=== PATIENT | female | born 1995 | race Caucasian/White ===

== ENCOUNTER 2017-12-13 02:31 | Emergency (ER) | payer SELFPAY ==
--- NOTE | 2017-12-13 03:39 | ER ---
Nurse's Notes [facility] Name: Vaishnavi Dey Age: 22 yrs Sex: Female : 1995 Arrival Date: 12/13/2017 Time: 02:35 Bed 5 Private MD: Diagnosis: Bronchitis, not specified as acute or chronic Presentation: 12/13 02:50 Presenting complaint: Patient states: she thinks she has the flu with congestion, body bb aches, fever, voice change. Transition of care: patient was not received from another setting of care. Onset of symptoms was December 12, 2017. Care prior to arrival: Medication(s) given: Motrin, at approx 2000 last night. 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 - Social history:: Smoking status: Patient uses tobacco products, smokes one-half pack cigarettes per day, Patient/guardian denies using alcohol, street drugs. - Family history:: not pertinent. Screenin:11 Abuse screen: Denies threats or abuse. Denies injuries from another. Nutritional lp1 screening: No deficits noted. Tuberculosis screening: No symptoms or risk factors identified. Fall Risk None identified. Assessment: 03:05 General: Appears ill, Behavior is calm, cooperative, appropriate for age. Pain: Denies lp1 pain. Neuro: Level of Consciousness is awake, alert, obeys commands. Cardiovascular: Patient's skin is warm and dry. Respiratory: Reports cough that is Airway is patent Respiratory effort is even, unlabored, Breath sounds are clear bilaterally. GI: No signs and/or symptoms were reported involving the gastrointestinal system. : No signs and/or symptoms were reported regarding the genitourinary system. EENT: Throat is reddened has enlarged tonsils Reports nasal congestion. 03:05 Derm: Skin is pink, warm \T\ dry. Musculoskeletal: Circulation, motion, and sensation lp1 intact. Vital Signs: 02:52 BP 127 / 91; Pulse 118; Resp 18 S; Temp 99.2(O); Pulse Ox 96% on R/A; Weight 79.38 kg bb (R); Height 5 ft. 2 in. (157.48 cm) (R); Pain 4/10; 03:45 BP 122 / 86; Pulse 108; Resp 18; Pulse Ox 97% on R/A; lp1 02:52 Body Mass Index 32.01 (79.38 kg, 157.48 cm) bb ED Course: 02:35 Patient arrived in ED. do 02:43 Myranda Moses MD is Attending Physician. ma2 02:52 Triage completed. bb 02:52 Arm band placed on Patient placed in an exam room, on pulse oximetry. Family bb accompanied patient. 03:04 Virginie Crowley, RN is Primary Nurse. lp1 03:04 Flu and/or RSV swab sent to lab. Strep swab sent to lab. lp1 03:11 Patient has correct armband on for positive identification. lp1 03:11 No provider procedures requiring assistance completed. lp1 03:39 Throat Culture Sent. bp 03:43 Patient did not have IV access during this emergency room visit. lp1 Administered Medications: 03:44 Drug: [place] (7.5 mg-325 mg) 1 tabs Route: PO; lp1 03:44 Follow up: Response: Medication administered at discharge. lp1 Outcome: 03:38 Discharge ordered by . ma2 03:44 Discharged to home ambulatory, with family. lp1 03:44 Condition: good 03:44 Discharge instructions given to patient, Instructed on discharge instructions, follow up and referral plans. medication usage, Demonstrated understanding of instructions, follow-up care, medications, Prescriptions given X 2. 03:45 Patient left the ED. lp1 Signatures: Noa Chawla RN RN bb Virginie Crowley, DANIELE RN lp1 Clarissa Moon Brian RN DANIELE bp Myranda Moses MD MD ma2
--- NOTE | 2017-12-13 03:39 | EDPHYS ---
Physician Documentation [facility] Name: Vaishnavi Dey Age: 22 yrs Sex: Female : 1995 Arrival Date: 12/13/2017 Time: 02:35 Bed 5 Private MD: ED Physician Myranda Moses HPI: 12/13 03:39 This 22 yrs old Female presents to ER via Ambulatory with complaints of Flu ma2 Symptoms. 02:59 The patient presents with sore throat. The patient describes throat pain as burning. ma2 Onset: The symptoms/episode began/occurred gradually, 2 day(s) ago. Associated signs and symptoms: Pertinent positives: cough. Associated signs and symptoms: Pertinent negatives diarrhea, dysphagia. The patient has experienced similar episodes in the past. 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 - Social history:: Smoking status: Patient uses tobacco products, smokes one-half pack cigarettes per day, Patient/guardian denies using alcohol, street drugs. - Family history:: not pertinent. ROS: 02:59 ENT: Positive for ear pain, hoarseness, sore throat. ma2 02:59 All other systems are negative. 03:39 Constitutional: Negative for fever, chills, and weight loss, Eyes: Negative for injury, ma2 pain, redness, and discharge. Exam: 02:59 Constitutional: This is a well developed, well nourished patient who is awake, alert, ma2 and in no acute distress. Head/Face: Normocephalic, atraumatic. Eyes: Pupils equal round and reactive to light, extra-ocular motions intact. Lids and lashes normal. Conjunctiva and sclera are non-icteric and not injected. Cornea within normal limits. Periorbital areas with no swelling, redness, or edema. Chest/axilla: Normal chest wall appearance and motion. Nontender with no deformity. No lesions are appreciated. Cardiovascular: Regular rate and rhythm with a normal S1 and S2. No gallops, murmurs, or rubs. Normal PMI, no JVD. No pulse deficits. Respiratory: Lungs have equal breath sounds bilaterally, clear to auscultation and percussion. No rales, rhonchi or wheezes noted. No increased work of breathing, no retractions or nasal flaring. 02:59 ENT: TM's: are normal, Nose: is normal, Posterior pharynx: erythema, exudate, is not appreciated. Vital Signs: 02:52 BP 127 / 91; Pulse 118; Resp 18 S; Temp 99.2(O); Pulse Ox 96% on R/A; Weight 79.38 kg bb (R); Height 5 ft. 2 in. (157.48 cm) (R); Pain 4/10; 03:45 BP 122 / 86; Pulse 108; Resp 18; Pulse Ox 97% on R/A; lp1 02:52 Body Mass Index 32.01 (79.38 kg, 157.48 cm) bb MDM: 02:43 Patient medically screened. [facility] 02:59 Differential diagnosis: gerson-barbosa virus, tonsillitis, upper respiratory infection, ma2 viral syndrome. 03:38 Data reviewed: vital signs, nurses notes. Counseling: I had a detailed discussion with pa2 the patient and/or guardian regarding: the historical points, exam findings, and any diagnostic results supporting the discharge/admit diagnosis, the presence of at least one elevated blood pressure reading (>120/80) during this emergency department visit, the need for outpatient follow up. Response to treatment: the patient's symptoms have markedly improved after treatment. 12/13 02:44 Order name: Flu; Complete Time: 03:33 [facility] 12/13 02:44 Order name: Strep; Complete Time: 03:33 [facility] 12/13 03:23 Order name: Throat Culture EDMS Administered Medications: 03:44 Drug: [place] (7.5 mg-325 mg) 1 tabs Route: PO; lp1 03:44 Follow up: Response: Medication administered at discharge. lp1 Disposition: 12/13/17 03:38 Discharged to Home. Impression: Bronchitis, not specified as acute or chronic. - Condition is Stable. - Discharge Instructions: Acute Bronchitis. - Prescriptions for Tylenol- Codeine #3 300-30 mg Oral Tablet - take 2 tablet by ORAL route every 6 hours As needed; 30 tablet. Zithromax Z- Tanner 250 mg Oral Tablet - take 1 tablet by ORAL route as directed for 5 days Day 1 - take two (2) tablets one time. Day 2, 3, 4 , 5 take one (1) tablet once daily.; 6 tablet. - Work release form, Medication Reconciliation Form, Thank You Letter, Antibiotic Education, Prescription Opioid Use form. - Follow up: Private Physician; When: Tomorrow; Reason: Continuance of care. - Problem is new. - Symptoms have improved. 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
[2017-12-13] MEDS ORDERED: HYDROCODONE/APAP 7.5/325 MG TAB ONE (03:40)
== END 2017-12-13 03:45 | disposition home or self-care (01) ==
LOC: ER 02:31
DX: J40 Bronchitis, not specified as acute or chronic (principal); F17.210 Nicotine dependence, cigarettes, uncomplicated; Z88.0 Allergy status to penicillin; Z88.1 Allergy status to other antibiotic agents
CPT/HCPCS: 87070; 87081; 87804; 99284

== ENCOUNTER 2018-06-20 16:56 | Emergency (ER) | payer SELFPAY ==
--- NOTE | 2018-06-20 17:21 | EDPHYS ---
Physician Documentation [facility] Name: Vaishnavi Dey Age: 23 yrs Sex: Female : 1995 Arrival Date: 06/20/2018 Time: 16:58 Bed 5 Private MD: ED Physician Ronnie Womack HPI: 06/20 17:18 This 23 yrs old Female presents to ER via Ambulatory with complaints of Ear jr8 Pain. 17:18 The patient presents with pain. The complaints affect the right ear. Onset: The jr8 symptoms/episode began/occurred gradually, 2 week(s) ago. Modifying factors: The symptoms are alleviated by nothing, the symptoms are aggravated by nothing. Associated signs and symptoms: Pertinent positives: fever, sore throat, cough, sinus trouble. Severity of symptoms: At their worst the symptoms were moderate in the emergency department the symptoms are unchanged. The patient has not experienced similar symptoms in the past. The patient has not recently seen a physician. 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 - Social history:: Smoking status: Patient uses tobacco products, smokes one-half pack cigarettes per day. - Ebola Screening: : Patient denies travel to an Ebola-affected area in the 21 days before illness onset. ROS: 17:18 Eyes: Negative for injury, pain, redness, and discharge, Neck: Negative for injury, jr8 pain, and swelling, Cardiovascular: Negative for chest pain, palpitations, and edema, Respiratory: Negative for shortness of breath, cough, wheezing, and pleuritic chest pain, Abdomen/GI: Negative for abdominal pain, nausea, vomiting, diarrhea, and constipation, Back: Negative for injury and pain, MS/Extremity: Negative for injury and deformity, Skin: Negative for injury, rash, and discoloration, Neuro: Negative for headache, weakness, numbness, tingling, and seizure. 17:18 ENT: Positive for ear pain, rhinorrhea, sinus congestion, sinus pain, sore throat. Exam: 17:18 Head/Face: Normocephalic, atraumatic. Eyes: Pupils equal round and reactive to light, jr8 extra-ocular motions intact. Lids and lashes normal. Conjunctiva and sclera are non-icteric and not injected. Cornea within normal limits. Periorbital areas with no swelling, redness, or edema. Cardiovascular: Regular rate and rhythm with a normal S1 and S2. No gallops, murmurs, or rubs. Normal PMI, no JVD. No pulse deficits. Respiratory: Lungs have equal breath sounds bilaterally, clear to auscultation and percussion. No rales, rhonchi or wheezes noted. No increased work of breathing, no retractions or nasal flaring. Abdomen/GI: Soft, non-tender, with normal bowel sounds. No distension or tympany. No guarding or rebound. No evidence of tenderness throughout. Back: No spinal tenderness. No costovertebral tenderness. Full range of motion. Skin: Warm, dry with normal turgor. Normal color with no rashes, no lesions, and no evidence of cellulitis. MS/ Extremity: Pulses equal, no cyanosis. Neurovascular intact. Full, normal range of motion. Neuro: Awake and alert, GCS 15, oriented to person, place, time, and situation. Cranial nerves II-XII grossly intact. Motor strength 5/5 in all extremities. Sensory grossly intact. Cerebellar exam normal. Normal gait. 17:18 ENT: External ear(s): are unremarkable, Ear canal(s): are normal, clear, TM's: fluid levels, on the right, Examination of the other ear shows no obvious abnormality, Nose: External nose: no obvious acute abnormality, Nasal septum: is midline, Nasal mucosa: moist, Turbinates: are normal, Mouth: Lips: moist, Oral mucosa: pink and intact, moist, Gums: pink, Tongue: is moist, Posterior pharynx: Airway: patent, Tonsils: are normal in appearance, Uvula: midline, swelling, is not appreciated, erythema, is not appreciated. 17:18 Neck: C-spine: appears grossly normal, Thyroid: appears normal, Trachea: is midline with no obvious abnormalities, ROM/movement: is normal, is supple, without pain, no range of motions limitations, no meningismus, no nuchal rigidity, negative Brudzinski's sign, negative Kernig's sign, Lymph nodes: lymphadenopathy is appreciated, anterior cervical nodes, submandibular nodes. Vital Signs: 17:01 BP 132 / 96; Pulse 89; Resp 18; Temp 97.0; Pulse Ox 99% on R/A; Weight 74.84 kg (R); aj1 Height 5 ft. 2 in. (157.48 cm) (R); Pain 6/10; 17:01 Body Mass Index 30.18 (74.84 kg, 157.48 cm) aj1 MDM: 17:04 Patient medically screened. jr8 17:18 Data reviewed: vital signs, nurses notes, and as a result, I will discharge patient. jr8 Data interpreted: Pulse oximetry: on room air is 99 %. Interpretation: normal. Counseling: I had a detailed discussion with the patient and/or guardian regarding: the historical points, exam findings, and any diagnostic results supporting the discharge/admit diagnosis, the need for outpatient follow up, a family practitioner, to return to the emergency department if symptoms worsen or persist or if there are any questions or concerns that arise at home. Administered Medications: 17:26 Drug: TORadol 60 mg Route: IM; Site: left gluteus; hb 17:45 Follow up: Response: Pain is decreased bp 17:45 Follow up: Response: No adverse reaction hb 17:26 Drug: [place] 5 mg-325 mg 1 tabs Route: PO; hb 17:45 Follow up: Response: Pain is decreased bp 17:46 Follow up: Response: No adverse reaction hb Disposition: 18:55 Co-signature as Attending Physician, Ronnie Womack MD I agree with the assessment and kdr plan of care. Disposition: 06/20/18 17:21 Discharged to Home. Impression: Acute serous otitis media, right ear, Acute lymphadenitis of face, head and neck, Acute upper respiratory infection, unspecified. - Condition is Stable. - Discharge Instructions: Otitis Media, Adult, Serous Otitis Media, Upper Respiratory Infection, Adult, Lymphadenopathy. - Prescriptions for Ibuprofen 800 mg Oral Tablet - take 1 tablet by ORAL route every 12 hours As needed take with food; 20 tablet. Prednisone 20 mg Oral Tablet - take 1 tablet by ORAL route once daily for 5 days; 5 tablet. Tessalon Perles 100 mg Oral Capsule - take 1 capsule by ORAL route every 8 hours As needed; 15 capsule. Zithromax Z- Tanner 250 mg Oral Tablet - take 1 tablet by ORAL route as directed for 5 days Day 1 - take two (2) tablets one time. Day 2, 3, 4 , 5 take one (1) tablet once daily.; 6 tablet. - Medication Reconciliation Form, Thank You Letter, Antibiotic Education, Prescription Opioid Use form. - Follow up: Private Physician; When: 1 week; Reason: Recheck today's complaints, Continuance of care, Re-evaluation by your physician. - Problem is new. - Symptoms have improved. Signatures: Citlali Leblanc RN RN aj1 Ronnie Womack MD MD [facility] Reinaldo Mccarty PA PA jr8 Benita Ramirez RN RN Emmett Leggett RN bp Corrections: (The following items were deleted from the chart) 17:46 17:21 06/20/2018 17:21 Discharged to Home. Impression: Acute serous otitis media, right hb ear; Acute lymphadenitis of face, head and neck; Acute upper respiratory infection, unspecified. Condition is Stable. Forms are Medication Reconciliation Form, Thank You Letter, Antibiotic Education, Prescription Opioid Use. Follow up: Private Physician; When: 1 week; Reason: Recheck today's complaints, Continuance of care, Re-evaluation by your physician. Problem is new. Symptoms have improved. jr8
--- NOTE | 2018-06-20 17:21 | ER ---
Nurse's Notes [facility] Name: Vaishnavi Dey Age: 23 yrs Sex: Female : 1995 Arrival Date: 06/20/2018 Time: 16:58 Bed 5 Private MD: Diagnosis: Acute serous otitis media, right ear;Acute lymphadenitis of face, head and neck;Acute upper respiratory infection, unspecified Presentation: 06/20 17:00 Presenting complaint: Patient states: Right ear pain, right jaw pain, sore throat, and aj1 fever for the past 2 weeks. TMax 101. Patient has not seen her PHCP regarding this complaint. Transition of care: patient was not received from another setting of care. Onset of symptoms was June 2018. Risk Assessment: Do you want to hurt yourself or someone else? Patient reports no desire to harm self or others. Initial Sepsis Screen: Does the patient meet any 2 criteria? No. Patient's initial sepsis screen is negative. Does the patient have a suspected source of infection? Yes: Other: sore throat, ear pain. Care prior to arrival: None. 17:00 Method Of Arrival: Ambulatory aj1 17:00 Acuity: VICKY 4 aj1 Triage Assessment: 17:01 General: Appears in no apparent distress. uncomfortable, Behavior is calm, cooperative, aj1 appropriate for age. Pain: Complains of pain in left aspect of posterior pharynx, right aspect of posterior pharynx, right jaw and right ear Pain currently is 6 out of 10 on a pain scale. EENT: Reports ear pain, jaw pain, sore throat. Neuro: Level of Consciousness is awake, alert, obeys commands. Cardiovascular: Patient's skin is warm and dry. Respiratory: Airway is patent Respiratory effort is even, unlabored, Respiratory pattern is regular, symmetrical. 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 - Social history:: Smoking status: Patient uses tobacco products, smokes one-half pack cigarettes per day. - Ebola Screening: : Patient denies travel to an Ebola-affected area in the 21 days before illness onset. Screenin:24 Abuse screen: Denies threats or abuse. Denies injuries from another. Nutritional bp screening: No deficits noted. Tuberculosis screening: No symptoms or risk factors identified. Fall Risk None identified. Assessment: 17:00 General: Appears in no apparent distress. comfortable, obese, Behavior is cooperative, bp appropriate for age, anxious. Pain: Complains of pain in right ear and mouth and face and right jaw. Neuro: Level of Consciousness is awake, alert, obeys commands, Oriented to person, place, time, situation, Appropriate for age. Cardiovascular: No deficits noted. Respiratory: Airway is patent Respiratory effort is even, unlabored, Respiratory pattern is regular, symmetrical. GI: No signs and/or symptoms were reported involving the gastrointestinal system. : No signs and/or symptoms were reported regarding the genitourinary system. EENT: Reports pain in right ear. Derm: No deficits noted. Musculoskeletal: Circulation, motion, and sensation intact. Range of motion: intact in all extremities. Vital Signs: 17:01 BP 132 / 96; Pulse 89; Resp 18; Temp 97.0; Pulse Ox 99% on R/A; Weight 74.84 kg (R); aj1 Height 5 ft. 2 in. (157.48 cm) (R); Pain 6/10; 17:01 Body Mass Index 30.18 (74.84 kg, 157.48 cm) aj1 ED Course: 16:58 Patient arrived in ED. tw3 17:01 Triage completed. aj1 17:01 Arm band placed on Patient placed in an exam room. aj1 17:04 Emmett Leggett, RN is Primary Nurse. bp 17:04 Reinaldo Mccarty PA is PHCP. jr8 17:04 Ronnie Womack MD is Attending Physician. jr8 17:24 Patient has correct armband on for positive identification. Placed in gown. Bed in low bp position. Call light in reach. Side rails up X2. Adult w/ patient. 17:24 No provider procedures requiring assistance completed. Patient did not have IV access bp during this emergency room visit. Administered Medications: 17:26 Drug: TORadol 60 mg Route: IM; Site: left gluteus; hb 17:45 Follow up: Response: Pain is decreased bp 17:45 Follow up: Response: No adverse reaction hb 17:26 Drug: [place] 5 mg-325 mg 1 tabs Route: PO; hb 17:45 Follow up: Response: Pain is decreased bp 17:46 Follow up: Response: No adverse reaction hb Outcome: 17:21 Discharge ordered by MD. vega 17:46 Discharged to home ambulatory. hb 17:46 Condition: stable 17:46 Discharge instructions given to patient, Instructed on discharge instructions, follow up and referral plans. medication usage, Demonstrated understanding of instructions, follow-up care, medications, Prescriptions given X 4. 17:46 Patient left the ED. hb Signatures: Citlali Leblanc RN RN aj1 Reinaldo Mccarty PA PA jr8 Benita Ramirez, RN RN Stacy Sharma tw3 Emmett Leggett RN RN bp
[2018-06-20] MEDS ORDERED: KETOROLAC 30 MG/ML INJ ONE (17:31)
[2018-06-20] MEDS ORDERED: HYDROCODONE/APAP 5/325 MG TAB ONE (17:31)
== END 2018-06-20 17:46 | disposition home or self-care (01) ==
LOC: ER 16:56
DX: H65.01 Acute serous otitis media, right ear (principal); J06.9 Acute upper respiratory infection, unspecified; L04.0 Acute lymphadenitis of face, head and neck; F17.210 Nicotine dependence, cigarettes, uncomplicated; Z88.0 Allergy status to penicillin; Z88.1 Allergy status to other antibiotic agents
CPT/HCPCS: 96372; 99283

== ENCOUNTER 2018-08-29 14:46 | Emergency (ER) | payer SELFPAY ==
[2018-08-29 16:36] LABS: Absolute Lymphocytes (CBC) 2.9 K/uL (0.7-4.9); Absolute Monocytes 0.6 K/uL (0.1-1.3); Absolute Neutrophil 4.7 K/uL (1.8-8.0); Basophils % 0.3 % (0-1.3); Eosinophils % 1.4 % (0-4.4); Hematocrit 40.5 % (36.0-45.0); Lymphocytes % 34.4 % (15.3-44.8); MPV 9.2 fL (7.6-11.3); Monocytes % 6.9 % (3.3-12.3); RBC Red Blood Cell Count 4.55 M/uL (3.86-4.86)
[2018-08-29] MEDS ORDERED: ONDANSETRON 4 MG/2 ML VIAL ONE (16:40)
[2018-08-29] MEDS ORDERED: NA CHLORIDE 0.9% 1,000 ML ONE (16:40)
[2018-08-29 16:49] LABS: ALT/SGPT 21 U/L (12-78); AST/SGOT 13 U/L (15-37); Albumin 4.2 g/dL (3.4-5.0); Alkaline Phosphatase 74 U/L (45-117); BUN Blood Urea Nitrogen 9 mg/dL (7-18); Bicarbonate 26 mmol/L (21-32); Bilirubin Direct < 0.1 mg/dL (0-0.2); Bilirubin Total 0.2 mg/dL (0.2-1.0); Glucose Level 80 mg/dL (74-106); Lipase 99 U/L (73-393); Protein, Total 8.1 g/dL (6.4-8.2); Sodium Level 140 mmol/L (136-145)
[2018-08-29 16:59] LABS: Urine Blood TRACE (NEG); Urine Glucose NEGATIVE (NEG); Urine Protein TRACE (NEG)
--- NOTE | 2018-08-29 17:04 | EDPHYS ---
Physician Documentation [facility] Name: Vaishnavi Dey Age: 23 yrs Sex: Female : 1995 Arrival Date: 08/29/2018 Time: 14:47 Bed 3 Private MD: ED Physician Myranda Moses HPI: 08/29 16:48 This 23 yrs old Female presents to ER via Ambulatory with complaints of kb Nausea/Vomiting/Diarrhea. 16:48 The patient presents to the emergency department with nausea, vomiting, diarrhea. The kb patient has not experienced similar symptoms in the past. The patient has not recently seen a physician. 16:48 Onset: The symptoms/episode began/occurred 3 day(s) ago. Possible causes: unknown. The kb symptoms are aggravated by nothing. The symptoms are alleviated by nothing. Associated signs and symptoms: Pertinent positives: diarrhea, nausea, vomiting. Severity of symptoms: At their worst the symptoms were moderate in the emergency department the symptoms are unchanged. 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 - Social history:: Smoking status: Patient uses tobacco products, smokes one-half pack cigarettes per day. - Ebola Screening: : No symptoms or risks identified at this time. ROS: 16:47 Constitutional: Negative for fever, chills, and weight loss, ENT: Negative for injury, kb pain, and discharge, Neck: Negative for injury, pain, and swelling, Cardiovascular: Negative for chest pain, palpitations, and edema, Respiratory: Negative for shortness of breath, cough, wheezing, and pleuritic chest pain, Back: Negative for injury and pain, : Negative for injury, bleeding, discharge, and swelling, MS/Extremity: Negative for injury and deformity, Skin: Negative for injury, rash, and discoloration, Neuro: Negative for headache, weakness, numbness, tingling, and seizure. 16:47 Abdomen/GI: Positive for nausea, vomiting, and diarrhea, Negative for abdominal pain, constipation, abdominal cramps, abdominal distension, anorexia. Exam: 16:47 Constitutional: This is a well developed, well nourished patient who is awake, alert, kb and in no acute distress. Head/Face: Normocephalic, atraumatic. Chest/axilla: Normal chest wall appearance and motion. Nontender with no deformity. No lesions are appreciated. Cardiovascular: Regular rate and rhythm with a normal S1 and S2. No gallops, murmurs, or rubs. Normal PMI, no JVD. No pulse deficits. Respiratory: Lungs have equal breath sounds bilaterally, clear to auscultation and percussion. No rales, rhonchi or wheezes noted. No increased work of breathing, no retractions or nasal flaring. Abdomen/GI: Soft, non-tender, with normal bowel sounds. No distension or tympany. No guarding or rebound. No evidence of tenderness throughout. Skin: Warm, dry with normal turgor. Normal color with no rashes, no lesions, and no evidence of cellulitis. MS/ Extremity: Pulses equal, no cyanosis. Neurovascular intact. Full, normal range of motion. Neuro: Awake and alert, GCS 15, oriented to person, place, time, and situation. Cranial nerves II-XII grossly intact. Motor strength 5/5 in all extremities. Sensory grossly intact. Cerebellar exam normal. Normal gait. Vital Signs: 14:52 BP 119 / 77; Resp 20; Temp 98.3; Pulse Ox 99% ; Weight 77.11 kg; Height 5 ft. 2 in. sv (157.48 cm); Pain 6/10; 16:34 BP 122 / 92 Supine; Pulse 87; tw2 16:34 BP 114 / 83 Sitting; Pulse 79; tw2 16:34 BP 117 / 85 Standing; Pulse 84; tw2 17:29 BP 111 / 78; Pulse 81; Resp 17; Pulse Ox 96% on R/A; tw2 14:52 Body Mass Index 31.09 (77.11 kg, 157.48 cm) sv 16:34 pt reports dizziness that remained the same throughout vitals, provider notified. tw2 MDM: 15:48 Patient medically screened. kb 16:47 Data reviewed: vital signs, nurses notes. Data interpreted: Pulse oximetry: on room air kb is 99 %. Interpretation: normal. 16:51 Counseling: I had a detailed discussion with the patient and/or guardian regarding: the kb historical points, exam findings, and any diagnostic results supporting the discharge/admit diagnosis, lab results, the need for outpatient follow up, a family practitioner, to return to the emergency department if symptoms worsen or persist or if there are any questions or concerns that arise at home. 08/29 15:48 Order name: Basic Metabolic Panel; Complete Time: 16:50 kb 08/29 15:48 Order name: CBC with Diff; Complete Time: 16:37 kb 08/29 15:48 Order name: Hepatic Function; Complete Time: 16:50 kb 08/29 15:48 Order name: Lipase; Complete Time: 16:50 kb 08/29 16:51 Order name: Urine Dipstick--Ancillary (enter results); Complete Time: 17:00 eb 08/29 16:51 Order name: Urine --Ancillary (enter results); Complete Time: 17:00 eb 08/29 15:48 Order name: IV Saline Lock; Complete Time: 16:17 kb 08/29 15:48 Order name: Labs collected and sent; Complete Time: 16:17 kb 08/29 15:48 Order name: Orthostatics; Complete Time: 16:36 kb 08/29 15:48 Order name: Urine Dipstick-Ancillary (obtain specimen); Complete Time: 16:21 kb 08/29 15:48 Order name: Urine Test (obtain specimen); Complete Time: 16:21 kb 08/29 16:52 Order name: PO challenge; Complete Time: 17:28 kb Administered Medications: 16:36 Drug: NS 0.9% 1000 ml Route: IV; Rate: 1000 ml; Site: right antecubital; sg 17:28 Follow up: Response: No adverse reaction; IV Status: Completed infusion; IV Intake: tw2 1000ml 16:36 Drug: Zofran 4 mg Route: IVP; Site: right antecubital; sg 17:28 Follow up: Response: No adverse reaction; Nausea is decreased tw2 Disposition: 17:23 Co-signature as Attending Physician, Myranda Moses MD. ma2 Disposition: 08/29/18 17:03 Discharged to Home. Impression: Nausea and vomiting, Diarrhea, unspecified. - Condition is Stable. - Discharge Instructions: Viral Gastroenteritis, Adult, [id number], Diarrhea, Adult. - Prescriptions for Zofran 4 mg Oral Tablet - take 1 tablet by ORAL route every 6 hours As needed; 20 tablet. - Medication Reconciliation Form, Thank You Letter, Antibiotic Education, Prescription Opioid Use, School release form, Work release form, Family Work Release form. - Follow up: Emergency Department; When: As needed; Reason: Worsening of condition. Follow up: Private Physician; When: 2 - 3 days; Reason: Recheck today's complaints, Continuance of care, Re-evaluation by your physician. Signatures: Dispatcher [employer] EDGabriela Schwarz, TRINA-Eda MENA-Collette Ellis, RN RN sv Montana Cruz RN RN sg Hui Duke RN RN tw2 KallieMyranda merchant MD MD ma2 Corrections: (The following items were deleted from the chart) 17:30 17:03 08/29/2018 17:03 Discharged to Home. Impression: Nausea and vomiting; Diarrhea, tw2 unspecified. Condition is Stable. Forms are Medication Reconciliation Form, Thank You Letter, Antibiotic Education, Prescription Opioid Use. Follow up: Emergency Department; When: As needed; Reason: Worsening of condition. Follow up: Private Physician; When: 2 - 3 days; Reason: Recheck today's complaints, Continuance of care, Re-evaluation by your physician. kb
--- NOTE | 2018-08-29 17:04 | ER ---
Nurse's Notes [facility] Name: Vaishnavi Dey Age: 23 yrs Sex: Female : 1995 Arrival Date: 08/29/2018 Time: 14:47 Bed 3 Private MD: Diagnosis: Nausea and vomiting;Diarrhea, unspecified Presentation: 08/29 14:51 Presenting complaint: Patient states: n/v/d/subjective fever x 3 days. Reports she had sv a syncopal episode earlier after vomiting. Transition of care: patient was not received from another setting of care. Onset of symptoms was August 26, 2018. Care prior to arrival: None. 14:51 Method Of Arrival: Ambulatory sv 14:51 Acuity: VICKY 3 sv 16:55 Risk Assessment: Do you want to hurt yourself or someone else? Patient reports no sg desire to harm self or others. Initial Sepsis Screen: Does the patient meet any 2 criteria? No. Patient's initial sepsis screen is negative. Does the patient have a suspected source of infection? No. Patient's initial sepsis screen is negative. Triage Assessment: 14:53 General: Appears in no apparent distress. uncomfortable, Behavior is calm, cooperative, sv appropriate for age. Pain: Complains of pain in scalp and abdomen Pain currently is 6 out of 10 on a pain scale. Neuro: Level of Consciousness is awake, alert, obeys commands, Oriented to person, place, time, situation, Moves all extremities. Full function Gait is steady, Speech is normal, Reports a syncopal episode. Respiratory: Respiratory effort is even, unlabored, Respiratory pattern is regular, symmetrical. GI: Reports diarrhea, intolerance of fluids, intolerance of food, nausea, vomiting. 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 - Social history:: Smoking status: Patient uses tobacco products, smokes one-half pack cigarettes per day. - Ebola Screening: : No symptoms or risks identified at this time. Screenin:37 Abuse screen: Denies threats or abuse. Denies injuries from another. Nutritional sg screening: No deficits noted. Tuberculosis screening: No symptoms or risk factors identified. Never had TB. Fall Risk None identified. Assessment: 16:37 General: Appears in no apparent distress. comfortable, well groomed, well developed, sg well nourished, Behavior is calm, cooperative, appropriate for age. Pain: Denies pain. 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 Full function Gait is steady, Speech is normal, Facial symmetry appears normal, Pupils are PERRLA. Cardiovascular: Capillary refill is brisk in bilateral fingers Patient's skin is warm and dry. Chest pain is denied. Respiratory: Airway is patent Respiratory effort is even, unlabored, Respiratory pattern is regular, symmetrical, Breath sounds are clear. GI: Abdomen is round non-distended, Bowel sounds present X 4 quads. Reports diarrhea, nausea, vomiting. : No signs and/or symptoms were reported regarding the genitourinary system. EENT: No signs and/or symptoms were reported regarding the EENT system. Derm: Skin is pink, warm \T\ dry. Musculoskeletal: No signs and/or symptoms reported regarding the musculoskeletal system. Vital Signs: 14:52 BP 119 / 77; Resp 20; Temp 98.3; Pulse Ox 99% ; Weight 77.11 kg; Height 5 ft. 2 in. sv (157.48 cm); Pain 6/10; 16:34 BP 122 / 92 Supine; Pulse 87; tw2 16:34 BP 114 / 83 Sitting; Pulse 79; tw2 16:34 BP 117 / 85 Standing; Pulse 84; tw2 17:29 BP 111 / 78; Pulse 81; Resp 17; Pulse Ox 96% on R/A; tw2 14:52 Body Mass Index 31.09 (77.11 kg, 157.48 cm) sv 16:34 pt reports dizziness that remained the same throughout vitals, provider notified. tw2 ED Course: 14:47 Patient arrived in ED. sb2 14:52 Triage completed. sv 14:52 Arm band placed on Patient placed in waiting room, Patient notified of wait time. sv 15:46 [facility] Cowan [facility]C [facility] kb 15:46 Myranda Moses MD is Attending Physician. kb 15:46 Placed in gown. Bed in low position. Adult w/ patient. Pulse ox on. NIBP on. Warm tw2 blanket given. 16:17 Basic Metabolic Panel Sent. ag 16:17 CBC with Diff Sent. ag 16:17 Hepatic Function Sent. ag 16:17 Lipase Sent. ag 16:20 Inserted saline lock: 20 gauge in right antecubital area, using aseptic technique. ag Blood collected. 16:36 Montana Cruz, RN is Primary Nurse. sg 16:53 Urine --Ancillary (enter results) Sent. ag 16:53 Urine Dipstick--Ancillary (enter results) Sent. ag 17:25 No provider procedures requiring assistance completed. sg 17:25 IV discontinued, intact, bleeding controlled, No redness/swelling at site. Pressure sg dressing applied. Administered Medications: 16:36 Drug: NS 0.9% 1000 ml Route: IV; Rate: 1000 ml; Site: right antecubital; sg 17:28 Follow up: Response: No adverse reaction; IV Status: Completed infusion; IV Intake: tw2 1000ml 16:36 Drug: Zofran 4 mg Route: IVP; Site: right antecubital; sg 17:28 Follow up: Response: No adverse reaction; Nausea is decreased tw2 Intake: 17:28 IV: 1000ml; Total: 1000ml. tw2 Outcome: 17:03 Discharge ordered by . kb 17:30 Discharged to home ambulatory, with family. tw2 17:30 Condition: stable 17:30 Discharge instructions given to patient, family, Instructed on discharge instructions, follow up and referral plans. medication usage, Demonstrated understanding of instructions, follow-up care, medications, Prescriptions given X 1. 17:30 Patient left the ED. tw2 Signatures: Gabriela Cowan, WOMEN'S MINISTRY DIRECTOR-C TRINA-Collette Ellis, RN RN Montana Cruz, RN RN Adriana Portillo Tara, RN DANIELE tw2 Tarah Goddard2
== END 2018-08-29 17:30 | disposition home or self-care (01) ==
LOC: ER 14:46
DX: R11.2 Nausea with vomiting, unspecified (principal); R19.7 Diarrhea, unspecified
CPT/HCPCS: 36415; 80048; 80076; 81003; 81025; 83690; 85025; 96361; 96374; 99284; J2405; J7030

== ENCOUNTER 2018-12-07 14:56 | Emergency (ER) | payer SELFPAY ==
[2018-12-07 15:37] LABS: Urine Blood TRACE (NEG); Urine Glucose NEGATIVE (NEG); Urine Protein NEGATIVE (NEG)
[2018-12-07] MEDS ORDERED: FAMOTIDINE 20 MG/2 ML VIAL IV ONE (15:39)
[2018-12-07] MEDS ORDERED: ONDANSETRON 4 MG/2 ML VIAL ONE (15:39)
[2018-12-07] MEDS ORDERED: NA CHLORIDE 0.9% 1,000 ML ONE (15:39)
[2018-12-07 15:46] LABS: Absolute Lymphocytes (CBC) 3.8 K/uL (0.7-4.9); Absolute Monocytes 0.5 K/uL (0.1-1.3); Absolute Neutrophil 6.2 K/uL (1.8-8.0); Basophils % 0.7 % (0-1.3); Eosinophils % 0.9 % (0-4.4); Hematocrit 42.3 % (36.0-45.0); Lymphocytes % 35.4 % (15.3-44.8); MPV 9.4 fL (7.6-11.3); Monocytes % 4.7 % (3.3-12.3); RBC Red Blood Cell Count 4.72 M/uL (3.86-4.86)
[2018-12-07 16:15] LABS: ALT/SGPT 27 U/L (12-78); AST/SGOT 12 U/L (15-37); Albumin 3.9 g/dL (3.4-5.0); Alkaline Phosphatase 80 U/L (45-117); BUN Blood Urea Nitrogen 7 mg/dL (7-18); Bicarbonate 26 mmol/L (21-32); Bilirubin Direct < 0.1 mg/dL (0-0.2); Bilirubin Total 0.2 mg/dL (0.2-1.0); Glucose Level 83 mg/dL (74-106); Lipase 90 U/L (73-393); Potassium 4.4 mmol/L (3.5-5.1); Protein, Total 7.6 g/dL (6.4-8.2); Sodium Level 140 mmol/L (136-145)
--- NOTE | 2018-12-07 16:43 | RAD REPORT ---
EXAM DESCRIPTION: CTAbdomen Pelvis W Contrast - 12/07/2018 4:35 pm CLINICAL HISTORY: Abdominal pain. iv contrast only;Abd pain COMPARISON: Abdomen Pelvis W Contrast dated 02/21/2016; CT ABD PELVIS W CONTRAST dated 09/10/2015 TECHNIQUE: Biphasic CT imaging of the abdomen and pelvis was performed with 100 ml non-ionic IV cont rast. All CT scans are performed using dose optimization technique as appropriate and may include automated exposure control or mA/KV adjustment according to patient size. FINDINGS: Mild linear subsegmental atelectasis is present both lung bases. The liver, spleen, pancreas, adrenal glands and kidneys are within normal limits. No bowel obstruction, free air, free fluid or abscess. The appendix is normal. No evidence of signi ficant lymphadenopathy. No suspicious bony findings. IMPRESSION: No acute intra-abdominal or pelvic finding.
--- NOTE | 2018-12-07 16:46 | ER ---
Nurse's Notes [facility] Name: Vaishnavi Dey Age: 23 yrs Sex: Female : 1995 Arrival Date: 12/07/2018 Time: 14:59 Bed 25 Private MD: None, None Diagnosis: Generalized abdominal pain;Nausea and vomiting Presentation: 12/07 15:05 Presenting complaint: Patient states: headache, N/V, shakiness and abd burning that ss began yesterday. Transition of care: patient was not received from another setting of care. Onset of symptoms was December 06, 2018. Risk Assessment: Do you want to hurt yourself or someone else? Patient reports no desire to harm self or others. Initial Sepsis Screen: Does the patient meet any 2 criteria? No. Patient's initial sepsis screen is negative. Does the patient have a suspected source of infection? No. Patient's initial sepsis screen is negative. Care prior to arrival: None. 15:05 Method Of Arrival: Ambulatory ss 15:05 Acuity: VICKY 3 ss Historical: - Allergies: 15:06 Keflex; ss 15:06 PENICILLINS (Hives); ss - Home Meds: 15:06 None [Active]; ss - PMHx: 15:06 Ovarian cyst; ss - PSHx: 15:06 None; ss - Immunization history:: Adult Immunizations up to date. - Social history:: Smoking status: Patient uses tobacco products, smokes one-half pack cigarettes per day. - Ebola Screening: : Patient denies exposure to infectious person Patient denies travel to an Ebola-affected area in the 21 days before illness onset. Screenin:52 Abuse screen: Denies threats or abuse. Denies injuries from another. Nutritional aj1 screening: No deficits noted. Tuberculosis screening: No symptoms or risk factors identified. 17:03 Fall Risk None identified. rv Assessment: 15:52 General: Appears in no apparent distress. uncomfortable, Behavior is calm, cooperative, aj1 appropriate for age. Pain: Complains of pain in umbilical area. Neuro: Level of Consciousness is awake, alert, obeys commands, Oriented to person, place, time, situation. Neuro: Reports headache. Cardiovascular: Patient's skin is warm and dry. Respiratory: Airway is patent Respiratory effort is even, unlabored, Respiratory pattern is regular, symmetrical. GI: Abdomen is non-distended, Abd is soft and non tender X 4 quads. Reports lower abdominal pain, nausea, vomiting. : No signs and/or symptoms were reported regarding the genitourinary system. EENT: No signs and/or symptoms were reported regarding the EENT system. Derm: No signs and/or symptoms reported regarding the dermatologic system. Skin is pink, warm \T\ dry. normal. Musculoskeletal: No signs and/or symptoms reported regarding the musculoskeletal system. Circulation, motion, and sensation intact. Vital Signs: 15:06 BP 137 / 90; Pulse 106; Resp 16; Temp 98.4(TE); Pulse Ox 98% on R/A; Weight 74.84 kg; ss Height 5 ft. 2 in. (157.48 cm); Pain 7/10; 15:06 Body Mass Index 30.18 (74.84 kg, 157.48 cm) ED Course: 14:59 Patient arrived in ED. mr 14:59 None, None is Private Physician. mr 15:06 Triage completed. ss 15:06 Gabriela Cowan FNP-C is PHCP. kb 15:06 Tejas Sims MD is Attending Physician. kb 15:06 Arm band placed on right wrist. ss 15:11 Citlali Leblanc, RN is Primary Nurse. aj1 15:52 Patient has correct armband on for positive identification. Bed in low position. Call aj1 light in reach. Side rails up X 1. 15:52 No provider procedures requiring assistance completed. aj1 16:35 CT Abd/Pelvis - W/Contrast In Process Unspecified. EDMS 17:03 IV discontinued, intact, bleeding controlled, No redness/swelling at site. Pressure rv dressing applied. Administered Medications: 15:32 Drug: Pepcid 20 mg Route: IVP; Site: left antecubital; aj1 17:03 Follow up: Response: Pain is decreased rv 15:33 Drug: NS 0.9% 1000 ml Route: IV; Rate: 1000 ml; Site: left antecubital; aj1 17:02 Follow up: IV Status: Completed infusion rv 15:33 Drug: Zofran 4 mg Route: IVP; Site: left antecubital; aj1 17:02 Follow up: Response: No adverse reaction; Nausea is decreased rv Outcome: 16:46 Discharge ordered by . kb 17:03 Discharged to home ambulatory. rv 17:03 Condition: good 17:03 Discharge instructions given to patient, Instructed on discharge instructions, follow up and referral plans. medication usage, Demonstrated understanding of instructions, follow-up care, medications, Prescriptions given X 2. 17:04 Patient left the ED. rv Signatures: Dispatcher [employer] EDMS Gabriela Cowan, STORY ANALYST-C TRINA-Citlali Castillo RN RN aj1 Jade Gaffney mr Kay Ramirez RN RN ss Brandon Shah RN RN rv
--- NOTE | 2018-12-07 16:46 | EDPHYS ---
Physician Documentation [facility] Name: Vaishnavi Dey Age: 23 yrs Sex: Female : 1995 Arrival Date: 12/07/2018 Time: 14:59 Bed 25 Private MD: None, None ED Physician Tejas Sims HPI: 12/07 15:25 This 23 yrs old Female presents to ER via Ambulatory with complaints of kb Vomiting, Abdominal Pain, Headache. 15:25 The patient presents with abdominal pain in the periumbilical area. Onset: The kb symptoms/episode began/occurred 2 day(s) ago, and became worse last night. The symptoms do not radiate. Associated signs and symptoms: Pertinent positives: nausea and vomiting, chills. The symptoms are described as burning. Modifying factors: The symptoms are alleviated by nothing, the symptoms are aggravated by nothing. Severity of pain: At its worst the pain was moderate in the emergency department the pain is unchanged. The patient has not experienced similar symptoms in the past. The patient has not recently seen a physician. Historical: - Allergies: 15:06 Keflex; ss 15:06 PENICILLINS (Hives); ss - Home Meds: 15:06 None [Active]; ss - PMHx: 15:06 Ovarian cyst; ss - PSHx: 15:06 None; ss - Immunization history:: Adult Immunizations up to date. - Social history:: Smoking status: Patient uses tobacco products, smokes one-half pack cigarettes per day. - Ebola Screening: : Patient denies exposure to infectious person Patient denies travel to an Ebola-affected area in the 21 days before illness onset. ROS: 15:20 ENT: Negative for injury, pain, and discharge, Neck: Negative for injury, pain, and kb swelling, Cardiovascular: Negative for chest pain, palpitations, and edema, Respiratory: Negative for shortness of breath, cough, wheezing, and pleuritic chest pain, Back: Negative for injury and pain, : Negative for injury, bleeding, discharge, and swelling, MS/Extremity: Negative for injury and deformity, Skin: Negative for injury, rash, and discoloration. 15:20 Constitutional: Positive for chills. 15:20 Abdomen/GI: Positive for abdominal pain, nausea and vomiting, Negative for diarrhea, constipation, abdominal cramps, abdominal distension, anorexia. 15:23 Neuro: Positive for headache. kb Exam: 15:23 Constitutional: This is a well developed, well nourished patient who is awake, alert, kb and in no acute distress. Head/Face: Normocephalic, atraumatic. ENT: Nares patent. No nasal discharge, no septal abnormalities noted. Tympanic membranes are normal and external auditory canals are clear. Oropharynx with no redness, swelling, or masses, exudates, or evidence of obstruction, uvula midline. Mucous membranes moist. Neck: Trachea midline, no thyromegaly or masses palpated, and no cervical lymphadenopathy. Supple, full range of motion without nuchal rigidity, or vertebral point tenderness. No Meningismus. Chest/axilla: Normal chest wall appearance and motion. Nontender with no deformity. No lesions are appreciated. Cardiovascular: Regular rate and rhythm with a normal S1 and S2. No gallops, murmurs, or rubs. Normal PMI, no JVD. No pulse deficits. Respiratory: Lungs have equal breath sounds bilaterally, clear to auscultation and percussion. No rales, rhonchi or wheezes noted. No increased work of breathing, no retractions or nasal flaring. Skin: Warm, dry with normal turgor. Normal color with no rashes, no lesions, and no evidence of cellulitis. MS/ Extremity: Pulses equal, no cyanosis. Neurovascular intact. Full, normal range of motion. Neuro: Awake and alert, GCS 15, oriented to person, place, time, and situation. Cranial nerves II-XII grossly intact. Motor strength 5/5 in all extremities. Sensory grossly intact. Cerebellar exam normal. Normal gait. 15:23 Abdomen/GI: Inspection: abdomen appears normal, Bowel sounds: normal, in all quadrants, Palpation: soft, in all quadrants, nontender, in the right upper quadrant, left upper quadrant and right lower quadrant, moderate abdominal tenderness, in the left lower quadrant. Vital Signs: 15:06 BP 137 / 90; Pulse 106; Resp 16; Temp 98.4(TE); Pulse Ox 98% on R/A; Weight 74.84 kg; ss Height 5 ft. 2 in. (157.48 cm); Pain 7/10; 15:06 Body Mass Index 30.18 (74.84 kg, 157.48 cm) ss MDM: 15:12 Patient medically screened. kb 15:23 Data reviewed: vital signs, nurses notes. Data interpreted: Pulse oximetry: on room air kb is 98 %. Interpretation: normal. 16:45 Counseling: I had a detailed discussion with the patient and/or guardian regarding: the kb historical points, exam findings, and any diagnostic results supporting the discharge/admit diagnosis, lab results, radiology results, the need for outpatient follow up, a family practitioner, to return to the emergency department if symptoms worsen or persist or if there are any questions or concerns that arise at home. 12/07 15:17 Order name: Basic Metabolic Panel; Complete Time: 16:15 kb 12/07 15:17 Order name: CBC with Diff; Complete Time: 15:53 kb 12/07 15:17 Order name: Hepatic Function; Complete Time: 16:15 kb 12/07 15:17 Order name: Lipase; Complete Time: 16:15 kb 12/07 15:17 Order name: Flu; Complete Time: 16:06 kb 12/07 15:28 Order name: Urine Dipstick--Ancillary (enter results); Complete Time: 15:38 bd 12/07 15:17 Order name: IV Saline Lock; Complete Time: 15:33 kb 12/07 15:17 Order name: Labs collected and sent; Complete Time: 15:33 kb 12/07 15:17 Order name: Urine Dipstick-Ancillary (obtain specimen); Complete Time: 15:25 kb 12/07 15:28 Order name: Urine --Ancillary (enter results); Complete Time: 15:38 bd 12/07 16:16 Order name: CT Abd/Pelvis - W/Contrast; Complete Time: 16:45 kb Administered Medications: 15:32 Drug: Pepcid 20 mg Route: IVP; Site: left antecubital; aj1 17:03 Follow up: Response: Pain is decreased rv 15:33 Drug: NS 0.9% 1000 ml Route: IV; Rate: 1000 ml; Site: left antecubital; aj1 17:02 Follow up: IV Status: Completed infusion rv 15:33 Drug: Zofran 4 mg Route: IVP; Site: left antecubital; aj1 17:02 Follow up: Response: No adverse reaction; Nausea is decreased rv Disposition: 12/08 07:08 Co-signature as Attending Physician, Tejas Sims MD. rn Disposition: 12/07/18 16:46 Discharged to Home. Impression: Generalized abdominal pain, Nausea and vomiting. - Condition is Stable. - Discharge Instructions: Nausea and Vomiting, Adult, Juwi-mk-Kwlh, Abdominal Pain, Adult, Yisc-co-Jtnh. - Prescriptions for Bentyl 20 mg Oral Tablet - take 1 tablet by ORAL route every 6 hours As needed; 20 tablet. Zofran 4 mg Oral Tablet - take 1 tablet by ORAL route every 6 hours As needed; 20 tablet. - Medication Reconciliation Form, Thank You Letter, Antibiotic Education, Prescription Opioid Use, Work release form form. - Follow up: Emergency Department; When: As needed; Reason: Worsening of condition. Follow up: Private Physician; When: 2 - 3 days; Reason: Recheck today's complaints, Continuance of care, Re-evaluation by your physician. Signatures: Dispatcher [employer] EDMS Gabriela Cowan, MATCHER LEATHER [employer]S-C M[employer]-Ckb Citlali Leblanc RN RN aj1 Tejas Sims MD MD rn Smirch, Shelby, RN RN ss Vicente, Ronaldo, RN RN rv Corrections: (The following items were deleted from the chart) 12/07 17:04 16:46 12/07/2018 16:46 Discharged to Home. Impression: Generalized abdominal pain; rv Nausea and vomiting. Condition is Stable. Forms are Medication Reconciliation Form, Thank You Letter, Antibiotic Education, Prescription Opioid Use. Follow up: Emergency Department; When: As needed; Reason: Worsening of condition. Follow up: Private Physician; When: 2 - 3 days; Reason: Recheck today's complaints, Continuance of care, Re-evaluation by your physician. kb
== END 2018-12-07 17:04 | disposition home or self-care (01) ==
LOC: ER 14:56
DX: R10.84 Generalized abdominal pain (principal); F17.210 Nicotine dependence, cigarettes, uncomplicated; Z88.0 Allergy status to penicillin; Z88.1 Allergy status to other antibiotic agents
CPT/HCPCS: 36415; 74177; 80048; 80076; 81003; 81025; 83690; 85025; 87804; 96361; 96374; 96375; 99283; J2405; J7030; Q9967

== ENCOUNTER 2019-07-14 16:41 | Emergency (ER) | payer SELFPAY ==
--- NOTE | 2019-07-14 17:48 | ER ---
Nurse's Notes [facility] Name: Vaishnavi Dey Age: 24 yrs Sex: Female : 1995 Arrival Date: 07/14/2019 Time: 16:42 Bed 10 Private MD: Diagnosis: Acute upper respiratory infection, unspecified;Acute sinusitis Presentation: 07/14 16:58 Presenting complaint: Sore throat, sinus congestion, nonproductive cough, fever, body hb aches, and headache x 3 days. TMAX 102. Transition of care: patient was not received from another setting of care. Onset of symptoms was July 12, 2019. Risk Assessment: Do you want to hurt yourself or someone else? Patient reports no desire to harm self or others. Care prior to arrival: None. 16:58 Method Of Arrival: Ambulatory hb 16:58 Acuity: VICKY 3 hb 18:03 Initial Sepsis Screen: Does the patient meet any 2 criteria? No. Patient's initial iw sepsis screen is negative. Does the patient have a suspected source of infection? No. Patient's initial sepsis screen is negative. Triage Assessment: 17:00 General: Appears in no apparent distress. Behavior is calm, cooperative. Pain: Pain hb currently is 5 out of 10 on a pain scale. EENT: Reports sore throat, sinus congestion. Neuro: Level of Consciousness is awake, alert, obeys commands, Oriented to person, place, time, situation. Cardiovascular: Capillary refill < 3 seconds Patient's skin is warm and dry. Respiratory: Reports cough that is Airway is patent Respiratory effort is even, unlabored, Respiratory pattern is regular, symmetrical, Breath sounds are clear bilaterally. 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 - Social history:: Smoking status: Patient/guardian denies using tobacco. - Ebola Screening: : No symptoms or risks identified at this time. Screenin:02 Abuse screen: Denies threats or abuse. Denies injuries from another. Nutritional hb screening: No deficits noted. Tuberculosis screening: No symptoms or risk factors identified. Fall Risk None identified. Assessment: 17:02 General: see triage assessment . hb 18:03 EENT: Throat. iw Vital Signs: 17:00 BP 151 / 92; Pulse 132; Resp 16; Temp 98.2(TE); Pulse Ox 97% on R/A; Weight 77.11 kg; hb Height 5 ft. 2 in. (157.48 cm); Pain 5/10; 17:54 BP 125 / 80; Pulse 115; Resp 18 S; Temp 98.3(O); Pulse Ox 100% ; iw 17:00 Body Mass Index 31.09 (77.11 kg, 157.48 cm) hb ED Course: 16:42 Patient arrived in ED. rg4 16:50 Gabriela Cowan FNP-C is [facility]. kb 16:50 Tejas Sims MD is Attending Physician. kb 16:59 Triage completed. hb 17:00 Arm band placed on. hb 17:02 Patient has correct armband on for positive identification. hb 17:13 Flu Sent. hb 17:13 Strep Sent. hb 17:53 Leatha Giles, RN is Primary Nurse. iw 18:03 No provider procedures requiring assistance completed. IV discontinued, intact, iw bleeding controlled, No redness/swelling at site. Pressure dressing applied. Administered Medications: No medications were administered Outcome: 17:48 Discharge ordered by MD. kb 18:03 Discharged to home ambulatory, with family. iw 18:03 Condition: good 18:03 Discharge instructions given to patient, family, Instructed on discharge instructions, follow up and referral plans. medication usage, Demonstrated understanding of instructions, follow-up care, medications, Prescriptions given X 2. 18:03 Patient left the ED. iw Signatures: Gabriela Cowan FNP-C FNP-Ckb Williams, Irene, RN RN Benita Ramirez RN RN Michelle Dick rg4 Corrections: (The following items were deleted from the chart) 17:00 16:58 Acuity: VICKY 4 hb hb 17:01 17:00 BP 151 / 92; Pulse 122bpm; Resp 16bpm; Pulse Ox 97% RA; Temp 98.2F Temporal; hb 77.11 kg; Height 5 ft. 2 in.; BMI: 31.0; Pain 5/10; hb
--- NOTE | 2019-07-14 17:49 | EDPHYS ---
Physician Documentation [facility] Name: Vaishnavi Dey Age: 24 yrs Sex: Female : 1995 Arrival Date: 07/14/2019 Time: 16:42 Bed 10 Private MD: ED Physician Tejas Sims HPI: 07/14 17:21 This 24 yrs old Female presents to ER via Ambulatory with complaints of Sore kb Throat, Body Aches. 17:21 The patient has not experienced similar symptoms in the past. The patient has not kb recently seen a physician. 17:21 The patient or guardian reports cough, that is intermittent, described as moderate, kb with no sputum, flu symptoms, arthralgias, low-grade fever. Onset: The symptoms/episode began/occurred 3 day(s) ago. Severity of symptoms: At their worst the symptoms were moderate, in the emergency department the symptoms are unchanged. Modifying factors: The symptoms are alleviated by nothing, the symptoms are aggravated by nothing. Associated signs and symptoms: Pertinent positives: fever, rhinorrhea, sore throat, Pertinent negatives: chest pain, diarrhea, ear ache, nausea, vomiting. 17:22 Pt reports sore throat that started 3 days ago. Yesterday started with fever, cough, kb body aches and malaise. . 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 - Social history:: Smoking status: Patient/guardian denies using tobacco. - Ebola Screening: : No symptoms or risks identified at this time. ROS: 17:20 Neck: Negative for injury, pain, and swelling, Cardiovascular: Negative for chest pain, kb palpitations, and edema, Abdomen/GI: Negative for abdominal pain, nausea, vomiting, diarrhea, and constipation, Back: Negative for injury and pain, : Negative for injury, bleeding, discharge, and swelling, MS/Extremity: Negative for injury and deformity, Skin: Negative for injury, rash, and discoloration, Neuro: Negative for headache, weakness, numbness, tingling, and seizure. 17:20 Constitutional: Positive for body aches, chills, fatigue, fever, malaise, Negative for poor PO intake, weight loss. 17:20 ENT: Positive for rhinorrhea, sinus congestion, sore throat. 17:20 Respiratory: Positive for cough, Negative for dyspnea on exertion, hemoptysis, orthopnea, pleurisy, shortness of breath, sputum production, wheezing. Exam: 17:20 Head/Face: Normocephalic, atraumatic. ENT: Nares patent. No nasal discharge, no kb septal abnormalities noted. Tympanic membranes are normal and external auditory canals are clear. Oropharynx with no redness, swelling, or masses, exudates, or evidence of obstruction, uvula midline. Mucous membranes moist. Neck: Trachea midline, no thyromegaly or masses palpated, and no cervical lymphadenopathy. Supple, full range of motion without nuchal rigidity, or vertebral point tenderness. No Meningismus. Chest/axilla: Normal chest wall appearance and motion. Nontender with no deformity. No lesions are appreciated. Cardiovascular: Regular rate and rhythm with a normal S1 and S2. No gallops, murmurs, or rubs. Normal PMI, no JVD. No pulse deficits. Respiratory: Lungs have equal breath sounds bilaterally, clear to auscultation and percussion. No rales, rhonchi or wheezes noted. No increased work of breathing, no retractions or nasal flaring. Abdomen/GI: Soft, non-tender, with normal bowel sounds. No distension or tympany. No guarding or rebound. No evidence of tenderness throughout. Skin: Warm, dry with normal turgor. Normal color with no rashes, no lesions, and no evidence of cellulitis. MS/ Extremity: Pulses equal, no cyanosis. Neurovascular intact. Full, normal range of motion. Neuro: Awake and alert, GCS 15, oriented to person, place, time, and situation. Cranial nerves II-XII grossly intact. Motor strength 5/5 in all extremities. Sensory grossly intact. Cerebellar exam normal. Normal gait. 17:20 Constitutional: The patient appears alert, awake, uncomfortable. Vital Signs: 17:00 BP 151 / 92; Pulse 132; Resp 16; Temp 98.2(TE); Pulse Ox 97% on R/A; Weight 77.11 kg; hb Height 5 ft. 2 in. (157.48 cm); Pain 5/10; 17:54 BP 125 / 80; Pulse 115; Resp 18 S; Temp 98.3(O); Pulse Ox 100% ; iw 17:00 Body Mass Index 31.09 (77.11 kg, 157.48 cm) hb MDM: 17:03 Patient medically screened. kb 17:21 Data reviewed: vital signs, nurses notes. Data interpreted: Pulse oximetry: on room air kb is 97 %. Interpretation: normal. Counseling: I had a detailed discussion with the patient and/or guardian regarding: the historical points, exam findings, and any diagnostic results supporting the discharge/admit diagnosis, lab results, the need for outpatient follow up, a family practitioner, to return to the emergency department if symptoms worsen or persist or if there are any questions or concerns that arise at home. 17:49 ED course: Pt smokes cigarettes daily, antibiotic prescribed for that reason. 07/14 16:50 Order name: Flu; Complete Time: 17:41 kb 07/14 16:50 Order name: Strep; Complete Time: 17:32 kb 07/14 17:40 Order name: Throat Culture EDMS Administered Medications: No medications were administered Disposition: 07/14/19 17:48 Discharged to Home. Impression: Acute upper respiratory infection, unspecified, Acute sinusitis. - Condition is Stable. - Discharge Instructions: Sinusitis, Adult, Slnz-rw-Wodu, Upper Respiratory Infection, Adult, Fuff-rr-Gdmm, Viral Respiratory Infection, Dzey-Ad-Toyu. - Prescriptions for Prednisone 20 mg Oral Tablet - take 1 tablet by ORAL route once daily for 5 days; 5 tablet. Zithromax Z- Tanner 250 mg Oral Tablet - take 1 tablet by ORAL route as directed for 5 days Day 1 - take two (2) tablets one time. Day 2, 3, 4 , 5 take one (1) tablet once daily.; 6 tablet. - Work release form, Medication Reconciliation Form, Thank You Letter, Antibiotic Education, Prescription Opioid Use form. - Follow up: Emergency Department; When: As needed; Reason: Worsening of condition. Follow up: Private Physician; When: 2 - 3 days; Reason: Recheck today's complaints, Continuance of care, Re-evaluation by your physician. Addendum: 07/17/2019 19:36 Co-signature as Attending Physician, Tejas Sims MD. r n Signatures: Dispatcher [employer] EDVT Gabriela Cowan, GARAGE HELPER-C GARAGE HELPER-Ckb Leatha Giles, RN Tejas Garcia MD MD rn Baxter, Heather, RN RN hb Corrections: (The following items were deleted from the chart) 07/14 17:49 17:48 07/14/2019 17:48 Discharged to Home. Impression: Acute upper respiratory kb infection, unspecified. Condition is Stable. Discharge Instructions: Upper Respiratory Infection, Adult, Hzjp-qb-Bzim, Viral Respiratory Infection, Ukbt-Op-Cjbl. Forms are Medication Reconciliation Form, Thank You Letter, Antibiotic Education, Prescription Opioid Use. Follow up: Emergency Department; When: As needed; Reason: Worsening of condition. Follow up: Private Physician; When: 2 - 3 days; Reason: Recheck today's complaints, Continuance of care, Re-evaluation by your physician. 18:03 17:49 07/14/2019 17:48 Discharged to Home. Impression: Acute upper respiratory iw infection, unspecified; Acute sinusitis. Condition is Stable. Discharge Instructions: Upper Respiratory Infection, Adult, Yjes-vo-Qeoc, Viral Respiratory Infection, Qrwk-Ss-Tdfb, Sinusitis, Adult, Yryr-kv-Fjfq. Prescriptions for Prednisone 20 mg Oral Tablet - take 1 tablet by ORAL route once daily for 5 days; 5 tablet, Zithromax Z-Tanner 250 mg Oral Tablet - take 1 tablet by ORAL route as directed for 5 days Day 1 - take two (2) tablets one time. Day 2, 3, 4 , 5 take one (1) tablet once daily.; 6 tablet. and Forms are Medication Reconciliation Form, Thank You Letter, Antibiotic Education, Prescription Opioid Use, Work release form. Follow up: Emergency Department; When: As needed; Reason: Worsening of condition. Follow up: Private Physician; When: 2 - 3 days; Reason: Recheck today's complaints, Continuance of care, Re-evaluation by your physician. kb
[2019-07-14 18:33] VITALS: BP 125/80; TEMP 98.3; O2SAT 100
== END 2019-07-14 18:03 | disposition home or self-care (01) ==
LOC: ER 16:41
DX: J06.9 Acute upper respiratory infection, unspecified (principal); J01.90 Acute sinusitis, unspecified; Z88.0 Allergy status to penicillin; Z88.1 Allergy status to other antibiotic agents
CPT/HCPCS: 87070; 87081; 87804; 99283

== ENCOUNTER 2019-09-07 13:09 | Emergency (ER) | payer SELFPAY ==
[2019-09-07] MEDS ORDERED: ALBUTEROL 2.5 MG/3 ML NEB SOL ONE (14:05)
[2019-09-07] MEDS ORDERED: IPRATROPIUM BROM 0.5MG/2.5ML ONE (14:05)
--- NOTE | 2019-09-07 14:41 | ER ---
Nurse's Notes [facility] Name: Vaishnavi Dey Age: 24 yrs Sex: Female : 1995 Arrival Date: 09/07/2019 Time: 13:11 Bed 7 Private MD: Diagnosis: Influenza due to identified novel influenza A virus Presentation: 09/07 13:27 Presenting complaint: Patient states: "I started with fever on Friday and it keeps aa5 getting worse". Pt c/o pain to head, eyes, nose. Reports nausea, SOB, chest congestion. 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 Transition of care: patient was not received from another setting of care. Onset of symptoms was September 2019. Risk Assessment: Do you want to hurt yourself or someone else? Patient reports no desire to harm self or others. Initial Sepsis Screen: Does the patient meet any 2 criteria? No. Patient's initial sepsis screen is negative. Does the patient have a suspected source of infection? No. Patient's initial sepsis screen is negative. Care prior to arrival: None. 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 - Social history:: Smoking status: Patient uses tobacco products, smokes one-half pack cigarettes per day. - Ebola Screening: : No symptoms or risks identified at this time. Screenin:35 Abuse screen: Denies threats or abuse. Denies injuries from another. Nutritional mg2 screening: No deficits noted. Tuberculosis screening: No symptoms or risk factors identified. Fall Risk None identified. Assessment: 13:36 General: Appears in no apparent distress. comfortable, Behavior is calm, cooperative. mg2 Pain: Complains of pain in chest. Neuro: Level of Consciousness is awake, alert, obeys commands, Oriented to person, place, time, situation. Cardiovascular: Capillary refill < 3 seconds Patient's skin is warm and dry. Respiratory: Airway is patent Respiratory effort is even, unlabored, Respiratory pattern is regular, symmetrical, Breath sounds are clear. Respiratory: Reports shortness of breath cough that is. GI: No signs and/or symptoms were reported involving the gastrointestinal system. : No signs and/or symptoms were reported regarding the genitourinary system. EENT: No signs and/or symptoms were reported regarding the EENT system. Derm: Skin is intact, is healthy with good turgor, Skin is pink, warm \\T\\ dry. normal. Musculoskeletal: Circulation, motion, and sensation intact. Capillary refill < 3 seconds. 14:50 Reassessment: Patient appears in no apparent distress at this time. Patient states mg2 feeling better. Vital Signs: 13:28 BP 117 / 81; Pulse 114; Resp 20 S; Temp 99.3(O); Pulse Ox 98% on R/A; Weight 83.91 kg aa5 (R); Height 5 ft. 2 in. (157.48 cm) (R); Pain 2/10; 14:41 BP 123 / 78; Pulse 98; Resp 18; Temp 99; Pulse Ox 96% on R/A; mg2 13:28 Body Mass Index 33.84 (83.91 kg, 157.48 cm) aa5 ED Course: 13:11 Patient arrived in ED. rg4 13:28 Triage completed. aa5 13:28 Arm band placed on. aa5 13:30 Patrick Anderson MD is Attending Physician. tw4 13:36 Carlos Tapia, RN is Primary Nurse. mg2 13:36 No provider procedures requiring assistance completed. Patient did not have IV access mg2 during this emergency room visit. 13:37 Patient has correct armband on for positive identification. mg2 13:47 Flu and/or RSV swab sent to lab. mg2 14:38 CXR XRAY In Process Unspecified. EDMS Administered Medications: 14:07 Drug: DuoNeb (3:1) (2.5 mg - 0.5 mg) 3 ml Route: Nebulizer; mg2 14:41 Follow up: Response: No adverse reaction mg2 Outcome: 14:40 Discharge ordered by . tw4 15:02 Discharged to home ambulatory. mg2 15:02 Condition: stable 15:02 Discharge instructions given to patient, family, Instructed on discharge instructions, follow up and referral plans. medication usage, Demonstrated understanding of instructions, follow-up care, medications, Prescriptions given X 2. 15:03 Patient left the ED. mg2 Signatures: Dispatcher [employer] EDMS Awilda Lind RN RN aa5 Michelle Dick rg4 Patrick Anderson MD MD tw4 Carlos Tapia RN RN mg2 Corrections: (The following items were deleted from the chart) 13:29 13:27 Presenting complaint: Patient states: "I started with fever on Friday and it aa5 keeps getting worse". Pt c/o pain to head, eyes, nose. Reports nausea, SOB, chest congestion. aa5 15:03 14:41 Pulse 98bpm; Resp 18bpm; Pulse Ox 96% RA; mg2 mg2
--- NOTE | 2019-09-07 14:42 | EDPHYS ---
Physician Documentation [facility] Name: Vaishnavi Dey Age: 24 yrs Sex: Female : 1995 Arrival Date: 09/07/2019 Time: 13:11 Bed 7 Private MD: ED Physician Patrick Anderson HPI: 09/07 21:47 This 24 yrs old Female presents to ER via Ambulatory with complaints of tw4 Congestion, Fever, Breathing Difficulty. 21:47 The patient reports fever, not measured (subjective). Onset: The symptoms/episode tw4 began/occurred today. Modifying factors: there are no obvious modifying factors. Associated signs and symptoms: Pertinent positives: arthralgias. Severity of symptoms: At their worst the symptoms were moderate in the emergency department the symptoms are unchanged. The patient has not experienced similar symptoms in the past. 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 - Social history:: Smoking status: Patient uses tobacco products, smokes one-half pack cigarettes per day. - Ebola Screening: : No symptoms or risks identified at this time. ROS: 21:47 Cardiovascular: Negative for chest pain, palpitations, and edema, Abdomen/GI: Negative tw4 for abdominal pain, nausea, vomiting, diarrhea, and constipation, Back: Negative for injury and pain, MS/Extremity: Negative for injury and deformity, Skin: Negative for injury, rash, and discoloration, Neuro: Negative for headache, weakness, numbness, tingling, and seizure. 21:47 Constitutional: Positive for body aches, fatigue, fever, Negative for chills. 21:47 Respiratory: Positive for cough, Negative for dyspnea on exertion, hemoptysis, orthopnea, shortness of breath. Exam: 21:47 Constitutional: This is a well developed, well nourished patient who is awake, alert, tw4 and in no acute distress. Head/Face: Normocephalic, atraumatic. Eyes: Pupils equal round and reactive to light, extra-ocular motions intact. Lids and lashes normal. Conjunctiva and sclera are non-icteric and not injected. Cornea within normal limits. Periorbital areas with no swelling, redness, or edema. Chest/axilla: Normal chest wall appearance and motion. Nontender with no deformity. No lesions are appreciated. Cardiovascular: Regular rate and rhythm with a normal S1 and S2. No gallops, murmurs, or rubs. Normal PMI, no JVD. No pulse deficits. Respiratory: Lungs have equal breath sounds bilaterally, clear to auscultation and percussion. No rales, rhonchi or wheezes noted. No increased work of breathing, no retractions or nasal flaring. Abdomen/GI: Soft, non-tender, with normal bowel sounds. No distension or tympany. No guarding or rebound. No evidence of tenderness throughout. Back: No spinal tenderness. No costovertebral tenderness. Full range of motion. MS/ Extremity: Pulses equal, no cyanosis. Neurovascular intact. Full, normal range of motion. Neuro: Awake and alert, GCS 15, oriented to person, place, time, and situation. Cranial nerves II-XII grossly intact. Motor strength 5/5 in all extremities. Sensory grossly intact. Cerebellar exam normal. Normal gait. Vital Signs: 13:28 BP 117 / 81; Pulse 114; Resp 20 S; Temp 99.3(O); Pulse Ox 98% on R/A; Weight 83.91 kg aa5 (R); Height 5 ft. 2 in. (157.48 cm) (R); Pain 2/10; 14:41 BP 123 / 78; Pulse 98; Resp 18; Temp 99; Pulse Ox 96% on R/A; mg2 13:28 Body Mass Index 33.84 (83.91 kg, 157.48 cm) aa5 MDM: 13:30 Patient medically screened. tw4 21:47 Differential diagnosis: viral Infection, bacterial infection, URI, bronchitis. Data tw4 reviewed: vital signs, nurses notes. Data reviewed: lab test result(s), Flu: positive. Counseling: I had a detailed discussion with the patient and/or guardian regarding: the historical points, exam findings, and any diagnostic results supporting the discharge/admit diagnosis, lab results. Special discussion: I discussed with the patient/guardian in detail that at this point there is no indication for admission to the hospital. It is understood, however, that if the symptoms persist or worsen the patient needs to return immediately for re-evaluation. 09/07 13:31 Order name: Flu; Complete Time: 14:39 tw4 09/07 13:47 Order name: Urine Dipstick--Ancillary (enter results) bd 09/07 13:31 Order name: CXR XRAY tw4 09/07 13:47 Order name: Urine --Ancillary (enter results) bd Administered Medications: 14:07 Drug: DuoNeb (3:1) (2.5 mg - 0.5 mg) 3 ml Route: Nebulizer; mg2 14:41 Follow up: Response: No adverse reaction mg2 Disposition: 09/07/19 14:40 Discharged to Home. Impression: Influenza due to identified novel influenza A virus. - Condition is Stable. - Discharge Instructions: Influenza, Adult. - Prescriptions for ProAir HFA 90 mcg/actuation Inhalation HFA aerosol inhaler - inhale 2 puff by INHALATION route every 4 hours; 1 Cartridge. Tamiflu 75 mg Oral Capsule - take 1 tablet by ORAL route every 12 hours for 5 days; 10 tablet. - Medication Reconciliation Form, Thank You Letter, Antibiotic Education, Prescription Opioid Use, Work release form form. - Follow up: Private Physician; When: Upon discharge from the Emergency Department; Reason: Recheck today's complaints, Continuance of care. - Problem is new. - Symptoms have improved. Signatures: Dispatcher [employer] EDMS Awilda Lind RN RN aa5 Patrick Anderson MD MD tw4 Carlos Tapia RN RN mg2 Corrections: (The following items were deleted from the chart) 15:03 14:40 09/07/2019 14:40 Discharged to Home. Impression: Influenza due to identified mg2 novel influenza A virus. Condition is Stable. Forms are Medication Reconciliation Form, Thank You Letter, Antibiotic Education, Prescription Opioid Use. Follow up: Private Physician; When: Upon discharge from the Emergency Department; Reason: Recheck today's complaints, Continuance of care. Problem is new. Symptoms have improved. tw4
[2019-09-07 15:14] VITALS: BP 123/78; TEMP 99; O2SAT 96
--- NOTE | 2019-09-07 15:30 | RAD REPORT ---
EXAM DESCRIPTION: RAD - Chest Single View - 09/07/2019 2:34 pm CLINICAL HISTORY: CONGESTION Chest pain. COMPARISON: CHEST PA AND LAT 2 VIEW dated 05/14/2011; CHEST PA AND LAT 2 VIEW dated 05/09/2010; CHEST P A AND LAT 2 VIEW dated 05/22/2009; CHEST PA AND LAT 2 VIEW dated 04/24/2004 FINDINGS: Portable technique limits examination quality. The lungs are grossly clear. The heart is normal in size. No displaced fractures. IMPRESSION: No acute intrathoracic process suspected.
[2019-09-07 18:02] LABS: Urine Blood NEGATIVE (NEG); Urine Glucose NEGATIVE (NEG); Urine Protein TRACE (NEG); Urine Specific Gravity 1.025 (1.005-1.030)
== END 2019-09-07 15:03 | disposition home or self-care (01) ==
LOC: ER 13:09
DX: J09.X2 Influenza due to identified novel influenza A virus with other respiratory manifestations (principal); Z88.0 Allergy status to penicillin; Z88.1 Allergy status to other antibiotic agents; F17.210 Nicotine dependence, cigarettes, uncomplicated
CPT/HCPCS: 71045; 81003; 81025; 87804; 94640; 99284

== ENCOUNTER 2020-04-19 20:07 | Emergency (ER) | payer SELFPAY ==
--- NOTE | 2020-04-19 21:46 | ER ---
Nurse's Notes [facility] Name: Vaishnavi Dey Age: 25 yrs Sex: Female : 1995 Arrival Date: 04/19/2020 Time: 20:11 Bed 5 Private MD: Diagnosis: Acute upper respiratory infection, unspecified Presentation: 04/19 20:25 Chief complaint: Patient states: Right sided ear pain, throat pain, facial pain for 1 ll1 week. Now has bilateral ear pain, bilateral throat pain for 2 days. No known fever. + nausea. Coronavirus screen: Client denies travel out of the [place] in the last 14 days. At this time, the client does not indicate any symptoms associated with coronavirus-19. Ebola Screen: Patient denies travel to an Ebola-affected area in the 21 days before illness onset. Initial Sepsis Screen: Does the patient meet any 2 criteria? HR > 90 bpm. No. Patient's initial sepsis screen is negative. Risk Assessment: Do you want to hurt yourself or someone else? Patient reports no desire to harm self or others. Onset of symptoms was April 12, 2020. 20:25 Method Of Arrival: Ambulatory ll1 20:25 Acuity: VICKY 4 ll1 21:00 Initial Sepsis Screen: Does the patient have a suspected source of infection? No. rr5 Patient's initial sepsis screen is negative. Historical: - Allergies: 20:25 Keflex; ll1 20:25 PENICILLINS (Hives); ll1 - PMHx: 20:25 Ovarian cyst; ll1 - PSHx: 20:25 None; ll1 - Immunization history:: Flu vaccine is not up to date. - Social history:: Smoking status: Patient reports the use of cigarette tobacco products, smokes one-half pack cigarettes per day, Patient/guardian denies using alcohol, street drugs. Screenin:00 Abuse screen: Denies threats or abuse. Denies injuries from another. Nutritional rr5 screening: No deficits noted. Tuberculosis screening: No symptoms or risk factors identified. Fall Risk None identified. Total Hood Fall Scale indicates No Risk (0-24 pts). Assessment: 20:50 General: Appears in no apparent distress. uncomfortable, Behavior is calm, cooperative, jb4 appropriate for age. Pain: Complains of pain in right ear, left ear and neck Pain does not radiate. Pain currently is 8 out of 10 on a pain scale. Quality of pain is described as throbbing. Neuro: Level of Consciousness is awake, alert, obeys commands, Oriented to person, place, time, situation. Cardiovascular: Patient's skin is warm and dry. Respiratory: Airway is patent Respiratory effort is even, unlabored, Respiratory pattern is regular, symmetrical. GI: No signs and/or symptoms were reported involving the gastrointestinal system. : No signs and/or symptoms were reported regarding the genitourinary system. EENT: Throat is clear is reddened has enlarged tonsils bilaterally with gag reflex present. Derm: Skin is intact, Skin is pink, warm \T\ dry. Musculoskeletal: Circulation, motion, and sensation intact. Range of motion: intact in all extremities. 21:54 Reassessment: Patient appears in no apparent distress at this time. Patient is alert, rr5 oriented x 3, equal unlabored respirations, skin warm/dry/pink. discharge instruction given and explained without complaints made. Vital Signs: 20:25 BP 152 / 105; Pulse 98; Resp 18; Temp 98.7; Pulse Ox 95% ; Weight 77.11 kg; Height 5 ll1 ft. (152.40 cm); Pain 8/10; 21:54 BP 121 / 89; Pulse 90; Resp 17; Temp 98.9; Pulse Ox 99% ; rr5 20:25 Body Mass Index 33.20 (77.11 kg, 152.40 cm) ll1 ED Course: 20:11 Patient arrived in ED. bp1 20:27 Triage completed. ll1 20:27 Arm band placed on Patient notified of wait time. ll1 20:48 Juliano Sal, RN is Primary Nurse. jb4 21:00 Patient has correct armband on for positive identification. Bed in low position. Call rr5 light in reach. 21:29 Reinaldo Mccarty PA is PHCP. jr8 21:29 Adarsh Irvin MD is Attending Physician. jr8 21:54 No provider procedures requiring assistance completed. Patient did not have IV access rr5 during this emergency room visit. Administered Medications: No medications were administered Outcome: 21:46 Discharge ordered by . jr8 21:54 Discharged to home ambulatory. rr5 21:54 Condition: stable 21:54 Discharge instructions given to patient, Instructed on discharge instructions, follow up and referral plans. medication usage, Demonstrated understanding of instructions, follow-up care, medications, Prescriptions given X 2. 21:55 Patient left the ED. rr5 Signatures: Reinaldo Mccarty PA PA jr8 Juliano Sal, RN RN jb4 Dajuan Parker RN RN rr5 Tammy Maya RN RN ll1 Laura Santso
--- NOTE | 2020-04-19 21:46 | EDPHYS ---
Physician Documentation [facility] Name: Vaishnavi Dey Age: 25 yrs Sex: Female : 1995 Arrival Date: 04/19/2020 Time: 20:11 Bed 5 Private MD: ED Physician Adarsh Irvin HPI: 04/19 21:42 This 25 yrs old Female presents to ER via Ambulatory with complaints of jr8 FACIAL PAIN, Ear Pain, Throat pain. 21:42 Onset: The symptoms/episode began/occurred gradually, 1 week(s) ago. Modifying factors: jr8 The symptoms are alleviated by nothing, the symptoms are aggravated by nothing. Associated signs and symptoms: Pertinent positives: rhinorrhea, sinus trouble. Severity of symptoms: At their worst the symptoms were mild in the emergency department the symptoms are unchanged. The patient has not experienced similar symptoms in the past. The patient has not recently seen a physician. Historical: - Allergies: 20:25 Keflex; ll1 20:25 PENICILLINS (Hives); ll1 - PMHx: 20:25 Ovarian cyst; ll1 - PSHx: 20:25 None; ll1 - Immunization history:: Flu vaccine is not up to date. - Social history:: Smoking status: Patient reports the use of cigarette tobacco products, smokes one-half pack cigarettes per day, Patient/guardian denies using alcohol, street drugs. ROS: 21:42 Eyes: Negative for injury, pain, redness, and discharge, Cardiovascular: Negative for jr8 chest pain, palpitations, and edema, Respiratory: Negative for shortness of breath, cough, wheezing, and pleuritic chest pain, Abdomen/GI: Negative for abdominal pain, nausea, vomiting, diarrhea, and constipation, Back: Negative for injury and pain, MS/Extremity: Negative for injury and deformity, Skin: Negative for injury, rash, and discoloration, Neuro: Negative for headache, weakness, numbness, tingling, and seizure. 21:42 ENT: Positive for ear pain, sinus congestion. 21:42 Neck: Positive for tenderness, of the submandibular regions bilaterally . Exam: 21:42 Head/Face: Normocephalic, atraumatic. Eyes: Pupils equal round and reactive to light, jr8 extra-ocular motions intact. Lids and lashes normal. Conjunctiva and sclera are non-icteric and not injected. Cornea within normal limits. Periorbital areas with no swelling, redness, or edema. Neck: Trachea midline, no thyromegaly or masses palpated, and no cervical lymphadenopathy. Supple, full range of motion without nuchal rigidity, or vertebral point tenderness. No Meningismus. Cardiovascular: Regular rate and rhythm with a normal S1 and S2. No gallops, murmurs, or rubs. Normal PMI, no JVD. No pulse deficits. Respiratory: Lungs have equal breath sounds bilaterally, clear to auscultation and percussion. No rales, rhonchi or wheezes noted. No increased work of breathing, no retractions or nasal flaring. Abdomen/GI: Soft, non-tender, with normal bowel sounds. No distension or tympany. No guarding or rebound. No evidence of tenderness throughout. Back: No spinal tenderness. No costovertebral tenderness. Full range of motion. Skin: Warm, dry with normal turgor. Normal color with no rashes, no lesions, and no evidence of cellulitis. MS/ Extremity: Pulses equal, no cyanosis. Neurovascular intact. Full, normal range of motion. Neuro: Awake and alert, GCS 15, oriented to person, place, time, and situation. Cranial nerves II-XII grossly intact. Motor strength 5/5 in all extremities. Sensory grossly intact. Cerebellar exam normal. Normal gait. 21:42 ENT: External ear(s): are unremarkable, Ear canal(s): are normal, clear, TM's: are normal, no evidence of bulging, no dullness, no erythema, no fluid levels, no hemotympanum, no rupture, normal bony landmarks, normal mobility, Nose: External nose: no obvious acute abnormality, Nasal septum: is midline, Nasal mucosa: moist, Turbinates: are normal, Mouth: Lips: moist, Oral mucosa: pink and intact, moist, Gums: pink, Tongue: is moist, Posterior pharynx: Airway: patent, Tonsils: are normal in appearance, Uvula: midline, erythema, that is mild, Dental exam: dental caries, that is moderate, specifically in the lower left third molar (#17), lower left second molar (#18), lower right second molar (#31) and lower right third molar (#32), pain, that is mild, specifically in the lower left third molar (#17), lower left second molar (#18), lower right second molar (#31) and lower right third molar (#32). Vital Signs: 20:25 BP 152 / 105; Pulse 98; Resp 18; Temp 98.7; Pulse Ox 95% ; Weight 77.11 kg; Height 5 ll1 ft. (152.40 cm); Pain 8/10; 21:54 BP 121 / 89; Pulse 90; Resp 17; Temp 98.9; Pulse Ox 99% ; rr5 20:25 Body Mass Index 33.20 (77.11 kg, 152.40 cm) ll1 MDM: 21:29 Patient medically screened. jr8 21:42 Data reviewed: vital signs, nurses notes, and as a result, I will discharge patient. jr8 Data interpreted: Pulse oximetry: on room air is 95 %. Interpretation: normal. Counseling: I had a detailed discussion with the patient and/or guardian regarding: the historical points, exam findings, and any diagnostic results supporting the discharge/admit diagnosis, the need for outpatient follow up, a family practitioner, to return to the emergency department if symptoms worsen or persist or if there are any questions or concerns that arise at home. Administered Medications: No medications were administered Disposition: 04/20 06:12 Co-signature as Attending Physician, Adarsh Irvin MD. mh7 Disposition: 04/19/20 21:46 Discharged to Home. Impression: Acute upper respiratory infection, unspecified. - Condition is Stable. - Discharge Instructions: Upper Respiratory Infection, Adult. - Prescriptions for Prednisone 20 mg Oral Tablet - take 1 tablet by ORAL route once daily for 5 days; 5 tablet. Zithromax Z- Tanner 250 mg Oral Tablet - take 1 tablet by ORAL route as directed for 5 days Day 1 - take two (2) tablets one time. Day 2, 3, 4 , 5 take one (1) tablet once daily.; 6 tablet. - Medication Reconciliation Form, Thank You Letter, Antibiotic Education, Prescription Opioid Use form. - Follow up: Private Physician; When: 1 week; Reason: Recheck today's complaints, Continuance of care, Re-evaluation by your physician. - Problem is new. - Symptoms have improved. Signatures: Reinaldo Mccarty PA PA jr8 Dajuan Parker RN RN rr5 Tammy Maya RN RN ll1 Adarsh Irvin MD MD mh7 Corrections: (The following items were deleted from the chart) 04/19 21:55 21:46 04/19/2020 21:46 Discharged to Home. Impression: Acute upper respiratory rr5 infection, unspecified. Condition is Stable. Forms are Medication Reconciliation Form, Thank You Letter, Antibiotic Education, Prescription Opioid Use. Follow up: Private Physician; When: 1 week; Reason: Recheck today's complaints, Continuance of care, Re-evaluation by your physician. Problem is new. Symptoms have improved. jr8
[2020-04-19 22:54] VITALS: BP 121/89; TEMP 98.9; O2SAT 99
== END 2020-04-19 21:55 | disposition home or self-care (01) ==
LOC: ER 20:07
DX: J06.9 Acute upper respiratory infection, unspecified (principal); F17.210 Nicotine dependence, cigarettes, uncomplicated; Z88.0 Allergy status to penicillin; Z88.1 Allergy status to other antibiotic agents
CPT/HCPCS: 99282

== ENCOUNTER 2020-12-10 22:09 | Emergency (ER) | payer SELFPAY ==
[2020-12-11] MEDS ORDERED: METHYLPREDNISOLONE 125 MG INJ ONE (01:01)
[2020-12-11] MEDS ORDERED: FAMOTIDINE 20 MG TAB ONE (01:01)
[2020-12-11] MEDS ORDERED: DIPHENHYDRAMINE 50 MG/ML VIAL ONE (01:01)
--- NOTE | 2020-12-11 01:49 | ER ---
Nurse's Notes [facility] Name: Vaishnavi Dey Age: 25 yrs Sex: Female : 1995 Arrival Date: 12/10/2020 Time: 22:13 Bed 26 Private MD: Diagnosis: Allergic dermatitis of eyelid-and SKIN Presentation: 12/10 22:56 Chief complaint: Patient states: she is having an allergic reaction today [place] now she has rash on her arms, face, lips and it is very itchy took Benadryl tonight at about 2030 but it is not helping. Coronavirus screen: At this time, the client does not indicate any symptoms associated with coronavirus-19. Ebola Screen: No symptoms or risks identified at this time. Onset: The symptoms/episode began/occurred acutely. Anaphylaxis evaluation, no signs or symptoms of anaphylaxis were noted. Initial Sepsis Screen: Does the patient meet any 2 criteria? No. Patient's initial sepsis screen is negative. Does the patient have a suspected source of infection? No. Patient's initial sepsis screen is negative. Risk Assessment: Do you want to hurt yourself or someone else? Patient reports no desire to harm self or others. Onset of symptoms was December 10, 2020. 22:56 Method Of Arrival: Ambulatory bb 22:56 Acuity: VICKY 3 bb Triage Assessment: 22:59 General: Appears in no apparent distress. uncomfortable, Behavior is calm, cooperative. bb Pain: Denies pain. Cardiovascular: Rhythm is sinus tachycardia. Respiratory: Respiratory effort is even, unlabored. Derm: Rash noted that is itchy. Musculoskeletal: Circulation, motion, and sensation intact. 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 - Social history:: Smoking status: Patient reports the use of cigarette tobacco products, smokes one-half pack cigarettes per day, Patient/guardian denies using alcohol, street drugs, The patient lives with family. - Family history:: not pertinent. Screenin/12 00:14 Abuse screen: Denies threats or abuse. Nutritional screening: No deficits noted. bb Tuberculosis screening: No symptoms or risk factors identified. Fall Risk None identified. Assessment: 00:14 Reassessment: No changes from previously documented assessment. see triage assessment. bb 00:55 Reassessment: Patient is alert, oriented x 3, equal unlabored respirations, skin bb warm/dry/pink. 01:57 Reassessment: Patient is alert, oriented x 3, equal unlabored respirations, skin bb warm/dry/pink. pt states she is less itchy now and her lips feel normal. Pt verbalized understanding of and agrees to plan of care discharge instructions given pt ambulated with steady gait to exit accompanied by family Patient states feeling better. Patient states symptoms have improved. Vital Signs: 12/10 22:56 BP 145 / 114; Pulse 123; Resp 18 S; Temp 98.8(O); Pulse Ox 98% on R/A; Weight 81.65 kg bb (R); Height 5 ft. 2 in. (157.48 cm) (R); Pain 0/10; 12/11 00:55 BP 128 / 92; Pulse 103; Resp 18 S; Pulse Ox 95% on R/A; bb 01:58 BP 119 / 94; Pulse 97; Resp 16 S; Temp 97.5(O); Pulse Ox 100% on R/A; bb 12/10 22:56 Body Mass Index 32.92 (81.65 kg, 157.48 cm) bb ED Course: 12/10 22:13 Patient arrived in ED. bp1 22:59 Triage completed. bb 22:59 Arm band placed on Patient placed in an exam room, on a stretcher, on pulse oximetry. bb Family accompanied patient. 23:31 Myranda Moses MD is Attending Physician. ma2 12/11 00:14 Patient has correct armband on for positive identification. Bed in low position. Call bb light in reach. 00:14 No provider procedures requiring assistance completed. Patient did not have IV access bb during this emergency room visit. 00:54 Noa Chawla, RN is Primary Nurse. bb Administered Medications: 00:54 Drug: Benadryl (diphenhydrAMINE) 50 mg Route: IM; Site: right gluteus; bb 01:50 Follow up: Response: Marked relief of symptoms bb 00:54 Drug: MethylPREDNISolone Sodium Succinate 125 mg Route: IM; Site: right gluteus; bb 01:50 Follow up: Response: Marked relief of symptoms bb 00:54 Drug: Pepcid (famotidine) 20 mg Route: PO; bb 01:50 Follow up: Response: Marked relief of symptoms bb Outcome: 01:47 Discharge ordered by . dieudonne 01:59 Discharged to home ambulatory, with family. bb 01:59 Condition: stable 01:59 Discharge instructions given to patient, Instructed on discharge instructions, follow up and referral plans. medication usage, Demonstrated understanding of instructions, follow-up care, medications, Prescriptions given X 3. 02:00 Patient left the ED. bb Signatures: Noa Chawla RN RN Myranda Olvera MD MD ma2 [place], [place] [facility]
--- NOTE | 2020-12-11 01:49 | EDPHYS ---
Physician Documentation [facility] Name: Vaishnavi Dey Age: 25 yrs Sex: Female : 1995 Arrival Date: 12/10/2020 Time: 22:13 Bed 26 Private MD: ED Physician Myranda Moses HPI: 12/11 00:37 This 25 yrs old Female presents to ER via Ambulatory with complaints of ma2 Allergic Reaction. 00:37 The patient presents with rash. Onset: The symptoms/episode began/occurred gradually, 1 ma2 day(s) ago. Associated signs and symptoms: Pertinent negatives: Altered mental status fever, hives, nausea. Severity of symptoms: At their worst the symptoms were very mild in the emergency department the symptoms have improved. The patient has experienced similar episodes in the past. 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 - Social history:: Smoking status: Patient reports the use of cigarette tobacco products, smokes one-half pack cigarettes per day, Patient/guardian denies using alcohol, street drugs, The patient lives with family. - Family history:: not pertinent. ROS: 12/11 00:37 Constitutional: Negative for fever, chills, and weight loss. ma2 All other systems are negative. Exam: 00:37 Constitutional: This is a well developed, well nourished patient who is awake, alert, ma2 and in no acute distress. Head/Face: Normocephalic, atraumatic. Eyes: Pupils equal round and reactive to light, extra-ocular motions intact. Lids and lashes normal. Conjunctiva and sclera are non-icteric and not injected. Cornea within normal limits. Periorbital areas with no swelling, redness, or edema. ENT: Nares patent. No nasal discharge, no septal abnormalities noted. Tympanic membranes are normal and external auditory canals are clear. Oropharynx with no redness, swelling, or masses, exudates, or evidence of obstruction, uvula midline. Mucous membranes moist. Neck: Trachea midline, no thyromegaly or masses palpated, and no cervical lymphadenopathy. Supple, full range of motion without nuchal rigidity, or vertebral point tenderness. No Meningismus. Chest/axilla: Normal chest wall appearance and motion. Nontender with no deformity. No lesions are appreciated. Cardiovascular: Regular rate and rhythm with a normal S1 and S2. No gallops, murmurs, or rubs. Normal PMI, no JVD. No pulse deficits. Respiratory: Lungs have equal breath sounds bilaterally, clear to auscultation and percussion. No rales, rhonchi or wheezes noted. No increased work of breathing, no retractions or nasal flaring. Abdomen/GI: Soft, non-tender, with normal bowel sounds. No distension or tympany. No guarding or rebound. No evidence of tenderness throughout. Back: No spinal tenderness. No costovertebral tenderness. Full range of motion. Skin: hives, otherwise Warm, dry with normal turgor. Normal color with no rashes, no lesions, and no evidence of cellulitis. MS/ Extremity: Pulses equal, no cyanosis. Neurovascular intact. Full, normal range of motion. Neuro: Awake and alert, GCS 15, oriented to person, place, time, and situation. Cranial nerves II-XII grossly intact. Motor strength 5/5 in all extremities. Sensory grossly intact. Cerebellar exam normal. Normal gait. Vital Signs: 12/10 22:56 BP 145 / 114; Pulse 123; Resp 18 S; Temp 98.8(O); Pulse Ox 98% on R/A; Weight 81.65 kg bb (R); Height 5 ft. 2 in. (157.48 cm) (R); Pain 0/10; 12/11 00:55 BP 128 / 92; Pulse 103; Resp 18 S; Pulse Ox 95% on R/A; bb 01:58 BP 119 / 94; Pulse 97; Resp 16 S; Temp 97.5(O); Pulse Ox 100% on R/A; bb 12/10 22:56 Body Mass Index 32.92 (81.65 kg, 157.48 cm) bb MDM: 12/10 23:31 Patient medically screened. ma2 12/11 00:37 Differential diagnosis: Mastocystosis non IgE mediated drug reaction urticaria, ma2 Vasovagal Reactions. 01:46 Data reviewed: vital signs, nurses notes. Counseling: I had a detailed discussion with dieudonne the patient and/or guardian regarding: the historical points, exam findings, and any diagnostic results supporting the discharge/admit diagnosis, the presence of at least one elevated blood pressure reading (>120/80) during this emergency department visit, the need for outpatient follow up. Response to treatment: the patient's symptoms have markedly improved after treatment. Administered Medications: 00:54 Drug: Benadryl (diphenhydrAMINE) 50 mg Route: IM; Site: right gluteus; bb 01:50 Follow up: Response: Marked relief of symptoms bb 00:54 Drug: MethylPREDNISolone Sodium Succinate 125 mg Route: IM; Site: right gluteus; bb 01:50 Follow up: Response: Marked relief of symptoms bb 00:54 Drug: Pepcid (famotidine) 20 mg Route: PO; bb 01:50 Follow up: Response: Marked relief of symptoms bb Disposition: 12/11/20 01:47 Discharged to Home. Impression: Allergic dermatitis of eyelid - and SKIN. - Condition is Stable. - Discharge Instructions: Allergies, [id number]. - Prescriptions for Benadryl 25 mg Oral Capsule - take 1 capsule by ORAL route every 6 hours As needed; 30 tablet. Pepcid 20 mg Oral Tablet - take 1 tablet by ORAL route every 12 hours for 10 days; 20 tablet. Medrol (Tanner) 4 mg Oral Tablets, Dose Pack - take 1 tablet by ORAL route as directed - follow package instructions; 1 packet. - Medication Reconciliation Form, Thank You Letter, Antibiotic Education, Prescription Opioid Use form. - Follow up: Private Physician; When: Tomorrow; Reason: Wound Recheck, If symptoms return. Signatures: Noa Chawla RN RN Myranda Olvera MD MD ma2 Corrections: (The following items were deleted from the chart) 02:00 01:47 12/11/2020 01:47 Discharged to Home. Impression: Allergic dermatitis of eyelid - bb and SKIN. Condition is Stable. Prescriptions for Benadryl 25 mg Oral Capsule - take 1 capsule by ORAL route every 6 hours As needed; 30 tablet, Pepcid 20 mg Oral Tablet - take 1 tablet by ORAL route every 12 hours for 10 days; 20 tablet, Medrol (Tanner) 4 mg Oral Tablets, Dose Pack - take 1 tablet by ORAL route as directed - follow package instructions; 1 packet. and Forms are Medication Reconciliation Form, Thank You Letter, Antibiotic Education, Prescription Opioid Use. Follow up: Private Physician; When: Tomorrow; Reason: Wound Recheck, If symptoms return. ma2
[2020-12-11 02:57] VITALS: BP 119/94; TEMP 97.5; O2SAT 100
== END 2020-12-11 02:00 | disposition home or self-care (01) ==
LOC: ER 22:09
DX: L23.9 Allergic contact dermatitis, unspecified cause (principal); F17.210 Nicotine dependence, cigarettes, uncomplicated; Z88.0 Allergy status to penicillin; Z88.1 Allergy status to other antibiotic agents
CPT/HCPCS: 96372; 99284; J1200; J2930

== ENCOUNTER 2021-03-30 20:11 | Emergency (ER) | payer SELFPAY ==
[2021-03-30 23:07] LABS: Urine Blood Negative (Negative); Urine Glucose Negative (Negative); Urine Protein Negative (Negative); Urine Specific Gravity 1.015 (1.005-1.030); Urine pH 7.5 (5.0-7.0)
[2021-03-30] MEDS ORDERED: NA CHLORIDE 0.9% 1,000 ML ONE (23:10)
[2021-03-30] MEDS ORDERED: ONDANSETRON 4 MG/2 ML VIAL ONE (23:23)
[2021-03-30 23:27] LABS: Basophils % 0.5 % (0-1.3); Hematocrit 38.2 % (36.0-45.0); Lymphocytes % 29.6 % (15.3-44.8); MPV 8.8 fL (7.6-11.3); RBC Red Blood Cell Count 4.29 M/uL (3.86-4.86)
[2021-03-30 23:32] LABS: Urine Specific Gravity/Preg 1.015 (1.005-1.030)
[2021-03-30 23:35] LABS: BUN Blood Urea Nitrogen 8 mg/dL (7-18); Bicarbonate 25 mmol/L (21-32); Glucose Level 85 mg/dL (74-106); Potassium 3.8 mmol/L (3.5-5.1); Sodium Level 140 mmol/L (136-145)
--- NOTE | 2021-03-31 00:52 | ER ---
Nurse's Notes [facility] Name: Vaishnavi Dey Age: 26 yrs Sex: Female : 1995 Arrival Date: 03/30/2021 Time: 20:14 Bed 3 Private MD: Diagnosis: Acute tonsillitis, unspecified Presentation: 03/30 21:20 Chief complaint: Patient states: "My allergies were acting up last night so I took a vg1 Benadryl. This morning I woke up and under my chin was swollen. My joints and back hurt also." States both ears hurt as well. Pt denies difficulty swallowing and denies difficulty breathing. States "feels a little anxious". Coronavirus screen: Client denies travel out of the [place] in the last 14 days. Ebola Screen: Patient negative for fever greater than or equal to 101.5 degrees Fahrenheit, and additional compatible Ebola Virus Disease symptoms. Initial Sepsis Screen: Does the patient meet any 2 criteria? No. Patient's initial sepsis screen is negative. Does the patient have a suspected source of infection? No. Patient's initial sepsis screen is negative. Risk Assessment: Do you want to hurt yourself or someone else? Patient reports no desire to harm self or others. Onset of symptoms was March 29, 2021. 21:20 Method Of Arrival: Ambulatory vg1 21:20 Acuity: VICKY 3 vg1 Triage Assessment: 21:22 General: Appears in no apparent distress. comfortable, Behavior is calm, cooperative. vg1 Pain: Complains of pain in Joints and lower back Pain currently is 4 out of 10 on a pain scale. EENT: Throat is pink. Respiratory: Airway is patent Respiratory effort is even, unlabored. 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 - Social history:: Smoking status: Patient reports the use of cigarette tobacco products, smokes one-half pack cigarettes per day. Screenin:42 Abuse screen: Denies threats or abuse. Nutritional screening: No deficits noted. ea Tuberculosis screening: No symptoms or risk factors identified. Fall Risk None identified. Vital Signs: 21:20 BP 149 / 96; Pulse 103; Resp 16; Temp 98.5; Pulse Ox 99% ; Weight 83.01 kg; Height 5 vg1 ft. 0 in. (152.40 cm); Pain 4/10; 03/31 01:12 BP 122 / 71; Pulse 81; Resp 18; Pulse Ox 100% on R/A; ak2 03/30 21:20 Body Mass Index 35.74 (83.01 kg, 152.40 cm) vg1 ED Course: 03/30 20:14 Patient arrived in ED. bp1 21:22 Triage completed. vg1 21:24 Arm band placed on Patient placed in waiting room, Patient notified of wait time. vg1 21:29 Strep swab sent to lab. vg1 22:34 Marcio Peña PA is PHCP. cp 22:34 Omar Patel MD is Attending Physician. cp 22:42 Patient has correct armband on for positive identification. Bed in low position. Call ea light in reach. Side rails up X2. 03/31 00:14 CT Soft Tissue Neck W/contr In Process Unspecified. EDMS 00:48 Erin Tavares, DANIELE is Primary Nurse. brayan 00:51 Collette Ku MD is Referral Physician. cp 01:12 No provider procedures requiring assistance completed. IV discontinued. ak2 Administered Medications: 03/30 22:54 Drug: NS 0.9% 1000 ml Route: IV; Rate: 1 bolus; Site: right antecubital; ak2 03/31 00:56 Drug: Clindamycin 900 mg Route: IVPB; Infused Over: 30 mins; Site: right antecubital; ak2 00:57 Drug: Decadron - Dexamethasone 10 mg Route: IVP; Site: right antecubital; ak2 Outcome: 00:51 Discharge ordered by . cp 01:12 Discharged to home ambulatory. ak2 01:12 Condition: good 01:12 Discharge instructions given to patient, Prescriptions given X 01:13 Patient left the ED. ak2 Signatures: Dispatcher [employer] EDMS Marcio Peña PA PA cp Antunez, Elena, Genevieve Dickerson RN, ea, RN RN vg1 Paniauga, LauraAnish Montero2 Corrections: (The following items were deleted from the chart) 03/30 21:25 21:20 Chief complaint: Patient states: "My allergies were acting up last night so I vg1 took a Benadryl. This morning I woke up and under my chin was swollen. My joints and back hurt also." Pt denies difficulty swallowing and denies difficulty breathing. States "feels a little anxious". vg1
--- NOTE | 2021-03-31 00:52 | EDPHYS ---
Physician Documentation [facility] Name: Vaishnavi Dey Age: 26 yrs Sex: Female : 1995 Arrival Date: 03/30/2021 Time: 20:14 Bed 3 Private MD: ED Physician Omar Patel HPI: 03/30 23:00 This 26 yrs old Female presents to ER via Ambulatory with complaints of cp Facial Swelling, Doesn't Feel Right. 23:00 The patient or guardian complains of pain, that is acute, swelling, tenderness. The cp symptoms are located under chin. 23:00 Onset: The symptoms/episode began/occurred this morning. Associated signs and symptoms: cp Pertinent positives: sore throat, Pertinent negatives: fever, headache, vomiting. 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 - Social history:: Smoking status: Patient reports the use of cigarette tobacco products, smokes one-half pack cigarettes per day. ROS: 23:00 Constitutional: Negative for body aches, chills, fever, poor PO intake. cp 23:00 Eyes: Negative for injury, pain, redness, and discharge. cp 23:00 ENT: Positive for ear pain, sore throat, Negative for drainage from ear(s), difficulty swallowing, difficulty handling secretions. 23:00 Neck: Positive for pain with movement, pain at rest, tenderness, pain and swelling under chin. 23:00 Cardiovascular: Negative for chest pain, palpitations. 23:00 Respiratory: Negative for cough, shortness of breath, wheezing. 23:00 Abdomen/GI: Negative for abdominal pain, nausea, vomiting, and diarrhea. 23:00 Back: Positive for pain at rest. 23:00 Skin: Negative for rash. 23:00 Neuro: Negative for altered mental status, headache, syncope, weakness. 23:00 All other systems are negative. Exam: 23:10 Constitutional: The patient appears in no acute distress, alert, awake, non-toxic, well cp developed, well nourished. 23:10 Head/face: Noted is swelling, that is mild, of the submental, tenderness, that is cp mild, of the submental. 23:10 Eyes: Periorbital structures: appear normal, Pupils: equal, round, and reactive to light and accomodation, Extraocular movements: intact throughout, Conjunctiva: normal, no exudate, no injection, Sclera: no appreciated abnormality, Lids and lashes: appear normal, bilaterally. 23:10 ENT: External ear(s): are unremarkable, Ear canal(s): are normal, clear, TM's: bulging, is not appreciated, bilaterally, dullness, bilaterally, erythema, is not appreciated, bilaterally, Nose: is normal, Mouth: Lips: moist, Oral mucosa: moist, Tongue: is normal, Posterior pharynx: Airway: no evidence of obstruction, patent, Tonsils: bilaterally enlarged, no exudate, Uvula: midline, swelling, is not appreciated, erythema, that is mild, exudate, is not appreciated. 23:10 Neck: ROM/movement: is normal, is supple, no meningismus, no nuchal rigidity, Lymph nodes: lymphadenopathy is appreciated, anterior cervical nodes. 23:10 Chest/axilla: Inspection: normal, Palpation: is normal, no crepitus, no tenderness. 23:10 Cardiovascular: Rate: tachycardic, Rhythm: regular, Edema: is not appreciated, JVD: is not appreciated. 23:10 Respiratory: the patient does not display signs of respiratory distress, Respirations: normal, no use of accessory muscles, no retractions, labored breathing, is not present, Breath sounds: are clear throughout, no decreased breath sounds, no stridor, no wheezing. 23:10 Abdomen/GI: Inspection: abdomen appears normal, Palpation: abdomen is soft and non-tender, in all quadrants. 23:10 Back: pain, that is mild, ROM is normal. 23:10 Skin: no rash present. Vital Signs: 21:20 BP 149 / 96; Pulse 103; Resp 16; Temp 98.5; Pulse Ox 99% ; Weight 83.01 kg; Height 5 vg1 ft. 0 in. (152.40 cm); Pain 10; 03/31 01:12 BP 122 / 71; Pulse 81; Resp 18; Pulse Ox 100% on R/A; ak2 03/30 21:20 Body Mass Index 35.74 (83.01 kg, 152.40 cm) vg1 MDM: 03/30 22:39 Patient medically screened. 23:00 Differential diagnosis: strep throat, tonsillitis, Zeyad angina, dental abscess. 03/31 00:50 Data reviewed: vital signs, nurses notes, lab test result(s), radiologic studies, CT cp scan. 00:50 Counseling: I had a detailed discussion with the patient and/or guardian regarding: the cp historical points, exam findings, and any diagnostic results supporting the discharge/admit diagnosis, lab results, radiology results, to return to the emergency department if symptoms worsen or persist or if there are any questions or concerns that arise at home. Response to treatment: the patient's symptoms have mildly improved after treatment, VSS. Patient tolerating po fluids. No signs of respiratory compromise and/or distress. Patient appears non-toxic. Will discharge to home for continued monitoring. 03/30 21:25 Order name: Strep; Complete Time: 23:51 [facility] 03/30 22:32 Order name: Throat Culture [facility] 03/30 22:43 Order name: Island Screen Profile; Complete Time: 00:46 03/30 22:43 Order name: CBC with Diff; Complete Time: 23:51 03/30 23:51 Interpretation: Normal except: WBC 13.50. 03/30 22:43 Order name: BMP; Complete Time: 23:51 03/30 23:52 Interpretation: Normal except: CL 109; CA 8.4. 03/30 23:07 Order name: Urine Dipstick-Ancillary; Complete Time: 23:52 [facility] 03/30 23:52 Interpretation: Normal except: UPH 7.5. 03/30 22:43 Order name: Urine Dipstick-Ancillary (obtain specimen); Complete Time: 23:17 03/30 22:43 Order name: Urine Test (obtain specimen); Complete Time: 23:17 03/30 22:43 Order name: CT Soft Tissue Neck W/contr 03/30 23:20 Order name: Urine --Ancillary (enter results); Complete Time: 23:51 mw2 Administered Medications: 03/30 22:54 Drug: NS 0.9% 1000 ml Route: IV; Rate: 1 bolus; Site: right antecubital; ak2 03/31 00:56 Drug: Clindamycin 900 mg Route: IVPB; Infused Over: 30 mins; Site: right antecubital; ak2 00:57 Drug: Decadron - Dexamethasone 10 mg Route: IVP; Site: right antecubital; ak2 Disposition: 01:00 Chart complete. cp Disposition Summary: 03/31/21 00:51 Discharge Ordered Location: Home cp Problem: new cp Symptoms: have improved cp Condition: Stable cp Diagnosis - Acute tonsillitis, unspecified cp Followup: cp - With: Collette Ku MD - When: 2 - 3 days - Reason: Worsening of condition Discharge Instructions: - Discharge Summary Sheet cp - Tonsillitis cp Forms: - Medication Reconciliation Form cp - Thank You Letter cp - Antibiotic Education cp - Prescription Opioid Use cp Prescriptions: - Clindamycin HCl 300 mg Oral Capsule - take 1 capsule by ORAL route every 6 hours for 10 days; 40 capsule; Refills: 0, cp Product Selection Permitted - Ibuprofen 800 mg Oral Tablet - take 1 tablet by ORAL route every 8 hours As needed take with food; 30 tablet; cp Refills: 0, Product Selection Permitted Addendum: 04/01/2021 19:00 Co-signature as Attending Physician, Omar Patel MD. p kl Signatures: Dispatcher [employer] Omar Redd MD MD pkl Page, Corey, PA PA cp Garcia, Victoria, RN RN vg1 Anish Toure [facility]
[2021-03-31] MEDS ORDERED: dexAMETHasone 10 MG/ML VIAL ONE (01:16)
[2021-03-31] MEDS ORDERED: CLINDAMYCIN 900MG/D5W 900 MG/50 ML IVPB IV ONE (01:16)
[2021-03-31 01:50] VITALS: BP 122/71; O2SAT 100
[2021-03-31 01:57] VITALS: TEMP 98.7
--- NOTE | 2021-03-31 22:37 | RAD REPORT ---
EXAM DESCRIPTION: CT - Soft Tissue Neck W/Contr - 03/31/2021 6:28 am CLINICAL HISTORY: Submandibular pain and swelling. COMPARISON: None. TECHNIQUE: CT of the neck was performed following intravenous administration of iodinated contrast. Axial, coronal, and sagittal reconstructions were created and sent to PACS. This exam was performed according to our departmental dose-optimization program, which includes autom ated exposure control, adjustment of the mA and/or kV according to patient size and/or use of iterati ve reconstruction technique. FINDINGS: Soft tissues: Mildly prominent left neck lymph nodes, including in the submandibular, subm ental, and level two regions. Unremarkable appearance of the submandibular glands. No evidence of sunshine loadenitis. No fluid collection is identified. Mildly prominent bilateral lingual tonsils, adenoids, and palatine tonsils. Thin epiglottis. The visualized vasculature is patent. The lung apices are lali r. Bones: No acute or concerning osseous abnormality. Mucosal retention cyst in the inferior left maxill layla sinus. Opacification of the anterior right ethmoid air cells. IMPRESSION: 1. Mildly prominent tonsillar tissue. No fluid collection is identified. 2. Mildly prominent left neck lymph nodes, including in the submandibular region, likely reactive. 3. Unremarkable appearance of the submandibular glands. Electronically signed by: Tavia Saha MD 03/31/2021 12:26 AM CDT Due to temporary technical issues with the PACS/Fluency reporting system, reports are being signed by the in house radiologists without review as a courtesy to insure prompt reporting. The interpreting radiologist is fully responsible for the content of the report.
== END 2021-03-31 01:13 | disposition home or self-care (01) ==
LOC: ER 20:11
DX: J03.90 Acute tonsillitis, unspecified (principal); F17.210 Nicotine dependence, cigarettes, uncomplicated; Z88.0 Allergy status to penicillin; Z88.1 Allergy status to other antibiotic agents
CPT/HCPCS: 36415; 70491; 80048; 81003; 81025; 85025; 86308; 87070; 87081; 96374; 96375; 99284; J1100; J2405; J7030; Q9967

== ENCOUNTER 2021-04-03 21:16 | Emergency (ER) | payer SELFPAY ==
[2021-04-03 23:39] LABS: Urine Blood Trace-lysed (Negative); Urine Glucose Negative (Negative); Urine Protein Negative (Negative); Urine Specific Gravity 1.015 (1.005-1.030); Urine pH 7.5 (5.0-7.0)
[2021-04-03] MEDS ORDERED: MORPHINE 4 MG/ML SYR ONE (23:59)
[2021-04-03] MEDS ORDERED: ONDANSETRON 4 MG/2 ML VIAL ONE (23:59)
[2021-04-04] MEDS ORDERED: NA CHLORIDE 0.9% 1,000 ML ONE
[2021-04-04 00:02] LABS: Absolute Lymphocytes (CBC) 5.1 K/uL (0.7-4.9); Basophils % 0.8 % (0-1.3); Lymphocytes % 31.4 % (15.3-44.8); RBC Red Blood Cell Count 4.29 M/uL (3.86-4.86)
[2021-04-04 00:12] LABS: ALT/SGPT 23 U/L (12-78); AST/SGOT 10 U/L (15-37); Albumin 3.8 g/dL (3.4-5.0); Alkaline Phosphatase 82 U/L (45-117); BUN Blood Urea Nitrogen 12 mg/dL (7-18); Bicarbonate 27 mmol/L (21-32); Bilirubin Direct < 0.1 mg/dL (0-0.2); Bilirubin Total 0.1 mg/dL (0.2-1.0); Glucose Level 82 mg/dL (74-106); Lipase 70 U/L (73-393); Protein, Total 7.6 g/dL (6.4-8.2); Sodium Level 140 mmol/L (136-145)
[2021-04-04 01:35] LABS: Urine Specific Gravity/Preg 1.015 (1.005-1.030)
--- NOTE | 2021-04-04 01:39 | ER ---
Nurse's Notes [facility] Name: Vaishnavi Dey Age: 26 yrs Sex: Female : 1995 Arrival Date: 04/03/2021 Time: 21:20 Bed 16 Private MD: Diagnosis: Abdominal pain, unspecified Presentation: 04/03 21:44 Chief complaint: Patient states: was Here 03/31/2021 for LLQ pain and swelling of neck. ca1 Was diagnosed with tonsillitis. My neck is not swollen anymore but I still have LLQ pain that now goes to the back, I feel nauseous, dizzy and my heart racing. Coronavirus screen: Client denies travel out of the [place] in the last 14 days. nausea, Client presents with at least one sign or symptom that may indicate coronavirus-19. Standard/surgical mask placed on the client. Provider contacted for isolation considerations. The client reports previous COVID testing was negative. Date of collection: March 30, 2021. Ebola Screen: Patient negative for fever greater than or equal to 101.5 degrees Fahrenheit, and additional compatible Ebola Virus Disease symptoms Patient denies exposure to infectious person. Patient denies travel to an Ebola-affected area in the 21 days before illness onset. No symptoms or risks identified at this time. Initial Sepsis Screen: Does the patient meet any 2 criteria? No. Patient's initial sepsis screen is negative. Does the patient have a suspected source of infection? No. Patient's initial sepsis screen is negative. Risk Assessment: Do you want to hurt yourself or someone else? Patient reports no desire to harm self or others. Onset of symptoms was March 30, 2021. 21:44 Method Of Arrival: Ambulatory ca1 21:44 Acuity: VICKY 3 ca1 Triage Assessment: 04/04 00:18 General: Appears in no apparent distress. Behavior is calm, cooperative. Pain: ak2 Complains of pain in abdomen. GI: Reports nausea. 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 - Social history:: Smoking status: Patient reports the use of cigarette tobacco products, smokes one-half pack cigarettes per day. Screenin/04 00:18 Abuse screen: Denies threats or abuse. Denies injuries from another. Nutritional ak2 screening: No deficits noted. Tuberculosis screening: No symptoms or risk factors identified. Fall Risk None identified. Assessment: 00:18 General: Appears in no apparent distress. Neuro: No deficits noted. Cardiovascular: No ak2 deficits noted. Respiratory: No deficits noted. Vital Signs: 04/03 21:44 BP 141 / 101; Pulse 114; Resp 18 S; Temp 98.1(O); Pulse Ox 100% on R/A; Weight 83.01 kg ca1 (R); Height 5 ft. 1 in. (154.94 cm) (R); Pain 6/10; 04/04 00:19 BP 132 / 81; Pulse 78; Resp 18; Pulse Ox 98% on R/A; ak2 02:02 BP 123 / 73; Pulse 74; Resp 18; Pulse Ox 98% on R/A; ak2 04/03 21:44 Body Mass Index 34.58 (83.01 kg, 154.94 cm) ca1 ED Course: 04/03 21:20 Patient arrived in ED. bp1 21:47 Triage completed. ca1 21:47 Arm band placed on right wrist. ca1 23:14 Maikel Marcos NP is PHCP. pm1 23:14 Adarsh Irvin MD is Attending Physician. pm1 04/04 00:18 Patient has correct armband on for positive identification. ak2 00:18 No provider procedures requiring assistance completed. Inserted saline lock: 20 gauge ak2 in right antecubital area, using aseptic technique. 00:51 CT Abd/Pelvis - IV Contrast Only In Process Unspecified. EDMS 02:02 IV discontinued. ak2 Administered Medications: 04/03 23:42 Drug: morphine 4 mg Route: IVP; Site: left antecubital; ak2 23:42 Drug: Zofran (Ondansetron) 4 mg Route: IVP; Site: left antecubital; ak2 23:42 Drug: NS 0.9% 1000 ml Route: IV; Rate: 1000 ml; Site: left antecubital; ak2 04/04 01:59 Drug: Bentyl (dicyclomine) 20 mg Route: PO; em Outcome: 01:39 Discharge ordered by MD. pm1 02:02 Discharged to home ambulatory, with family. em 02:02 Condition: good 02:02 Discharge instructions given to patient, Instructed on discharge instructions, follow up and referral plans. medication usage, Demonstrated understanding of instructions, follow-up care, medications, Prescriptions given X 2. 02:03 Patient left the ED. ak2 Signatures: Dispatcher [employer] EDAntolin Montoya RN RN em Maikel Marcos, STENOCAPTIONER STENOCAPTIONER pm1 Helen uGillen RN RN [facility] Laura Santos Anthony ak2
--- NOTE | 2021-04-04 01:39 | EDPHYS ---
Physician Documentation [facility] Name: Vaishnavi Dey Age: 26 yrs Sex: Female : 1995 Arrival Date: 04/03/2021 Time: 21:20 Bed 16 Private MD: ED Physician Adarsh Irvin HPI: 04/03 23:25 This 26 yrs old Female presents to ER via Ambulatory with complaints of pm1 Abdominal Pain, Pain All Over, Back Pain. 23:25 The patient presents with abdominal pain in the left lower quadrant. Onset: The pm1 symptoms/episode began/occurred 4 day(s) ago. The symptoms do not radiate. Associated signs and symptoms: Pertinent negatives: nausea, vomiting, and diarrhea, chest pain, dysuria, fever, shortness of breath. The symptoms are described as achy. Modifying factors: The symptoms are alleviated by nothing, the symptoms are aggravated by nothing. Severity of pain: in the emergency department the pain is unchanged. The patient has been recently seen by a physician: The patient has been recently seen at the [facility] Emergency Department, last week, for similar complaints labs were performed, CT scan was performed, was given a prescription for antibiotics. Patient presented to ER with complaints of abdominal pain and was seen here on the for similar complaints along with sore throat. Patient was diagnosed with tonsillitis and discharged home with antibiotics. Patient returns ER because she reports that her abdominal pain was not addressed would like evaluation. 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 - Social history:: Smoking status: Patient reports the use of cigarette tobacco products, smokes one-half pack cigarettes per day. ROS: 23:25 Constitutional: Negative for fever, chills, and weight loss. pm1 23:25 Cardiovascular: Negative for chest pain, palpitations, and edema, Respiratory: Negative for shortness of breath, cough, wheezing, and pleuritic chest pain. 23:25 Back: Negative for injury and pain, MS/Extremity: Negative for injury and deformity, Skin: Negative for injury, rash, and discoloration. 23:25 Neuro: Negative for headache, weakness, numbness, tingling, and seizure. 23:25 ENT: Positive for sore throat. 23:25 Abdomen/GI: Positive for abdominal pain, Negative for nausea, vomiting, and diarrhea. 23:25 All other systems are negative. Exam: 23:25 Constitutional: This is a well developed, well nourished patient who is awake, alert, pm1 and in no acute distress. 23:25 Head/Face: Normocephalic, atraumatic. Chest/axilla: Normal chest wall appearance and motion. Nontender with no deformity. No lesions are appreciated. Cardiovascular: Regular rate and rhythm with a normal S1 and S2. No gallops, murmurs, or rubs. Normal PMI, no JVD. No pulse deficits. Respiratory: Lungs have equal breath sounds bilaterally, clear to auscultation and percussion. No rales, rhonchi or wheezes noted. No increased work of breathing, no retractions or nasal flaring. 23:25 Back: No spinal tenderness. No costovertebral tenderness. Full range of motion. Skin: Warm, dry with normal turgor. Normal color with no rashes, no lesions, and no evidence of cellulitis. MS/ Extremity: Pulses equal, no cyanosis. Neurovascular intact. Full, normal range of motion. 23:25 Abdomen/GI: Inspection: abdomen appears normal, Palpation: soft, in all quadrants, mild abdominal tenderness, in the left lower quadrant. 23:25 Neuro: Exam negative for acute changes, Orientation: is normal, Mentation: is normal, Motor: is normal, moves all fours. Vital Signs: 21:44 BP 141 / 101; Pulse 114; Resp 18 S; Temp 98.1(O); Pulse Ox 100% on R/A; Weight 83.01 kg ca1 (R); Height 5 ft. 1 in. (154.94 cm) (R); Pain 6/10; 04/04 00:19 BP 132 / 81; Pulse 78; Resp 18; Pulse Ox 98% on R/A; ak2 02:02 BP 123 / 73; Pulse 74; Resp 18; Pulse Ox 98% on R/A; ak2 04/03 21:44 Body Mass Index 34.58 (83.01 kg, 154.94 cm) ca1 MDM: 04/03 23:14 Patient medically screened. pm1 04/04 01:38 Data reviewed: vital signs. Data interpreted: Pulse oximetry: on room air is 98 %. pm1 Interpretation: normal. Counseling: I had a detailed discussion with the patient and/or guardian regarding: the historical points, exam findings, and any diagnostic results supporting the discharge/admit diagnosis, lab results, radiology results, the need for outpatient follow up, to return to the emergency department if symptoms worsen or persist or if there are any questions or concerns that arise at home. 04/03 23:15 Order name: Basic Metabolic Panel pm1 04/03 23:15 Order name: CBC with Diff; Complete Time: 00:14 pm1 04/03 23:15 Order name: Hepatic Function; Complete Time: 00:14 pm1 04/03 23:15 Order name: Lipase; Complete Time: 00:14 pm1 04/03 23:15 Order name: Urine Microscopic Only pm1 04/03 23:15 Order name: Basic Metabolic Panel; Complete Time: 00:14 EDMS 04/03 23:15 Order name: IV Saline Lock pm1 04/03 23:15 Order name: CT Abd/Pelvis - IV Contrast Only pm1 04/03 23:39 Order name: Urine Dipstick-Ancillary; Complete Time: 00:10 EDMS 04/03 23:41 Order name: Urine --Ancillary (enter results); Complete Time: 01:37 oe 04/03 23:15 Order name: Labs collected and sent pm1 04/03 23:15 Order name: Urine Dipstick-Ancillary (obtain specimen) pm1 04/03 23:15 Order name: Urine Test (obtain specimen) pm1 Administered Medications: 04/03 23:42 Drug: morphine 4 mg Route: IVP; Site: left antecubital; ak2 23:42 Drug: Zofran (Ondansetron) 4 mg Route: IVP; Site: left antecubital; ak2 23:42 Drug: NS 0.9% 1000 ml Route: IV; Rate: 1000 ml; Site: left antecubital; ak2 04/04 01:59 Drug: Bentyl (dicyclomine) 20 mg Route: PO; em Disposition: 04:23 Co-signature as Attending Physician, Adarsh Irvin MD. [email or web address] Disposition Summary: 04/04/21 01:39 Discharge Ordered Location: Home pm1 Problem: new pm1 Symptoms: have improved pm1 Condition: Stable pm1 Diagnosis - Abdominal pain, unspecified pm1 Followup: pm1 - With: Emergency Department - When: As needed - Reason: Worsening of condition Followup: pm1 - With: Private Physician - When: 2 - 3 days - Reason: Recheck today's complaints, Continuance of care, Re-evaluation by your physician Discharge Instructions: - Discharge Summary Sheet pm1 - Abdominal Pain, Adult pm1 Forms: - Work release form em - Medication Reconciliation Form pm1 - Thank You Letter pm1 - Antibiotic Education pm1 - Prescription Opioid Use pm1 Prescriptions: - ondansetron 4 mg Oral tablet,disintegrating - take 1 tablet by ORAL route every 8 hours As needed; 15 tablet; Refills: 0, pm1 Product Selection Permitted - dicyclomine 20 mg Oral Tablet - take 1 tablet by ORAL route every 6 hours As needed; 20 tablet; Refills: 0, pm1 Product Selection Permitted Signatures: Dispatcher [employer] Antolin Mcnair, RN RN em Maikel Marcos NP AUTOMOTIVE SALES SPECIALIST pm1 Helen Guillen RN RN ca1 Adarsh Irvin MD MD mh7 Anish Toure mt2
[2021-04-04 02:09] VITALS: TEMP 98.1
[2021-04-04 02:10] VITALS: O2SAT 98
[2021-04-04 02:12] VITALS: BP 123/73
[2021-04-04] MEDS ORDERED: DICYCLOMINE HCL 10 MG CAP ONE (02:18)
[2021-04-04 03:02] LABS: Urine Amorphous Sediment 2+ /HPF (NONE SEEN); Urine Bacteria <20 /HPF (<20); Urine RBC <5 /HPF (NONE SEEN)
--- NOTE | 2021-04-04 11:41 | RAD REPORT ---
EXAM DESCRIPTION: CT Abdomen and Pelvis COMPARISON: None. CLINICAL HISTORY: ABD PAIN TECHNIQUE: CT of the abdomen and pelvis was acquired with IV contrast material. Coronal and sagitt al reconstructions were obtained. Automated exposure control was utilized on this examination as a dose lowering technique. FINDINGS: Lung bases: Clear. Liver: Normal. Gallbladder and biliary: Normal gallbladder. Unremarkable biliary tree. Pancreas: Normal. Spleen: Normal. Adrenal glands: Normal adrenal glands. Kidneys: 2 mm nonobstructing left renal calculus. Normal right kidney. Stomach and Small Bowel: The stomach and small bowel are normal. Urinary bladder: Normal. Uterus and Adnexa: Normal. Colon and Appendix: The colon is unremarkable. No evidence of appendicitis. Retroperitoneum and lymph nodes: Normal. Vascular: Normal. Peritoneal cavity: No ascites or free air. Musculoskeletal and soft tissues: Soft tissues are unremarkable. No aggressive bone lesions. No com pression fracture. IMPRESSION: 1. No acute intra-abdominal abnormality. 2. Small nonobstructing left renal calculus. Electronically signed by: Reece Corea MD 04/04/2021 1:08 AM CDT Due to temporary technical issues with the PACS/Fluency reporting system, reports are being signed by the in house radiologists without review as a courtesy to insure prompt reporting. The interpreting radiologist is fully responsible for the content of the report.
== END 2021-04-04 02:03 | disposition home or self-care (01) ==
LOC: ER 21:16
DX: R10.32 Left lower quadrant pain (principal); F17.210 Nicotine dependence, cigarettes, uncomplicated; Z88.0 Allergy status to penicillin; Z88.1 Allergy status to other antibiotic agents
CPT/HCPCS: 36415; 74177; 80048; 80076; 81003; 81015; 81025; 83690; 85025; 96374; 96375; 99284; J2405; Q9967

== ENCOUNTER 2021-07-18 21:11 | Emergency (ER) | payer SELFPAY ==
[2021-07-18 22:19] LABS: Urine Blood 1+ (Negative); Urine Glucose Negative (Negative); Urine Protein Negative (Negative); Urine Specific Gravity 1.025 (1.005-1.030)
[2021-07-18] MEDS ORDERED: NA CHLORIDE 0.9% 1,000 ML ONE (22:54)
[2021-07-18 23:22] LABS: Urine Specific Gravity/Preg 1.025 (1.005-1.030)
[2021-07-18 23:24] LABS: Basophils % 0.9 % (0-1.3); Hematocrit 40.3 % (36.0-45.0); Lymphocytes % 21.7 % (15.3-44.8); MPV 8.9 fL (7.6-11.3); RBC Red Blood Cell Count 4.56 M/uL (3.86-4.86)
[2021-07-18 23:26] LABS: Protime INR 0.92
[2021-07-18 23:35] LABS: Barbiturates NEGATIVE (NEGATIVE); Benzodiazepines NEGATIVE (NEGATIVE); Cocaine NEGATIVE (NEGATIVE); METHAMPHETAM NEGATIVE (NEGATIVE); Methadone NEGATIVE (NEGATIVE); Opiates NEGATIVE (NEGATIVE); Phencyclidine NEGATIVE (NEGATIVE); THC Cannibis NEGATIVE (NEGATIVE)
[2021-07-18] MEDS ORDERED: ACETAMINOPHEN 325 MG TABLET ONE (23:35)
[2021-07-19 00:02] LABS: Blood Morphology Comment NOT SEEN (NOT SEEN); Platelet Estimate ADEQ
[2021-07-19] MEDS ORDERED: levoFLOXacin 500 MG TAB ONE (00:15)
[2021-07-19] MEDS ORDERED: levoFLOXacin 250 MG TAB ONE (00:15)
[2021-07-19 01:02] LABS: ALT/SGPT 42 U/L (12-78); AST/SGOT 16 U/L (15-37); Albumin 3.6 g/dL (3.4-5.0); Alkaline Phosphatase 81 U/L (45-117); BUN Blood Urea Nitrogen 13 mg/dL (7-18); Bicarbonate 25 mmol/L (21-32); Bilirubin Direct < 0.1 mg/dL (0-0.2); Bilirubin Total 0.1 mg/dL (0.2-1.0); Glucose Level 105 mg/dL (74-106); Potassium 3.8 mmol/L (3.5-5.1); Protein, Total 7.1 g/dL (6.4-8.2); Sodium Level 142 mmol/L (136-145)
--- NOTE | 2021-07-19 01:11 | EDPHYS ---
Physician Documentation [facility] Name: Vaishnavi Dey Age: 26 yrs Sex: Female : 1995 Arrival Date: 07/18/2021 Time: 21:15 Bed 2 Private MD: ED Physician Marcio Bowles HPI: 07/18 22:50 This 26 yrs old Female presents to ER via Ambulatory with complaints of zunilda SHAKEY, FAST HEART BEAT, Dizziness, FACE HURTS, CONFUSED. 22:50 The patient presents with dizziness, generalized weakness, lightheadedness. Onset: The zunilda symptoms/episode began/occurred 2 day(s) ago. Context: occurred at an unknown location. Modifying factors: The symptoms are alleviated by nothing, the symptoms are aggravated by nothing. Associated signs and symptoms: The patient has no apparent associated signs or symptoms. Patient's baseline: Neuro: alert and fully oriented. The patient has not experienced similar symptoms in the past. 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 - Social history:: Smoking status: Patient reports the use of cigarette tobacco products, smokes one-half pack cigarettes per day, Patient/guardian denies using alcohol, street drugs. - Family history:: not pertinent. ROS: 22:50 Constitutional: Negative for fever, chills, and weight loss, Eyes: Negative for injury, zunilda pain, redness, and discharge, ENT: Negative for injury, pain, and discharge, Neck: Negative for injury, pain, and swelling, Respiratory: Negative for shortness of breath, cough, wheezing, and pleuritic chest pain, Abdomen/GI: Negative for abdominal pain, nausea, vomiting, diarrhea, and constipation, Back: Negative for injury and pain, : Negative for injury, bleeding, discharge, and swelling, MS/Extremity: Negative for injury and deformity, Skin: Negative for injury, rash, and discoloration, Neuro: Negative for headache, weakness, numbness, tingling, and seizure, Psych: Negative for depression, anxiety, suicide ideation, homicidal ideation, and hallucinations, Allergy/Immunology: Negative for hives, rash, and allergies, Endocrine: Negative for neck swelling, polydipsia, polyuria, polyphagia, and marked weight changes, Hematologic/Lymphatic: Negative for swollen nodes, abnormal bleeding, and unusual bruising. 22:50 Cardiovascular: Positive for chest pain, with cough. Exam: 22:50 Constitutional: This is a well developed, well nourished patient who is awake, alert, zunilda and in no acute distress. Head/Face: Normocephalic, atraumatic. Eyes: Pupils equal round and reactive to light, extra-ocular motions intact. Lids and lashes normal. Conjunctiva and sclera are non-icteric and not injected. Cornea within normal limits. Periorbital areas with no swelling, redness, or edema. ENT: Nares patent. No nasal discharge, no septal abnormalities noted. Tympanic membranes are normal and external auditory canals are clear. Oropharynx with no redness, swelling, or masses, exudates, or evidence of obstruction, uvula midline. Mucous membranes moist. Neck: Trachea midline, no thyromegaly or masses palpated, and no cervical lymphadenopathy. Supple, full range of motion without nuchal rigidity, or vertebral point tenderness. No Meningismus. Chest/axilla: Normal chest wall appearance and motion. Nontender with no deformity. No lesions are appreciated. Cardiovascular: Regular rate and rhythm with a normal S1 and S2. No gallops, murmurs, or rubs. Normal PMI, no JVD. No pulse deficits. Respiratory: Lungs have equal breath sounds bilaterally, clear to auscultation and percussion. No rales, rhonchi or wheezes noted. No increased work of breathing, no retractions or nasal flaring. Abdomen/GI: Soft, non-tender, with normal bowel sounds. No distension or tympany. No guarding or rebound. No evidence of tenderness throughout. Back: No spinal tenderness. No costovertebral tenderness. Full range of motion. Skin: Warm, dry with normal turgor. Normal color with no rashes, no lesions, and no evidence of cellulitis. MS/ Extremity: Pulses equal, no cyanosis. Neurovascular intact. Full, normal range of motion. Neuro: Awake and alert, GCS 15, oriented to person, place, time, and situation. Cranial nerves II-XII grossly intact. Motor strength 5/5 in all extremities. Sensory grossly intact. Cerebellar exam normal. Normal gait. Psych: Awake, alert, with orientation to person, place and time. Behavior, mood, and affect are within normal limits. 23:11 ECG was reviewed by the Attending Physician. zunilda 23:41 Neck: ROM/movement: is normal, is supple, without pain, no range of motions zunilda limitations, no meningismus, no nuchal rigidity, negative Brudzinski's sign, negative Kernig's sign, no acute changes, limited range of motion, is not appreciated, Meningeal signs: are not present, Kernig's sign is negative, Brudzinski's sign is negative, nuchal rigidity, is not appreciated. 23:48 Neck: ROM/movement: zunilda Vital Signs: 21:43 BP 176 / 122; Pulse 110; Resp 20; Temp 98.4; Pulse Ox 99% on R/A; Weight 83.46 kg; dh4 Height 5 ft. 1 in. (154.94 cm); 22:07 BP 144 / 107; Pulse 112; Resp 18 S; Pulse Ox 97% on R/A; bb 23:36 BP 131 / 93; Pulse 96; Resp 20; Temp 98.0; Pulse Ox 100% on R/A; Pain 3/10; kc4 23:43 BP 148 / 98; Pulse 97; Resp 18; Pulse Ox 99% on R/A; df1 21:43 Body Mass Index 34.77 (83.46 kg, 154.94 cm) dh4 23:36 pt complains of headache kc4 MDM: 22:38 Patient medically screened. zunilda 22:54 Differential diagnosis: cardiac arrhythmia, generalized weakness, hypovolemia, zunilda idiopathic dizziness, near-syncope, , sepsis, vertigo. Data reviewed: vital signs, nurses notes, lab test result(s), EKG, radiologic studies, plain films. Data interpreted: surveillance monitor: rate is 112 beats/min, rhythm is regular, Pulse oximetry: on room air is 97 %. Interpretation: normal. Test interpretation: by ED physician or midlevel provider: ECG, plain radiologic studies. Counseling: I had a detailed discussion with the patient and/or guardian regarding: the historical points, exam findings, and any diagnostic results supporting the discharge/admit diagnosis, lab results, radiology results, the need for outpatient follow up, for definitive care, a family practitioner. 07/18 22:19 Order name: Urine Dipstick-Ancillary; Complete Time: 22:46 [facility] 07/18 22:23 Order name: Urine --Ancillary (enter results) cs9 07/18 22:24 Order name: Urine --Ancillary; Complete Time: 23:40 [facility] 07/18 22:50 Order name: Acetaminophen; Complete Time: 01:10 [facility] 07/18 22:50 Order name: Basic Metabolic Panel; Complete Time: 01:10 [facility] 07/18 22:50 Order name: CBC with Diff; Complete Time: 00:31 [facility] 07/18 22:50 Order name: ETOH Level; Complete Time: 01:10 [facility] 07/18 22:50 Order name: Hepatic Function; Complete Time: 01:10 [facility] 07/18 22:50 Order name: PT-INR; Complete Time: 23:40 [facility] 07/18 22:50 Order name: Ptt, Activated; Complete Time: 23:40 [facility] 07/18 22:50 Order name: Salicylate; Complete Time: 00:31 [facility] 07/18 22:50 Order name: Urine Drug Screen; Complete Time: 23:40 [facility] 07/18 22:57 Order name: SARS-COV-2 RT PCR (Document "Date of Onset" if Symptomatic); Complete Time: [facility] 00:07/18 23:26 Order name: Manual Differential; Complete Time: 00:31 [facility] 07/18 22:50 Order name: EKG; Complete Time: 22:51 [facility] 07/18 22:50 Order name: EKG - Nurse/Tech; Complete Time: 23:07 [facility] 07/18 22:50 Order name: IV Saline Lock; Complete Time: 23:07 [facility] 07/18 22:50 Order name: Labs collected and sent; Complete Time: 23:07 [facility] 07/18 22:50 Order name: Urine Dipstick-Ancillary (obtain specimen); Complete Time: 23:42 [facility] 07/18 23:40 Order name: CT Head Brain wo Cont [facility] 07/18 23:41 Order name: Chest Single View XRAY [facility] 07/18 23:44 Order name: Lactate; Complete Time: 01:10 [facility] 07/18 23:44 Order name: Procalcitonin [facility] 07/18 23:44 Order name: Blood Culture Adult (2) [facility] 07/19 00:00 Order name: Urine Culture zunilda EC:11 Rate is 85 beats/min. Rhythm is regular. QRS Wheeler is Normal. CO interval is normal. QRS zunilda interval is normal. QT interval is normal. No Q waves. T waves are Normal. No ST changes noted. Clinical impression: Normal ECG, NSR w/ Non-specific ST/T Changes, and No evidence of ischemia. Interpreted by me. Reviewed by me. Administered Medications: 23:11 Drug: NS 0.9% 1000 ml Route: IV; Rate: 1 bolus; Site: right antecubital; kc4 23:43 Drug: Tylenol 650 mg Route: PO; df1 07/19 00:38 Drug: LevOfloxacin 750 mg Route: PO; df1 Disposition Summary: 07/19/21 01:11 Discharge Ordered Location: Home zunilda Problem: new zunilda Symptoms: have improved zunilda Condition: Stable zunilda Diagnosis - Palpitations zunilda - Dizziness and giddiness zunilda - Elevated white blood cell count zunilda - Bandemia zunilda Followup: zunilda - With: Private Physician - When: 2 - 3 days - Reason: Recheck today's complaints, Continuance of care, Re-evaluation by your physician Discharge Instructions: - Discharge Summary Sheet zunilda - Dizziness zunilda - Palpitations zunilda - Palpitations, [id number] zunilda - Dizziness, [id number] zunilda - Leukocytosis zunilda Forms: - Medication Reconciliation Form zunilda - Thank You Letter zunilda - Antibiotic Education zunilda - Prescription Opioid Use [facility] Prescriptions: - Meclizine 25 mg Oral Tablet - take 1 tablet by ORAL route every 8 hours As needed; 30 tablet; Refills: 0, zunilda Product Selection Permitted - levofloxacin 500 mg Oral Tablet - take 1 tablet by ORAL route once daily for 7 days; 7 tablet; Refills: 0, zunilda Product Selection Permitted Signatures: Dispatcher [employer] Marcio Cabrera MD MD cha Ballard, Brenda, RN RN Josee Stewart kc4 Cyndi Chavez df1
--- NOTE | 2021-07-19 01:11 | ER ---
Nurse's Notes [facility] Name: Vaishnavi Dey Age: 26 yrs Sex: Female : 1995 Arrival Date: 07/18/2021 Time: 21:15 Bed 2 Private MD: Diagnosis: Palpitations;Dizziness and giddiness;Elevated white blood cell count;Bandemia Presentation: 07/18 22:03 Chief complaint: Patient states: she can feel her heart racing, she feels shaky and bb left side of her face is painful x 10 days she saw her PCP and was told it was Covid but she had 3 negative tests then she was told it was a UTI was supposed to have some other tests but they weren't done. Coronavirus screen: At this time, the client does not indicate any symptoms associated with coronavirus-19. Ebola Screen: No symptoms or risks identified at this time. Initial Sepsis Screen: Does the patient meet any 2 criteria? No. Patient's initial sepsis screen is negative. Does the patient have a suspected source of infection? No. Patient's initial sepsis screen is negative. Risk Assessment: Do you want to hurt yourself or someone else? Patient reports no desire to harm self or others. Onset of symptoms was July 08, 2021. 22:03 Method Of Arrival: Ambulatory bb 22:03 Acuity: VICKY 3 bb Triage Assessment: 07/19 01:21 General: Appears in no apparent distress. Behavior is calm, cooperative. Pain: Denies df1 pain. 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 - Social history:: Smoking status: Patient reports the use of cigarette tobacco products, smokes one-half pack cigarettes per day, Patient/guardian denies using alcohol, street drugs. - Family history:: not pertinent. Screenin:43 Abuse screen: Denies threats or abuse. Nutritional screening: No deficits noted. df1 Tuberculosis screening: No symptoms or risk factors identified. Fall Risk None identified. Vital Signs: 21:43 BP 176 / 122; Pulse 110; Resp 20; Temp 98.4; Pulse Ox 99% on R/A; Weight 83.46 kg; dh4 Height 5 ft. 1 in. (154.94 cm); 22:07 BP 144 / 107; Pulse 112; Resp 18 S; Pulse Ox 97% on R/A; bb 23:36 BP 131 / 93; Pulse 96; Resp 20; Temp 98.0; Pulse Ox 100% on R/A; Pain 3/10; kc4 23:43 BP 148 / 98; Pulse 97; Resp 18; Pulse Ox 99% on R/A; df1 21:43 Body Mass Index 34.77 (83.46 kg, 154.94 cm) dh4 23:36 pt complains of headache kc4 ED Course: 21:15 Patient arrived in ED. ja2 22:06 Triage completed. bb 22:07 Arm band placed on Patient placed in an exam room, on a stretcher, on pulse oximetry. bb Family accompanied patient. 22:38 Marcio Bowles MD is Attending Physician. [facility] 23:07 No provider procedures requiring assistance completed. Inserted saline lock: 20 gauge kc4 in right antecubital area, using aseptic technique. Blood collected. 23:10 Josee Alcala is Primary Nurse. kc4 23:11 Acetaminophen Sent. kc4 23:11 Basic Metabolic Panel Sent. kc4 23:11 CBC with Diff Sent. kc4 23:11 ETOH Level Sent. kc4 23:11 Hepatic Function Sent. kc4 23:11 PT-INR Sent. kc4 23:11 Ptt, Activated Sent. kc4 23:11 Salicylate Sent. kc4 23:11 Urine Drug Screen Sent. kc4 23:11 Urine --Ancillary Sent. kc4 23:11 Urine --Ancillary (enter results) Sent. kc4 23:11 SARS-COV-2 RT PCR (Document "Date of Onset" if Symptomatic) Sent. kc4 23:33 SARS-COV-2 RT PCR (Document "Date of Onset" if Symptomatic) Sent. kc4 23:43 Patient has correct armband on for positive identification. Placed in gown. Bed in low df1 position. Call light in reach. Side rails up X 1. Adult w/ patient. classroom monitor on. Pulse ox on. NIBP on. 23:51 Chest Single View XRAY In Process Unspecified. EDMS 23:57 CT Head Brain wo Cont In Process Unspecified. EDMS 07/19 00:05 Urine Culture Sent. df1 00:05 Procalcitonin Sent. df1 00:05 Blood Culture Adult (2) Sent. df1 00:05 Lactate Sent. df1 00:14 Urine Culture Sent. df1 01:21 IV discontinued, intact, bleeding controlled, No redness/swelling at site. Pressure df1 dressing applied. Administered Medications: 07/18 23:11 Drug: NS 0.9% 1000 ml Route: IV; Rate: 1 bolus; Site: right antecubital; kc4 23:43 Drug: Tylenol 650 mg Route: PO; df1 07/19 00:38 Drug: LevOfloxacin 750 mg Route: PO; df1 Outcome: 01:11 Discharge ordered by . zunilda 01:21 Discharged to home ambulatory. df1 01:21 Condition: good 01:21 Discharge instructions given to patient, family, Instructed on discharge instructions, follow up and referral plans. medication usage, Demonstrated understanding of instructions, follow-up care, medications, Prescriptions given X 2. 01:21 Patient left the ED. df1 Signatures: Dispatcher [employer] EDMT Marcio Bowles MD MD cha Ballard, Brenda, RN RN Harmeet Celis 4 Josee Alcala 4 Cristy Soliz Dawn df1 Corrections: (The following items were deleted from the chart) 07/18 21:46 21:35 BP 145 / 84; Pulse 80bpm; Resp 16bpm; Pulse Ox 95%; Temp 99.0F; 97.98 kg; Height dh4 5 ft. 7 in. Reported; BMI: 33.8; dh4
[2021-07-19 02:05] VITALS: TEMP 98
[2021-07-19 02:07] VITALS: BP 148/98; O2SAT 99
--- NOTE | 2021-07-19 08:35 | RAD REPORT ---
EXAM DESCRIPTION: RAD - Chest Single View - 07/18/2021 11:51 pm CLINICAL HISTORY: COUGH Chest pain. COMPARISON: Chest Single View dated 09/07/2019; CHEST PA AND LAT 2 VIEW dated 05/14/2011; CHEST PA AND LAT 2 VIEW dated 05/09/2010; CHEST PA AND LAT 2 VIEW dated 05/22/2009 FINDINGS: Portable technique limits examination quality. Interstitial lung markings are mildly prominent which may represent a viral infection or bronchitis. The heart is normal in size. No displaced fractures.
--- NOTE | 2021-07-19 11:52 | RAD REPORT ---
EXAM DESCRIPTION: Head Brain Wo Cont CLINICAL HISTORY: 26 years Female HEADACHE COMPARISON: None TECHNIQUE: Images were obtained in axial, sagittal, and coronal planes. This exam was performed according to our departmental dose-optimization program which includes use of Automated Exposure Control, adjustment of the mA and/or kV according to patient size and/or use of iterative reconstruction technique. FINDINGS: Ventricular system appears normal. No abnormal areas of increased attenuation seen. No extra-axial fluid collections noted. No evidence for skull fracture. Symmetric aeration mastoid air cells bilaterally. Unremarkable parana aliyah sinuses. IMPRESSION: No acute intracranial abnormality. No evidence for hemorrhage, mass lesion, or large acu te infarction. Electronically signed by: Delores Parmar MD 07/19/2021 12:08 AM MANUFACTURING ASSISTANT Due to temporary technical issues with the PACS/Fluency reporting system, reports are being signed by the in house radiologists without review as a courtesy to insure prompt reporting. The interpreting radiologist is fully responsible for the content of the report.
== END 2021-07-19 01:21 | disposition home or self-care (01) ==
LOC: ER 21:11
DX: R00.2 Palpitations (principal); D72.825 Bandemia; F17.210 Nicotine dependence, cigarettes, uncomplicated; Z88.0 Allergy status to penicillin; Z88.1 Allergy status to other antibiotic agents
CPT/HCPCS: 36415; 70450; 71045; 80048; 80076; 80307; 80320; 80329; 81003; 81025; 83605; 84145; 85025; 85610; 85730; 87040; 87086; 87088; 87205; 93005; 99284; J7030; U0003

== ENCOUNTER 2022-02-16 23:00 | Emergency (ER) | payer SELFPAY ==
[2022-02-16 23:56] LABS: Urine Blood Trace-intact (Negative); Urine Glucose Negative (Negative); Urine Protein Negative (Negative); Urine pH 6.5 (5.0-7.0)
[2022-02-17 00:04] LABS: Absolute Lymphocytes (CBC) 4.6 K/uL (0.7-4.9); Hematocrit 40.1 % (36.0-45.0); Lymphocytes % 37.3 % (15.3-44.8); MPV 8.7 fL (7.6-11.3); RBC Red Blood Cell Count 4.54 M/uL (3.86-4.86)
[2022-02-17] MEDS ORDERED: METOCLOPRAMIDE 10 MG/2mL INJ ONE (00:06)
[2022-02-17] MEDS ORDERED: DIAZEPAM 10 MG/2 ML INJ SYRINGE ONE (00:06)
[2022-02-17] MEDS ORDERED: NA CHLORIDE 0.9% 250 ML ONE (00:07)
[2022-02-17] MEDS ORDERED: KETOROLAC 30 MG/ML INJ ONE (00:07)
[2022-02-17] MEDS ORDERED: dexAMETHasone 10 MG/ML VIAL ONE (00:07)
[2022-02-17 00:30] LABS: Potassium 3.8 mmol/L (3.5-5.1); Troponin High Sensitivity 3.7 pg/mL (<58.9)
--- NOTE | 2022-02-17 02:50 | ER ---
Nurse's Notes [facility] Name: Vaishnavi Dey Age: 26 yrs Sex: Female : 1995 Arrival Date: 02/16/2022 Time: 23:02 Bed 10 Private MD: Diagnosis: Headache;Low back pain Presentation: 02/16 23:27 Chief complaint: Patient states: Low back pain x 3 days, now radiating to upper back, lp1 headache, nausea; Reports sitting for long periods of time causes legs to go numb and arm to become numb. Coronavirus screen: At this time, the client does not indicate any symptoms associated with coronavirus-19. Ebola Screen: No symptoms or risks identified at this time. Risk Assessment: Do you want to hurt yourself or someone else? Patient reports no desire to harm self or others. Onset of symptoms was February 16, 2022. 23:27 Method Of Arrival: Ambulatory lp1 23:27 Acuity: VICKY 3 lp1 23:39 Initial Sepsis Screen: Does the patient meet any 2 criteria? No. Patient's initial lp1 sepsis screen is negative. Does the patient have a suspected source of infection? No. Patient's initial sepsis screen is negative. 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 - Social history:: Smoking status: Patient reports the use of cigarette tobacco products, smokes one-half pack cigarettes per day. Screenin:28 Abuse screen: Denies threats or abuse. Denies injuries from another. Nutritional lp1 screening: No deficits noted. Tuberculosis screening: No symptoms or risk factors identified. Fall Risk None identified. Assessment: 23:40 General: Appears uncomfortable, Behavior is appropriate for age. Pain: Complains of lp1 pain in back, head. Neuro: Level of Consciousness is awake, alert, obeys commands, Oriented to person, place, time, situation, Moves all extremities. Full function Gait is steady, Intact. Cardiovascular: Patient's skin is warm and dry. Respiratory: Respiratory effort is even, unlabored. GI: No signs and/or symptoms were reported involving the gastrointestinal system. : No signs and/or symptoms were reported regarding the genitourinary system. EENT: No signs and/or symptoms were reported regarding the EENT system. Derm: Skin is pink, warm \T\ dry. Musculoskeletal: Circulation, motion, and sensation intact. Reports pain in back. 02/17 01:02 Reassessment: Patient appears in no apparent distress at this time. Patient and/or jb4 family updated on plan of care and expected duration. Pain level reassessed. Patient is alert, oriented x 3, equal unlabored respirations, skin warm/dry/pink. Patient states feeling better. 02:15 Reassessment: Patient appears in no apparent distress at this time. Patient and/or jb4 family updated on plan of care and expected duration. Pain level reassessed. Patient is alert, oriented x 3, equal unlabored respirations, skin warm/dry/pink. 02:57 Reassessment: Patient appears in no apparent distress at this time. Patient and/or jb4 family updated on plan of care and expected duration. Pain level reassessed. Patient is alert, oriented x 3, equal unlabored respirations, skin warm/dry/pink. Vital Signs: 02/16 23:39 BP 138 / 91; Pulse 86; Resp 18; Temp 98.9(O); Pulse Ox 99% on R/A; Weight 88.45 kg (R); lp1 Height 5 ft. 1 in. (154.94 cm); Pain 10/10; 02/17 01:02 BP 130 / 82; Pulse 80; Resp 16; Pulse Ox 97% ; Pain 2/10; jb4 02:15 BP 125 / 75; Pulse 78; Resp 16; Pulse Ox 98% on R/A; jb4 02/16 23:39 Body Mass Index 36.84 (88.45 kg, 154.94 cm) lp1 ED Course: 02/16 23:02 Patient arrived in ED. ja2 23:08 He Milner PA is PHCP. jmm 23:08 Tejas Sims MD is Attending Physician. [facility] 23:27 Triage completed. lp1 23:27 Arm band placed on left wrist. lp1 23:36 Juliano Sal, RN is Primary Nurse. jb4 23:39 Patient has correct armband on for positive identification. lp1 23:56 Urine --Ancillary (enter results) Sent. mh5 23:57 Warm blanket given. Pulse ox on. NIBP on. mh5 23:57 Initial lab(s) drawn, by ED staff, sent to lab. Urine collected: clean catch specimen, 5 EKG done, by ED staff, reviewed by He GUIDO. 23:58 Basic Metabolic Panel Sent. mh5 23:58 CBC with Diff Sent. mh5 23:58 Troponin HS Sent. 5 02/17 01:28 CT Head Brain wo Cont In Process Unspecified. EDMS 01:[address] In Process Unspecified. EDMS 01:[address] In Process Unspecified. EDMS 02:57 No provider procedures requiring assistance completed. IV discontinued, intact, jb4 bleeding controlled, No redness/swelling at site. Pressure dressing applied. Administered Medications: 02/16 23:37 CANCELLED (Duplicate Order): Reglan (metoCLOPramide) 10 mg IVP once; over 1 to 2 minutesj 06/ 00:10 Drug: Ketorolac 30 mg Route: IVP; Site: right antecubital; jb4 02:59 Follow up: Response: No adverse reaction; Marked relief of symptoms jb4 00:10 Drug: Valium (diazepam) 2 mg Route: IVP; Site: right antecubital; jb4 01:00 Follow up: Response: No adverse reaction; Marked relief of symptoms jb4 00:10 Drug: NS 0.9% 250 ml Route: IV; Rate: bolus; Site: right antecubital; jb4 01:00 Follow up: Response: No adverse reaction; Marked relief of symptoms; IV Status: jb4 Completed infusion 00:10 Drug: Reglan (metoCLOPramide) 10 mg {Note: in bolus.} Route: IVP; Site: right jb4 antecubital; 01:00 Follow up: Response: No adverse reaction; Marked relief of symptoms jb4 00:10 Drug: Decadron - Dexamethasone 10 mg Route: IVP; Site: right antecubital; jb4 01:00 Follow up: Response: No adverse reaction; Marked relief of symptoms jb4 Medication: 02/16 23:28 VIS not applicable for this client. lp1 Outcome: 02/17 02:49 Discharge ordered by . rn 02:57 Discharged to home ambulatory, with family. jb4 02:57 Condition: stable 02:57 Discharge instructions given to patient, Instructed on discharge instructions, follow up and referral plans. Demonstrated understanding of instructions, follow-up care. 03:00 Patient left the ED. jb4 Signatures: Dispatcher [employer] EDMS He Milner PA PA jmm Nieto, Roman, MD MD rn Pena, Laura, RN RN lp1 Juliano Sal RN RN jb4 Jesica Lopez Cristy Gerardo Corrections: (The following items were deleted from the chart) 02/16 23:29 23:27 Chief complaint: Patient states: Low back pain x 3 days, now radiating to upper lp1 back, headache, nausea lp1
--- NOTE | 2022-02-17 02:50 | EDPHYS ---
Physician Documentation [facility] Name: Vaishnavi Dey Age: 26 yrs Sex: Female : 1995 Arrival Date: 02/16/2022 Time: 23:02 Bed 10 Private MD: ED Physician Tejas Sims HPI: 02/16 23:33 This 26 yrs old Female presents to ER via Ambulatory with complaints of Back Pain, jmm Nausea, Headache. 23:33 This is a 26-year-old female with a history of kidney stones and ovarian cyst the jmm presents emerged department with complaints of lower back pain which began around Friday. Patient states the pain is ascended up her back and is now having headache around the posterior scalp with a squeezing sensation. Patient also states she has had nausea. Denies fever or chills. Also complains of paresthesias mainly to the left leg.. 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 - Social history:: Smoking status: Patient reports the use of cigarette tobacco products, smokes one-half pack cigarettes per day. ROS: 23:33 Constitutional: Negative for fever, chills, and weight loss, Cardiovascular: Negative jmm for chest pain, palpitations, and edema, Respiratory: Negative for shortness of breath, cough, wheezing, and pleuritic chest pain. 23:33 Neck: Positive for pain with movement. 23:33 Neuro: Positive for headache. 23:33 All other systems are negative. Exam: 23:33 Constitutional: This is a well developed, well nourished patient who is awake, alert, jmm and in no acute distress. Head/Face: atraumatic. Eyes: EOMI, no conjunctival erythema appreciated ENT: Moist Mucus Membranes Neck: Trachea midline, Supple Chest/axilla: Normal chest wall appearance and motion. Cardiovascular: Regular rate and rhythm. No edema appreciated Respiratory: Normal respirations, no respiratory distress appreciated Abdomen/GI: Non distended, soft Back: Normal ROM Skin: General appearance color normal 23:33 MS/ Extremity: Moves all extremities, no obvious deformities appreciated, no edema noted to the lower extremities Neuro: Awake and alert Psych: Behavior is normal, Mood is normal, Patient is cooperative and pleasant 23:33 Back: Pain is elicited on palpation of the paraspinal region of the lumbar, thoracic, and cervical spine bilaterally.. Vital Signs: 23:39 BP 138 / 91; Pulse 86; Resp 18; Temp 98.9(O); Pulse Ox 99% on R/A; Weight 88.45 kg (R); lp1 Height 5 ft. 1 in. (154.94 cm); Pain 10/10; 02/17 01:02 BP 130 / 82; Pulse 80; Resp 16; Pulse Ox 97% ; Pain 2/10; jb4 02:15 BP 125 / 75; Pulse 78; Resp 16; Pulse Ox 98% on R/A; jb4 02/16 23:39 Body Mass Index 36.84 (88.45 kg, 154.94 cm) lp1 MDM: 02/16 23:33 Patient medically screened. [facility] 02/17 02:47 Differential diagnosis: back pain, headache, migraine, neuropathy. Data reviewed: vital rn signs, nurses notes, lab test result(s), radiologic studies, CT scan, and as a result, I will discharge patient. Counseling: I had a detailed discussion with the patient and/or guardian regarding: the historical points, exam findings, and any diagnostic results supporting the discharge/admit diagnosis, lab results, radiology results, the need for outpatient follow up, to return to the emergency department if symptoms worsen or persist or if there are any questions or concerns that arise at home. Response to treatment: the patient's symptoms have markedly improved after treatment, and as a result, I will discharge patient. Special discussion: I discussed with the patient/guardian in detail that at this point there is no indication for admission to the hospital. It is understood, however, that if the symptoms persist or worsen the patient needs to return immediately for re-evaluation. 02:47 ED course: No acute findings on CT/CTA head/neck, will dc home with pcp f/u and return rn precautions. . 02/16 23:33 Order name: Basic Metabolic Panel; Complete Time: 00:31 [facility] 02/16 23:33 Order name: CBC with Diff [facility] 02/16 23:33 Order name: Troponin HS; Complete Time: 00:31 [facility] 02/16 23:35 Order name: CT Head Brain wo Cont [facility] 02/16 23:55 Order name: Urine --Ancillary (enter results); Complete Time: 00:09 lp1 02/16 23:56 Order name: Urine Dipstick-Ancillary; Complete Time: 23:59 EDIA 02/16 23:35 Order name: Head Angio CT [facility] 02/16 23:36 Order name: Neck Angio CT [facility] 02/16 23:33 Order name: EKG; Complete Time: 23:34 [facility] 02/16 23:33 Order name: Cardiac monitoring; Complete Time: 23:56 [facility] 02/16 23:33 Order name: EKG - Nurse/Tech; Complete Time: 23:56 [facility] 02/16 23:33 Order name: IV Saline Lock; Complete Time: 23:56 [facility] 02/16 23:36 Order name: Urine Test (obtain specimen); Complete Time: 23:55 [facility] Administered Medications: 02/16 23:37 CANCELLED (Duplicate Order): Reglan (metoCLOPramide) 10 mg [facility]P [facility]; [facility]10 Drug: Ketorolac 30 mg Route: IVP; Site: right antecubital; jb4 02:59 Follow up: Response: No adverse reaction; Marked relief of symptoms jb4 00:10 Drug: Valium (diazepam) 2 mg Route: IVP; Site: right antecubital; jb4 01:00 Follow up: Response: No adverse reaction; Marked relief of symptoms jb4 00:10 Drug: NS 0.9% 250 ml Route: IV; Rate: bolus; Site: right antecubital; jb4 01:00 Follow up: Response: No adverse reaction; Marked relief of symptoms; IV Status: jb4 Completed infusion 00:10 Drug: Reglan (metoCLOPramide) 10 mg {Note: in bolus.} Route: IVP; Site: right jb4 antecubital; 01:00 Follow up: Response: No adverse reaction; Marked relief of symptoms jb4 00:10 Drug: Decadron - Dexamethasone 10 mg Route: IVP; Site: right antecubital; jb4 01:00 Follow up: Response: No adverse reaction; Marked relief of symptoms jb4 Disposition: 06:06 Co-signature as Attending Physician, Tejas Sims MD. rn Disposition Summary: 02/17/22 02:49 Discharge Ordered Location: Home rn Problem: new rn Symptoms: have improved rn Condition: Stable rn Diagnosis - Headache rn - Low back pain rn Followup: rn - With: Private Physician - When: As needed - Reason: Recheck today's complaints, Re-evaluation by your physician Discharge Instructions: - Discharge Summary Sheet rn - Acute Back Pain, Adult rn - General Headache Without Cause rn Forms: - Medication Reconciliation Form rn - Thank You Letter rn - Antibiotic basket turner - Prescription Opioid Use rn Signatures: Dispatcher [employer] EDMS He Milner PA PA jmm Nieto, Roman, MD MD rn Pena, Laura, RN RN lp1 Juliano Sal RN RN jb4 Corrections: (The following items were deleted from the chart) 02/16 23:37 23:36 Reglan (metoCLOPramide) 10 mg IVP once; over 1 to 2 minutes ordered. rahat giang
[2022-02-17 03:35] VITALS: TEMP 98.9
[2022-02-17 03:43] VITALS: BP 125/75; O2SAT 98
--- NOTE | 2022-02-18 11:52 | EKG ---
Test Date: 2022-02-16 Test Time: 23:48:04 Head Of Advertising: CHIKI MEASUREMENT RESULTS: Intervals: Rate: 80 MO: 138 QRSD: 78 QT: 372 QTc: 429 Ramona: P: 44 MO: 138 QRS: 71 T: 61 INTERPRETIVE STATEMENTS: Normal sinus rhythm with sinus arrhythmia Normal ECG Compared to ECG 07/18/2021 23:04:16 No significant changes Electronically Signed On 02-18-22 11:50:15 CDT by Basilio Smart
--- NOTE | 2022-02-18 12:21 | RAD REPORT ---
EXAM DESCRIPTION: CT - Head Brain Wo Cont - 02/17/2022 6:54 am CLINICAL HISTORY: New onset headache COMPARISON: CT Head/Brain Without Contrast 07/18/2021 TECHNIQUE: Head/brain axial images acquired without contrast. Coronal and sagittal reformats created . Exam performed according to departmental dose-optimization program which includes automated exposur e control, adjustment of mA and/or kV according to patient size, and/or use of iterative reconstructi on technique. FINDINGS: No midline shift, mass effect, intracranial hemorrhage, or hydrocephalus. Brain parenchyma unremarkable. Left maxillary sinus partially-imaged and shows moderate mucous retention cyst or polyp. Mastoid air cells clear. No skull fracture or significant skull lesion. IMPRESSION: Unremarkable CT head/brain without contrast. Electronically signed by: Roberto Kelly MD 02/17/2022 2:19 AM CDT Due to temporary technical issues with the PACS/Fluency reporting system, reports are being signed by the in house radiologist without review as a courtesy to ensure prompt reporting. The interpreting r adiologist is fully responsible for the content of the report.
--- NOTE | 2022-02-18 12:29 | RAD REPORT ---
EXAM DESCRIPTION: CT - Head angio - 02/17/2022 6:54 am CLINICAL HISTORY: New onset headache COMPARISON: None. TECHNIQUE: Head CTA axial images acquired after IV contrast. Coronal and sagittal CTA MIPs and MPRs created. 3D volume rendered images created. Exam performed according to departmental dose-optimizatio n program which includes automated exposure control, adjustment of mA and/or kV according to patient size, and/or use of iterative reconstruction technique. FINDINGS: Both intracranial vertebral, basilar, and both posterior cerebral arteries unremarkable. Both intracranial internal carotid, both middle cerebral, anterior communicating, and both anterior c erebral arteries unremarkable. No evidence of large intracranial arterial occlusion, aneurysm, or AVM. IMPRESSION: Unremarkable CTA head/brain with contrast. Electronically signed by: Roberto Kelly MD 02/17/2022 2:32 AM CDT Due to temporary technical issues with the PACS/Fluency reporting system, reports are being signed by the in house radiologist without review as a courtesy to ensure prompt reporting. The interpreting r adiologist is fully responsible for the content of the report.
--- NOTE | 2022-02-18 12:31 | RAD REPORT ---
EXAM DESCRIPTION: CT - Neck Angio - 02/17/2022 6:53 am CLINICAL HISTORY: New onset headache COMPARISON: None. TECHNIQUE: Neck CTA axial images acquired after IV contrast. Coronal and sagittal CTA MIPs and MPRs created. 3D volume rendered images created. Exam performed according to departmental dose-optimizatio n program which includes automated exposure control, adjustment of mA and/or kV according to patient size, and/or use of iterative reconstruction technique. FINDINGS: Aortic arch not imaged. Both vertebral arteries unremarkable. Both carotid arteries unremarkable. No significant carotid artery stenosis (by NASCET criteria). IMPRESSION: Unremarkable CTA Neck. Electronically signed by: Roberto Kelly MD 02/17/2022 2:40 AM CDT Due to temporary technical issues with the PACS/Fluency reporting system, reports are being signed by the in house radiologist without review as a courtesy to ensure prompt reporting. The interpreting r adiologist is fully responsible for the content of the report.
== END 2022-02-17 03:00 | disposition home or self-care (01) ==
LOC: ER 23:00
DX: M54.50 Low back pain, unspecified (principal); R51.9 Headache, unspecified; F17.210 Nicotine dependence, cigarettes, uncomplicated; Z87.442 Personal history of urinary calculi; Z88.0 Allergy status to penicillin; Z88.1 Allergy status to other antibiotic agents
CPT/HCPCS: 36415; 70450; 70496; 70498; 80048; 81003; 81025; 84484; 85025; 93005; 96361; 96374; 96375; 99284; J1100; J2765; J3360; J7050; Q9967

== ENCOUNTER 2022-04-03 20:09 | Emergency (ER) | payer SELFPAY ==
[2022-04-03 21:16] LABS: Absolute Lymphocytes (CBC) 3.5 K/uL (0.7-4.9); Hematocrit 37.8 % (36.0-45.0); Lymphocytes % 28.6 % (15.3-44.8); MPV 8.8 fL (7.6-11.3); RBC Red Blood Cell Count 4.29 M/uL (3.86-4.86)
[2022-04-03 21:30] LABS: Urine Bacteria <20 /HPF (<20); Urine Mucus 2+ /HPF (None Seen); Urine RBC >50 /HPF (None Seen)
[2022-04-03 21:51] LABS: Albumin 3.8 g/dL (3.4-5.0); Bilirubin Total 0.2 mg/dL (0.2-1.0); Protein, Total 7.5 g/dL (6.4-8.2)
[2022-04-03] MEDS ORDERED: KETOROLAC 30 MG/ML INJ ONE (21:52)
[2022-04-03] MEDS ORDERED: NA CHLORIDE 0.9% 1,000 ML ONE (21:52)
[2022-04-03] MEDS ORDERED: ONDANSETRON 4 MG/2 ML VIAL ONE (21:52)
[2022-04-03 21:53] LABS: Potassium 4.2 mmol/L (3.5-5.1)
[2022-04-03 21:59] LABS: Urine Blood 3+ (Negative); Urine Glucose Negative (Negative); Urine Protein 2+ (Negative); Urine Specific Gravity >=1.030 (1.005-1.030); Urine pH 5.5 (5.0-7.0)
--- NOTE | 2022-04-03 22:15 | RAD REPORT ---
EXAM DESCRIPTION: CT - Stone Protocol - 04/03/2022 9:58 pm CLINICAL HISTORY: flank pain COMPARISON: Abdomen Pelvis W Contrast dated 04/04/2021 TECHNIQUE: Axial 3 mm thick images were obtained without oral or IV contrast. The [id number] span s the entirety of the system including uppermost abdomen and lung bases. All CT scans are performed using dose optimization technique as appropriate and may include automated exposure control or mA/KV adjustment according to patient size. FINDINGS: Mild hydronephrosis of the left-side pelvis and calices present secondary to a [address] one. No other ureteral calculi seen. No left-sided nonobstructing calculi. There is a 3 mm calcificat ion upper pole calyx on the right. No right-sided hydronephrosis. No suspicious renal masses. Isodens e masses and pyelonephritis are not excluded on a stone protocol CT scan. No significant adrenal find ing. Partially filled urinary bladder shows no suspicious finding. Uterus and ovaries are unchanged f rom the April 2021 study. Prominent size to the right ovary has not changed. Imaged portions of the liver, spleen and pancreas show no suspicious findings on non-contrast imaging . Gallbladder is contracted. No biliary tree dilatation. No suspicious bowel findings. Appendix is normal. No hernia, mass or bulky lymphadenopathy noted. No free air, free fluid or inflammatory stranding. No significant bony abnormality. IMPRESSION: Mild hydronephrosis of the left-side pelvis and calices secondary to a 5 mm UPJ stone Isodense masses and pyelonephritis are not excluded on stone protocol technique. Nonacute findings detailed in the body of the report.
[2022-04-03] MEDS ORDERED: TAMSULOSIN 0.4 MG SR CAP ONE (22:37)
[2022-04-03] MEDS ORDERED: MAGNESIUM SULFATE 1 gm IVPB 1 GM/100 ML BAG IV ONE (22:37)
[2022-04-03] MEDS ORDERED: MORPHINE 4 MG/ML SYR ONE (23:47)
--- NOTE | 2022-04-04 00:34 | ER ---
Nurse's Notes [facility] Name: Vaishnavi Dey Age: 27 yrs Sex: Female : 1995 Arrival Date: 04/03/2022 Time: 20:12 Bed 2 Private MD: Diagnosis: Calculus of kidney with calculus of ureter Presentation: 04/03 20:25 Chief complaint: Patient states: "I have a really bad pain in my left lower abdomen and tw5 it is in my back. I started peeing blood. It feels like someone is stabbing me. I was thinking it was kidney stones, I have had them before but they didn't hurt this bad.". Coronavirus screen: Vaccine status: Patient reports being unvaccinated. Ebola Screen: Patient negative for fever greater than or equal to 101.5 degrees Fahrenheit, and additional compatible Ebola Virus Disease symptoms Patient denies exposure to infectious person. Patient denies travel to an Ebola-affected area in the 21 days before illness onset. Initial Sepsis Screen: Does the patient meet any 2 criteria? HR > 90 bpm. Does the patient have a suspected source of infection? Yes: Acute abdominal pain. Risk Assessment: Do you want to hurt yourself or someone else? Patient reports no desire to harm self or others. Onset of symptoms was April 03, 2022 at 09:00. 20:25 Method Of Arrival: Ambulatory tw5 20:25 Acuity: VICKY 3 tw5 Triage Assessment: 20:27 General: Appears uncomfortable, Behavior is cooperative, appropriate for age. Pain: tw5 Complains of pain in left low back and left lower quadrant Pain currently is 9 out of 10 on a pain scale. EENT:. GI: Reports upper abdominal pain, nausea. 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 - Social history:: Smoking status: Patient reports the use of cigarette tobacco products, smokes one pack cigarettes per day. Screenin:57 Abuse screen: Denies threats or abuse. Denies injuries from another. Nutritional aa9 screening: No deficits noted. Tuberculosis screening: No symptoms or risk factors identified. Fall Risk None identified. Assessment: 21:52 General: Appears distressed, uncomfortable, Behavior is cooperative, restless. Pain: aa9 Complains of pain in left low back Pain currently is 7 out of 10 on a pain scale. Quality of pain is described as throbbing, Pain began 6Am today. GI: Bowel sounds present X 4 quads. Abd is soft X 4 quads Abdomen is tender to palpation in posterior aspect of left lateral abdomen, left upper quadrant and left lower quadrant. GI: Reports Last BM was today, reports loose stool and brown in color. : Reports blood in urine. 22:45 Reassessment: behavior is cooperative and clam. aa9 Vital Signs: 20:25 BP 139 / 98; Pulse 97; Resp 18; Temp 97.6; Pulse Ox 96% on R/A; Weight 85.73 kg; Height tw5 5 ft. 1 in. (154.94 cm); Pain 8/10; 21:52 BP 141 / 91; Pulse 100; Resp 16 S; Pulse Ox 99% on R/A; Pain 9/10; aa9 20:25 Body Mass Index 35.71 (85.73 kg, 154.94 cm) tw5 ED Course: 20:12 Patient arrived in ED. rg4 20:13 Gabri[facility] Cowan [facility]C is [facility] kb 20:13 Tejas Sims MD is Attending Physician. kb 20:27 Triage completed. tw5 20:27 Arm band placed on right wrist. tw5 20:54 Initial lab(s) drawn, by sc, sent to lab. Urine collected: clean catch specimen, clear. tw5 Inserted saline lock: 20 gauge in left antecubital area, using aseptic technique. Blood collected. 21:01 CBC with Diff Sent. tw5 21:01 CMP Sent. tw5 21:01 Lipase Sent. tw5 21:01 Urine Microscopic Only Sent. tw5 21:57 Patient has correct armband on for positive identification. Bed in low position. Call aa9 light in reach. Adult w/ patient. 22:00 CT Stone Protocol In Process Unspecified. EDMS 04/04 00:34 Jesse Rodgers MD is Referral Physician. kb 01:00 No provider procedures requiring assistance completed. IV discontinued, intact, kl bleeding controlled, No redness/swelling at site. Pressure dressing applied. Administered Medications: 04/03 21:51 Drug: Zofran (Ondansetron) 4 mg Route: IVP; Site: left forearm; aa9 22:34 Follow up: Response: No adverse reaction aa9 21:51 Drug: Ketorolac 15 mg Route: IVP; Site: left forearm; aa9 22:34 Follow up: Response: No adverse reaction aa9 21:52 Drug: NS 0.9% 1000 ml Route: IV; Rate: 1 bolus; Site: left forearm; aa9 22:34 Drug: Magnesium Sulfate 1 grams Route: IVPB; Infused Over: 1 hrs; Site: left forearm; aa9 22:34 Drug: Flomax (tamsulosin) 0.4 mg Route: PO; aa9 22:35 Follow up: Response: No adverse reaction aa9 23:45 Drug: morphine 4 mg Route: IVP; Infused Over: 4 mins; Site: left forearm; Medication: 04/04 01:00 VIS not applicable for this client. Outcome: 00:34 Discharge ordered by . ken 01:00 Discharged to home ambulatory, with family. 01:00 Condition: improved 01:00 Discharge instructions given to patient, Instructed on discharge instructions, follow up and referral plans. medication usage, Demonstrated understanding of instructions, follow-up care, medications, Prescriptions given X x5 01:00 Patient left the ED. Addendum: 04/07/2022 12:02 Addendum: Culture Results: Bacteria is resistant to, has intermediate sensitivity, or i w is not tested against prescribed antibiotics. 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 Phone call Attempt #1 called in prescription for MAcrobid 100 mg BID X 7 days, #14, no refills, called in to [facility]. Signatures: Dispatcher [employer] Gabriela Gagnon, VIKTOR MENA-Tarsha Forrester RN Leatha Mittal RN RN iw Garcia, Rubi rg4 Velma Thakur tw5 Madison Sinha RN RN aa9
--- NOTE | 2022-04-04 00:34 | EDPHYS ---
Physician Documentation [facility] Name: Vaishnavi Dey Age: 27 yrs Sex: Female : 1995 Arrival Date: 04/03/2022 Time: 20:12 Bed 2 Private MD: ED Physician Tejas Sims HPI: 04/03 21:43 This 27 yrs old Female presents to ER via Ambulatory with complaints of Low Back Pain, kb Abdominal Pain, Nausea, HEMATURIA. 21:43 The patient complains of pain in the left flank. The pain radiates to the left lower kb quadrant. Onset: The symptoms/episode began/occurred yesterday. Modifying factors: The symptoms are alleviated by nothing. the symptoms are aggravated by nothing. Associated signs and symptoms: Pertinent positives: hematuria, nausea, Pertinent negatives: fever, vomiting. Severity of pain: At its worst the pain was moderate in the emergency department the pain is unchanged. The patient has not experienced similar symptoms in the past. The patient has not recently seen a physician. Patient reports left flank pain that started yesterday. Pain radiates to left lower abdomen. Reports hematuria and nausea as well. States it feels like a kidney stone that she had before.. 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 - Social history:: Smoking status: Patient reports the use of cigarette tobacco products, smokes one pack cigarettes per day. ROS: 21:43 Constitutional: Negative for fever, chills, and weight loss. kb 21:43 Abdomen/GI: Positive for abdominal pain, nausea. 21:43 : Positive for flank pain, hematuria. 21:43 All other systems are negative. Exam: 21:43 Constitutional: This is a well developed, well nourished patient who is awake, alert, kb and in no acute distress. Head/Face: Normocephalic, atraumatic. ENT: Moist Mucous membranes Cardiovascular: Regular rate and rhythm with a normal S1 and S2. No gallops, murmurs, or rubs. No pulse deficits. Respiratory: Respirations even and unlabored. No increased work of breathing. Talking in full sentences Abdomen/GI: Soft, non-tender. No distention Skin: Warm, dry with normal turgor. Normal color. MS/ Extremity: Pulses equal, no cyanosis. Neurovascular intact. Full, normal range of motion. Neuro: Awake and alert, GCS 15, oriented to person, place, time, and situation. Moves all extremities. Normal gait. Psych: Awake, alert, with orientation to person, place and time. Behavior, mood, and affect are within normal limits. 21:43 Back: pain, that is moderate, CVA tenderness, that is moderate, is noted on the left. Vital Signs: 20:25 BP 139 / 98; Pulse 97; Resp 18; Temp 97.6; Pulse Ox 96% on R/A; Weight 85.73 kg; Height tw5 5 ft. 1 in. (154.94 cm); Pain 8/10; 21:52 BP 141 / 91; Pulse 100; Resp 16 S; Pulse Ox 99% on R/A; Pain 9/10; aa9 20:25 Body Mass Index 35.71 (85.73 kg, 154.94 cm) tw5 MDM: 20:31 Patient medically screened. kb 21:42 Data reviewed: vital signs, nurses notes. Data interpreted: Pulse oximetry: on room air kb is 96 %. Interpretation: normal. 04/04 00:32 Counseling: I had a detailed discussion with the patient and/or guardian regarding: the kb historical points, exam findings, and any diagnostic results supporting the discharge/admit diagnosis, lab results, radiology results, the need for outpatient follow up, a urologist, to return to the emergency department if symptoms worsen or persist or if there are any questions or concerns that arise at home. ED course: Pain is controlled. Patient states she wants to go home and follow-up with urology outpatient. Patient will return for worsening symptoms or any other concerns.. 04/03 20:31 Order name: CBC with Diff; Complete Time: 21:22 kb 04/03 20:31 Order name: CMP; Complete Time: 21:54 kb 04/03 20:31 Order name: Lipase; Complete Time: 21:54 kb 04/03 20:31 Order name: Urine Microscopic Only; Complete Time: 21:41 kb 04/03 21:33 Order name: Urine Culture EDMS 04/03 20:31 Order name: CT Stone Protocol; Complete Time: 22:16 kb 04/03 22:00 Order name: Urine Dipstick-Ancillary; Complete Time: 22:12 [facility] 04/03 20:31 Order name: IV Saline Lock; Complete Time: 21:01 kb 04/03 20:31 Order name: Labs collected and sent; Complete Time: 21:01 kb 04/03 20:31 Order name: Urine Dipstick-Ancillary (obtain specimen); Complete Time: 20:49 kb 04/03 20:31 Order name: Urine Test (obtain specimen); Complete Time: 20:49 kb Administered Medications: 04/03 21:51 Drug: Zofran (Ondansetron) 4 mg Route: IVP; Site: left forearm; aa9 22:34 Follow up: Response: No adverse reaction aa9 21:51 Drug: Ketorolac 15 mg Route: IVP; Site: left forearm; aa9 22:34 Follow up: Response: No adverse reaction aa9 21:52 Drug: NS 0.9% 1000 ml Route: IV; Rate: 1 bolus; Site: left forearm; aa9 22:34 Drug: Magnesium Sulfate 1 grams Route: IVPB; Infused Over: 1 hrs; Site: left forearm; aa9 22:34 Drug: Flomax (tamsulosin) 0.4 mg Route: PO; aa9 22:35 Follow up: Response: No adverse reaction aa9 23:45 Drug: morphine 4 mg Route: IVP; Infused Over: 4 mins; Site: left forearm; Disposition: 04/04 01:05 Co-signature as Attending Physician, Tejas Sims MD. rn Disposition Summary: 04/04/22 00:34 Discharge Ordered Location: Home kb Condition: Stable kb Diagnosis - Calculus of kidney with calculus of ureter kb Followup: kb - With: Emergency Department - When: As needed - Reason: Worsening of condition Followup: kb - With: Private Physician - When: 2 - 3 days - Reason: Recheck today's complaints, Continuance of care, Re-evaluation by your physician Followup: kb - With: Jesse Rodgers MD - When: 1 - 2 days - Reason: Recheck today's complaints Discharge Instructions: - Discharge Summary Sheet kb - Kidney Stones, [id number] kb Forms: - Medication Reconciliation Form kb - Thank You Letter kb - Antibiotic Education kb - Prescription Opioid Use kb Prescriptions: - Flomax 0.4 mg Oral capsule - take 1 capsule by ORAL route once daily As needed 1/2 hour following the same kb meal each day; 10 capsule; Refills: 0, Product Selection Permitted - Zofran 4 mg Oral Tablet - take 1 tablet by ORAL route every 6 hours As needed; 20 tablet; Refills: 0, kb Product Selection Permitted - Cipro 500 mg Oral Tablet - take 1 tablet by ORAL route every 12 hours for 7 days; 14 tablet; Refills: 0, kb Product Selection Permitted - Diclofenac Sodium 75 mg Oral tablet,delayed release (DR/EC) - take 1 tablet by ORAL route 2 times per day As needed; 30 tablet; Refills: 0, kb Product Selection Permitted - Tramadol 50 mg Oral Tablet - take 1 tablet by ORAL route every 8 hours as needed; 12 tablet; Refills: 0, kb Product Selection Permitted Signatures: Dispatcher [employer] Gabriela Gagnon, JOURNAL CLERK-C JOURNAL CLERK-Javyb Tarsha Maya, RN Tejas Mix MD MD rn Wood, Tiffany tw5 Madison Sinha, DANIELE RN aa9
[2022-04-04 03:06] VITALS: TEMP 97.6
[2022-04-04 03:15] VITALS: BP 141/91; O2SAT 99
== END 2022-04-04 01:00 | disposition home or self-care (01) ==
LOC: ER 20:09
DX: N20.2 Calculus of kidney with calculus of ureter (principal); Z87.442 Personal history of urinary calculi; F17.210 Nicotine dependence, cigarettes, uncomplicated; Z88.0 Allergy status to penicillin; Z88.1 Allergy status to other antibiotic agents
CPT/HCPCS: 36415; 74176; 76377; 80053; 81003; 81015; 83690; 85025; 87077; 87086; 87088; 87186; 96374; 96375; 99284; J2405; J3475; J7030

== ENCOUNTER 2022-04-26 21:44 | Emergency (ER) | payer SELFPAY ==
--- OUTSIDE RECORDS SUMMARY | 2022-04-26 21:48 | XMS REPORT | Continuity of Care Document ---
:1995 Author Organization [facility] t Address [address] [place] [address] Care Team Providers Name Role Phone Unavailable Unavailable Unavailable Problems This patient has no known problems. Allergies, Adverse Reactions, Alerts This patient has no known allergies or adverse reactions. Medications This patient has no known medications. Procedures This patient has no known procedures. Results Test Description Test Time Test Comments Results Result Comments Source VITAMIN D, 25 OH 2022-04-12 06:15:23 Test Item Value Reference Range Interpretation Comme nts VITAMIN D, 25 OH (test code 22 NG/ML SEE BELOW L NOTE: 25-HYDROXYVITAMIN D ASSAY = 4958) INCLUDES 25-HYD ROXYVITAMIN D2 AND D3. METHODOLOGY IS CHEMILUMINESCENT IMMUNOASSAY. INTERPRETIVE RANGES PED IATRIC (<17 YEARS) . . . . . . . . . . . NG/ML 20-100ADULT: INSUFFICIENT . . . . . . . . . . . . . . NG/ML <20 S UBOPTIMAL . . . . . . . . . . . . . . . NG/ML 20-29 OPTIMAL . . . . . . . . . . . . . . . . . NG/ML 30-100 COMPREHENSIVE METABOLIC [id number] 05:11:12 Test Item Value Reference Range Interpretation Comments GLUCOSE (test code = 81 MG/DL 70-99 2216) BUN (test code = 8 MG/DL 02-18) CREATININE (test 0.65 MG/DL 0.60-1.30 code = 2214) eGFR (2020 CKD-EPI) 123 >60 (test code = 76174) ML/MIN/1.73 CALC BUN/CREAT (test 12 RATIO - code = 2235) SODIUM (test code = 139 MEQ/L 487-010 0360) POTASSIUM (test code 4.7 MEQ/L 3.5-5.4 = 2227) CHLORIDE (test code 102 MEQ/L 95-107 = 2215) CARBON DIOXIDE (test 26 MEQ/L 19-31 code = 220) CALCIUM (test code = 9.9 MG/DL 8.5-10.5 2208) PROTEIN, TOTAL (test 7.3 G/DL 6.1-8.3 code = 222) ALBUMIN (test code = 5.0 G/DL 3.5-5.2 2200) CALC GLOBULIN (test 2.3 G/DL 1.9-3.7 code = 2240) CALC A/G RATIO (test 2.2 RATIO 1.0-2.6 code = 2234) BILIRUBIN, TOTAL <0.2 MG/DL See_Comment [Automated message] (test code = 2206) The syste m which generated this result transmit loree reference range : <=1.2. The refe rence range was not u sed to interpret th is result as normal/abnormal . ALKALINE PHOSPHATASE 87 U/L 40-112 (test code = 2203) AST (test code = 22 U/L 9-40 2217) ALT (test code = 27 U/L 5-40 2218) LIPID [id number] 05:11:12 Test Item Value Reference Range Interpretation Comments CHOLESTEROL (test 240 MG/DL <200 H code = 2210) TRIGLYCERIDES (test 159 MG/DL <150 H code = 2232) HDL CHOLESTEROL (test 43 MG/DL >39 code = 2220) CALC LDL CHOL (test 166 MG/DL <100 H NOTE: C ALCULATED LDL code = 2237) IS BASED ON KENY-TOSCANO METHOD WHICHINCLUDES ADJUSTABLE TRIGLYCERIDE:VL DL CHOLESTEROL RAT IO.THIS FACTOR VARIES B Y MEASURED TRIGLY CERIDE AND NON-HDLCHOL ESTEROL CONCENTRATIONS WITH INCREASED CALCU LATED LDL SEENIN HIGH ER TRIGLYCERIDE OR LOWER NON-HDL SPECIME NS. FOR MOREINFORMATION , SEE CLIENT ANNOUNCE MENT AT [email or web address] RISK RATIO LDL/HDL 3.86 RATIO <3.22 H (test code = 2238) HEMOGLOBIN [id number] 05:06:15 Test Item Value Reference Range Interpretation Comments HEMOGLOBIN A1c (test code = 09882) 6.1 % 4.2-5.6 H TSH, THIRD [id number] 04:43:16 Test Item Value Reference Range Interpretation Comments TSH, THIRD GENERATION (test code 1.660 UIU/ML 0.400-4.100 = 2821) VITAMIN [id number] 04:43:16 Test Item Value Reference Range Interpretation Comments VITAMIN B-12 (test code = 2840) 431 PG/ML 200-950 [id number] 04:43:16 Test Item Value Reference Range Interpretation Comments FERRITIN (test code 132 NG/ML 13-200 UNLESS OTHERWISE = 2075) INDICATED, ALL TESTING PERFORMED [facility] [address] [facility] [place], [place] [address] LABORATORY DIRE CTOR: JANET NOVA M.D. CLIA NUMBER [id number] [place] [id number] CBC W/AUTO DIFF WITH [id number] 02:51:12 Test Item Value Reference Range Interpretation Comments WBC (test code = 10.1 K/UL 3.5-11.0 1001) RBC (test code = 4.39 M/UL 3.80-5.40 1002) HEMOGLOBIN (test code 12.9 G/DL 11.5-15.5 = 1003) HEMATOCRIT (test code 37.6 % 34.0-45.0 = 1004) MCV (test code = 85.6 fL 80.0-99.0 1005) MCH (test code = 29.4 PG 25.0-33.0 1006) MCHC (test code = 34.3 G/DL 31.0-36.0 1007) RDW (test code = 13.2 % 11.5-15.0 1038) NEUTROPHILS (test 65.7 % code = 1008) LYMPHOCYTES (test 27.3 % code = 1010) MONOCYTES (test code 5.3 % = 1011) EOSINOPHILS (test 0.9 % code = 1012) BASOPHILS (test code 0.6 % = 1013) IMMATURE GRANULOCYTES 0.2 % (test code = 1036) NUCLEATED RBCS (test 0.0 /100 WBC'S See_Comment [Aut omated code = 1065) message] The sy stem which generated this result transmitted reference range : 0.0. The refere nce range was not u sed to interpret th is result as normal/abnormal . PLATELET COUNT (test 332 K/UL 130-400 code = 1015) ABSOLUTE NEUTROPHILS 6.65 K/UL 1.50-7.50 (test code = 1066) ABSOLUTE LYMPHOCYTES 2.77 K/UL 1.00-4.00 (test code = 1067) ABSOLUTE MONOCYTES 0.54 K/UL 0.20-1.00 (test code = 1068) ABSOLUTE EOSINOPHILS 0.09 K/UL 0.00-0.50 (test code = 1040) ABSOLUTE BASOPHILS 0.06 K/UL 0.00-0.20 (test code = 1069) ABS IMMATURE 0.02 K/UL 0.00-0.10 GRANULOCYTES (test code = 1020) ABS NUCLEATED RBCS 0.00 K/UL 0.00-0.11 (test code = 20749)
[2022-04-26 22:54] LABS: Urine Blood 3+ (Negative); Urine Glucose Negative (Negative); Urine Protein Negative (Negative); Urine Specific Gravity 1.015 (1.005-1.030)
[2022-04-26 22:56] LABS: Hematocrit 37.3 % (36.0-45.0); Lymphocytes % 34.2 % (15.3-44.8); MCV 86.6 fL (80-100); MPV 8.9 fL (7.6-11.3)
[2022-04-26 23:12] LABS: Potassium 3.9 mmol/L (3.5-5.1)
[2022-04-27] MEDS ORDERED: MORPHINE 4 MG/ML SYR ONE (01:21)
--- NOTE | 2022-04-27 02:24 | EDPHYS ---
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 - Social history:: Smoking status: Patient reports the use of cigarette tobacco products, smokes one-half pack cigarettes per day, Patient/guardian denies using alcohol. Vital Signs: 21:47 BP 142 / 102; Pulse 101; Resp 20; Temp 98.9(TE); Pulse Ox 98% on R/A; Weight 81.65 kg; eh3 Height 5 ft. 2 in. (157.48 cm); Pain 8/10; 22:54 BP 127 / 88; Pulse 101; Resp 18; Temp 98.9(O); Pulse Ox 99% on R/A; 5 23:00 BP 124 / 81; Pulse 108; Resp 18; Pulse Ox 96% on R/A; 3 04/27 01:40 BP 148 / 104; Pulse 111; Resp 18; Pulse Ox 97% on R/A; 3 04/26 21:47 Body Mass Index 32.92 (81.65 kg, 157.48 cm) eh3 MDM: 04/26 22:57 Patient medically screened. ms3 04/26 22:55 Order name: Urine Dipstick-Ancillary; Complete Time: 22:59 EDMS 04/26 22:55 Order name: Basic Metabolic Panel; Complete Time: 00:14 EDMS 04/26 22:55 Order name: CBC with Automated Diff; Complete Time: 22:59 EDMS 04/26 22:08 Order name: Urine Dipstick-Ancillary (obtain specimen); Complete Time: 22:44 ms3 04/26 22:59 Order name: Urine Test (obtain specimen); Complete Time: 22:59 ms3 04/26 23:28 Order name: Abdomen EDMS Administered Medications: 04/27 01:34 Drug: morphine 4 mg Route: IVP; Infused Over: 4 mins; Site: right hand; ll3 02:35 Follow up: Response: No adverse reaction; Pain is decreased ll3 Disposition Summary: 04/27/22 02:24 Discharge Ordered Location: Home ms3 Condition: Stable ms3 Diagnosis - Kidney stone ms3 - Unspecified hydronephrosis ms3 - Elevated blood-pressure reading, without diagnosis of hypertension ms3 Followup: ms3 - With: Jesse Rodgers MD - When: 2 - 3 days - Reason: Recheck today's complaints Discharge Instructions: - Discharge Summary Sheet ms3 - Kidney Stones ms3 Forms: - Medication Reconciliation Form ms3 - Thank You Letter ms3 - Antibiotic Education ms3 - Prescription Opioid Use ms3 Prescriptions: - Flomax 0.4 mg Oral capsule - take 1 capsule by ORAL route once daily 1/2 hour following the same meal each ms3 day; 20 capsule; Refills: 0, Product Selection Permitted Signatures: Dispatcher [employer] EDMS Haroldo Bernstein DO DO ms3 Danica Louis, RN RN ll3 Anabel Romero PA PA sb3 Francine Allan, RN RN eh3 Corrections: (The following items were deleted from the chart) 00:05 04/26 23:48 CBC+H.LAB.BRZ ordered. EDMS EDMS 04/27 00:05 04/26 23:48 BASIC METABOLIC PANEL+C.LAB.BRZ ordered. EDMS EDMS 04/27 00:15 04/26 23:50 Abdomen Pelvis Wo Con+CT.RAD.BRZ ordered. EDMS EDMS
--- NOTE | 2022-04-27 02:24 | ER ---
Nurse's Notes [facility] Name: Vaishnavi Dey Age: 27 yrs Sex: Female : 1995 Arrival Date: 04/26/2022 Time: 21:46 Bed 9 Private MD: Diagnosis: Kidney stone;Unspecified hydronephrosis;Elevated blood-pressure reading, without diagnosis of hypertension Presentation: 04/26 21:47 Chief complaint: Patient states: left side abdominal and low back pain. Was here for [facility] kidney stone April 02 and pain is not getting any better. Blood with urination, and as of today, urgency with inability to urinate. Coronavirus screen: Vaccine status: Patient reports being unvaccinated. Ebola Screen: No symptoms or risks identified at this time. Initial Sepsis Screen: Does the patient meet any 2 criteria? No. Patient's initial sepsis screen is negative. Does the patient have a suspected source of infection? No. Patient's initial sepsis screen is negative. Risk Assessment: Do you want to hurt yourself or someone else? Patient reports no desire to harm self or others. Onset of symptoms was April 03, 2022. 21:47 Method Of Arrival: Ambulatory [facility] 21:47 Acuity: VICKY 3 [facility] Triage Assessment: 21:51 General: Appears distressed, uncomfortable, Behavior is cooperative, appropriate for [facility] age, anxious. Pain: Complains of pain in left lower quadrant Pain radiates to left low back Pain currently is 8 out of 10 on a pain scale. at worst was 10 out of 10 on a pain scale. Quality of pain is described as stabbing, squeezing, Pain began 3 weeks ago Is continuous, Alleviated by repositioning, Noted to be grimacing, guarding, Also complains of. Neuro: Level of Consciousness is awake, alert, obeys commands, Oriented to person, place, time, situation. Cardiovascular: Capillary refill < 3 seconds Patient's skin is warm and dry. Respiratory: Airway is patent Respiratory effort is even, unlabored. GI: Reports lower abdominal pain, gaseousness, nausea. : Reports inability to void, pain urgency. Musculoskeletal: Range of motion: intact in all extremities. 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 - Social history:: Smoking status: Patient reports the use of cigarette tobacco products, smokes one-half pack cigarettes per day, Patient/guardian denies using alcohol. Screenin/27 01:40 Abuse screen: Denies threats or abuse. Nutritional screening: No deficits noted. 3 Tuberculosis screening: No symptoms or risk factors identified. Fall Risk None identified. Assessment: 04/26 22:00 General: Appears in no apparent distress. uncomfortable, Behavior is calm, cooperative. ll3 Pain: Complains of pain in left low back and left lower quadrant Pain currently is 8 out of 10 on a pain scale. Neuro: Level of Consciousness is awake, alert, obeys commands, Oriented to person, place, time, situation. : Reports incontinence, pain. Derm: Skin is pink, warm \T\ dry. 23:00 Reassessment: No changes from previously documented assessment. Patient and/or family ll3 updated on plan of care and expected duration. Pain level reassessed. Patient is alert, oriented x 3, equal unlabored respirations, skin warm/dry/pink. Vital Signs: 21:47 BP 142 / 102; Pulse 101; Resp 20; Temp 98.9(TE); Pulse Ox 98% on R/A; Weight 81.65 kg; 3 Height 5 ft. 2 in. (157.48 cm); Pain 8/10; 22:54 BP 127 / 88; Pulse 101; Resp 18; Temp 98.9(O); Pulse Ox 99% on R/A; 5 23:00 BP 124 / 81; Pulse 108; Resp 18; Pulse Ox 96% on R/A; 3 04/27 01:40 BP 148 / 104; Pulse 111; Resp 18; Pulse Ox 97% on R/A; 3 04/26 21:47 Body Mass Index 32.92 (81.65 kg, 157.48 cm) [facility] ED Course: 04/26 21:46 Patient arrived in ED. jj6 21:51 Triage completed. 3 21:51 Arm band placed on right wrist. eh3 22:08 Haroldo Bernstein DO is Attending Physician. ms3 22:35 Patient has correct armband on for positive identification. Bed in low position. Call mh5 light in reach. Side rails up X 1. Adult w/ patient. Warm blanket given. Pulse ox on. NIBP on. 22:44 Initial lab(s) drawn, by me, sent to lab. Urine collected: clean catch specimen, cloudy.5 22:53 Inserted saline lock: 22 gauge in left antecubital area, using aseptic technique. Blood 5 collected. 22:59 Basic Metabolic Panel Sent. 5 23:52 Abdomen In Process Unspecified. EDAK 04/27 01:34 Inserted saline lock: 22 gauge in right hand, using aseptic technique. ll3 01:40 No provider procedures requiring assistance completed. ll3 02:23 Jesse Rodgers MD is Referral Physician. ms3 02:34 IV discontinued, intact, bleeding controlled, No redness/swelling at site. Pressure ll3 dressing applied. Administered Medications: 01:34 Drug: morphine 4 mg Route: IVP; Infused Over: 4 mins; Site: right hand; ll3 02:35 Follow up: Response: No adverse reaction; Pain is decreased ll3 Medication: 02:34 VIS not applicable for this client. ll3 Outcome: 02:24 Discharge ordered by . ms3 02:34 Discharged to home ambulatory, with family. ll3 02:34 Condition: stable 02:34 Discharge instructions given to patient, family, Instructed on discharge instructions, follow up and referral plans. medication usage, Demonstrated understanding of instructions, follow-up care, medications, Prescriptions given X 2. 02:35 Patient left the ED. ll3 Signatures: Dispatcher [employer] EDMS Jesica Lopez 5 Haroldo Bernstein DO DO ms3 Germaine Wilson 6 Danica Louis, RN RN 3 Francine Allan, DANIELE RN 3
[2022-04-27 05:37] VITALS: TEMP 98.9
[2022-04-27 05:48] VITALS: BP 148/104; O2SAT 97
--- NOTE | 2022-04-27 15:53 | RAD REPORT ---
EXAM DESCRIPTION: CT - Abdomen Pelvis Wo Contrast - 04/27/2022 6:17 am CLINICAL HISTORY: The patient is 27 years old and is Female; abdominal pain TECHNIQUE: Axial computed tomography images of the abdomen and pelvis without intravenous contrast. Sagittal and coronal reformatted images were created and reviewed. This CT exam was performed usi ng one or more of the following dose reduction techniques: automated exposure control, adjustment o f the mA and/or kV according to patient size, and/or use of iterative reconstruction technique. COMPARISON: CT of the abdomen and pelvis April 03, 2022 FINDINGS: LUNG BASES: Unremarkable. No mass. No consolidation. ABDOMEN: LIVER: The liver is mildly enlarged and fatty. GALLBLADDER AND BILE DUCTS: The gallbladder is contracted. PANCREAS: Unremarkable. No ductal dilation. SPLEEN: Unremarkable. ADRENALS: Unremarkable. No mass. KIDNEYS AND URETERS: Mild left hydroureteronephrosis is present secondary to distal left ureteral calculi measuring 0.7 cm. Mild edema of the left kidney with minimal perinephric stranding is note d. The right kidney is normal. STOMACH AND BOWEL: The stomach is distended with food contents. The small bowel is relatively nor mal in caliber. Stool is present throughout colon. There is no mucosal thickening or evidence of bia l obstruction. PELVIS: APPENDIX: The appendix is normal in caliber without surrounding inflammation. BLADDER: The bladder is well distended. No stones. REPRODUCTIVE: A small right ovarian cyst measuring approximately 1.4 cm is present. No follow-up imaging is recommended. The uterus and left ovary are unremarkable. ABDOMEN and PELVIS: INTRAPERITONEAL SPACE: Unremarkable. No free air. No significant fluid collection. BONES/JOINTS: No acute fracture. SOFT TISSUES: The soft tissues are normal. VASCULATURE: Unremarkable. No abdominal aortic aneurysm. LYMPH NODES: Unremarkable. No enlarged lymph nodes. IMPRESSION: Mild left hydroureteronephrosis is present secondary to distal left ureteral calculi lucho suring 0.7 cm. Electronically signed by: Jonelle Metzger MD 04/27/2022 12:19 AM CDT Due to temporary technical issues with the PACS/Fluency reporting system, reports are being signed by the in house radiologists without review as a courtesy to insure prompt reporting. The interpreting radiologist is fully responsible for the content of the report.
== END 2022-04-27 02:35 | disposition home or self-care (01) ==
LOC: ER 21:44
DX: N20.0 Calculus of kidney (principal); R03.0 Elevated blood-pressure reading, without diagnosis of hypertension; F17.210 Nicotine dependence, cigarettes, uncomplicated; Z87.442 Personal history of urinary calculi; Z88.0 Allergy status to penicillin; Z88.1 Allergy status to other antibiotic agents
CPT/HCPCS: 36415; 74176; 80048; 81003; 85025; 96374; 99284

== ENCOUNTER 2022-05-02 00:05 | Emergency (ER) | payer SELFPAY ==
--- OUTSIDE RECORDS SUMMARY | 2022-05-02 00:08 | XMS REPORT | Continuity of Care Document ---
:1995 Author Organization [facility] t Address [address] [place] [address] Care Team Providers Name Role Phone Pcp, Patient Does Not Have A Primary Care Physician [id number] KUSH SALGADO Attending Clinician Unavailable Kush Noel Attending Clinician Problems This patient has no known problems. Allergies, Adverse Reactions, Alerts Allergy Allergy Status Severity Reaction(s) Onset Inactive Treating Comm ents Source Name Type Date Date Clinician Keflet Propensi Active Itching 2021-0 [facility] ty to 8 ity of adverse 00:00: [place] reaction 00 [facility] s Branch Penicill Propensi Active Hives 0 Univer s in ty to 8 ity of adverse 00:00: [place] reaction 00 Medical s Branch AMOXICIL DRUG Active ITCHING 2021-0 Univers SASKIA-POT 8 ity of CLAVULAN 00:00: [place] ATE 00 Medical Branch KEFLET DRUG Active ITCHING 2021-0 Univers 8-27 ity of 00:00: [place] 00 Medical Branch PENICILL DRUG Active Hives 2021-0 Univers IN INGREDI 8- ity of 00:00: [place] 00 Medical Branch Amoxicil Propensi Active Itching 2021-0 Unive rs saskia-Pot ty to 04-27 ity of Clavulan adverse 00:00: [place] ate reaction 00 Medical s Branch Social History Social Habit Start Date Stop Date Quantity Comments Source Exposure to 2022-04-17 2022-04-27 Not sure [facility] SARS-CoV-2 (event) 00:00:00 16:27:00 Medica l Branch Sex Assigned At [birth year] [facility] y of [place] 00:00:00 00:00:00 Medical Branch Smoking Status Start Date Stop Date Source Tobacco smoking consumption [facility] unknown Branch Medications Ordered Filled Start Stop Current Ordering Indication Dosage Frequency Signature Comments Components Source Medication Medication Date Date Medication? Clinician (SIG) Name Name ketorolac 2021- No 15mg 15 mg, Unive rs tromethamin 04-27 Slow IV ity of e (TORADOL) 22:15: 22:15 [place] :00 ONCE, 1 Medical 15 mg dose, On Branch 04/27/22 at 1715, LATISHA ketorolac Yes [id number] 10mg Take 1 Un sumaya 10 mg 8-27 tablet by ity of tablet 00:00: mouth [place] 00 every 6 Medical (six) Branch hours as needed for Pain (scale 4-6). ondansetron Yes [id number] 4mg Take 1 Univers 4 mg 8-27 tablet by ity of disintegrat 00:00: mouth [place] ing tablet 00 every 8 Medica l (eight) Branch hours as needed for Nausea and Vomiting (N/V). acetaminoph 2021- Yes [id number] 1{tbl} Take 1 U nivers en-codeine 04-27 09-04 tablet by ity of (TYLENOL-CO 00:00: 04:59 [place] DEINE #3) 00 :00 every 4 Medical 300-30 mg (four) Branch tablet hours as needed for Pain (scale 7-10) for up to 7 days. Indication s: acute pain Vital Signs Vital Name Observation Time Observation Value Comments Source Systolic blood 2022-04-28 00:21:48 120 mm[Hg] Univer sity of [facility] Diastolic blood 2022-04-28 00:21:48 87 [facility]Hg[facility] 2022-04-28 00:21:48 92 /min [facility] Respiratory rate 2022-04-28 00:21:48 18 /min [facility] acute hospital Oxygen saturation in 2022-04-28 00:21:48 98 /min [facility] Arterial blood by [facility] Pulse oximetry Branch Body temperature 2022-04-27 21:31:00 36.44 [facility] Body weight 2022-04-27 21:31:00 68.04 kg [facility] Procedures Procedure Date / Time Performed Performing Clinician Deirdre elise CT ABDOMEN PELVIS WO 2022-04-27 22:52:16 Kush Salgado [facility] CONTRAST [facility] COMP. METABOLIC PANEL 2022-04-27 22:05:00 Kush Salgado [facility] ([id number]) [facility] CBC WITH DIFF 2022-04-27 22:05:00 Kush Salgado [facility] URINALYSIS 2022-04-27 22:05:00 Kush Salgado [facility] EXTRA TUBE URINE 2022-04-27 22:05:00 Kush Salgado [facility] CULTURE [facility] POCT TEST 2022-04-27 22:03:00 Kush Salgado [facility] CONSENT/REFUSAL FOR 2022-04-27 21:28:22 Doctor Unassigned, No Un [facility] DIAGNOSIS AND Name [facility] TREATMENT Encounters Start End Encounter Admission Attending Care Care Encounter Source Date/Time Date/Time Type Type Clinicians Facility Department ID 2022-04-27 2022-04-27 Emergency X UKSH SALGADO RUST ERT [id number] [facility] 16:32:00 20:36:00 [facility] 2022-04-27 2022-04-27 Emergency Kush Salgado TRAUMA [id number] Univers 16:32:00 20:36:00 T CENTER [id number] [place] [id number] [id number] [facility] 014 Branch Results Test Description Test Time Test Comments Results Result Comments Source POCT TEST 2022-04-27 22:06:00 Test Item Value Reference Range Interpretation Comme nts POCT PREG (test code = 1605) Negative On board controls acceptable with C Line (test code = 3574) Yes POCT PREG LOT # (test code = 3575) POCT PREG TEST DATE (test code = 3576) 07 01 23 Lab Interpretation (test code = 42025-7) [facility] [id number] 06:15:23 Test Item Value Reference Range Interpretation Comments VITAMIN D, 25 OH 22 NG/ML SEE BELOW L NOTE: 25-H YDROXYVITAMIN D (test code = 4958) ASSAY INC LUDES 25-HYDROXYVITAM IN D2 AND D3. METHODOLOGY IS CHEMILUMINESCEN T IMMUNOASSAY. INTERPRETIVE RA NGES PEDIATRIC (<17 YEARS) . . . . . . . . . . . NG/ML 20-100ADULT: IN SUFFICIENT . . . . . . . . . . . . . . NG/ML <20 SUBOP TIMAL . . . . . . . . . . . . . . . NG/ML 20-29 OPT IMAL . . . . . . . . . . . . . . . . . NG/ML 30-100 COMPREHENSIVE METABOLIC [id number] 05:11:12 Test Item Value Reference Range Interpretation Comments GLUCOSE (test code = 81 MG/DL 70-99 2216) BUN (test code = 8 MG/DL 6-20 2207) CREATININE (test 0.65 MG/DL 0.60-1.30 code = 2214) eGFR (2020 CKD-EPI) 123 >60 (test code = 96489) ML/MIN/1.73 CALC BUN/CREAT (test 12 RATIO 6-28 code = 2235) SODIUM (test code = 139 MEQ/L 412-858 5039) POTASSIUM (test code 4.7 MEQ/L 3.5-5.4 = 2227) CHLORIDE (test code 102 MEQ/L 95-107 = 2215) CARBON DIOXIDE (test 26 MEQ/L 19-31 code = 2206) CALCIUM (test code = 9.9 MG/DL 8.5-10.5 2208) PROTEIN, TOTAL (test 7.3 G/DL 6.1-8.3 code = 222) ALBUMIN (test code = 5.0 G/DL 3.5-5.2 2200) CALC GLOBULIN (test 2.3 G/DL 1.9-3.7 code = 2240) CALC A/G RATIO (test 2.2 RATIO 1.0-2.6 code = 2234) BILIRUBIN, TOTAL <0.2 MG/DL See_Comment [Automated message] (test code = 2207) The syste m which generated this result transmit loree reference range : <=1.2. The refe rence range was not u sed to interpret th is result as normal/abnormal . ALKALINE PHOSPHATASE 87 U/L 40-112 (test code = 2203) AST (test code = 22 U/L 9-40 2217) ALT (test code = 27 U/L 5-40 2218) LIPID [id number] 05:11:12 Test Item Value Reference Range Interpretation [...] MOREINFORMATION , SEE CLIENT ANNOUNCE MENT AT [email or web address] RISK RATIO LDL/HDL 3.86 RATIO <3.22 H (test code = 2238) HEMOGLOBIN [id number] 05:06:15 Test Item Value Reference Range Interpretation Comments HEMOGLOBIN A1c (test code = 99457) 6.1 % 4.2-5.6 H TSH, THIRD [id number] 04:43:16 Test Item Value Reference Range Interpretation Comments TSH, THIRD GENERATION (test code 1.660 UIU/ML 0.400-4.100 = 2821) VITAMIN [id number] 04:43:16 Test Item Value Reference Range Interpretation Comments VITAMIN B-12 (test code = 2840) 431 PG/ML 200-950 [id number] 04:43:16 Test Item Value Reference Range Interpretation Comments FERRITIN (test code 132 NG/ML 13-200 UNLESS OTHERWISE = 2075) INDICATED, ALL TESTING PERFORMED [facility] NICAL PATHOLOGY LABOR [facility] [employer] [address] [address] 4 LABORATORY DIRE CTOR: JANET NOVA M.D. CLIA NUMBER [id number] [place] [id number] CBC W/AUTO DIFF WITH [id number] 02:51:12 Test Item Value Reference Range Interpretation [...] RBCS 0.00 K/UL 0.00-0.11 (test code = 43133)
[2022-05-02] MEDS ORDERED: TAMSULOSIN 0.4 MG SR CAP ONE (00:30)
[2022-05-02] MEDS ORDERED: MORPHINE 4 MG/ML SYR ONE (00:30)
[2022-05-02] MEDS ORDERED: MAGNESIUM SULFATE 1 gm IVPB 1 GM/100 ML BAG IV ONE (00:31)
[2022-05-02] MEDS ORDERED: ONDANSETRON 4 MG/2 ML VIAL ONE (00:31)
[2022-05-02] MEDS ORDERED: KETOROLAC 30 MG/ML INJ ONE (00:31)
[2022-05-02 00:42] LABS: Absolute Lymphocytes (CBC) 3.8 K/uL (0.7-4.9); Hematocrit 38.5 % (36.0-45.0); Lymphocytes % 25.4 % (15.3-44.8); MCV 88.1 fL (80-100); MPV 9.3 fL (7.6-11.3); RBC Red Blood Cell Count 4.37 M/uL (3.86-4.86)
[2022-05-02 00:46] LABS: Urine Blood 2+ (Negative); Urine Glucose Negative (Negative); Urine Protein 1+ (Negative); Urine Specific Gravity >=1.030 (1.005-1.030); Urine pH 5.5 (5.0-7.0)
[2022-05-02 00:49] LABS: Potassium 3.6 mmol/L (3.5-5.1)
[2022-05-02 01:01] LABS: Calcium Oxalate Crystals- Ur Few /HPF (None Seen); Urine Crystals Unidentified Many /HPF (None Seen); Urine Mucus Slight /HPF (None Seen)
--- NOTE | 2022-05-02 02:17 | ER ---
Nurse's Notes [facility] Name: Vaishnavi Dey Age: 27 yrs Sex: Female : 1995 Arrival Date: 05/02/2022 Time: 00:07 Bed 5 Private MD: Diagnosis: Hydronephrosis with renal and ureteral calculous obstruction;Calculus of ureter Presentation: 05/02 00:18 Chief complaint: Patient states: "I've been struggling with this same kidney stone for as6 a month. I can't handle the pain anymore". Coronavirus screen: At this time, the client does not indicate any symptoms associated with coronavirus-19. Ebola Screen: No symptoms or risks identified at this time. Initial Sepsis Screen: Does the patient meet any 2 criteria? HR > 90 bpm. Does the patient have a suspected source of infection? No. Patient's initial sepsis screen is negative. Risk Assessment: Do you want to hurt yourself or someone else? Patient reports no desire to harm self or others. Onset of symptoms was April 01, 2022. 00:18 Method Of Arrival: Ambulatory as6 00:18 Acuity: VICKY 3 as6 Triage Assessment: 00:21 General: Appears uncomfortable, Behavior is cooperative, restless. Pain: Complains of as6 pain in abdomen and left mid back. GI: Reports nausea, vomiting. : Reports inability to void. 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 - Social history:: Smoking status: Patient reports the use of cigarette tobacco products, smokes one pack cigarettes per day. - Family history:: not pertinent. - Hospitalizations: : No recent hospitalization is reported. Screenin:33 Abuse screen: Denies threats or abuse. Denies injuries from another. Nutritional aa9 screening: No deficits noted. Tuberculosis screening: No symptoms or risk factors identified. Fall Risk None identified. Assessment: 00:50 General: Appears in no apparent distress. uncomfortable, Behavior is calm, cooperative. lg3 Pain: Complains of pain in abdomen and left mid back Pain currently is 10 out of 10 on a pain scale. Quality of pain is described as crampy, heavy, sharp, shooting, Noted to be grimacing, guarding, resistant to movement. Neuro: No deficits noted. Level of Consciousness is awake, alert, obeys commands, Oriented to person, place, time, situation. Cardiovascular: No deficits noted. Denies chest pain, shortness of breath, Capillary refill < 3 seconds Clubbing of nail beds is absent JVD is absent Patient's skin is warm and dry. Respiratory: No deficits noted. Airway is patent Trachea midline Respiratory effort is even, unlabored, Respiratory pattern is regular, symmetrical, Breath sounds are clear bilaterally. GI: Abdomen is round non-distended, Bowel sounds present X 4 quads. Abd is soft X 4 quads Reports nausea, vomiting. : Urine is clear, Reports inability to void. EENT: No deficits noted. No signs and/or symptoms were reported regarding the EENT system. Derm: No deficits noted. No signs and/or symptoms reported regarding the dermatologic system. Skin is intact, is healthy with good turgor, Skin is dry, Skin temperature is warm. Musculoskeletal: No deficits noted. No signs and/or symptoms reported regarding the musculoskeletal system. Circulation, motion, and sensation intact. Range of motion: intact in all extremities. 01:56 Reassessment: Patient appears in no apparent distress at this time. No changes from lg3 previously documented assessment. Patient and/or family updated on plan of care and expected duration. Pain level reassessed. Patient is alert, oriented x 3, equal unlabored respirations, skin warm/dry/pink. Pain: Complains of pain in abdomen and left mid back Pain currently is 8 out of 10 on a pain scale. Noted to be grimacing, guarding, resistant to movement. 02:38 Reassessment: [facility] called with to Dr. quezada. vc1 03:06 Reassessment: Report called to Daniele Kay in [facility]. Pt aware of case status. aa9 04:00 General: [facility] at bedside for transfer. lg3 Vital Signs: 00:18 BP 158 / 99; Pulse 136; Resp 18 S; Temp 98.3(O); Pulse Ox 97% on R/A; Weight 81.65 kg as6 (R); Height 0 ft. 0 in. (1 cm) (R); Pain 9/10; 01:57 BP 116 / 85; Pulse 105; Resp 17 S; Pulse Ox 99% on R/A; Pain 8/10; lg3 02:53 BP 112 / 88; Pulse 100; Resp 16 S; Pulse Ox 96% on R/A; aa9 03:59 BP 119 / 89; Pulse 91; Resp 16 S; Pulse Ox 98% on R/A; lg3 00:18 Body Mass Index 514755.27 (81.65 kg, 1 cm) as6 ED Course: 00:07 Patient arrived in ED. ja2 00:08 Tejas Sims MD is Attending Physician. rn 00:20 Triage completed. as6 00:21 Arm band placed on. as6 00:22 Inserted saline lock: 20 gauge in left antecubital area, using aseptic technique. Blood aa9 collected. 00:32 Basic Metabolic Panel Sent. aa9 00:32 CBC with Diff Sent. aa9 00:34 Summer Dubon, DANIELE is Primary Nurse. lg3 00:47 Urine Microscopic Only Sent. lg3 00:48 Basic Metabolic Panel Sent. lg3 00:48 CBC with Diff Sent. lg3 00:50 Patient has correct armband on for positive identification. Bed in low position. Call lg3 light in reach. Side rails up X 1. Client placed on continuous cardiac and pulse oximetry monitoring. NIBP monitoring applied. Door closed. Noise minimized. Warm blanket given. Family accompanied patient. 01:05 CT Stone Protocol In Process Unspecified. EDMS 02:21 initiated a transfer with Tenisha from [facility] Transfer Center. mw2 02:[address] Sims with Dr. Oglesby from [facility]. mw2 02:42 administrative approval given by Tenisha Caraballo/ patient has been accepted to [address] to [address] bed 1144/ Dr. Oglesby accepted the patient in transfer/report to be called to [phone]. 02:58 SARS RAPID Sent. aa9 03:06 No provider procedures requiring assistance completed. aa9 03:07 Pillow given. aa9 03:58 Patient transferred, IV remains in place. intact, No redness/swelling at site. lg3 Administered Medications: 00:38 Drug: Magnesium Sulfate 1 grams Route: IVPB; Infused Over: 1 hrs; Site: left lg3 antecubital; 02:17 Follow up: Response: No adverse reaction; IV Status: Completed infusion; IV Intake: lg3 100ml 00:38 Drug: Flomax (tamsulosin) 0.4 mg Route: PO; lg3 00:47 Follow up: Response: No adverse reaction lg3 00:39 Drug: morphine 4 mg Route: IVP; Infused Over: 4 mins; Site: left antecubital; lg3 00:48 Follow up: Response: No adverse reaction; No change in condition lg3 00:39 Drug: Zofran (Ondansetron) 4 mg Route: IVP; Site: left antecubital; lg3 00:47 Follow up: Response: No adverse reaction lg3 00:39 Drug: Ketorolac 15 mg Route: IVP; Site: left antecubital; lg3 00:47 Follow up: Response: No adverse reaction; No change in condition lg3 02:17 Drug: Dilaudid (HYDROmorphone) 1 mg Route: IVP; Site: left antecubital; lg3 03:56 Follow up: Response: No adverse reaction; Pain is decreased lg3 Medication: 03:59 VIS not applicable for this client. lg3 Intake: 02:17 IV: 100ml; Total: 100ml. lg3 Outcome: 02:16 ER care complete, transfer ordered by . rn 03:58 Transferred by ground EMS to [facility], Transfer form lg3 completed. 03:58 Condition: stable 03:58 Instructed on the need for transfer, Demonstrated understanding of instructions. 04:00 Patient left the ED. lg3 Signatures: Dispatcher [employer] EDMS Tejas Sims MD MD rn [place], MyKena mw2 Summer Dubon RN RN lg3 Cristy Soliz Ashby, RN RN as6 Rona Meek RN RN vc1 Madison Sinha RN RN aa9
--- NOTE | 2022-05-02 02:17 | EDPHYS ---
Physician Documentation [facility] Name: Vaishnavi Dey Age: 27 yrs Sex: Female : 1995 Arrival Date: 05/02/2022 Time: 00:07 Bed 5 Private MD: ED Physician Tejas Sims HPI: 05/02 00:19 This 27 yrs old Female presents to ER via Unassigned with complaints of Possible Kidney rn Stone. 00:19 The patient complains of pain in the left mid back. The pain radiates to the abdomen. rn Onset: The symptoms/episode began/occurred 1 week(s) ago. Modifying factors: The symptoms are alleviated by nothing. the symptoms are aggravated by nothing. Associated signs and symptoms: Pertinent positives: nausea, Pertinent negatives: fever. Severity of pain: At its worst the pain was moderate in the emergency department the pain is unchanged. The patient has experienced similar episodes in the past. The patient has been recently seen by a physician:. Pt reports pain and passing kidney stone for 1 week. Has been to 3 ERs for this, feels like is same stone just hasn't passed it. . 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 - Social history:: Smoking status: Patient reports the use of cigarette tobacco products, smokes one pack cigarettes per day. - Family history:: not pertinent. - Hospitalizations: : No recent hospitalization is reported. ROS: 00:19 Constitutional: Negative for fever, chills, and weight loss, Eyes: Negative for injury, rn pain, redness, and discharge, Neck: Negative for injury, pain, and swelling, Cardiovascular: Negative for chest pain, palpitations, and edema, Respiratory: Negative for shortness of breath, cough, wheezing, and pleuritic chest pain, Abdomen/GI: Negative for diarrhea, and constipation, Back: Negative for injury : Negative for injury, bleeding, discharge, and swelling, MS/Extremity: Negative for injury and deformity, Skin: Negative for injury, rash, and discoloration, Neuro: Negative for headache, weakness, numbness, tingling, and seizure. 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 Head/Face: Normocephalic, atraumatic. Chest/axilla: Normal chest wall appearance and motion. Nontender with no deformity. No lesions are appreciated. Cardiovascular: Tachycardic, regular. No pulse deficits. Respiratory: No increased work of breathing, no retractions or nasal flaring. Abdomen/GI: soft, mild LLQ tenderness Back: No spinal tenderness. No costovertebral tenderness. Full range of motion. Skin: Warm, dry MS/ Extremity: Pulses equal, no cyanosis Neuro: Awake and alert, GCS 15 Vital Signs: 00:18 BP 158 / 99; Pulse 136; Resp 18 S; Temp 98.3(O); Pulse Ox 97% on R/A; Weight 81.65 kg as6 (R); Height 0 ft. 0 in. (1 cm) (R); Pain 9/10; 01:57 BP 116 / 85; Pulse 105; Resp 17 S; Pulse Ox 99% on R/A; Pain 8/10; lg3 02:53 BP 112 / 88; Pulse 100; Resp 16 S; Pulse Ox 96% on R/A; aa9 03:59 BP 119 / 89; Pulse 91; Resp 16 S; Pulse Ox 98% on R/A; lg3 00:18 Body Mass Index 987278.27 (81.65 kg, 1 cm) as6 MDM: 00:08 Patient medically screened. rn 02:15 Differential diagnosis: nephrolithiasis, UTI. Data reviewed: vital signs, nurses notes, rn old medical records, lab test result(s), radiologic studies, CT scan, and as a result, I will admit patient. Counseling: I had a detailed discussion with the patient and/or guardian regarding: the historical points, exam findings, and any diagnostic results supporting the discharge/admit diagnosis, lab results, radiology results, the need for further work-up and treatment in the hospital, the need to transfer to another facility, [facility] does not immediately have the required specialist. Response to treatment: There is no appreciated change of the patient's symptoms at this time, and as a result, I will admit patient. Admission orders: after a detailed discussion of the patient's condition and case, the admit orders are written by me. ED course: Pt still has not passed kidney stone, no migration, + hydroureter, no Urology here, will transfer back to [facility] just there 3 days ago. . 05/02 00:09 Order name: CBC with Diff; Complete Time: 01:03 rn 05/02 00:09 Order name: Basic Metabolic Panel; Complete Time: 01:03 rn 05/02 00:09 Order name: Urine Microscopic Only; Complete Time: 01:03 rn 05/02 00:47 Order name: Urine Dipstick-Ancillary; Complete Time: 01:03 EDMS 05/02 02:26 Order name: SARS RAPID mw2 05/02 00:09 Order name: IV Start; Complete Time: 00:32 rn 05/02 00:09 Order name: CT Stone Protocol rn 05/02 00:09 Order name: Urine Dipstick-Ancillary (obtain specimen); Complete Time: 00:46 rn 05/02 00:09 Order name: Urine Test (obtain specimen); Complete Time: 00:46 rn Administered Medications: 00:38 Drug: Magnesium Sulfate 1 grams Route: IVPB; Infused Over: 1 hrs; Site: left lg3 antecubital; 02:17 Follow up: Response: No adverse reaction; IV Status: Completed infusion; IV Intake: lg3 100ml 00:38 Drug: Flomax (tamsulosin) 0.4 mg Route: PO; lg3 00:47 Follow up: Response: No adverse reaction lg3 00:39 Drug: morphine 4 mg Route: IVP; Infused Over: 4 mins; Site: left antecubital; lg3 00:48 Follow up: Response: No adverse reaction; No change in condition lg3 00:39 Drug: Zofran (Ondansetron) 4 mg Route: IVP; Site: left antecubital; lg3 00:47 Follow up: Response: No adverse reaction lg3 00:39 Drug: Ketorolac 15 mg Route: IVP; Site: left antecubital; lg3 00:47 Follow up: Response: No adverse reaction; No change in condition lg3 02:17 Drug: Dilaudid (HYDROmorphone) 1 mg Route: IVP; Site: left antecubital; lg3 03:56 Follow up: Response: No adverse reaction; Pain is decreased lg3 Disposition Summary: 05/02/22 02:16 Transfer Ordered Transfer Location: [facility] rn Reason: Higher level of care rn Condition: Stable rn Problem: new rn Symptoms: are unchanged rn Accepting Physician: (05/02/22 04:00) lg3 Diagnosis - Hydronephrosis with renal and ureteral calculous obstruction rn - Calculus of ureter rn Forms: - Medication Reconciliation Form rn - SBAR form rn Signatures: 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
[2022-05-02] MEDS ORDERED: HYDROMORPHONE HCL 1 MG/ML INJ ONE (02:19)
[2022-05-02 03:00] LABS: SARS-CoV-2 Antigen Rapid Res Negative (Negative)
[2022-05-02 06:04] VITALS: TEMP 98.3
[2022-05-02 06:27] VITALS: BP 119/89; O2SAT 98
--- NOTE | 2022-05-02 13:29 | RAD REPORT ---
EXAM DESCRIPTION: CT - Stone Protocol - 05/02/2022 5:37 am CLINICAL HISTORY: 27 years Female eval for kidney stone TECHNIQUE: Axial CT imaging of the abdomen and pelvis was performed without oral or intravenous cont rast. Sagittal and coronal reconstructed images were then performed. The CT study is performed acco rding to ALARA (as low as reasonably achievable) or ALARA/IMAGE GENTLY, with automatic adjustment of mA and/or kV according to patient size. Performed on: 09/22/2003 a.m. COMPARISON: 04/26/2022. FINDINGS: Lung bases: Lung bases are clear. Liver: The liver measures approximately 20 cm in craniocaudal dimension. No focal hepatic abnormaliti es are appreciated on this unenhanced scan. Liver attenuation is within normal limits. Spleen: The spleen is top normal in size and is normal in configuration and attenuation. No focal spl enic abnormalities are appreciated on this unenhanced scan. Gallbladder and bile duct: The gallbladder is well distended and unremarkable. There is no biliary ductal dilatation. Pancreas: The pancreas is grossly normal in size and configuration. Adrenal Glands: The adrenal glands are normal in size and configuration. Kidneys: The kidneys are normal in size and configuration. There is mild to moderate left-sided hydro nephrosis and hydroureter secondary to a 4 x 3 x 6 mm calcification in the left ureterovesical juncti on, similar when compared to the previous study. There is a punctate nonobstructing calcification in the upper pole of the right kidney. No focal renal abnormalities are identified. Stomach: The stomach is grossly normal. There is no definite hiatal hernia. Bowel: The bowel gas pattern is non specific and non obstructive. Appendix: The appendix is normal. Free air: There is no evidence of free air. Free fluid: There is no evidence of free fluid. Vasculature: The aorta is normal in caliber and contour. The inferior vena cava is grossly unremarkab le. Lymphadenopathy: No pathologic lymphadenopathy is identified. Bladder: The bladder is well distended and smooth in contour. Reproductive: The uterus is grossly within normal limits. There is a small 2.2 cm right ovarian cyst. No follow-up imaging is recommended. Bones: No acute osseous abnormalities are identified. Soft tissues: No acute soft tissue abnormalities are identified. IMPRESSION: 1. Mild to moderate left-sided hydronephrosis and hydroureter secondary to a 4 x 3 x 6 mm calcification in the left ureterovesical junction, similar when compared to the previous study. 2. Punctate nonobstructing calcification in the upper pole of the right kidney. 3. Hepatomegaly. Electronically signed by: Madison Staton DO 05/02/2022 1:34 AM CDT Due to temporary technical issues with the PACS/Fluency reporting system, reports are being signed by the in house radiologists without review as a courtesy to insure prompt reporting. The interpreting radiologist is fully responsible for the content of the report.
== END 2022-05-02 04:00 | disposition short-term general hospital (02) ==
LOC: ER 00:05
DX: N13.2 Hydronephrosis with renal and ureteral calculous obstruction (principal); Z87.442 Personal history of urinary calculi; F17.210 Nicotine dependence, cigarettes, uncomplicated; Z20.822 Contact with and (suspected) exposure to COVID-19; Z88.0 Allergy status to penicillin; Z88.1 Allergy status to other antibiotic agents
CPT/HCPCS: 36415; 74176; 76377; 80048; 81003; 81015; 85025; 87811; 96365; 96366; 96375; 99285; J1170; J2405; J3475

== ENCOUNTER 2023-04-24 12:52 | Emergency (ER) | payer SELFPAY ==
--- OUTSIDE RECORDS SUMMARY | 2023-04-24 12:55 | XMS REPORT | Continuity of Care Document ---
:1995 Author Organization [facility] t Address [address] [place] [address] Care Team Providers Name Role Phone Dante Grider [facility], [facility] Primary Care P hysician Doctor Unassigned, [place] Attending Clinician Unavailable Karthik Quinn MD Attending Clinician Aron Oglesby MD Attending Clinician RONNIE SALGADO Attending Clinician Unavailable Ronnie Noel Attending Clinician Aron Oglesby MD Admitting Clinician RONNIE SALGADO Admitting Clinician Unavailable Problems Condition Condition Condition Status Onset Resolution Last Treating Co mments Source Name Details Category Date Date Treatment Clinician Date Left Left Disease Active Univers ureteral ureteral 05-02 ity of [place] 00:00: Medical Branch Obesity Obesity Disease Active Univers (BMI (BMI 9 ity of 30-39.9) 30-39.9) 00:00: Medical Branch Allergies, Adverse Reactions, Alerts Allergy Allergy Status Severity Reaction(s) Onset Inactive Treating Comm ents Source Name Type Date Date Clinician Mahamed Barnard Active Itching Univers ty to 8-27 ity of adverse 00:00: [place] reaction 00 Medical s Branch Penicill Propensi Active Hives Univer s in ty to 04-27 ity of adverse 00:00: [place] reaction 00 Medical s Branch AMOXICIL DRUG Active ITCHING Univers SASKIA-POT 04-27 ity of CLAVULAN 00:00: [place] ATE 00 Medical Branch KEFLET DRUG Active ITCHING Univers 04-27 ity of 00:00: [place] 00 Medical Branch PENICILL DRUG Active Hives Univers IN INGREDI 04-27 ity of 00:00: [place] 00 Medical Branch Amoxicil Propensi Active Itching Unive rs saskia-Pot ty to 04-27 ity of Clavulan adverse 00:00: [place] ate reaction 00 Medical s Branch Social History Social Habit Start Date Stop Date Quantity Comments Source History of Passive smoker University of tobacco use [place] [facility] Exposure to 2022-04-22 2022-05-02 Not sure University of SARS-CoV-2 00:00:00 21:59:00 [place] [facility] (event) Branch Tobacco use and 2022-05-02 2022-05-02 Smokeless tobacco Un iversity of exposure 00:00:00 00:00:00 non-user [place] [facility] History SDOH 2022-05-02 2022-05-02 2 University o f Financial 00:00:00 00:00:00 [place] [facility] History SDOH Food 2022-05-02 2022-05-02 2 Univers ity of Worry 00:00:00 00:00:00 [place] [facility] History SDOH Food 2022-05-02 2022-05-02 2 Univers ity of Scarcity 00:00:00 00:00:00 [place] [facility] History SDOH 2022-05-02 2022-05-02 1 University o f Transport Med 00:00:00 00:00:00 [place] [facility] History SDOH 2022-05-02 2022-05-02 1 University o f Transport Non-Med 00:00:00 00:00:00 [facility] [place] [facility] edical Branch Sex Assigned At [birth year] Universit y of 00:00:00 00:00:00 [place] [facility] [place] Smoking Status Start Date Stop Date Source Tobacco smoking consumption Univ [facility]ity [facility] unknown Branch Smokes tobacco daily 2022-05-02 00:00:00 Univers ity of [place] [facility] Medications Ordered Filled Start Stop Current Ordering Indication Dosage Frequency Signature Comments Components Source Medication Medication Date Date Medication? Clinician (SIG) Name Name tamsulosin 2021- No [id number] .4mg Take 1 Univers 0.4 mg 24 05-04 capsule by ity of hr capsule 00:00: 04:59 [place]00 the [facility] for 30 days. tamsulosin 2021- No [id number] .4mg Take 1 Univers 0.4 mg 24 05-04 capsule by ity of hr capsule 00:00: 04:59 [place] :00 [facility] for 30 days. tamsulosin 2021- No [id number] .4mg Take 1 Univers 0.4 mg 24 05-04 capsule by ity of hr capsule 00:00: 04:59 [place] :00 [facility] for 30 days. sennosides 2021- No [id number] 8.6mg Take 1 Univers 8.6 mg 05-04 tablet by ity of tablet 00:00: 04:59 mouth in [place] 00 :00 [facility] for 10 days. sennosides 2021- No [id number] 8.6mg Take 1 Univers 8.6 mg 05-04 tablet by ity of tablet 00:00: 04:59 mouth in [place] 00 :00 [facility] for 10 days. HYDROcodone 2021- No 1{tbl} 1 tablet, Univers -acetaminop 05-03 Oral, ity of hen (NORCO 18:30: 19:18 ONCE, 1 [place] 5) 5-325 mg 00 :00 dose, On Medi carolyn tablet 1 Fri05/03/22 Branc h tablet at 1330, Routine, PACU HYDROcodone 2021- No 1{tbl} 1 tablet, Univers -acetaminop 05-03 Oral, ity of hen (NORCO 18:30: 19:18 ONCE, 1 [place] 5) 5-325 mg 00 :00 dose, On Medi carolyn tablet 1 Fri05/03/22 Branc h tablet at 1330, Routine, PACU morpHINE (2 2021- No 2mg 2 mg, Slow Univers mg/mL) 05-03 IV Push, ity of injection 2 07:00: 06:23 ONCE, 1 [place] mg 00 :00 dose, On Medical Fri05/03/22 Branch at 0200, Routine morpHINE (2 2021- No 2mg 2 mg, Slow Univers mg/mL) 05-03 IV Push, ity of injection 2 07:00: 06:23 ONCE, 1 [place] mg 00 :00 dose, On Medical Fri05/03/22 Branch at 0200, Routine acetaminoph 2022- No [id number] 650mg Take 2 Univers en 325 mg 05-03 tablets by ity of tablet 00:00: 04:59 mouth [place] 00 :00 every 6 Medical (six) Branch hours. acetaminoph 2022- No [id number] 650mg Take 2 Univers en 325 mg 05-03 tablets by ity of tablet 00:00: 04:59 mouth [place] 00 :00 every 6 Medical (six) Branch hours. acetaminoph 2022- No [id number] 650mg Take 2 Univers en 325 mg 05-03 tablets by ity of tablet 00:00: 04:59 mouth [place] 00 :00 every 6 Medical (six) Branch hours. acetaminoph 2022- No [id number] 650mg Take 2 Univers en 325 mg 05-03 tablets by ity of tablet 00:00: 04:59 mouth [place] 00 :00 every 6 Medical (six) Branch hours. gabapentin 2021-2021- No [id number] 300mg Take 1 Univers 300 mg 05-03 capsule by ity of capsule 00:00: 04:59 mouth in [place] 00 :00 the Medical morning Branch and 1 capsule at noon and 1 capsule in the evening. Do all this for 21 days. gabapentin 2021-2021- No [id number] 300mg Take 1 Univers 300 mg 05-03 capsule by ity of capsule 00:00: 04:59 mouth in [place] 00 :00 the Medical morning Branch and 1 capsule at noon and 1 capsule in the evening. Do all this for 21 days. ibuprofen 2021-2021- No [id number] 800mg Take 1 Univers 800 mg 05-03 tablet by ity of tablet 00:00: 04:59 mouth in [place] 00 :00 the [facility] morning Branch and 1 tablet at noon and 1 tablet in the evening. Take with meals. Do all this for 10 days. ibuprofen 2021- No [id number] 800mg Take 1 Univers 800 mg 05-03 tablet by ity of tablet 00:00: 04:59 mouth in [place] 00 :00 the [facility] morning Branch and 1 tablet at noon and 1 tablet in the evening. Take with meals. Do all this for 10 days. enoxaparin 0 Yes 40mg 40 mg, Unive rs (LOVENOX) 05-02 Subcutaneo ity of injection 22:00: [place], [place]ILY, [place] 40 mg 00 First dose Medical on [facility] 05/02/22 at 1700, Until Discontinu ed, Routine enoxaparin 2021- No 40mg 40 mg, Univ ers (LOVENOX) 05-02 Subcutaneo ity of injection 22:00: 23:42 [place], DAILY, [place] 40 mg 00 :12 First dose Medical on [facility] 05/02/22 at 1700, Until Discontinu ed, Routine acetaminoph 0 Yes 650mg 650 mg, Un sumaya en 05-02 Oral, Q6H, ity of (TYLENOL) 17:00: First dose [place] tablet 650 00 on [facility] mg 05/02/22 at Branch 1200, Until Discontinu ed, Routine acetaminoph 0 2021- No 650mg 650 mg, U nivers en 05-02 Oral, Q6H, ity of (TYLENOL) 17:00: 23:42 First dose [place] tablet 650 00 :12 on [facility] mg 05/02/22 at Branch 1200, Until Discontinu ed, Routine tamsulosin 2021-0 Yes .4mg 0.4 mg, Univ ers (FLOMAX) 05-02 Oral, ity of capsule 0.4 14:00: DAILY, [place] mg 00 First dose Medical on [facility] 05/02/22 at 0900, Until Discontinu ed, Routine sennosides 2021-0 Yes 8.6mg 8.6 mg, Uni vers (SENOKOT) 05-02 Oral, ity of tablet 8.6 14:00: DAILY, [place] mg 00 First dose Medical on [facility] Branch 05/02/22 at 0900, Until Discontinu ed, Routine tamsulosin 2021- No .4mg 0.4 mg, Uni vers (FLOMAX) 05-02 Oral, ity of capsule 0.4 14:00: 23:42 DAILY, [place] mg 00 :12 First dose Medical on [facility] Branch 05/02/22 at 0900, Until Discontinu ed, Routine sennosides 2021- No 8.6mg 8.6 mg, Un sumaya (SENOKOT) 05-02 Oral, ity of tablet 8.6 14:00: 23:42 DAILY, [place] mg 00 :12 First dose Medical on [facility] 05/02/22 at 0900, Until Discontinu ed, Routine D5W 0.45% Yes IV Univers NaCl 05-02 Infusion, ity of (1/2NS) 1 L 13:00: at 125 [place] + KCL 20 00 mL/hr, Medical mEq CONTINUOUS Branch , Starting on [facility] 05/02/22 at 0800, Until Discontinu ed, Routine gabapentin Yes 300mg 300 mg, Uni vers (NEURONTIN) 05-02 Oral, TID, it y of capsule 300 13:00: First dose [place] mg 00 on [facility] 05/02/22 at Branch 0800, Until Discontinu ed, Routine D5W 0.45% 2021- No IV Univers NaCl 05-02 Infusion, ity of (1/2NS) 1 L 13:00: 23:42 at 125 [place] + KCL 20 00 :12 mL/hr, Medical mEq CONTINUOUS Branch , Starting on [facility] 05/02/22 at 0800, Until Fri05/03/22 at 1842, Routine gabapentin 2021- No 300mg 300 mg, Un sumaya (NEURONTIN) 05-02 Oral, TID, i ty of capsule 300 13:00: 23:42 First dose [place] mg 00 :12 on [facility] 05/02/22 at Branch 0800, Until Discontinu ed, Routine ketorolac 2021- No 15mg 15 mg, Unive rs (TORADOL) 05-02 Slow IV ity of injection 12:54: 12:53 Push, [place] 15 mg 59 :59 Q6HPRN, Medical Starting Branch on [facility] 05/02/22 at 0754, Until 05/04/22 at 0753, Routine, Pain (scale 7-10) ketorolac 0 2021- No 15mg 15 mg, Unive rs (TORADOL) 05-02 Slow IV ity of injection 12:54: 23:42 Push, [place] 15 mg 59 :12 Q6HPRN, Medical Starting Branch on [facility] 05/02/22 at 0754, Until 05/03/22 at 1842, Routine, Pain (scale 7-10) ondansetron Yes 4mg 4 mg, Slow Univers (ZOFRAN 05-02 IV Push, ity of (PF)) 12:53: Q4HPRN, [place] injection 4 06 Starting Medi carolyn mg on [place] Branch 05/02/22 at 0753, Until Discontinu ed, Routine, Nausea and Vomiting (N/V) ondansetron 2021- No 4mg 4 mg, Slow Univers (ZOFRAN 05-02 IV Push, ity of (PF)) 12:53: 23:42 Q4HPRN, [place] injection 4 06 :12 Starting Medi carolyn mg on [place] Branch 05/02/22 at 0753, Until 05/03/22 at 1842, Routine, Nausea and Vomiting (N/V) ketorolac 0 2021- No 15mg 15 mg, Unive rs tromethamin 8-27 08-27 Slow IV ity of e (TORADOL) 22:15: 22:15 Push, [place] injection 00 :00 ONCE, 1 Medical 15 mg dose, On Branch 04/27/22 at 1715, LATISHA ondansetron Yes [id number] 4mg Take 1 Univers 4 mg 8-27 tablet by ity of disintegrat 00:00: mouth [place] ing tablet 00 every 8 Medica l (eight) Branch hours as needed for Nausea and Vomiting (N/V). ondansetron 2022-0 Yes [id number] 4mg Take 1 Univers 4 mg 8-27 tablet by ity of disintegrat 00:00: mouth [place] ing tablet 00 every 8 Medica l (eight) Branch hours as needed for Nausea and Vomiting (N/V). ketorolac 2021-0 Yes [id number] 10mg Take 1 Un sumaya 10 mg 8-27 tablet by ity of tablet 00:00: mouth [place] 00 every 6 Medical (six) Branch hours as needed for Pain (scale 4-6). ondansetron 2021-0 Yes [id number] 4mg Take 1 Univers 4 mg 8-27 tablet by ity of disintegrat 00:00: mouth [place] ing tablet 00 every 8 Medica l (eight) Branch hours as needed for Nausea and Vomiting (N/V). ondansetron 2021-0 Yes [id number] 4mg Take 1 Univers 4 mg 8-27 tablet by ity of disintegrat 00:00: mouth [place] ing tablet 00 every 8 Medica l (eight) Branch hours as needed for Nausea and Vomiting (N/V). ondansetron 2021-0 Yes [id number] 4mg Take 1 Univers 4 mg 8-27 tablet by ity of disintegrat 00:00: mouth [place] ing tablet 00 every 8 Medica l (eight) Branch hours as needed for Nausea and Vomiting (N/V). acetaminoph 2021- No [id number] 1{tbl} Take 1 U nivers en-codeine -28 05- tablet by ity of (TYLENOL-CO 00:00: 04:59 [place] DEINE #3) 00 :00 every 4 Medical 300-30 mg (four) Branch tablet hours as needed for Pain (scale 7-10) for up to 7 days. Indication s: acute pain ketorolac 2-0 2- No [id number] 10mg Take 1 U nivers 10 mg 8-27 - tablet by ity of tablet 00:00: 00:00 mouth [place] 00 :00 every 6 Medical (six) Branch hours as needed for Pain (scale 4-6). acetaminoph 2021- No [id number] 1{tbl} Take 1 U nivers en-codeine 8-28 05- tablet by ity of (TYLENOL-CO 00:00: 00:00 [place] DEINE #3) 00 :00 every 4 Medical 300-30 mg (four) Branch tablet hours as needed for Pain (scale 7-10) for up to 7 days. Indication s: acute pain ketorolac 2021- No [id number] 10mg Take 1 U nivers 10 mg 04-27 tablet by ity of tablet 00:00: 00:00 mouth [place] 00 :00 every 6 Medical (six) Branch hours as needed for Pain (scale 4-6). acetaminoph 2021- No [id number] 1{tbl} Take 1 U nivers en-codeine 04-27 tablet by ity of (TYLENOL-CO 00:00: 00:00 [place] DEINE #3) 00 :00 every 4 Medical 300-30 mg (four) Branch tablet hours as needed for Pain (scale 7-10) for up to 7 days. Indication s: acute pain Vital Signs Vital Name Observation Time Observation Value Comments Source Systolic blood 2022-05-03 20:28:00 109 mm[Hg] Univer [facility]ity [facility] Diastolic blood 2022-05-03 20:28:00 68 [facility]Hg[facility] 2022-05-03 20:28:00 66 /min [facility] Body temperature 2022-05-03 20:28:00 36.39 Kamille [facility] Respiratory rate 2022-05-03 20:28:00 18 /min [facility] Oxygen saturation in 2022-05-03 20:28:00 96 /min [facility] Arterial blood by [facility] Pulse oximetry [place] Body height 2022-05-02 10:34:00 157.5 cm [facility] Body weight 2022-05-02 10:34:00 84.823 kg [facility] BMI 2022-05-02 10:34:00 34.20 kg/m2 [facility] Systolic blood 2022-05-03 12:47:00 95 mm[Hg] [facility]iver [facility] Diastolic blood 2022-05-03 12:47:00 62 mm[Hg] [facility] Heart rate 2022-05-03 12:47:00 73 /min Universi ty of [place] [facility] Body temperature 2022-05-03 12:47:00 36.22 Kamille [facility] [place] [facility] of [facility] Branch Respiratory rate 2022-05-03 12:47:00 18 /min [facility] [place] [facility] of [facility] Branch Oxygen saturation in 2022-05-03 12:47:00 96 /min University of Arterial blood by [facility] Pulse oximetry Branch Body height 2022-05-02 10:34:00 157.5 cm [facility] ty [facility] Body weight 2022-05-02 10:34:00 84.823 kg [facility] BMI 2022-05-02 10:34:00 34.20 kg/m2 [facility] Systolic blood 2022-04-28 00:21:48 120 mm[Hg] Univer sity of [facility] Diastolic blood 2022-04-28 00:21:48 87 mm[Hg] [facility] Heart rate 2022-04-28 00:21:48 92 /min [facility] ty [facility] Respiratory rate 2022-04-28 00:21:48 18 /min [facility] [place] [facility] [place] [facility] Oxygen saturation in 2022-04-28 00:21:48 98 /min University of Arterial blood by [facility] Pulse oximetry [place] Body temperature 2022-04-27 21:31:00 36.44 Kamille [facility] [place] [facility] weight 2022-04-27 21:31:00 68.04 kg [facility] Procedures Procedure Date / Time Performing Clinician Source Performed EXTERNAL PROVIDER RECORDS 2022-05-27 05:01:00 Doctor Unassigned, [facility] [place] Medical Branch FL TIME OR 2022-05-03 19:05:44 Brooks Rasheed [facility] (NON-REPORTABLE) Medical Branch [place] TIME OR 2022-05-03 19:05:44 Brooks Rasheed [facility] (NON-REPORTABLE) [facility] URETEROSCOPIC STONE 2022-05-03 17:12:00 Aron Oglesby [facility] MANIPULATION [facility] STENT PLACEMENT 2022-05-03 17:12:00 Aron Oglesby [facility] POCT TEST 2022-05-03 16:53:[address] [facility] POCT TEST 2022-05-03 16:53:[address] [facility] COVID-19 (ID NOW RAPID 2022-05-03 14:04:00 Karthik Quinn [facility] TESTING) Medical Branch LAB ONLY COVID 2022-05-03 14:04:[address] [facility] COVID-19 (ID NOW RAPID 2022-05-03 14:04:00 Karthik Quinn [facility] TESTING) Medical Branch LAB ONLY COVID 2022-05-03 14:04:[facility] POCT GLUCOSE (AUTOMATED) 2022-05-02 13:48:[address] [facility] POCT GLUCOSE (AUTOMATED) 2022-05-02 13:48:[address] [facility] CT ABDOMEN PELVIS WO 2022-04-27 22:52:16 Ronnie Salgado [facility] COMP. METABOLIC PANEL 2022-04-27 22:05:00 Ronnie Salgado [facility] ([id number]) [facility] CBC WITH DIFF 2022-04-27 22:05:00 Ronnie Salgado [facility] URINALYSIS 2022-04-27 22:05:00 Ronnie Salgado [facility] EXTRA TUBE URINE CULTURE 2022-04-27 22:05:00 Ronnie Salgado [facility] POCT TEST 2022-04-27 22:03:00 Ronnie Salgado [facility] CONSENT/REFUSAL FOR 2022-04-27 21:28:22 Doctor Unassbernardo, [facility] DIAGNOSIS AND TREATMENT [place] [facility] Encounters Start End Encounter Admission Attending Care Care Encounter Source Date/Time Date/Time Type Type Clinicians Facility Department ID 2022-05-27 2022-05-27 Orders Doctor BECERRA [id number] [facility] 00:00:00 00:00:00 Only Unassigned, RODOLFO 350.1.13.10 ity of [place] [facility] 4.2.7.2.686 [place] as [id number] [facility] 009 Branch 2022-05-20 2022-05-20 Telephone HERNAN Quinn [id number] Univers 00:00:00 00:00:00 Karthik REYNOLDS 350.1.13.10 it y of HOSPITAL 4.2.7.2.686 [place] [id number] [facility] 007 Branch 2022-05-02 2022-05-03 [id number] Univers 05:12:00 16:34:00 Encounter Aron REYNOLDS 350.1.13.10 ity of [facility] 4.2.7.2.686 [place] [id number] [facility] 099 Branch 2022-05-03 2022-05-03 [facility] RONN [id number] Univers 11:20:00 13:20:00 Aron REYNOLDS 350.1.13.10 it y of HOSPITAL 4.2.7.2.686 [place] [id number] [facility] 103 Branch 2022-04-27 2022-04-27 Emergency X RONNIE SALGADO [facility] ERT [id number] Univers 16:32:00 20:36:00 ity of [facility] 2022-04-27 2022-04-27 Emergency Ronnie Salgado TRAUMA [id number] Univers 16:32:00 20:36:00 T CENTER 350.1.13.10 it y of 4[place]2.7.2.[place] [id number] [facility] 014 Branch Results Test Description Test Time Test Comments Results Result Comments Source POCT TEST 2022-05-03 16:58:00 Test Item Value Reference Range Interpretation Comme nts POCT PREG (test code = 1605) Negative On board controls acceptable with C Line (test code = 3574) Yes POCT PREG LOT # (test code = 3575) [id number] POCT PREG TEST DATE (test code = 3576) 07/01/2023 Lab Interpretation (test code = 65878-2) [facility] [id number] 16:58:00 Test Item Value Reference Range Interpretation Comments POCT PREG (test code = 1605) Negative On board controls acceptable with Yes C Line (test code = 3574) POCT PREG LOT # (test code = 3575) [id number] POCT PREG TEST DATE (test 07/01/2023 code = 3576) Lab Interpretation (test code = Normal 75811-9) [facility] GLU[facility]SE (AUTOMATED)2022-05-02 13:49:12 Test Item Value Reference Range Interpretation Comments POCT GLU (test code = 0455714111) 105 mg/dL 70-110 Lab Interpretation (test code = Normal 46084-8) [facility] GLUCOSE (AUTOMATED)2022-05-02 13:49:12 Test Item Value Reference Range Interpretation Comments POCT GLU (test code = 4867585337) 105 mg/dL 70-110 Lab Interpretation (test code = Normal 23678-1) [facility] [id number] 22:06:00 Test Item Value Reference Range Interpretation Comments POCT PREG (test code = 1605) Negative On board controls acceptable with C Yes Line (test code = 3574) POCT PREG LOT # (test code = 3575) POCT PREG TEST DATE ( code = 3576) Lab Interpretation (test code = Normal 80177-1) [facility] [id number] 06:15:23 Test Item Value Reference Range Interpretation [...] . . . NG/ML 30-100 COMPREHENSIVE METABOLIC [id number] 05:11:12 Test Item Value Reference Range Interpretation Comments GLUCOSE (test code = 81 MG/DL 70-99 2216) BUN (test code = 8 MG/DL 6-20 2207) CREATININE (test 0.65 MG/DL 0.60-1.30 code = 2214) eGFR (2020 CKD-EPI) 123 >60 (test code = 26801) ML/MIN/1.73 CALC BUN/CREAT (test 12 RATIO 6-28 code = 2235) SODIUM (test code = 139 MEQ/L 434-965 9519) POTASSIUM (test code 4.7 MEQ/L 3.5-5.4 = 2227) CHLORIDE (test code 102 MEQ/L 95-107 = 2214) CARBON DIOXIDE (test 26 MEQ/L 19-31 code [...] PHOSPHATASE 87 U/L 40-112 (test code = 2204) AST (test code = 22 U/L 9-40 2217) ALT (test code = 27 U/L 5-40 2218) LIPID [id number] 05:11:12 Test Item Value Reference Range Interpretation [...] MOREINFORMATION , SEE CLIENT ANNOUNCE MENT AT [email or web address] [email or web address] RATIO LDL/HDL 3.86 RATIO <3.22 H (test code = 2238) HEMOGLOBIN [id number] 05:06:15 Test Item Value Reference Range Interpretation Comments HEMOGLOBIN A1c (test code = 98640) 6.1 % 4.2-5.6 H TSH, THIRD [id number] 04:43:16 Test Item Value Reference Range Interpretation Comments TSH, THIRD GENERATION (test code 1.660 UIU/ML 0.400-4.100 = 2821) VITAMIN [id number] 04:43:16 Test Item Value Reference Range Interpretation Comments VITAMIN B-12 (test code = 2840) 431 PG/ML 200-950 [id number] 04:43:16 Test Item Value Reference Range Interpretation Comments FERRITIN (test code 132 NG/ML 13-200 UNLESS OTHERWISE = 2075) INDICATED, ALL TESTING PERFORMED [facility] PATHOLOG[facility] [address] [place] [address] 4 LABORATORY DIRE CTOR: JANET NOVA M.D. CLIA NUMBER [id number] [place] [id number] CBC W/AUTO DIFF WITH [id number] 02:51:12 Test Item Value Reference Range Interpretation [...] RBCS 0.00 K/UL 0.00-0.11 (test code = 76473)
[2023-04-24 13:30] LABS: Specific Gravity 1.023 (1.005-1.030); Specific Gravity 1.024 (1.005-1.030); Urine Bilirubin NEGATIVE (Negative); Urine Blood Negative (Negative); Urine Clarity Clear (Clear); Urine Color Light-Yellow (Yellow); Urine Glucose NEGATIVE (Negative); Urine Protein NEGATIVE (Negative); Urine Urobilinogen Normal (Normal); Urine pH 6.5 (5.0-7.0)
--- NOTE | 2023-04-24 13:53 | RAD REPORT ---
EXAM DESCRIPTION: CT - Abdomen Pelvis Wo Contrast - 04/24/2023 1:40 pm CLINICAL HISTORY: Abdominal pain /left flank pain COMPARISON: November 2022 TECHNIQUE: Computed axial tomography of the abdomen and pelvis was obtained. IV and oral contrast we re not requested. All CT scans are performed using dose optimization technique as appropriate and may include automated exposure control or mA/KV adjustment according to patient size. FINDINGS: The evaluation of solid organs, vessels and bowel is limited secondary to the lack of con trast administration. The liver, spleen, pancreas, and adrenals appear grossly normal. Tiny right renal calculi. No hydronephrosis. A left renal calculus is not seen. No hydronephrosis. A ureteral calculus is not visualized. A bladder calculus No adnexal mass The appendix is normal. There is no evidence of diverticulitis. IMPRESSION: No acute abnormality is displayed.
--- NOTE | 2023-04-24 14:01 | EDPHYS ---
Physician Documentation [facility] Name: Vaishnavi Dey Age: 28 yrs Sex: Female : 1995 Arrival Date: 04/24/2023 Time: 12:52 Bed 8 Private MD: ED Physician Marcio Bowles HPI: 04/24 13:10 This 28 yrs old Female presents to ER via Ambulatory with complaints of Back Pain, sb4 Flank Burn, Headache. 13:15 The patient presents with pain that is acute, with no known mechanism of injury. The sb4 symptoms are located in the left low back. Onset: The symptoms/episode began/occurred gradually, and became worse yesterday. The pain radiates to the right leg and left leg. Associated signs and symptoms: Pertinent negatives: incontinence, numbness, urinary retention, weakness. The problem was sustained without known cause. Modifying factors: The patient symptoms are alleviated by remaining still, the patient symptoms are aggravated by flexion, sitting too long. The patient has experienced similar episodes in the past, a few times. The patient has not recently seen a physician. 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 - Social history:: Smoking status: . ROS: 13:15 Constitutional: Negative for fever, chills, and weight loss. sb4 13:15 Back: Positive for pain with movement, flank pain, on the left, radiated pain. 13:15 All other systems are negative. 13:15 Neuro: Positive for headache. sb4 Exam: 13:15 Constitutional: This is a well developed, well nourished patient who is awake, alert, sb4 and in no acute distress. Head/Face: Normocephalic, atraumatic. Eyes: Extra-ocular motions intact. Periorbital areas with no swelling, redness, or edema. ENT: Mucous membranes moist. Cardiovascular: Regular rate and rhythm with a normal S1 and S2. Respiratory: Lungs have equal breath sounds bilaterally, clear to auscultation and percussion. No rales, rhonchi or wheezes noted. No increased work of breathing, no retractions or nasal flaring. Abdomen/GI: Soft, non-tender, no distension. Back: No spinal tenderness. No costovertebral tenderness. Full range of motion. Skin: Warm, dry with normal turgor. Normal color with no rashes, no lesions, and no evidence of cellulitis. MS/ Extremity: Pulses equal, no cyanosis. Neurovascular intact. Full, normal range of motion. Neuro: Awake and alert, GCS 15, oriented to person, place, time, and situation. Cranial nerves II-XII grossly intact. Motor strength 5/5 in all extremities. Sensory grossly intact. Cerebellar exam normal. Normal gait. Vital Signs: 13:04 BP 160 / 106; Pulse 104; Resp 16; Temp 98.5; Pulse Ox 100% on R/A; Weight 81.65 kg; hb Height 5 ft. 1 in. ; Pain 9/10; 14:15 BP 148 / 89; Pulse 97; Resp 16; Pulse Ox 98% on R/A; iw 13:04 Body Mass Index 34.01 (81.65 kg, 154.94 cm) hb 13:04 Pain Scale: Adult hb MDM: 12:57 Patient medically screened. sb4 13:15 Differential diagnosis: chronic back pain, Fracture Joint Injury Ligament Injury sb4 Pyelonephritis ruptured disc, spinal injury, sprain, Ureterolithiasis vertebral fracture. 13:58 Data reviewed: vital signs, nurses notes, lab test result(s), radiologic studies, and sb4 as a result, I will discharge patient. Independent interpretation of the following test(s) in the Emergency Department CT Scan: My interpretation is my interpretation of the CT images are no nephrolithiasis or lumbar fracture. Counseling: I had a detailed discussion with the patient and/or guardian regarding the historical points, exam findings, and any diagnostic results supporting the discharge/admit diagnosis, lab results, radiology results, to return to the emergency department if symptoms worsen or persist or if there are any questions or concerns that arise at home. 04/24 13:07 Order name: Urinalysis w/ reflexes; Complete Time: :31 sb4 04/24 13:07 Order name: Test, Urine; Complete Time: : sb4 04/24 13:07 Order name: CT Abd/Pelvis - Without Contrast; Complete Time: 13:54 sb4 Administered Medications: 14:15 Drug: Ketorolac IM 30 mg Route: IM; Site: right ventrogluteal; iw 14:30 Follow up: Response: No adverse reaction iw 14:15 Drug: Dexamethasone IM 10 mg Route: IM; Site: right ventrogluteal; iw 14:30 Follow up: Response: No adverse reaction iw Disposition Summary: 04/24/23 14:00 Discharge Ordered Location: Home sb4 Condition: Stable sb4 Problem: new sb4 Symptoms: have improved sb4 Diagnosis - Lumbago with sciatica sb4 Followup: sb4 - With: Private Physician - When: As needed - Reason: Recheck today's complaints, Continuance of care, Re-evaluation by your physician Discharge Instructions: - Discharge Summary Sheet sb4 - Low Back Sprain or Strain Rehab sb4 Forms: - Work release form iw - Medication Reconciliation Form sb4 - Thank You Letter sb4 - Antibiotic Education sb4 - Prescription Opioid Use sb4 - Patient Portal Instructions sb4 - Leadership Thank You Letter sb4 Prescriptions: - Cyclobenzaprine 10 mg Oral Tablet - take 1 tablet by ORAL route every 8 hours As needed; 30 tablet; Refills: 0, sb4 Product Selection Permitted - Diclofenac Sodium 75 mg Oral Tablet Sustained Release - take 1 tablet by ORAL route 2 times per day; 30 tablet; Refills: 0, Product sb4 Selection Permitted - Medrol (Tanner) 4 mg Oral Tablets, Dose Pack - take 1 tablet by ORAL route as directed - follow package instructions; 1 sb4 packet; Refills: 0, Product Selection Permitted Signatures: Dispatcher [employer] Leatha Tamayo, Benita Kim RN, RN RN Anabel Waggoner PANicole TAI sb4
--- NOTE | 2023-04-24 14:01 | ER ---
Nurse's Notes [facility] Name: Vaishnavi Dey Age: 28 yrs Sex: Female : 1995 Arrival Date: 04/24/2023 Time: 12:52 Bed 8 Private MD: Diagnosis: Lumbago with sciatica Presentation: 04/24 13:04 Chief complaint: Low back pain that radiates to both legs, worse on left, x 3 days, hb left flank pain x 2 days. Denies urinary s/s. Coronavirus screen: At this time, the client does not indicate any symptoms associated with coronavirus-19. Ebola Screen: No symptoms or risks identified at this time. Initial Sepsis Screen: Does the patient meet any 2 criteria? No. Patient's initial sepsis screen is negative. Does the patient have a suspected source of infection? No. Patient's initial sepsis screen is negative. Risk Assessment: Do you want to hurt yourself or someone else? Patient reports no desire to harm self or others. Onset of symptoms was April 21, 2023. 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 - Social history:: Smoking status: . Screenin:22 [facility] ED Fall Risk Assessment (Adult) Score/Fall Risk Level 0 - 2 = Low Risk. Abuse iw screen: Denies threats or abuse. Denies injuries from another. Nutritional screening: No deficits noted. Tuberculosis screening: No symptoms or risk factors identified. Assessment: 13:21 General: Appears in no apparent distress. Behavior is calm, cooperative. Pain: iw Complains of pain in left leg and right leg and left low back. Neuro: Level of Consciousness is awake, alert, obeys commands, Oriented to person, place, time, situation, Moves all extremities. Full function. Cardiovascular: Patient's skin is warm and dry. Respiratory: Respiratory effort is even, unlabored, Respiratory pattern is regular, symmetrical. Derm: Skin is intact, is healthy with good turgor. Vital Signs: 13:04 BP 160 / 106; Pulse 104; Resp 16; Temp 98.5; Pulse Ox 100% on R/A; Weight 81.65 kg; hb Height 5 ft. 1 in. ; Pain 9/10; 14:15 BP 148 / 89; Pulse 97; Resp 16; Pulse Ox 98% on R/A; iw 13:04 Body Mass Index 34.01 (81.65 kg, 154.94 cm) hb 13:04 Pain Scale: Adult hb ED Course: 12:55 Patient arrived in ED. im 12:57 Anabel Romero PA-C is PHCP. sb4 13:01 Leatha Giles, RN is Primary Nurse. iw 13:05 Triage completed. hb 13:07 Arm band placed on. hb 13:17 Urinalysis w/ reflexes Sent. iw 13:17 Test, Urine Sent. iw 13:21 Patient has correct armband on for positive identification. Provided Education on: pain iw medication. 13:40 CT Abd/Pelvis - Without Contrast In Process Unspecified. EDMS 14:01 Marcio Bowles MD is Attending Physician. sb4 14:20 No provider procedures requiring assistance completed. Patient did not have IV access iw during this emergency room visit. Administered Medications: 14:15 Drug: Ketorolac IM 30 mg Route: IM; Site: right ventrogluteal; iw 14:30 Follow up: Response: No adverse reaction iw 14:15 Drug: Dexamethasone IM 10 mg Route: IM; Site: right ventrogluteal; iw 14:30 Follow up: Response: No adverse reaction iw Medication: 13:22 VIS not applicable for this client. iw Outcome: 14:00 Discharge ordered by . sb4 14:29 Discharged to home ambulatory, with family. iw 14:29 Condition: good 14:29 Discharge instructions given to patient, family, Instructed on discharge instructions, follow up and referral plans. Demonstrated understanding of instructions, follow-up care, medications, Prescriptions given X 1. 14:30 Patient left the ED. iw Signatures: Dispatcher [employer] EDPA Leatha Giles RN RN iw Benita Ramirez RN RN Anabel Romero PA-C PA-C sb4 Teodora Patel im Corrections: (The following items were deleted from the chart) 13:07 13:04 BP 160 / 106; Pulse 104bpm; Resp 16bpm; Pulse Ox 100% RA; Temp 98.5F; Pain 910, hb Adult; hb
[2023-04-24] MEDS ORDERED: dexAMETHasone 10 MG/ML VIAL ONE (14:17)
[2023-04-24] MEDS ORDERED: KETOROLAC 30 MG/ML INJ ONE (14:17)
[2023-04-24 15:12] VITALS: TEMP 98.5
[2023-04-24 15:13] VITALS: BP 148/89; O2SAT 98
== END 2023-04-24 14:30 | disposition home or self-care (01) ==
LOC: ER 12:52
DX: M54.42 Lumbago with sciatica, left side (principal)
CPT/HCPCS: 74176; 81003; 81025; 96372; 99284; J1100

== ENCOUNTER 2023-07-08 13:51 | Emergency (ER) | payer SELFPAY ==
--- OUTSIDE RECORDS SUMMARY | 2023-07-08 13:54 | XMS REPORT | Continuity of Care Document ---
:[address] [facility] t Address [address] [place] [address] Care Team Providers Name Role Phone Dante Grider [facility], [facility] Primary Care P hysician Doctor Unassigned, [place] Attending Clinician Unavailable Karthik Quinn MD Attending [...] Start Date Stop Date Quantity Comments Source Sexual orientation Univer sity of [facility] History of tobacco Passive smoker Un iversity of use [facility] Exposure to 2022-04-22 2022-05-02 Not sure University of SARS-CoV-2 (event) 00:00:00 21:59:00 [facility] History of Social 2022-05-02 2022-05-02 Univers ity of function 00:00:00 00:00:00 [facility] Tobacco use and 2022-05-02 2022-05-02 Smokeless Universit y of exposure 00:00:00 00:00:00 tobacco non-user [facility] dical Branch History [facility] 2022-05-02 2022-05-02 2 University o f Financial 00:00:00 00:00:00 [place] [facility] History [facility] Food 2022-05-02 2022-05-02 2 Univers ity of Worry 00:00:00 00:00:00 [place] [facility] History SDOH Food 2022-05-02 2022-05-02 2 Univers ity of Scarcity 00:00:00 00:00:00 [place] [facility] History [facility] 2022-05-02 2022-05-02 1 University o f Transport Med 00:00:00 00:00:00 [place] [facility] History [facility] 2022-05-02 2022-05-02 1 University o f Transport Non-Med 00:00:00 00:00:00 [facility] edical Branch Sex Assigned At [birth year] Universit y of 00:00:00 00:00:00 [facility] Smoking Status Start Date Stop Date Source Tobacco smoking consumption [facility] Branch Smokes tobacco daily 2022-05-02 00:00:00 Univers ity [facility] Medications Ordered Filled Start Stop Current Ordering Indication Dosage Frequency Signature Comments Components Source Medication Medication Date Date Medication? Clinician (SIG) Name Name tamsulosin 2021- No [id number] .4mg Take 1 Univers 0.4 mg 24 05-04 capsule by ity of hr capsule 00:00: 04:59 mouth in [place] 00 :00 [facility] for 30 days. tamsulosin 2021- No [id number] .4mg Take 1 Univers 0.4 mg 24 05-04 capsule by ity of hr capsule 00:00: 04:59 mouth [place] 00 :00 [facility] for 30 days. tamsulosin 2021- No [id number] .4mg Take 1 Univers 0.4 mg 24 05-04 capsule by ity of hr capsule 00:00: 04:59 [place]00 [facility] for 30 days. sennosides 2021- No [id number] 8.6mg Take 1 Univers 8.6 mg 05-04 tablet by ity of tablet 00:00: 04:59 mouth in [place] 00 :00 [facility] for 10 days. sennosides 2021- No [id number] 8.6mg Take 1 Univers 8.6 mg 05-04 tablet by ity of tablet 00:00: 04:59 mouth in [place] 00 :00 [facility] for 10 days. HYDROcodone 2021- No 1{tbl} [...] Branch at 0200, Routine acetaminoph 2022- No [id number] 650mg Take 2 Univers en 325 mg 05-03 tablets by ity of tablet 00:00: 04:59 mouth [place] 00 :00 every 6 Medical (six) Branch hours. acetaminoph 2022- No [id number] 650mg Take 2 Univers en 325 mg 05-03 tablets by ity of tablet 00:00: 04:59 mouth [place] 00 :00 every 6 Medical (six) Branch hours. acetaminoph 2022- No [id number] 650mg Take 2 Univers en 325 mg 05-03 tablets by ity of tablet 00:00: 04:59 mouth [place] 00 :00 every 6 Medical (six) Branch hours. acetaminoph 2022- No [id number] 650mg Take 2 Univers en 325 mg 05-03 tablets by ity of tablet 00:00: 04:59 mouth [place] 00 :00 every 6 Medical (six) Branch hours. gabapentin 2021-2021- No [id number] 300mg Take 1 Univers 300 mg 05-03 capsule by ity of capsule 00:00: 04:59 mouth in [place] 00 :00 the Medical morning Branch and 1 capsule at noon and 1 capsule in the evening. Do all this for 21 days. gabapentin 2021-2021- No [id number] 300mg Take 1 Univers 300 mg 05-03 capsule by ity of capsule 00:00: 04:59 mouth in [place] 00 :00 the [facility] morning Branch and 1 capsule at noon and 1 capsule in the evening. Do all this for 21 days. ibuprofen 2021-0 2021- No [id number] 800mg Take 1 Univers 800 mg 05-03 tablet by ity of tablet 00:00: 04:59 mouth in [place] 00 :00 the [facility] morning Branch and 1 tablet at noon and 1 tablet in the evening. Take with meals. Do all this for 10 days. ibuprofen 2021-0 2021- No [id number] 800mg Take 1 Univers 800 mg 05-03 tablet by ity of tablet 00:00: 04:59 mouth in [place] 00 :00 the [facility] morning Branch and 1 tablet at noon and 1 tablet in the evening. Take with meals. Do all this for 10 days. enoxaparin Yes 40mg 40 mg, Unive rs (LOVENOX) 05-02 Subcutaneo ity of injection 22:00: [place], [place], [place] 40 mg 00 First dose Medical on [facility] 05/02/22 at 1700, Until Discontinu ed, Routine enoxaparin 2021-0 2021- No 40mg 40 mg, Univ ers (LOVENOX) 05-02 Subcutaneo ity of injection 22:00: 23:42 [place], DAILY, [place] 40 mg 00 :12 First dose Medical on [facility] 05/02/22 at 1700, Until Discontinu ed, Routine acetaminoph Yes 650mg 650 mg, Un sumaya en 05-02 Oral, Q6H, ity of (TYLENOL) 17:00: First dose [place] tablet 650 00 on [facility] mg 05/02/22 at Branch 1200, Until Discontinu ed, Routine acetaminoph 2021-0 2021- No 650mg 650 mg, U nivers en 05-02 Oral, Q6H, ity of (TYLENOL) 17:00: 23:42 First dose [place] tablet 650 00 :12 on [facility] mg 05/02/22 at Branch 1200, Until Discontinu ed, Routine tamsulosin 2021-0 Yes .4mg 0.4 mg, Univ ers (FLOMAX) 05-02 Oral, ity of capsule 0.4 14:00: DAILY, [place] mg 00 First dose Medical on [facility] Branch 05/02/22 at 0900, Until Discontinu ed, Routine sennosides Yes 8.6mg 8.6 mg, Uni vers (SENOKOT) 05-02 Oral, ity of tablet 8.6 14:00: DAILY, [place] mg 00 First dose Medical on [facility] Branch 05/02/22 at 0900, Until Discontinu ed, Routine tamsulosin 2021- No .4mg 0.4 mg, Uni vers (FLOMAX) 05-02 Oral, ity of capsule 0.4 14:00: 23:42 DAILY, [place] mg 00 :12 First dose Medical on [facility] Branch 05/02/22 at 0900, Until Discontinu ed, Routine sennosides 2021- No 8.6mg 8.6 mg, Un sumaya (SENOKOT) 05-02 Oral, ity of tablet 8.6 14:00: 23:42 DAILY, [place] mg 00 :12 First dose Medical on [facility] Branch 05/02/22 at 0900, Until Discontinu ed, Routine D5W 0.45% Yes IV Univers NaCl 05-02 Infusion, ity of (1/2NS) 1 L 13:00: at 125 [place] + KCL 20 00 mL/hr, Medical mEq CONTINUOUS Branch , Starting on [facility] 05/02/22 at 0800, Until Discontinu ed, Routine gabapentin Yes 300mg 300 mg, Uni vers (NEURONTIN) 05-02 Oral, TID, it y of capsule 300 13:00: First dose [place] mg 00 on [facility] Medical 05/02/22 at Branch 0800, Until Discontinu ed, Routine D5W 0.45% 2021- No IV Univers NaCl 05-02 Infusion, ity of (1/2NS) 1 L 13:00: 23:42 at 125 [place] + KCL 20 00 :12 mL/hr, Medical mEq CONTINUOUS Branch , Starting on [facility] 05/02/22 at 0800, Until Fri05/03/22 at 1842, Routine gabapentin 2021- No 300mg 300 mg, Un sumaya (NEURONTIN) 05-02 Oral, TID, i ty of capsule 300 13:00: 23:42 First dose [place] mg 00 :12 on [facility] Medical 05/02/22 at Branch 0800, Until Discontinu ed, Routine ketorolac 2021- No 15mg 15 mg, Unive rs (TORADOL) 05-02 Slow IV ity of injection 12:54: 12:53 Push, [place] 15 mg 59 :59 Q6HPRN, Medical Starting Branch on [facility] 05/02/22 at 0754, Until 05/04/22 at 0753, Routine, Pain (scale 7-10) ketorolac 2021- No 15mg 15 mg, Unive rs (TORADOL) 05-02 Slow IV ity of injection 12:54: 23:42 Push, [place] 15 mg 59 :12 Q6HPRN, Medical Starting Branch on [facility] 05/02/22 at 0754, Until 05/03/22 at 1842, Routine, Pain (scale 7-10) ondansetron Yes 4mg 4 mg, Slow Univers (ZOFRAN 05-02 IV Push, ity of (PF)) 12:53: Q4HPRN, [place] injection 4 06 Starting Medi carolyn mg on [facility] Branch 05/02/22 at 0753, Until Discontinu ed, Routine, Nausea and Vomiting (N/V) ondansetron 2021- No 4mg 4 mg, Slow Univers (ZOFRAN 05-02 IV Push, ity of (PF)) 12:53: 23:42 Q4HPRN, [place] injection 4 06 :12 Starting Medi carolyn mg on [facility] Branch 05/02/22 at 0753, Until 05/03/22 at 1842, Routine, Nausea and Vomiting (N/V) ketorolac 2021- No 15mg 15 mg, Unive rs tromethamin 04-27 Slow IV ity of e (TORADOL) 22:15: 22:15 [place], [place] injection 00 :00 ONCE, 1 Medical 15 mg dose, On Branch 04/27/22 at 1715, LATISHA ondansetron Yes [id number] 4mg Take 1 Univers 4 mg 8-27 tablet by ity of disintegrat 00:00: mouth [place] ing tablet 00 every 8 Medica l (eight) Branch hours as needed for Nausea and Vomiting (N/V). ondansetron 2021-0 Yes [id number] 4mg Take 1 Univers 4 mg 8-27 tablet by ity of disintegrat 00:00: mouth [place] ing tablet 00 every 8 Medica l (eight) Branch hours as needed for Nausea and Vomiting (N/V). ondansetron 2021-0 Yes [id number] 4mg Take 1 Univers 4 mg 8-27 tablet by ity of disintegrat 00:00: mouth [place] ing tablet 00 every 8 Medica l (eight) Branch hours as needed for Nausea and Vomiting (N/V). ketorolac 2021-0 Yes [id number] 10mg Take 1 Un sumaya 10 mg 8-27 tablet by ity of tablet 00:00: mouth [place] 00 every 6 Medical (six) Branch hours as needed for Pain (scale 4-6). ondansetron 2021-0 Yes [id number] 4mg Take 1 Univers 4 mg 8-27 tablet by ity of disintegrat 00:00: mouth [place] ing tablet 00 every 8 Medica l (eight) Branch hours as needed for Nausea and Vomiting (N/V). ondansetron 2021-0 Yes [id number] 4mg Take 1 Univers 4 mg 8-27 tablet by ity of disintegrat 00:00: mouth [place] ing tablet 00 every 8 Medica l (eight) Branch hours as needed for Nausea and Vomiting (N/V). ondansetron 2021-0 Yes [id number] 4mg Take 1 Univers 4 mg 8-27 tablet by ity of disintegrat 00:00: mouth [place] ing tablet 00 every 8 Medica l (eight) Branch hours as needed for Nausea and Vomiting (N/V). acetaminoph 2021-2021- No [id number] 1{tbl} Take 1 U nivers en-codeine 8-05-05 tablet by ity of (TYLENOL-CO 00:00: 04:59 [place] DEINE #3) 00 :00 every 4 Medical 300-30 mg (four) Branch tablet hours as needed for Pain (scale 7-10) for up to 7 days. Indication s: acute pain ketorolac No [id number] 10mg Take 1 U nivers 10 mg 04-27 tablet by ity of tablet 00:00: 00:00 mouth [place] 00 :00 every 6 Medical (six) Branch hours as needed for Pain (scale 4-6). acetaminoph No [id number] 1{tbl} Take 1 U nivers en-codeine 04-27 tablet by ity of (TYLENOL-CO 00:00: 00:00 [place] DEINE #3) 00 :00 every 4 Medical 300-30 mg (four) Branch tablet hours as needed for Pain (scale 7-10) for up to 7 days. Indication s: acute pain ketorolac No [id number] 10mg Take 1 U nivers 10 mg 04-27 tablet by ity of tablet 00:00: 00:00 mouth [place] 00 :00 every 6 Medical (six) Branch hours as needed for Pain (scale 4-6). acetaminoph No [id number] 1{tbl} Take 1 U nivers en-codeine 04-27 tablet by ity of (TYLENOL-CO 00:00: 00:00 [place] DEINE #3) 00 :00 every 4 Medical 300-30 mg (four) Branch tablet hours as needed for Pain (scale 7-10) for up to 7 days. Indication s: acute pain Vital Signs Vital Name Observation Time Observation Value Comments Source Systolic blood 2022-05-03 20:28:00 109 [facility] Diastolic blood 2022-05-03 20:28:00 68 mm[Hg] [facility] Heart rate 2022-05-03 20:28:00 66 /min [facility] Body temperature 2022-05-03 20:28:00 36.39 Kamille [facility] Respiratory rate 2022-05-03 20:28:00 18 /min [facility] Oxygen saturation in 2022-05-03 20:28:00 96 /min [facility] Arterial blood by [facility] Pulse oximetry Branch Body height 2022-05-02 10:34:00 157.5 cm [facility] Body weight 2022-05-02 10:34:00 84.823 kg Universi ty [facility] [place] [facility] BMI 2022-05-02 10:34:00 34.20 kg/m2 [facility]i ty [facility] [place] [facility] Systolic blood 2022-05-03 12:47:00 95 mm[Hg] Univer sity of pressure [place] [facility] Diastolic blood 2022-05-03 12:47:00 62 mm[Hg] Unive rsity of pressure [place] [facility] Heart rate 2022-05-03 12:47:00 73 /min [facility]i [facility] [place] [facility] Body temperature 2022-05-03 12:47:00 36.22 Kamille Univ ersity of [place] [facility] Respiratory rate 2022-05-03 12:47:00 18 /min Univ ersity of [place] [facility] Oxygen saturation in 2022-05-03 12:47:00 96 /min University of Arterial blood by [facility] Pulse oximetry Branch Body height 2022-05-02 10:34:00 157.5 cm [facility]i ty [facility] [place] [facility] Body weight 2022-05-02 10:34:00 84.823 kg Universi ty [facility] [place] [facility] BMI 2022-05-02 10:34:00 34.20 kg/m2 [facility]i ty [facility] [place] [facility] Systolic blood 2022-04-28 00:21:48 120 mm[Hg] Univer sity of pressure [place] [facility] Diastolic blood 2022-04-28 00:21:48 87 mm[Hg] Unive rsity of pressure [place] [facility] Heart rate 2022-04-28 00:21:48 92 /min [facility]i ty [facility] [place] [facility] Respiratory rate 2022-04-28 00:21:48 18 /min Univ ersity of [place] [facility] Oxygen saturation in 2022-04-28 00:21:48 98 /min University of Arterial blood by [facility] Pulse oximetry Branch Body temperature 2022-04-27 21:31:00 36.44 Kamille Univ ersity [facility] [place] [facility] Body weight 2022-04-27 21:31:00 68.04 kg [facility]i ty [facility] [place] [facility] Procedures Procedure Date / Time Performing Clinician Source Performed EXTERNAL PROVIDER RECORDS 2022-05-27 05:01:00 Doctor Unassigned, [facility] [place] Medical Branch FL TIME OR 2022-05-03 19:05:44 Brooks Rasheed [facility] (NON-REPORTABLE) Medical Branch FL TIME OR 2022-05-03 19:05:44 Brooks Rasheed [facility] (NON-REPORTABLE) [facility] Branch URETEROSCOPIC STONE 2022-05-03 17:12:00 Aron Oglesby [facility] MANIPULATION [facility] STENT PLACEMENT 2022-05-03 17:12:00 Aron Oglesby [facility] POCT TEST 2022-05-03 16:53:00 Alfie [facility] POCT TEST 2022-05-03 16:53:00 Alfie [facility] COVID-19 (ID NOW RAPID 2022-05-03 14:04:00 [facility] TESTING) Medical Branch LAB ONLY COVID 2022-05-03 14:04:00 Karthik Quinn [facility] COVID-19 (ID NOW RAPID 2022-05-03 14:04:00 [facility] TESTING) Medical Branch LAB ONLY COVID 2022-05-03 14:04:00 [facility] POCT GLUCOSE (AUTOMATED) 2022-05-02 13:48:00 Aron Oglesby [facility] POCT GLUCOSE (AUTOMATED) 2022-05-02 13:48:00 Aron Oglesby [facility] CT ABDOMEN PELVIS WO 2022-04-27 22:52:16 Ronnie Salgado [facility] CONTRAST [facility] COMP. METABOLIC PANEL 2022-04-27 22:05:00 Ronnie Salgado [facility] ([id number]) [facility] CBC WITH DIFF 2022-04-27 22:05:00 Ronnie Salgado [facility] URINALYSIS 2022-04-27 22:05:00 Ronnie Salgado [facility] EXTRA TUBE URINE CULTURE 2022-04-27 22:05:00 Ronnie Salgado [facility] POCT TEST 2022-04-27 22:03:00 Ronnie Salgado [facility] Medical Branch CONSENT/REFUSAL FOR 2022-04-27 21:28:22 Doctor Og Flowers [facility] DIAGNOSIS AND TREATMENT [place] Medical Branch Encounters Start End Encounter Admission Attending Care Care Encounter Source Date/Time Date/Time Type Type Clinicians Facility Department ID 2022-05-27 2022-05-27 Orders Doctor HERNAN [id number] Univers 00:00:00 00:00:00 Only UnassignedRODOLFO 350.1.13.10 ity of [place] HOSPITAL 4.2.7.2.686 [place] [id number] [facility] 009 Branch 2022-05-20 2022-05-20 Telephone HERNAN Quinn [id number] Univers 00:00:00 00:00:00 Karthik RODOLFO 350.1.13.10 it y of HOSPITAL 4.2.7.2.686 [place] [id number] [facility] carolyn 007 Branch 2022-05-08 2022-05-08 Patient Doctor HERNAN [id number] Univers 00:00:00 00:00:00 Secure Msg Unassigned RODOLFO 350.1.13.10 ity of [place] HOSPITAL 4.2.7.2.686 [place] [id number] [facility] carolyn 019 Branch 2022-05-02 2022-05-03 Hospital [facility] [id number] Univers 05:12:00 16:34:00 Encounter Aron RODOLFO 350.1.13.10 ity of HOSPITAL 4.2.7.2.686 [place] [id number] [facility] carolyn 099 Branch 2022-05-03 2022-05-03 Surgery [facility] [id number] Univers 11:20:00 13:20:00 Aron RODOLFO 350.1.13.10 it y of HOSPITAL 4.2.7.2.686 [place] [id number] [facility] 103 Branch 2022-04-27 2022-04-27 Emergency X RONNIE SALGADO [facility] ERT [id number] Univers 16:32:00 20:36:00 ity of [facility] 2022-04-27 2022-04-27 Emergency Ronnie Salgado TRAUMA [id number] [facility] 16:32:00 20:36:00 [facility] 350.1.13.10 [facility] 4.2.7.2.686 Vitro hutchins [id number] [address] Results Test Description Test Time Test Comments Results Result Comments Source POCT TEST 2022-05-03 16:58:00 Test Item Value Reference Range Interpretation Comme nts POCT PREG (test code = 1605) Negative On board controls acceptable with C Line (test code = 3574) Yes POCT PREG LOT # (test code = 3575) [id number] POCT PREG TEST DATE (test code = 3576) 07/01/2023 Lab Interpretation (test code = 53402-0) Normal [facility] [id number] 16:58:00 Test Item Value Reference Range Interpretation Comments POCT PREG (test code = 1605) Negative On board controls acceptable with Yes C Line (test code = 3574) POCT PREG LOT # (test code = 3575) [id number] POCT PREG TEST DATE (test 07/01/2023 code = 3576) Lab Interpretation (test code = Normal 43622-4) [facility] GLUCOSE (AUTOMATED)2022-05-02 13:49:12 Test Item Value Reference Range Interpretation Comments POCT GLU (test code = 9878010373) 105 mg/dL 70-110 Lab Interpretation (test code = Normal 72298-4) [facility] GLUCOSE (AUTOMATED)2022-05-02 13:49:12 Test Item Value Reference Range Interpretation Comments POCT GLU (test code = 4664493290) 105 mg/dL 70-110 Lab Interpretation (test code = Normal 28237-5) [facility] [id number] 22:06:00 Test Item Value Reference Range Interpretation Comments POCT PREG (test code = 1605) Negative On board controls acceptable with C Yes Line (test code = 3574) POCT PREG LOT # (test code = 3575) POCT PREG TEST DATE (test 07 01 23 code = 3576) Lab Interpretation (test code = Normal 62913-5) [facility] [id number] 06:15:23 Test Item Value Reference Range Interpretation [...] . . . NG/ML 30-100 COMPREHENSIVE METABOLIC [id number] 05:11:12 Test Item Value Reference Range Interpretation Comments GLUCOSE (test code = 81 MG/DL 70-99 2216) BUN (test code = 8 MG/DL 6-20 2207) CREATININE (test 0.65 MG/DL 0.60-1.30 code = 2214) eGFR (2020 CKD-EPI) 123 >60 (test code = 93196) ML/MIN/1.73 CALC BUN/CREAT (test 12 RATIO 6-28 code = 2235) SODIUM (test code = 139 MEQ/L 075-791 4201) POTASSIUM (test code 4.7 MEQ/L 3.5-5.4 = 2227) CHLORIDE (test code 102 MEQ/L 95-107 = 2215) CARBON DIOXIDE (test 26 MEQ/L 19-31 code = 2206) CALCIUM (test code = 9.9 MG/DL 8.5-10.5 2208) PROTEIN, TOTAL (test 7.3 G/DL 6.1-8.3 code = 2229) ALBUMIN (test code = 5.0 G/DL 3.5-5.2 [...] code = 27 U/L 5-40 2218) LIPID [id number] 05:11:12 Test Item Value Reference Range Interpretation [...] MOREINFORMATION , SEE CLIENT ANNOUNCE MENT AT [email or web address] [email or web address] RATIO LDL/HDL 3.86 RATIO <3.22 H (test code = 2238) HEMOGLOBIN [id number] 05:06:15 Test Item Value Reference Range Interpretation Comments HEMOGLOBIN A1c (test code = 59394) 6.1 % 4.2-5.6 H TSH, THIRD [id number] 04:43:16 Test Item Value Reference Range Interpretation Comments TSH, THIRD GENERATION (test code 1.660 UIU/ML 0.400-4.100 = 2821) VITAMIN [id number] 04:43:16 Test Item Value Reference Range Interpretation Comments VITAMIN B-12 (test code = 2840) 431 PG/ML 200-950 [id number] 04:43:16 Test Item Value Reference Range Interpretation Comments FERRITIN (test code 132 NG/ML 13-200 UNLESS OTHERWISE = 2075) INDICATED, ALL TESTING PERFORMED [facility] PATH[facility] [address] [place] [address] 4 LABORATORY DIRE CTOR: JANET NOVA M.D. CLIA NUMBER [id number] [place] [id number] CBC W/AUTO DIFF WITH [id number] 02:51:12 Test Item Value Reference Range Interpretation [...] RBCS 0.00 K/UL 0.00-0.11 (test code = 15798)
--- NOTE | 2023-07-08 15:27 | EDPHYS ---
Physician Documentation [facility] Name: Vaishnavi Dey Age: 28 yrs Sex: Female : 1995 Arrival Date: 07/08/2023 Time: 13:51 Bed 12 Private MD: ED Physician Madelyn Mccarty HPI: 07/08 14:27 This 28 yrs old Female presents to ER via Ambulatory with complaints of Flu Symptoms. snw 14:27 The patient reports fever, that was measured at 102 degrees Fahrenheit. Onset: The snw symptoms/episode began/occurred suddenly, 3 day(s) ago, and became persistent. Associated signs and symptoms: Pertinent positives: cough, decreased appetite, nausea, runny nose. Severity of symptoms: At their worst the symptoms were moderate. It is unknown whether or not the patient has had similar symptoms in the past. The patient has not recently seen a physician. Historical: - Allergies: 13:56 Augmentin; ld1 13:56 Keflex; ld1 13:56 PENICILLINS (Hives); ld1 - PMHx: 13:56 Kidney stone; Ovarian cyst; prediabetes; ld1 - PSHx: 13:56 surgery for kidney stone; ld1 - Immunization history:: Adult Immunizations up to date. - Social history:: Smoking status: Patient denies any tobacco usage or history of. Patient/guardian denies using alcohol. ROS: 14:26 Eyes: Negative for injury, pain, redness, and discharge, ENT: Negative for injury, snw pain, and discharge, Neck: Negative for injury, pain, and swelling, Cardiovascular: Negative for chest pain, palpitations, and edema, 14:26 Abdomen/GI: Negative for abdominal pain, nausea, vomiting, diarrhea, and constipation, Back: Negative for injury and pain, : Negative for injury, bleeding, discharge, and swelling, MS/Extremity: Negative for injury and deformity, Skin: Negative for injury, rash, and discoloration, Neuro: Negative for headache, weakness, numbness, tingling, and seizure, Psych: Negative for depression, anxiety, suicide ideation, homicidal ideation, and hallucinations, 14:26 Constitutional: Positive for body aches, fever, malaise, poor PO intake, 14:26 Respiratory: Positive for cough, Exam: 14:16 Constitutional: This is a well developed, well nourished patient who is awake, alert, snw and in no acute distress. Head/Face: Normocephalic, atraumatic. Eyes: Pupils equal round and reactive to light, extra-ocular motions intact. Lids and lashes normal. Conjunctiva and sclera are non-icteric and not injected. Cornea within normal limits. Periorbital areas with no swelling, redness, or edema. 14:16 Neck: Trachea midline, no thyromegaly or masses palpated, and no cervical lymphadenopathy. Supple, full range of motion without nuchal rigidity, or vertebral point tenderness. No Meningismus. Chest/axilla: Normal chest wall appearance and motion. Nontender with no deformity. No lesions are appreciated. 14:16 Respiratory: Lungs have equal breath sounds bilaterally, clear to auscultation and percussion. No rales, rhonchi or wheezes noted. No increased work of breathing, no retractions or nasal flaring. Abdomen/GI: Soft, non-tender, with normal bowel sounds. No distension or tympany. No guarding or rebound. No evidence of tenderness throughout. Back: No spinal tenderness. No costovertebral tenderness. Full range of motion. Skin: Warm, dry with normal turgor. Normal color with no rashes, no lesions, and no evidence of cellulitis. MS/ Extremity: Pulses equal, no cyanosis. Neurovascular intact. Full, normal range of motion. Neuro: Awake and alert, GCS 15, oriented to person, place, time, and situation. Cranial nerves II-XII grossly intact. Motor strength 5/5 in all extremities. Sensory grossly intact. Cerebellar exam normal. Normal gait. Psych: Awake, alert, with orientation to person, place and time. Behavior, mood, and affect are within normal limits. 14:16 ENT: External ear(s): are unremarkable, Ear canal(s): are normal, TM's: are normal, Nose: is normal, Mouth: is normal, Oral mucosa: dry, Posterior pharynx: is normal, Voice: is hoarse, 14:16 Cardiovascular: Rate: tachycardic, Rhythm: regular, Vital Signs: 13:55 Pulse 117; Resp 18; Temp 99(TE); Pulse Ox 97% on R/A; Weight 81.65 kg; Height 5 ft. 2 ld1 in. ; Pain 6/10; 14:02 BP 132 / 103; Pulse 120; Resp 19; Temp 99.1(O); Pulse Ox 98% on R/A; tm6 15:06 BP 131 / 86; Pulse 101; Temp 98.8(O); Pulse Ox 99% ; tm6 13:55 Body Mass Index 32.92 (81.65 kg, 157.48 cm) ld1 13:55 Pain Scale: Adult ld1 MDM: 14:04 Patient medically screened. snw 14:27 Differential diagnosis: viral Infection, bacterial infection. Data reviewed: vital snw signs, nurses notes. 15:26 Counseling: I had a detailed discussion with the patient and/or guardian regarding the snw historical points, exam findings, and any diagnostic results supporting the discharge/admit diagnosis, lab results, to return to the emergency department if symptoms worsen or persist or if there are any questions or concerns that arise at home. Special discussion: Based on the history and exam findings, there is no indication for further emergent testing or inpatient evaluation. I discussed with the patient/guardian the need to see the primary care provider for further evaluation of the symptoms. 07/08 14:05 Order name: Flu; Complete Time: 15:25 snw 07/08 14:05 Order name: SARS-COV-2 RT PCR; Complete Time: 15:25 snw Administered Medications: No medications were administered Disposition Summary: 07/08/23 15:27 Discharge Ordered Notes: Location: Home snw Condition: Stable snw Diagnosis - SARS-associated coronavirus as the cause of diseases classified elsewhere snw Followup: snw - With: Emergency Department - When: As needed - Reason: Worsening of condition Followup: snw - With: Private Physician - When: 2 - 3 days - Reason: Recheck today's complaints, Continuance of care, Re-evaluation by your physician Discharge Instructions: - Discharge Summary Sheet snw - Aspirin and Your Heart snw - Rehydration, Adult snw - COVID-19 snw - 10 Things You Can Do to Manage Your COVID-19 Symptoms at Home - [facility] (03/16/2021) snw - COVID-19: Quarantine and Isolation - [facility] (11/28/2021) snw Forms: - Work release form snw - Medication Reconciliation Form snw - Thank You Letter snw - Antibiotic Education snw - Prescription Opioid Use snw - Patient Portal Instructions snw - Leadership Thank You Letter snw Signatures: Dispatcher [employer] EDMS Myrtle Treviño, RESERVATION AGENT-C RESERVATION AGENT-Csnw Cyndie Bernstein RN RN ld1 Corrections: (The following items were deleted from the chart) 14:06 14:05 Influenza Screen (A \T\ B)+[id number].LAB.BRZ ordered. EDMS EDMS 14:06 14:05 SARS-COV-2 RT PCR+MOL.LAB.BRZ ordered. EDMS EDMS
--- NOTE | 2023-07-08 15:27 | ER ---
Nurse's Notes [facility] Name: Vaishnavi Dey Age: 28 yrs Sex: Female : 1995 Arrival Date: 07/08/2023 Time: 13:51 Bed 12 Private MD: Diagnosis: SARS-associated coronavirus as the cause of diseases classified elsewhere Presentation: 07/08 13:55 Chief complaint: Patient states: Chills, fever, nausea, headaches, body aches, sore ld1 throat X 3 days. Coronavirus screen: At this time, the client does not indicate any symptoms associated with coronavirus-19. Ebola Screen: No symptoms or risks identified at this time. Initial Sepsis Screen: Does the patient meet any 2 criteria? No. Patient's initial sepsis screen is negative. Does the patient have a suspected source of infection? No. Patient's initial sepsis screen is negative. Risk Assessment: Do you want to hurt yourself or someone else? Patient reports no desire to harm self or others. Onset of symptoms was July 08, 2023. 13:55 Method Of Arrival: Ambulatory ld1 13:55 Acuity: VICKY 4 ld1 Triage Assessment: 13:56 General: Appears in no apparent distress. comfortable, Behavior is calm, cooperative, ld1 appropriate for age. Pain: Denies pain. EENT: No signs and/or symptoms were reported regarding the EENT system. Neuro: Level of Consciousness is awake, alert, obeys commands, Oriented to person, place, time, situation. Cardiovascular: Capillary refill < 3 seconds Patient's skin is warm and dry. Respiratory: Airway is patent Respiratory effort is even, unlabored. GI: Abdomen is round non-distended. : No signs and/or symptoms were reported regarding the genitourinary system. Derm: No signs and/or symptoms reported regarding the dermatologic system. Musculoskeletal: No signs and/or symptoms reported regarding the musculoskeletal system. Historical: - Allergies: 13:56 Augmentin; ld1 13:56 Keflex; ld1 13:56 PENICILLINS (Hives); ld1 - PMHx: 13:56 Kidney stone; Ovarian cyst; prediabetes; ld1 - PSHx: 13:56 surgery for kidney stone; ld1 - Immunization history:: Adult Immunizations up to date. - Social history:: Smoking status: Patient denies any tobacco usage or history of. Patient/guardian denies using alcohol. Screenin:03 [facility] ED Fall Risk Assessment (Adult) History of falling in the last 3 months, tm6 including since admission No falls in past 3 months (0 pts) Confusion or Disorientation No (0 pts) Intoxicated or Sedated No (0 pts) Impaired Gait No (0 pts) Mobility Assist Device Used No (0 pt) Altered Elimination No (0 pt) Score/Fall Risk Level 0 - 2 = Low Risk. Abuse screen: Denies threats or abuse. Denies injuries from another. Nutritional screening: No deficits noted. Tuberculosis screening: No symptoms or risk factors identified. Assessment: 14:03 General: Appears uncomfortable, Behavior is calm, cooperative, appropriate for age. tm6 Pain: Denies pain. Neuro: Level of Consciousness is awake, alert, obeys commands, Oriented to person, place, time, situation, Appropriate for age. Cardiovascular: Capillary refill < 3 seconds Patient's skin is warm and dry. Respiratory: Airway is patent Respiratory effort is even, unlabored, Respiratory pattern is regular, symmetrical. GI: Abdomen is round non-distended. : No signs and/or symptoms were reported regarding the genitourinary system. EENT: No signs and/or symptoms were reported regarding the EENT system. Derm: No signs and/or symptoms reported regarding the dermatologic system. Musculoskeletal: No signs and/or symptoms reported regarding the musculoskeletal system. 15:06 Reassessment: Patient appears in no apparent distress at this time. Patient and/or tm6 family updated on plan of care and expected duration. Pain level reassessed. Vital Signs: 13:55 Pulse 117; Resp 18; Temp 99(TE); Pulse Ox 97% on R/A; Weight 81.65 kg; Height 5 ft. 2 ld1 in. ; Pain 6/10; 14:02 BP 132 / 103; Pulse 120; Resp 19; Temp 99.1(O); Pulse Ox 98% on R/A; tm6 15:06 BP 131 / 86; Pulse 101; Temp 98.8(O); Pulse Ox 99% ; tm6 13:55 Body Mass Index 32.92 (81.65 kg, 157.48 cm) ld1 13:55 Pain Scale: Adult ld1 ED Course: 13:52 Patient arrived in ED. rg4 13:53 Myrtle Tre[facility]C [facility] snw 13:53 Madelyn Mccarty MD is Attending Physician. snw 13:56 Triage completed. ld1 13:56 Arm band placed on right wrist. ld1 13:58 Meir Gilliam, RN is Primary Nurse. tm6 14:03 Patient has correct armband on for positive identification. Bed in low position. Call tm6 light in reach. Side rails up X2. Provided Education on: covid/flu/strep swabs. Client placed on continuous cardiac and pulse oximetry monitoring. NIBP monitoring applied. Door closed. Noise minimized. 14:12 Flu Sent. jl7 14:12 SARS-COV-2 RT PCR Sent. jl7 15:43 No provider procedures requiring assistance completed. Patient did not have IV access tm6 during this emergency room visit. Administered Medications: No medications were administered Medication: 14:03 VIS not applicable for this client. tm6 Outcome: 15:27 Discharge ordered by . snw 15:43 Discharged to home ambulatory, tm6 15:43 Condition: stable 15:43 Discharge instructions given to patient, family, Instructed on discharge instructions, follow up and referral plans. medication usage, Demonstrated understanding of instructions, follow-up care, medications, 15:44 Patient left the ED. tm6 Signatures: Myrtle Treviño FNP-C [employer]-Cs[employer] Michelle Dick rg4 Jeaneth Granados RN RN jl7 Cyndie Bernstein RN RN ld1 Meir Gilliam, RN RN tm6
[2023-07-08 15:51] VITALS: BP 131/86; TEMP 98.8; O2SAT 99
== END 2023-07-08 15:44 | disposition home or self-care (01) ==
LOC: ER 13:51
DX: U07.1 COVID-19 (principal)
CPT/HCPCS: 87635; 87804; 99283

== ENCOUNTER 2023-12-07 22:35 | Emergency (ER) | payer SELFPAY ==
--- OUTSIDE RECORDS SUMMARY | 2023-12-07 22:40 | XMS REPORT | Continuity of Care Document ---
Author Name Unknown Address [address] [facility]. [address] [place] [address] [facility] thconnect Address [address] [facility] [address] [place] [address] Care Team Providers Care Automotive Technology Instructor Name Role Phone Dante [facility], [facility] Care Physician Doctor Unassigned, [place] Attending Clinician U Karthik Ferris MD Attending Clinician [phone] Aron Oglesby MD Attending Clinician [phone] RONNIE SALGADO Attending Clinician Unavailable Ronnie Noel Attending Clinician [phone] Aron Oglesby MD Admitting Clinician [phone] RONNIE SALGADO Admitting Clinician Unavailable Problems Condition Name Condition Details Condition Category Status Onset Date Resolution Date Last Treatment Date Treating Clinician Comments Source Obesity (BMI 30-39.9) Obesity (BMI 30-39.9) Disease Active 05-02 00:00: 00 [facility] Left ureteral stone Left ureteral stone Disease Active 05-02 00:00: 00 [facility] Allergies, Adverse Reactions, Alerts Allergy Name Allergy Type Status Severity Reaction(s) Onset Date Inactive Date Treating Clinician Comments Source Mahamed Barnard ty to adverse reaction s Active Itching 04-27 00:00: 00 [facility] Penicill in Propensi ty to adverse reaction s Active Hives 0 8- 00:00: 00 [facility] AMOXICIL SASKIA-POT CLAVULAN ATE DRUG Active ITCHING 8-27 00:00: 00 [facility] KEFLET DRUG Active ITCHING 0 8-27 00:00: 00 [facility] PENICILL IN DRUG INGREDI Active Hives 0 8 00:00: 00 [facility] Amoxicil saskia-Pot Clavulan ate Propensi ty to adverse reaction s Active Itching 8 00:00: 00 [facility] Social History Social Habit Start Date Stop Date Quantity Comments Source [facility] of tobacco use Passive smoker [facility] Exposure to SARS-CoV-2 (event) 2022-04-22 00:00:00 2022-05-02 21:59:00 Not sure [facility] History of Social function 2022-05-02 00:00:00 2022-05-02 00:00:00 [facility] Tobacco use and exposure 2022-05-02 00:00:00 2022-05-02 00:00:00 Smokeless tobacco non-user [facility] History SDOH Financial 2022-05-02 00:00:00 2022-05-02 00:00:00 2 [facility] History SDOH Food Worry 2022-05-02 00:00:00 2022-05-02 00:00:00 2 [facility] History SDOH Food Scarcity 2022-05-02 00:00:00 2022-05-02 00:00:00 2 [facility] History SDOH Transport Med 2022-05-02 00:00:00 2022-05-02 00:00:00 1 [facility] History SDOH Transport Non-Med 2022-05-02 00:00:00 2022-05-02 00:00:00 1 [facility] Sex Assigned At 1995 00:00:00 1995 00:00:00 [facility] Smoking Status Start Date Stop Date Source Tobacco smoking consumption unknown [facility] Smokes tobacco daily 2022-05-02 00:00:00 [facility] Medications Ordered Medication Name Filled Medication Name Start Date Stop Date Current Medication? Ordering Clinician Indication Dosage Frequency Signature (SIG) Comments Components Source tamsulosin 0.4 mg 24 hr capsule 05-04 00:00: 00 06-04 04:59 :00 No [id number] .4mg Take 1 capsule by mouth in the morning for 30 days. [facility] sennosides 8.6 mg tablet 05-04 00:00: 00 05-15 04:59 :00 No [id number] 8.6mg Take 1 tablet by mouth in the morning for 10 days. [facility] HYDROcodone -acetaminop hen (NORCO 5) 5-325 mg tablet 1 tablet 05-03 18:30: 00 05-03 19:18 :00 No 1{tbl} 1 tablet, Oral, ONCE, 1 dose, On Fri05/03/22 at 1330, Routine, PACU [facility] morpHINE (2 mg/mL) injection 2 mg 05-03 07:00: 00 05-03 06:23 :00 No 2mg 2 mg, Slow IV Push, ONCE, 1 dose, On Fri05/03/22 at 0200, Routine [facility] acetaminoph en 325 mg tablet 05-03 00:00: 00 05-04 04:59 :00 No [id number] 650mg Take 2 tablets by mouth every 6 (six) hours. [facility] gabapentin 300 mg capsule 05-03 00:00: 00 05-25 04:59 :00 No [id number] 300mg Take 1 capsule by mouth in the morning and 1 capsule at noon and 1 capsule in the evening. Do all this for 21 days. [facility] ibuprofen 800 mg tablet 05-03 00:00: 00 05-14 04:59 :00 No [id number] 800mg Take 1 tablet by mouth in the morning and 1 tablet at noon and 1 tablet in the evening. Take with meals. Do all this for 10 days. [facility] enoxaparin (LOVENOX) injection 40 mg 05-02 22:00: 00 05-03 23:42 :12 No 40mg 40 mg, Subcutaneo us, DAILY, First dose on Fri05/02/22 at 1700, Until Discontinu ed, Routine [facility] acetaminoph en (TYLENOL) tablet 650 mg 05-02 17:00: 00 05-03 23:42 :12 No 650mg 650 mg, Oral, Q6H, First dose on Fri05/02/22 at 1200, Until Discontinu ed, Routine [facility] tamsulosin (FLOMAX) capsule 0.4 mg 05-02 14:00: 00 05-03 23:42 :12 No .4mg 0.4 mg, Oral, DAILY, First dose on Fri05/02/22 at 0900, Until Discontinu ed, Routine [facility] sennosides (SENOKOT) tablet 8.6 mg 05-02 14:00: 00 05-03 23:42 :12 No 8.6mg 8.6 mg, Oral, DAILY, First dose on Fri05/02/22 at 0900, Until Discontinu ed, Routine [facility] D5W 0.45% NaCl (1/2NS) 1 L + KCL 20 mEq 05-02 13:00: 00 05-03 23:42 :12 No IV Infusion, at 125 mL/hr, CONTINUOUS , Starting on Fri05/02/22 at 0800, Until Fri05/03/22 at 1842, Routine [facility] gabapentin (NEURONTIN) capsule 300 mg 05-02 13:00: 00 05-03 23:42 :12 No 300mg 300 mg, Oral, TID, First dose on Fri05/02/22 at 0800, Until Discontinu ed, Routine [facility] ketorolac (TORADOL) injection 15 mg 05-02 12:54: 59 05-03 23:42 :12 No 15mg 15 mg, Slow IV Push, Q6HPRN, Starting on Patsy 05/02/22 at 0754, Until 05/03/22 at 1842, Routine, Pain (scale 7-10) [facility] ondansetron (ZOFRAN (PF)) injection 4 mg 05-02 12:53: 06 05-03 23:42 :12 No 4mg 4 mg, Slow IV Push, Q4HPRN, Starting on Patsy 05/02/22 at 0753, Until Fri05/03/22 at 1842, Routine, Nausea and Vomiting (N/V) [facility] ketorolac tromethamin e (TORADOL) injection 15 mg 04-27 22:15: 00 04-27 22:15 :00 No 15mg 15 mg, Slow IV Push, ONCE, 1 dose, On 04/27/22 at 1715, LATISHA [facility] ondansetron 4 mg disintegrat ing tablet 04-27 00:00: 00 Yes [id number] 4mg Take 1 tablet by mouth every 8 (eight) hours as needed for Nausea and Vomiting (N/V). [facility] ketorolac 10 mg tablet 04-27 00:00: 00 05-03 00:00 :00 No [id number] 10mg Take 1 tablet by mouth every 6 (six) hours as needed for Pain (scale 4-6). [facility] acetaminoph en-codeine (TYLENOL-CO DEINE #3) 300-30 mg tablet 04-27 00:00: 00 05-03 00:00 :00 No [id number] 1{tbl} Take 1 tablet by mouth every 4 (four) hours as needed for Pain (scale 7-10) for up to 7 days. Indication s: acute pain [facility] Vital Signs Vital Name Observation Time Observation Value Comments S ource Systolic blood pressure 2022-05-03 20:28:00 109 mm[Hg] [facility] Diastolic blood pressure 2022-05-03 20:28:00 68 mm[Hg] [facility] Heart rate 2022-05-03 20:28:00 66 /min [facility] Body temperature 2022-05-03 20:28:00 36.39 Kamille [facility] Respiratory rate 2022-05-03 20:28:00 18 /min [facility] Oxygen saturation in Arterial blood by Pulse oximetry 2022-05-03 20:28:00 96 /min [facility] Body height 2022-05-02 10:34:00 157.5 cm [facility] Body weight 2022-05-02 10:34:00 84.823 kg [facility] BMI 2022-05-02 10:34:00 34.20 kg/m2 [facility] Systolic blood pressure 2022-05-03 12:47:00 95 mm[Hg] [facility] Diastolic blood pressure 2022-05-03 12:47:00 62 mm[Hg] [facility] Heart rate 2022-05-03 12:47:00 73 /min [facility] Body temperature 2022-05-03 12:47:00 36.22 Kamille [facility] Respiratory rate 2022-05-03 12:47:00 18 /min [facility] Oxygen saturation in Arterial blood by Pulse oximetry 2022-05-03 12:47:00 96 /min [facility] Body height 2022-05-02 10:34:00 157.5 cm [facility] Body weight 2022-05-02 10:34:00 84.823 kg [facility] BMI 2022-05-02 10:34:00 34.20 kg/m2 [facility] Systolic blood pressure 2022-04-28 00:21:48 120 mm[Hg] [facility] Diastolic blood pressure 2022-04-28 00:21:48 87 mm[Hg] [facility] Heart rate 2022-04-28 00:21:48 92 /min [facility] Respiratory rate 2022-04-28 00:21:48 18 /min [facility] Oxygen saturation in Arterial blood by Pulse oximetry 2022-04-28 00:21:48 98 /min [facility] Body temperature 2022-04-27 21:31:00 36.44 Kamille [facility] Body weight 2022-04-27 21:31:00 68.04 kg [facility] Procedures Procedure Date / Time Performed Performing Clinician Source EXTERNAL PROVIDER RECORDS 2022-05-27 05:01:00 Do ctor Unassigned, [place] [facility] FL TIME OR (NON-REPORTABLE) 2022-05-03 19:05:44 Brooks Rasheed [facility] FL TIME OR (NON-REPORTABLE) 2022-05-03 19:05:44 Brooks Rasheed [facility] URETEROSCOPIC STONE MANIPULATION 2022-05-03 17:12:00 Aron Oglesby [facility] STENT PLACEMENT 2022-05-03 17:12:00 Aron Oglesby [facility] POCT TEST 2022-05-03 16:53:00 Alfie Moulton [facility] POCT TEST 2022-05-03 16:53:00 Alfie Moulton [facility] COVID-19 (ID NOW RAPID TESTING) 2022-05-03 14:04:00 Karthik Quinn [facility] LAB ONLY COVID INTERPRETATION 2022-05-03 14:04:00 Karthik Quinn [facility] COVID-19 (ID NOW RAPID TESTING) 2022-05-03 14:04:00 Karthik Quinn [facility] LAB ONLY COVID INTERPRETATION 2022-05-03 14:04:00 Karthik Quinn [facility] POCT GLUCOSE (AUTOMATED) 2022-05-02 13:48:00 Aron Oglesby [facility] POCT GLUCOSE (AUTOMATED) 2022-05-02 13:48:00 Aron Oglesby [facility] CT ABDOMEN PELVIS WO CONTRAST 2022-04-27 22:52:16 Ronnie Salgado [facility] COMP. METABOLIC PANEL ([id number]) 2022-04-27 22:05:00 Ronnie Salgado [facility] CBC WITH DIFF 2022-04-27 22:05:00 Ronnie Salgado [facility] URINALYSIS 2022-04-27 22:05:00 Ronnie Salgado [facility] EXTRA TUBE URINE CULTURE 2022-04-27 22:05:00 Bernabe Salgado [facility] POCT TEST 2022-04-27 22:03:00 Ronnie Salgado [facility] CONSENT/REFUSAL FOR DIAGNOSIS AND TREATMENT 2022-04-27 21:28:22 Doctor Unassigned, [place] [facility] Encounters Start Date/Time End Date/Time Encounter Type Admission Type Attending [facility] Care Facility Care Department Encounter ID Source 2023-09-12 13:16:08 2023-09-12 13:16:08 Outpatient [facility] [id number] Dante F Pollo 2022-05-27 00:00:00 2022-05-27 00:00:00 Orders Only Doctor Unassigned, [place] [facility] [id number] [id number] 4.2.7.2.686 [id number] [facility] 2022-05-20 00:00:00 2022-05-20 00:00:[address] [facility] [id number] 350.1.13.10 4.2.7.2.686 [id number] [facility] 2022-05-08 00:00:00 2022-05-08 00:00:00 Patient Secure Msg Doctor Unassigned, [place] [facility] [id number] 350.1.13.10 4.2.7.2.686 [id number] [facility] 2022-05-02 05:12:00 2022-05-03 16:34:00 Hospital Encounter Reny Aron [facility] [id number] 350.1.13.10 4.2.7.2.686 [id number] [facility] 2022-05-03 11:20:00 2022-05-03 13:20:00 Surgery [facility] Aron [facility] 1.2.840.114 350.1.13.10 4.2.7.2.686 [id number] [facility] 2022-04-27 16:32:00 2022-04-27 20:36:00 Emergency X RONNIE SALGADO [facility] ERT [id number] [facility] 2022-04-27 16:32:00 2022-04-27 20:36:00 Emergency Ronnie Salgado [facility] [id number] 350.1.13.10 4.2.7.2.686 [id number] [facility] Results Test Description Test Time Test Comments Results Result Co mments Source [facility] [id number] 16:58:00* Test Item Value Reference Range Interpretation Comme nts POCT PREG (test code = 1605) Negative On board controls acceptable with C Line (test code = 3574) Yes POCT PREG LOT # (test code = 3575) [id number] POCT PREG TEST DATE ( test code = 3576) 07/01/2023 Lab Interpretation (test cod e = 90781-8) Normal [facility] GLUCOSE (AUTOMATED)2022-05-02 13:49:12* Test Item Value Reference Range Interpretation Comme nts POCT GLU (test code = 3497854766) 105 mg/dL 70-110 Lab Interpretation (test cod e = 63551-7) Normal [facility] GLUCOSE (AUTOMATED)2022-05-02 13:49:12* Test Item Value Reference Range Interpretation Comme nts POCT GLU (test code = 5367621315) 105 mg/dL 70-110 Lab Interpretation (test cod e = 80380-5) Normal [facility] [id number] 22:06:00* Test Item Value Reference Range Interpretation Comme nts POCT PREG (test code = 1605) Negative On board controls acceptable with C Line (test code = 3574) Yes POCT PREG LOT # (test code = 3575) POCT PREG TEST DATE ( test code = 3576) 07 01 23 Lab Interpretation (test cod e = 79466-4) [facility] [id number] 06:15:23* Test Item Value Reference Range Interpretation Comme [facility] VITAMIN D, 25 OH (test code = 4958) 22 NG/ML SEE BELOW L NOTE: 25-HYDR OXYVITAMIN D ASSAY INCLUDES 25-HYDROXYVITAMIN D2 AND D3. METHODOLOGY IS CHEMILUMINESCENT IMMUNOASSAY. INTERPRETIVE RANGES PEDIATRIC (<17 YEARS) . . . . . . . . . . . NG/ML 20-100ADULT: INSUFFICIENT . . . . . . . . . . . . . . NG/ML <20 SUBOPTIMAL . . . . . . . . . . . . . . . NG/ML 20-29 OPTIMAL . . . . . . . . . . . . . . . . . NG/ML 30-100 COMPREHENSIVE METABOLIC [id number] 05:11:12* Test Item Value Reference Range Interpretation Comme nts GLUCOSE (test code = 2217) 81 MG/DL 70-99 BUN (test code = 2208) 8 MG/DL 6-20 CREATININE (test code = 2214) 0.65 MG/DL 0.60-1.30 eGFR (2020 CKD-EPI) (test code = 57982) 123 ML/MIN/1.73 >60 CALC BUN/CREAT (test code = 2235) 12 RATIO 6-28 SODIUM (test code = 223) 139 MEQ/L 133-146 POTASSIUM (test code = 2228) 4.7 MEQ/L 3.5-5.4 CHLORIDE (test code = 2215) 102 MEQ/L 95-107 CARBON DIOXIDE (test code = 2206) 26 MEQ/L 19-31 CALCIUM (test code = 2209) 9.9 MG/DL 8.5-10.5 PROTEIN, TOTAL (test code = 222) 7.3 G/DL 6.1-8.3 ALBUMIN (test code = 2201) 5.0 G/DL 3.5-5.2 CALC GLOBULIN (test code = 2240) 2.3 G/DL 1.9-3.7 CALC A/G RATIO (test code = 223) 2.2 RATIO 1.0-2.6 BILIRUBIN, TOTAL (test code = 2207) <0.2 MG/DL See_Comment [Automated me ssage] The system which generated this result transmitted reference range: <=1.2. The reference range was not used to interpret this result as normal/abnormal. ALKALINE PHOSPHATASE (test code = 2204) 87 U/L 40-112 AST (test code = 2218) 22 U/L 9-40 ALT (test code = 2219) 27 U/L 5-40 LIPID [id number] 05:11:12* Test Item Value Reference Range Interpretation Comme nts CHOLESTEROL (test code = 2210) 240 MG/DL <200 H TRIGLYCERIDES (test code = 2232) 159 MG/DL <150 H HDL CHOLESTEROL (test code = 0) 43 MG/DL >39 CALC LDL CHOL (test code = 2237) 166 MG/DL <100 H NOTE: CALCULATED LDL IS BASED ON KENY-TOSCANO METHOD WHICHINCLUDES ADJUSTABLE TRIGLYCERIDE:VLDL CHOLESTEROL RATIO.THIS FACTOR VARIES BY MEASURED TRIGLYCERIDE AND NON-HDLCHOLESTEROL CONCENTRATIONS WITH INCREASED CALCULATED LDL SEENIN HIGHER TRIGLYCERIDE OR LOWER NON-HDL SPECIMENS. FOR MOREINFORMATION, SEE CLIENT ANNOUNCEMENT AT [email or web address] RISK RATIO LDL/HDL (test code = 2238) 3.86 RATIO <3.22 H HEMOGLOBIN [id number] 05:06:15* Test Item Value Reference Range Interpretation Comme [facility] HEMOGLOBIN A1c (test code = 00617) 6.1 % 4.2-5.6 H [id number] 04:43:16* Test Item Value Reference Range Interpretation Comme [facility] FERRITIN (test code = 2075) 132 NG/ML 13-200 UNLESS OTHERWISE INDICATED, ALL TESTING PERFORMED [facility] [address] [place] [address] FARM EQUIPMENT ENGINEER: JANET JEAN-BAPTISTE M.D. CLIA NUMBER [id number] [facility] [place]. [id number] TSH, THIRD [id number] 04:43:16* Test Item Value Reference Range Interpretation Comme [facility] TSH, THIRD GENERATION (test code = 2821) 1.660 UIU/ML 0.400-4.100 VITAMIN [id number] 04:43:16* Test Item Value Reference Range Interpretation Comme nts VITAMIN B-12 (test code = 2840) 431 PG/ML 200-950 CBC W/AUTO DIFF WITH [id number] 02:51:12* Test Item Value Reference Range Interpretation Comme nts WBC (test code = 1001) 10.1 K/UL 3.5-11.0 RBC (test code = 1002) 4.39 M/UL 3.80-5.40 HEMOGLOBIN (test code = 1003) 12.9 G/DL 11.5-15.5 HEMATOCRIT (test code = 1004) 37.6 % 34.0-45.0 MCV (test code = 1005) 85.6 fL 80.0-99.0 MCH (test code = 1006) 29.4 PG 25.0-33.0 MCHC (test code = 1007) 34.3 G/DL 31.0-36.0 RDW (test code = 1038) 13.2 % 11.5-15.0 NEUTROPHILS (test code = 1008) 65.7 % LYMPHOCYTES (test code = 1010) 27.3 % MONOCYTES (test code = 1011) 5.3 % EOSINOPHILS (test code = 1012) 0.9 % BASOPHILS (test code = 1013) 0.6 % IMMATURE GRANULOCYTES (test code = 1036) 0.2 % NUCLEATED RBCS (test code = 1065) 0.0 /100 WBC'S See_Comment [Automated messa ge] The system which generated this result transmitted reference range: 0.0. The reference range was not used to interpret this result as normal/abnormal. PLATELET COUNT (test code = 1015) 332 K/UL 130-400 ABSOLUTE NEUTROPHILS (test code = 1066) 6.65 K/UL 1.50-7.50 ABSOLUTE LYMPHOCYTES (test code = 1067) 2.77 K/UL 1.00-4.00 ABSOLUTE MONOCYTES (test code = 1068) 0.54 K/UL 0.20-1.00 ABSOLUTE EOSINOPHILS (test code = 1040) 0.09 K/UL 0.00-0.50 ABSOLUTE BASOPHILS (test code = 1069) 0.06 K/UL 0.00-0.20 ABS IMMATURE GRANULOCYTES (test code = 1020) 0.02 K/UL 0.00-0.10 ABS NUCLEATED RBCS (test code = 55254) 0.00 K/UL 0.00-0.11
[2023-12-07] MEDS ORDERED: HYDROCODONE/CHLORPHEN 5 ML/OSYR ONE (23:22)
[2023-12-07] MEDS ORDERED: NA CHLORIDE 0.9% 1,000 ML ONE (23:22)
[2023-12-08] MEDS ORDERED: NA CHLORIDE 0.9% 1,000 ML ONE (00:10)
[2023-12-08] MEDS ORDERED: IBUPROFEN 400 MG TAB ONE (00:13)
[2023-12-08 00:27] LABS: Absolute Basophils 0.1 K/uL (0-0.5); Absolute Eosinophils 0.3 K/uL (0-0.5); Absolute Lymphocytes (CBC) 3.4 K/uL (0.7-4.9); Absolute Monocytes 0.7 K/uL (0.1-1.3); Absolute Neutrophil 8.2 K/uL (1.8-8.0); Basophils % 0.5 % (0-1.3); Eosinophils % 2.2 % (0-4.4); Hematocrit 37.4 % (36.0-45.0); Hemoglobin 12.7 g/dL (12.0-15.0); Lymphocytes % 26.6 % (15.3-44.8); MCH 29.1 pg (27.0-35.0); MCV 85.7 fL (80-100); MPV 8.9 fL (7.6-11.3); Monocytes % 5.5 % (3.3-12.3); Neutrophils % 65.2 % (41.7-73.7); Nucleated Red Blood Cells % 0.1 % (0-0); Platelets 281 thou/uL (152-406); RBC Red Blood Cell Count 4.37 M/uL (3.86-4.86); Red Cell Distribution Width 14.3 % (12.1-15.2)
[2023-12-08 00:28] LABS: PT Prothrombin Time 12.4 SECONDS (9.5-12.5); PTT, Activated Partial Thromb 40.9 SECONDS (24.3-36.9); Protime INR 1.13
[2023-12-08 00:40] LABS: Albumin 3.5 g/dL (3.4-5.0); Albumin/Globulin Ratio 0.9 (1.1-1.8); Anion Gap 8.6 mEq/L (5.0-15.0); Bilirubin Total 0.3 mg/dL (0.2-1.0); Globulin 3.9 g/dL (2.3-3.5); Potassium 3.6 mEq/L (3.5-5.1); Protein, Total 7.4 g/dL (6.4-8.2)
[2023-12-08 00:44] LABS: Specific Gravity 1.025 (1.005-1.030); Sqamous Epithelial <5 /HPF (None Seen); Urine Bacteria None Seen /HPF (<20); Urine Bilirubin NEGATIVE (Negative); Urine Blood Trace (Negative); Urine Clarity Turbid (Clear); Urine Color Yellow (Yellow); Urine Culture Reflex Order NOT NEEDED; Urine Glucose TRACE (Negative); Urine Ketones TRACE (Negative); Urine Microscopic Reflex YN ORDER UMIC; Urine Mucus Slight /HPF (None Seen); Urine Nitrite NEGATIVE (Negative); Urine Protein TRACE (Negative); Urine RBC <5 /HPF (None Seen); Urine Urobilinogen Normal (Normal); Urine WBC <5 /HPF (<5); Urine pH 6.5 (5.0-7.0)
[2023-12-08 01:05] LABS: SARS-CoV-2 Antigen CONTROL BLUE LINE VIS/BG OK; SARS-CoV-2 Antigen Rapid Res Negative (Negative)
--- NOTE | 2023-12-08 02:24 | EDPHYS ---
Physician Documentation [facility] Name: Vaishnavi Dey Age: 28 yrs Sex: Female : 1995 Arrival Date: 12/07/2023 Time: 22:35 Bed 6 Private MD: ED Physician Benjamin Youngblood HPI: 12/06 23:00 This 28 yrs old Female presents to ER via Ambulatory with complaints of Cough, cp Congestion, Breathing Difficulty, Fever. 23:00 The patient or guardian reports cough, that is intermittent. Onset: The cp symptoms/episode began/occurred 5 day(s) ago. 23:00 Severity of symptoms: in the emergency department the symptoms are unchanged, despite cp home interventions. 23:00 Associated signs and symptoms: Pertinent positives: chest pain, fever, Pertinent cp negatives: diarrhea, vomiting. SOLUTION DIRECTOR: 23:05 unknown, irregular vc1 Historical: - Allergies: 23:04 Augmentin; vc1 23:04 Keflex; vc1 23:04 PENICILLINS (Hives); vc1 - PMHx: 23:04 Kidney stone; Ovarian cyst; prediabetes; vc1 - PSHx: 23:04 surgery for kidney stone; vc1 - Immunization history:: Adult Immunizations unknown. - Infectious Disease History:: Denies. - Social history:: Smoking status: Patient reports the use of cigarette tobacco products, smokes one pack cigarettes per day. ROS: 23:05 Constitutional: Negative for fever, cp 23:05 Eyes: Negative for injury, pain, redness, and discharge, cp 23:05 ENT: Negative for drainage from ear(s), ear pain, sore throat, difficulty swallowing, difficulty handling secretions, 23:05 Cardiovascular: Positive for chest pain, with cough, palpitations, 23:05 Respiratory: Positive for cough, with no reported sputum, Negative for wheezing, 23:05 Abdomen/GI: Negative for abdominal pain, vomiting, diarrhea, constipation, 23:05 Neuro: Negative for altered mental status, headache, syncope, weakness, 23:05 All other systems are negative, Exam: 23:05 ECG was reviewed by the Attending Physician. cp 23:10 Constitutional: The patient appears in no acute distress, alert, awake, cp non-diaphoretic, non-toxic, well developed, well nourished, obese, 23:10 Head/Face: Normocephalic, atraumatic. cp 23:10 Eyes: Periorbital structures: appear normal, Conjunctiva: normal, no exudate, no injection, Sclera: no appreciated abnormality, Lids and lashes: appear normal, bilaterally, 23:10 ENT: External ear(s): are unremarkable, Nose: is normal, Mouth: Lips: moist, Oral mucosa: pink and intact, moist, Posterior pharynx: Airway: no evidence of obstruction, patent, Tonsils: no enlargement, no exudate, erythema, is not appreciated, 23:10 Neck: ROM/movement: Meningeal signs: are not present, nuchal rigidity, is not appreciated, 23:10 Chest/axilla: Inspection: normal, 23:10 Cardiovascular: Rate: tachycardic, 23:10 Respiratory: the patient does not display signs of respiratory distress, Respirations: normal, no use of accessory muscles, no retractions, labored breathing, is not present, Breath sounds: bronchial sounds, that are mild, are heard diffusely, wheezing: is not appreciated, 23:10 Abdomen/GI: Inspection: abdomen appears normal, Palpation: abdomen is soft and non-tender, in all quadrants, 23:10 Back: pain, is absent, ROM is normal, 23:10 Neuro: Orientation: to person, place \T\ time. Mentation: is normal, Motor: moves all fours, strength is normal, Vital Signs: 23:02 BP 145 / 94; Pulse 151; Resp 22; Temp 99; Pulse Ox 99% ; Weight 83.91 kg; Height 5 ft. vc1 1 in. ; 23:52 BP 141 / 93; Pulse 121; Resp 20; Pulse Ox 99% ; vc1 12/07 00:50 BP 140 / 95; Pulse 125; Pulse Ox 99% on R/A; tm6 01:20 BP 139 / 99; Pulse 112; Resp 18; Pulse Ox 99% ; vc1 02:18 BP 133 / 95; Pulse 91; Resp 21; Pulse Ox 97% ; vc1 12/06 23:02 Body Mass Index 34.96 (83.91 kg, 154.94 cm) vc1 MDM: 12/06 22:49 Patient medically screened. cp 12/07 02:48 Differential Diagnosis: Other Pneumonia, pneumothorax, pulmonary embolus, URI. Data rt reviewed: vital signs, nurses notes, lab test result(s), EKG, radiologic studies. Consideration of Admission/Observation Escalation of care including admission/observation considered. Patient's heart rate normalized after IV fluids. There are no signs of PE or pneumonia or other bacterial etiology on workup. Did inform the patient that the subsegmental pulmonary artery branches have not been adequately evaluated, but, she is symptomatically much improved, do not believe that she requires repeat scan at this point. She will return for any worsening symptoms.. I considered the following discharge prescriptions or medication management in the emergency department Medications were administered in the Emergency Department. See MAR. Independent interpretation of the following test(s) in the Emergency Department CT Scan: My interpretation is No pneumonia seen on interpretation of CT scan images. Counseling: I had a detailed discussion with the patient and/or guardian regarding the historical points, exam findings, and any diagnostic results supporting the discharge/admit diagnosis, lab results, radiology results, the need for outpatient follow up, to return to the emergency department if symptoms worsen or persist or if there are any questions or concerns that arise at home. Response to treatment: the patient's symptoms have markedly improved after treatment. 12/06 23:19 Order name: Blood Culture Adult (2) cp 12/06 23:19 Order name: CBC with Diff; Complete Time: 00:44 cp 12/07 00:45 Interpretation: Normal except: WBC 12.60; NEUT A 8.2. cp 12/06 23:19 Order name: CMP; Complete Time: 00:44 cp 12/07 00:45 Interpretation: Normal except: GLUC 188; BUN 6; GLOB 3.9; A/G 0.9. cp 12/06 23:19 Order name: Lactate w/ 2H reflex if indic.; Complete Time: 01:08 cp 12/07 01:08 Interpretation: Reviewed. cp 12/06 23:19 Order name: Protime (+inr); Complete Time: 00:31 cp 12/06 23:19 Order name: Ptt, Activated; Complete Time: 00:31 cp 12/06 23:19 Order name: Urinalysis w/ reflexes; Complete Time: 00:44 cp 12/07 00:45 Interpretation: Normal except: UCLA Turbid; UGLUC TRACE; UKET TRACE; UBLD Trace; UPROT cp TRACE. 12/06 23:19 Order name: SARS RAPID; Complete Time: 01:08 cp 12/06 23:19 Order name: Influenza Screen (a \T\ B) cp 12/06 23:19 Order name: Chest Single View XRAY cp 12/07 00:31 Order name: CT Chest For PE Angio cp 12/06 23:19 Order name: EKG; Complete Time: 23:19 cp 12/06 23:19 Order name: Cardiac monitoring; Complete Time: 23:51 cp 12/06 23:19 Order name: EKG - Nurse/Tech; Complete Time: 23:51 cp 12/06 23:19 Order name: IV Saline Lock - Large Bore; Complete Time: 23:51 cp 12/06 23:19 Order name: Labs collected and sent; Complete Time: 23:51 cp 12/06 23:19 Order name: O2 Per Protocol; Complete Time: 23:51 cp 12/06 23:19 Order name: O2 Sat Monitoring; Complete Time: 23:51 cp 12/06 23:19 Order name: Vital Signs; Complete Time: 23:51 cp EC/07 23:05 Rate is 127 beats/min. Rhythm is regular. SD interval is normal. QRS interval is cp normal. QT interval is normal. T waves are Inverted in lead aVR. Interpreted by me. Reviewed by me. Administered Medications: 23:36 Drug: Tussionex Pennkinetic ER PO Suspension 5 ml PO once Route: PO; vc1 12/07 02:31 Follow up: Response: No adverse reaction; Marked relief of symptoms vc1 12/06 23:51 Drug: NS 0.9% IV 1000 ml IV at 1 bolus Per protocol; 1000 mL bolus Route: IV; Rate: 1 vc1 bolus; Site: right antecubital; 12/07 02:31 Follow up: IV Status: Completed infusion; IV Intake: 1000ml vc1 00:12 Drug: NS 0.9% IV 1000 ml IV at 1 bolus Per protocol; 1000 mL bolus Route: IV; Rate: 1 tm6 bolus; Site: right antecubital; 02:31 Follow up: IV Status: Completed infusion; IV Intake: 1000ml vc1 00:15 Drug: Ibuprofen PO 800 mg PO once Route: PO; tm6 02:32 Follow up: Response: No adverse reaction; Marked relief of symptoms vc1 Disposition: 02:48 Co-signature as Attending Physician, Benjamin Youngblood MD I reviewed the patient's care rt provided by Advanced Practice Provider \T\ agree w/ the diagnosis \T\ care plan. I personally saw the pt \T\ performed a substantive portion of the visit, incldng all aspects of the (History/Exam/Medical Decision Making). Disposition Summary: 12/08/23 02:23 Discharge Ordered Notes: Location: Home rt Problem: new rt Symptoms: have improved rt Condition: Stable rt Diagnosis - Acute upper respiratory infection, unspecified rt Followup: rt - With: Private Physician - When: 2 - 3 days - Reason: Followup: rt - With: Emergency Department - When: As needed - Reason: Worsening of condition Discharge Instructions: - Discharge Summary Sheet rt - Viral Respiratory Infection rt Forms: - Medication Reconciliation Form rt - Thank You Letter rt - Antibiotic Education rt - Prescription Opioid Use rt - Patient Portal Instructions rt - Leadership Thank You Letter rt Signatures: Dispatcher [employer] EDMS Marcio Peña PA PA cp Calcote, Vanessa, RN RN vc1 Benjamin Youngblood MD MD rt Meir Gilliam RN RN tm6 Corrections: (The following items were deleted from the chart) 12/06 23:19 23:19 BLOOD CULTURE*+BA.LAB.BRZ ordered. EDMS EDMS 23:19 23:19 CBC+H.LAB.BRZ ordered. EDMN EDMS 23:19 23:19 COMPREHENSIVE METABOLIC PANEL+C.LAB.BRZ ordered. EDMS EDMS 23:19 23:19 LACTATE+C.LAB.BRZ ordered. EDMN EDMS 23:19 23:19 PROTIME (+INR)+COAG.LAB.BRZ ordered. EDMN EDMS 23:19 23:19 PTT, ACTIVATED+COAG.LAB.BRZ ordered. EDMS EDMS 23:19 23:19 Urinalysis+U.LAB.BRZ ordered. EDMS EDMS 23:19 23:19 SARS-COV-2 Antigen Rapid+I.LAB.BRZ ordered. EDMN EDMS 23:19 23:19 Influenza Screen (A \T\ B)+BA.LAB.BRZ ordered. EDMN EDMS 23:51 23:19 Accucheck ordered. colby vc1
--- NOTE | 2023-12-08 02:24 | ER ---
Nurse's Notes [facility] Name: Vaishnavi Dey Age: 28 yrs Sex: Female : 1995 Arrival Date: 12/07/2023 Time: 22:35 Bed 6 Private MD: Diagnosis: Acute upper respiratory infection, unspecified Presentation: 12/06 23:02 Chief complaint: Patient states: sick for a few days, cough, chest burning, heart vc1 palpitations. Coronavirus screen: At this time, the client does not indicate any symptoms associated with coronavirus-19. Ebola Screen: Patient negative for fever greater than or equal to 101.5 degrees Fahrenheit, and additional compatible Ebola Virus Disease symptoms Patient denies exposure to infectious person. Patient denies travel to an Ebola-affected area in the 21 days before illness onset. No symptoms or risks identified at this time. Initial Sepsis Screen: Does the patient meet any 2 criteria? RR > 20 per min. HR > 90 bpm. Yes Does the patient have a suspected source of infection? No. Patient's initial sepsis screen is negative. Risk Assessment: Do you want to hurt yourself or someone else? Patient reports no desire to harm self or others. Onset of symptoms is unknown. Care prior to arrival: None. Activity prior to arrival: None. Mechanism of Injury: No Mechanism of Injury. Transition of care: patient was not received from another setting of care. 23:02 Method Of Arrival: Ambulatory vc1 23:02 Acuity: VICKY 3 vc1 Triage Assessment: 23:53 General: Appears in no apparent distress. uncomfortable, ill, Behavior is calm, vc1 cooperative, appropriate for age. Pain: Complains of pain in chest Pain does not radiate. Pain currently is 5 out of 10 on a pain scale. Quality of pain is described as burning, Pain began 2-3 days ago. Is intermittent, Aggravated by coughing, walking Noted to be grimacing, Also complains of decreased appetite, sleeplessness. EENT: Nares with drainage noted. Neuro: Level of Consciousness is awake, alert, obeys commands, Oriented to person, place, time, situation, Appropriate for age. Cardiovascular: Rhythm is sinus tachycardia. Cardiovascular: Reports palpitations, Patient's skin is warm and dry. Respiratory: Reports cough that is non-productive, persistent pain with cough Airway is patent Respiratory effort is even, unlabored, Respiratory pattern is symmetrical, tachypnea Breath sounds are clear the patient has mild shortness of breath. GI: Abdomen is round non-distended, Bowel sounds present X 4 quads. Abd is soft and non tender Patient currently denies nausea, vomiting. : No deficits noted. No signs and/or symptoms were reported regarding the genitourinary system. Derm: Skin is intact, is healthy with good turgor, Skin is pink, warm \T\ dry. Skin temperature is warm. Musculoskeletal: No deficits noted. No signs and/or symptoms reported regarding the musculoskeletal system. Circulation, motion, and sensation intact. Range of motion: intact in all extremities. FERRYBOAT DECKHAND: 23:05 unknown, irregular vc1 Historical: - Allergies: 23:04 Augmentin; vc1 23:04 Keflex; vc1 23:04 PENICILLINS (Hives); vc1 - PMHx: 23:04 Kidney stone; Ovarian cyst; prediabetes; vc1 - PSHx: 23:04 surgery for kidney stone; vc1 - Immunization history:: Adult Immunizations unknown. - Infectious Disease History:: Denies. - Social history:: Smoking status: Patient reports the use of cigarette tobacco products, smokes one pack cigarettes per day. Screenin:04 [facility] ED Fall Risk Assessment (Adult) History of falling in the last 3 months, vc1 including since admission No falls in past 3 months (0 pts) Confusion or Disorientation No (0 pts) Intoxicated or Sedated No (0 pts) Impaired Gait No (0 pts) Mobility Assist Device Used No (0 pt) Altered Elimination No (0 pt) Score/Fall Risk Level 0 - 2 = Low Risk Oriented to surroundings, Maintained a safe environment, Educated pt \T\ family on fall prevention, incl call for assistance when getting out of bed. Abuse screen: Denies threats or abuse. Nutritional screening: No deficits noted. Tuberculosis screening: No symptoms or risk factors identified. Assessment: 23:56 Cardiovascular: Rhythm is sinus tachycardia. Cardiovascular: Reports chest pain, Denies vc1 nausea, vomiting. Cardiovascular: Heart tones S1 S2 Capillary refill < 3 seconds Patient's skin is warm and dry. Respiratory: Airway is patent Respiratory effort is even, unlabored, Respiratory pattern is symmetrical, tachypnea Breath sounds are clear Onset: The symptoms/episode began/occurred 2-3 days, the patient has mild shortness of breath. 23:57 General: See triage assessment. vc1 12/07 00:51 Reassessment: Patient appears in no apparent distress at this time. No changes from tm6 previously documented assessment. 01:29 Reassessment: Patient states feeling better. Patient states symptoms have improved. vc1 02:18 Reassessment: Patient appears in no apparent distress at this time. No changes from vc1 previously documented assessment. Patient and/or family updated on plan of care and expected duration. Pain level reassessed. Patient is alert, oriented x 3, equal unlabored respirations, skin warm/dry/pink. Vital Signs: 12/06 23:02 BP 145 / 94; Pulse 151; Resp 22; Temp 99; Pulse Ox 99% ; Weight 83.91 kg; Height 5 ft. vc1 1 in. ; 23:52 BP 141 / 93; Pulse 121; Resp 20; Pulse Ox 99% ; vc1 12/07 00:50 BP 140 / 95; Pulse 125; Pulse Ox 99% on R/A; tm6 01:20 BP 139 / 99; Pulse 112; Resp 18; Pulse Ox 99% ; vc1 02:18 BP 133 / 95; Pulse 91; Resp 21; Pulse Ox 97% ; vc1 12/06 23:02 Body Mass Index 34.96 (83.91 kg, 154.94 cm) vc1 ED Course: 12/06 22:38 Patient arrived in ED. ra3 22:39 [facility] cp 22:39 Benjamin Youngblood MD is Attending Physician. cp 23:04 Triage completed. vc1 23:04 Arm band placed on right wrist. vc1 23:05 Patient has correct armband on for positive identification. Placed in gown. Bed in low vc1 position. Call light in reach. Side rails up X2. quality assurance monitor chassis on. Pulse ox on. NIBP on. 23:05 EKG completed in triage. Results shown to . vc1 23:05 EKG done, by ED staff, reviewed by Marcio GUIDO. vc1 23:29 Inserted saline lock: 22 gauge in right antecubital area, using aseptic technique. vc1 Blood collected. 23:29 First set of blood cultures drawn by me. vc1 23:40 Initial lab(s) drawn, by me, sent to lab. Second set of blood cultures drawn by me. vc1 23:46 Rona Meek, RN is Primary Nurse. vc1 23:47 Chest Single View XRAY In Process Unspecified. EDMS 04 01:06 CT Chest For PE Angio In Process Unspecified. EDMS 02:30 No provider procedures requiring assistance completed. IV discontinued, intact, vc1 bleeding controlled, No redness/swelling at site. Pressure dressing applied. 02:31 Provided Education on: Stay hydrated. vc1 Administered Medications: 12/06 23:36 Drug: Tussionex Pennkinetic ER PO Suspension 5 ml PO once Route: PO; vc1 12/07 02:31 Follow up: Response: No adverse reaction; Marked relief of symptoms vc1 12/06 23:51 Drug: NS 0.9% IV 1000 ml IV at 1 bolus Per protocol; 1000 mL bolus Route: IV; Rate: 1 vc1 bolus; Site: right antecubital; 12/07 02:31 Follow up: IV Status: Completed infusion; IV Intake: 1000ml vc1 00:12 Drug: NS 0.9% IV 1000 ml IV at 1 bolus Per protocol; 1000 mL bolus Route: IV; Rate: 1 tm6 bolus; Site: right antecubital; 02:31 Follow up: IV Status: Completed infusion; IV Intake: 1000ml vc1 00:15 Drug: Ibuprofen PO 800 mg PO once Route: PO; tm6 02:32 Follow up: Response: No adverse reaction; Marked relief of symptoms vc1 Medication: 12/06 23:05 VIS not applicable for this client. vc1 Intake: 12/07 02:31 IV: 1000ml; Total: 1000ml. vc1 02:31 IV: 1000ml; Total: 2000ml. vc1 Outcome: 02:23 Discharge ordered by . rt 02:30 Discharged to home ambulatory, with significant other, vc1 02:30 Condition: good 02:30 Discharge instructions given to patient, Instructed on discharge instructions, follow up and referral plans. Demonstrated understanding of instructions, follow-up care, 02:32 Patient left the ED. vc1 Signatures: Dispatcher [employer] EDFL Marcio Peña PA PA cp Calcote, Vanessa, RN RN vc1 Benjamin Youngblood MD MD rt Meir Gilliam RN RN tm6 Saunders, Anabel ra3
[2023-12-08 11:01] VITALS: BP 133/95; TEMP 99; O2SAT 97
--- NOTE | 2023-12-08 12:41 | EKG ---
Test Date: 2023-12-07 Test Time: 22:56:44 Tool Pusher: JASSI MEASUREMENT RESULTS: Intervals: Rate: 127 MN: 122 QRSD: 80 QT: 300 QTc: 436 [place]: P: 44 MN: 122 QRS: 66 T: 31 INTERPRETIVE STATEMENTS: Sinus tachycardia Otherwise normal ECG Compared to ECG 12/09/2022 01:38:23 Sinus rhythm no longer present Electronically Signed On 12-08-23 12:40:04 CDT by Wero Del Rio
--- NOTE | 2023-12-08 13:23 | RAD REPORT ---
EXAM DESCRIPTION: CT - Chest For Pe Angio - 12/08/2023 6:13 am CLINICAL HISTORY: Chest pain;Cough TECHNIQUE: Contiguous axial images obtained through the chest during angiographic phase following th e uneventful administration of IV contrast. Sagittal and coronal reformatted images were provided. 3- D MIP reformatted images were provided. This exam was performed according to our departmental dose-optimization program, which includes autom ated exposure control, adjustment of the mA and/or kV according to patient size and/or use of iterati ve reconstruction technique. COMPARISON: No prior exams provided for comparison. FINDINGS: Diagnostic quality: There is limited opacification of the pulmonary arterial tree. Lungs: No focal consolidation. Airways are patent. Pleura: No effusion. No pneumothorax. Heart and pericardium: The heart is normal in size. No pericardial effusion. Mediastinum and chandler: No pathologically enlarged lymph nodes. Lower neck and chest wall: Unremarkable Vessels: Limited enhancement of the pulmonary arteries. No evidence is seen of large central pulmonary emboli. Significant segmental and subsegmental pulmonary emboli cannot be reliably excluded. Consider repeat when clinically feasible.. No thoracic aortic aneurysm. Upper abdomen: Fatty infiltration of the liver. Bones: Unremarkable IMPRESSION: 1. Limited enhancement of the pulmonary arteries. No evidence is seen of large central pulmonary emboli. Significant segmental and subsegmental pulmonary emboli cannot be reliably exclude d. Consider repeat when clinically feasible. 2. Fatty infiltration of the liver. Electronically signed by: Quintin Moscoso MD 12/08/2023 01:31 AM CDT Due to temporary technical issues with the PACS/Fluency reporting system, reports are being signed by the in house radiologist without review as a courtesy to ensure prompt reporting. The interpreting r adiologist is fully responsible for the content of the report
--- NOTE | 2023-12-08 13:24 | RAD REPORT ---
EXAM DESCRIPTION: RAD - Chest Single View - 12/07/2023 11:45 pm CLINICAL HISTORY: Chest pain;Cough TECHNIQUE: AP chest COMPARISON: None available for comparison FINDINGS: CHEST: Heart: The cardiomediastinal silhouette is within normal limits. Lungs: No focal consolidation. Mediastinum: Unremarkable Pleura: No appreciable effusion. No pneumothorax. Bones: Intact IMPRESSION: No acute cardiopulmonary disease. Electronically signed by: Quintin Moscoso MD 12/07/2023 11:55 PM CDT Due to temporary technical issues with the PACS/Fluency reporting system, reports are being signed by the in house radiologist without review as a courtesy to ensure prompt reporting. The interpreting r adiologist is fully responsible for the content of the report
== END 2023-12-08 02:32 | disposition home or self-care (01) ==
LOC: ER 22:35
DX: J06.9 Acute upper respiratory infection, unspecified (principal); F17.210 Nicotine dependence, cigarettes, uncomplicated; Z11.52 Encounter for screening for COVID-19; Z88.0 Allergy status to penicillin; Z88.1 Allergy status to other antibiotic agents
CPT/HCPCS: 36415; 71045; 71275; 80053; 81001; 83605; 85025; 85610; 85730; 87040; 87804; 87811; 93005; 96360; 96361; 99285; J7030; Q9967

== ENCOUNTER 2024-06-22 15:34 | Emergency (ER) | payer SELFPAY ==
--- OUTSIDE RECORDS SUMMARY | 2024-06-22 15:37 | XMS REPORT | Continuity of Care Document ---
Author Name Unknown Address [address] [facility] [place] [address] [facility] thconnect Address [address] [facility] [address] [place] [address] Care Team Providers Care Counter Intelligence Agent Name Role Phone Dante [facility], [facility] Care Physician Doctor Unassigned, [place] Attending Clinician U Karthik Ferris MD Attending Clinician [phone] Aron Oglesby MD Attending Clinician [phone] RONNIE SALGADO Attending Clinician Unavailable Ronnie Noel Attending Clinician [phone] Aron Oglesby MD Admitting Clinician [phone] RONNIE SALGADO Admitting Clinician Unavailable Problems Condition Name Condition Details Condition Category Status Onset Date Resolution Date Last Treatment Date Treating Clinician Comments Source Left ureteral stone Left ureteral stone Disease Active 05-02 00:00: 00 [facility] Obesity (BMI 30-39.9) Obesity (BMI 30-39.9) Disease Active 05-02 00:00: 00 [facility] Allergies, Adverse Reactions, Alerts Allergy Name Allergy Type Status Severity Reaction(s) Onset Date Inactive Date Treating Clinician Comments Source Mahamed Barnard ty to adverse reaction s Active Itching 04-27 00:00: 00 [facility] Penicill in Propensi ty to adverse reaction s Active Hives 0 8- 00:00: 00 [facility] AMOXICIL SASKIA-POT CLAVULAN ATE DRUG Active ITCHING 8-27 00:00: 00 [facility] KEFLET DRUG Active ITCHING 0 8-27 00:00: 00 [facility] PENICILL IN DRUG INGREDI Active Hives 0 8 00:00: 00 [facility] Amoxicil saskia-Pot Clavulan ate Propensi ty to adverse reaction s Active Itching 8 00:00: 00 [facility] Social History Social Habit Start Date Stop Date Quantity Comments Source [facility] of [facility] use Passive smoker [facility] Exposure to SARS-CoV-2 (event) 2022-04-22 00:00:00 2022-05-02 21:59:00 Not sure [facility] History of Social function 2022-05-02 00:00:00 2022-05-02 00:00:00 [facility] Tobacco use and exposure 2022-05-02 00:00:00 2022-05-02 00:00:00 Smokeless tobacco non-user [facility] History SDOH Financial 2022-05-02 00:00:00 2022-05-02 00:00:00 2 [facility] History SDOH Food Worry 2022-05-02 00:00:00 2022-05-02 00:00:00 2 [facility] History SDOH Food Scarcity 2022-05-02 00:00:00 2022-05-02 00:00:00 2 [facility] History SDOH Transport Med 2022-05-02 00:00:00 2022-05-02 00:00:00 1 [facility] History SDOH Transport Non-Med 2022-05-02 00:00:00 2022-05-02 00:00:00 1 [facility] Sex Assigned At 1995 00:00:00 1995 00:00:00 [facility] Smoking Status Start Date Stop Date Source Tobacco smoking consumption unknown [facility] Smokes tobacco daily 2022-05-02 00:00:00 [facility] Medications Ordered Medication Name Filled Medication Name Start Date Stop Date Current Medication? Ordering Clinician Indication Dosage Frequency Signature (SIG) Comments Components Source tamsulosin 0.4 mg 24 hr capsule 05-04 00:00: 00 06-04 04:59 :00 No [id number] .4mg Take 1 capsule by mouth in the morning for 30 days. [facility] sennosides 8.6 mg tablet 05-04 00:00: 00 05-15 04:59 :00 No [id number] 8.6mg Take 1 tablet by mouth in the morning for 10 days. [facility] HYDROcodone -acetaminop hen (NORCO 5) 5-325 mg tablet 1 tablet 05-03 18:30: 00 05-03 19:18 :00 No 1{tbl} 1 tablet, Oral, ONCE, 1 dose, On Fri05/03/22 at 1330, Routine, PACU [facility] morpHINE (2 mg/mL) injection 2 mg 05-03 07:00: 00 05-03 06:23 :00 No 2mg 2 mg, Slow IV Push, ONCE, 1 dose, On Fri05/03/22 at 0200, Routine [facility] acetaminoph en 325 mg tablet 05-03 00:00: 00 05-04 04:59 :00 No [id number] 650mg Take 2 tablets by mouth every 6 (six) hours. [facility] gabapentin 300 mg capsule 05-03 00:00: 00 05-25 04:59 :00 No [id number] 300mg Take 1 capsule by mouth in the morning and 1 capsule at noon and 1 capsule in the evening. Do all this for 21 days. [facility] ibuprofen 800 mg tablet 05-03 00:00: 00 05-14 04:59 :00 No [id number] 800mg Take 1 tablet by mouth in the morning and 1 tablet at noon and 1 tablet in the evening. Take with meals. Do all this for 10 days. [facility] enoxaparin (LOVENOX) injection 40 mg 05-02 22:00: 00 05-03 23:42 :12 No 40mg 40 mg, Subcutaneo us, DAILY, First dose on Fri05/02/22 at 1700, Until Discontinu ed, Routine [facility] acetaminoph en (TYLENOL) tablet 650 mg 05-02 17:00: 00 05-03 23:42 :12 No 650mg 650 mg, Oral, Q6H, First dose on Fri05/02/22 at 1200, Until Discontinu ed, Routine [facility] tamsulosin (FLOMAX) capsule 0.4 mg 05-02 14:00: 00 05-03 23:42 :12 No .4mg 0.4 mg, Oral, DAILY, First dose on Fri05/02/22 at 0900, Until Discontinu ed, Routine [facility] sennosides (SENOKOT) tablet 8.6 mg 05-02 14:00: 00 05-03 23:42 :12 No 8.6mg 8.6 mg, Oral, DAILY, First dose on Fri05/02/22 at 0900, Until Discontinu ed, Routine [facility] D5W 0.45% NaCl (1/2NS) 1 L + KCL 20 mEq 05-02 13:00: 00 05-03 23:42 :12 No IV Infusion, at 125 mL/hr, CONTINUOUS , Starting on Fri05/02/22 at 0800, Until Fri05/03/22 at 1842, Routine [facility] gabapentin (NEURONTIN) capsule 300 mg 05-02 13:00: 00 05-03 23:42 :12 No 300mg 300 mg, Oral, TID, First dose on Fri05/02/22 at 0800, Until Discontinu ed, Routine [facility] ketorolac (TORADOL) injection 15 mg 05-02 12:54: 59 05-03 23:42 :12 No 15mg 15 mg, Slow IV Push, Q6HPRN, Starting on Patsy 05/02/22 at 0754, Until 05/03/22 at 1842, Routine, Pain (scale 7-10) [facility] ondansetron (ZOFRAN (PF)) injection 4 mg 05-02 12:53: 06 05-03 23:42 :12 No 4mg 4 mg, Slow IV Push, Q4HPRN, Starting on Patsy 05/02/22 at 0753, Until Fri05/03/22 at 1842, Routine, Nausea and Vomiting (N/V) [facility] ketorolac tromethamin e (TORADOL) injection 15 mg 04-27 22:15: 00 04-27 22:15 :00 No 15mg 15 mg, Slow IV Push, ONCE, 1 dose, On 04/27/22 at 1715, LATISHA [facility] ondansetron 4 mg disintegrat ing tablet 04-27 00:00: 00 Yes [id number] 4mg Take 1 tablet by mouth every 8 (eight) hours as needed for Nausea and Vomiting (N/V). [facility] ketorolac 10 mg tablet 04-27 00:00: 00 05-03 00:00 :00 No [id number] 10mg Take 1 tablet by mouth every 6 (six) hours as needed for Pain (scale 4-6). [facility] acetaminoph en-codeine (TYLENOL-CO DEINE #3) 300-30 mg tablet 04-27 00:00: 00 05-03 00:00 :00 No [id number] 1{tbl} Take 1 tablet by mouth every 4 (four) hours as needed for Pain (scale 7-10) for up to 7 days. Indication s: acute pain [facility] Vital Signs Vital Name Observation Time Observation Value Comments S ource Systolic blood pressure 2022-05-03 20:28:00 109 mm[Hg] [facility] Diastolic blood pressure 2022-05-03 20:28:00 68 mm[Hg] [facility] Heart rate 2022-05-03 20:28:00 66 /min [facility] Body temperature 2022-05-03 20:28:00 36.39 A[place]ille [facility] Respiratory rate 2022-05-03 20:28:00 18 /min [facility] Oxygen saturation in Arterial blood by Pulse oximetry 2022-05-03 20:28:00 96 /min [facility] Body height 2022-05-02 10:34:[address] [facility] Body weight 2022-05-02 10:34:[address] [facility] BMI 2022-05-02 10:34:00 34.20 kg/m2 [facility] Systolic blood pressure 2022-05-03 12:47:00 95 mm[Hg] [facility] Diastolic blood pressure 2022-05-03 12:47:00 62 mm[Hg] [facility] Heart rate 2022-05-03 12:47:00 73 /min [facility] Body temperature 2022-05-03 12:47:00 36.22 Kamille [facility] Respiratory rate 2022-05-03 12:47:00 18 /min [facility] Oxygen saturation in Arterial blood by Pulse oximetry 2022-05-03 12:47:00 96 /min [facility] Body height 2022-05-02 10:34:[address] [facility] Body weight 2022-05-02 10:34:[address] [facility] BMI 2022-05-02 10:34:00 34.20 kg/m2 [facility] Systolic blood pressure 2022-04-28 00:21:48 120 mm[Hg] [facility] Diastolic blood pressure 2022-04-28 00:21:48 87 mm[Hg] [facility] Heart rate 2022-04-28 00:21:48 92 /min [facility] Respiratory rate 2022-04-28 00:21:48 18 /min [facility] Oxygen saturation in Arterial blood by Pulse oximetry 2022-04-28 00:21:48 98 /min [facility] Body temperature 2022-04-27 21:31:00 36.44 Kamille [facility] Body weight 2022-04-27 21:31:[address] [facility] Procedures Procedure Date / Time Performed Performing Clinician Source EXTERNAL PROVIDER RECORDS 2022-05-27 05:01:00 Do ctor Unassigned, [place] [facility] FL TIME OR (NON-REPORTABLE) 2022-05-03 19:05:44 Brooks Rasheed [facility] FL TIME OR (NON-REPORTABLE) 2022-05-03 19:05:44 Brooks Rasheed [facility] URETEROSCOPIC STONE MANIPULATION 2022-05-03 17:12:00 Aron Oglesby [facility] STENT PLACEMENT 2022-05-03 17:12:00 Aron Oglesby [facility] POCT TEST 2022-05-03 16:53:00 Alfie Moulton [facility] POCT TEST 2022-05-03 16:53:00 Alfie Moulton [facility] COVID-19 (ID NOW RAPID TESTING) 2022-05-03 14:04:00 Karthik Quinn [facility] LAB ONLY COVID INTERPRETATION 2022-05-03 14:04:00 Karthik Quinn [facility] COVID-19 (ID NOW RAPID TESTING) 2022-05-03 14:04:00 Karthik Quinn [facility] LAB ONLY COVID INTERPRETATION 2022-05-03 14:04:00 Karthik Quinn [facility] POCT GLUCOSE (AUTOMATED) 2022-05-02 13:48:00 Aron Oglesby [facility] POCT GLUCOSE (AUTOMATED) 2022-05-02 13:48:00 Aron Oglesby [facility] CT ABDOMEN PELVIS WO CONTRAST 2022-04-27 22:52:16 Ronnie Salgado [facility] COMP. METABOLIC PANEL ([id number]) 2022-04-27 22:05:00 Ronnie Salgado [facility] CBC WITH DIFF 2022-04-27 22:05:00 Ronnie Salgado [facility] URINALYSIS 2022-04-27 22:05:00 Ronnie Salgado [facility] EXTRA TUBE URINE CULTURE 2022-04-27 22:05:00 Bernabe Salgado [facility] POCT TEST 2022-04-27 22:03:00 Ronnie Salgado [facility] CONSENT/REFUSAL FOR DIAGNOSIS AND TREATMENT 2022-04-27 21:28:22 Doctor Unassigned, [place] [facility] Encounters Start Date/Time End Date/Time Encounter Type Admission Type Attending [facility] Care Department Encounter ID Source 2023-09-12 13:16:08 2023-09-12 13:16:08 Outpatient [facility] [id number] Dante F Pollo 2022-05-27 00:00:00 2022-05-27 00:00:00 Orders Only Doctor Unassigned, [place] [facility] [id number] 350.1.13.10 4.2.7.2.686 [id number] [facility] 2022-05-20 00:00:00 2022-05-20 00:00:00 Telephone Karthik Quinn [facility] [id number] 350.1.13.10 4.2.7.2.686 [id number] [facility] 2022-05-08 00:00:00 2022-05-08 00:00:00 Patient Secure Msg Doctor Unassigned, [place] [facility] 1.2.840.114 350.1.13.10 4.2.7.2.686 [id number] [facility] 2022-05-02 05:12:00 2022-05-03 16:34:00 Hospital Encounter Reny Aron [facility] [id number] 350.1.13.10 4.2.7.2.686 [id number] [facility] 2022-05-03 11:20:00 2022-05-03 13:20:00 Surgery [facility] Aron [facility] [id number] 350.1.13.10 4.2.7.2.686 [id number] [facility] 2022-04-27 16:32:00 2022-04-27 20:36:00 Emergency X RONNIE SALGADO [facility] ERT [id number] [facility] 2022-04-27 16:32:00 2022-04-27 20:36:00 Emergency Ronnie Salgado [facility] [id number] 350.1.13.10 [id number] [id number] [facility] Results Test Description Test Time Test Comments Results Result Co mments Source [facility] [id number] 16:58:00* Test Item Value Reference Range Interpretation Comme nts POCT PREG (test code = 1605) Negative On board controls acceptable with C Line (test code = 3574) Yes POCT PREG LOT # (test code = 3575) [id number] POCT PREG TEST DATE ( test code = 3576) 07/01/2023 Lab Interpretation (test cod e = 91458-9) Normal [facility] GLUCOSE (AUTOMATED)2022-05-02 13:49:12* Test Item Value Reference Range Interpretation Comme nts POCT GLU (test code = 8741971107) 105 mg/dL 70-110 Lab Interpretation (test cod e = 89173-3) Normal [facility] GLUCOSE (AUTOMATED)2022-05-02 13:49:12* Test Item Value Reference Range Interpretation Comme nts POCT GLU (test code = 7101686058) 105 mg/dL 70-110 Lab Interpretation (test cod e = 17989-7) Normal [facility] [id number] 22:06:00* Test Item Value Reference Range Interpretation Comme nts POCT PREG (test code = 1605) Negative On board controls acceptable with C Line (test code = 3574) Yes POCT PREG LOT # (test code = 3575) POCT PREG TEST DATE ( test code = 3576) 07 01 23 Lab Interpretation (test cod e = 73610-6) Normal [facility] 25 [id number] 06:15:23* Test Item Value Reference Range Interpretation Comme [facility] VITAMIN D, 25 OH (test code [...] . . . NG/ML 30-100 COMPREHENSIVE METABOLIC [id number] 05:11:12* Test Item Value Reference Range Interpretation Comme nts GLUCOSE (test code = 2217) 81 MG/DL 70-99 BUN (test code = 2208) 8 MG/DL 6-20 CREATININE (test code = 2214) 0.65 MG/DL 0.60-1.30 eGFR (2020 CKD-EPI) (test code = 00418) 123 ML/MIN/1.73 >60 CALC BUN/CREAT (test code [...] code = 2219) 27 U/L 5-40 LIPID [id number] 05:11:12* Test Item Value Reference Range Interpretation [...] SPECIMENS. FOR MOREINFORMATION, SEE CLIENT ANNOUNCEMENT AT [email or web address] RISK RATIO LDL/HDL (test code = 2238) 3.86 RATIO <3.22 H HEMOGLOBIN [id number] 05:06:15* Test Item Value Reference Range Interpretation Comme [facility] HEMOGLOBIN A1c (test code = 42152) 6.1 % 4.2-5.6 H [id number] 04:43:16* Test Item Value Reference Range Interpretation Comme [facility] FERRITIN (test code = 2075) 132 NG/ML 13-200 UNLESS OTHERWISE INDICATED, ALL TESTING PERFORMED [facility] [address] [place] [address] DISTRICT EXTENSION SERVICE AGENT: JANET JEAN-BAPTISTE M.D. CLIA NUMBER [id number] [facility] [place]. [id number] TSH, THIRD [id number] 04:43:16* Test Item Value Reference Range Interpretation Comme [facility] TSH, THIRD GENERATION (test code = 2821) 1.660 UIU/ML 0.400-4.100 VITAMIN [id number] 04:43:16* Test Item Value Reference Range Interpretation Comme nts VITAMIN B-12 (test code = 2840) 431 PG/ML 200-950 CBC W/AUTO DIFF WITH [id number] 02:51:12* Test Item Value Reference Range Interpretation [...] 0.00-0.10 ABS NUCLEATED RBCS (test code = 89705) 0.00 K/UL 0.00-0.11
[2024-06-22 16:52] LABS: Specific Gravity < 1.005 (1.005-1.030)
[2024-06-22 17:08] LABS: Specific Gravity < 1.005 (1.005-1.030); Sqamous Epithelial None Seen /HPF (None Seen); Urine Bacteria <20 /HPF (<20); Urine Bilirubin NEGATIVE (Negative); Urine Blood 1+ (Negative); Urine Clarity Clear (Clear); Urine Color Colorless (Yellow); Urine Culture Reflex Order NOT NEEDED; Urine Glucose NEGATIVE (Negative); Urine Ketones NEGATIVE (Negative); Urine Microscopic Reflex YN ORDER UMIC; Urine Nitrite NEGATIVE (Negative); Urine Protein NEGATIVE (Negative); Urine RBC <5 /HPF (None Seen); Urine Urobilinogen Normal (Normal); Urine WBC None Seen /HPF (<5)
[2024-06-22 17:12] LABS: Absolute Eosinophils 0.1 K/uL (0-0.5); Absolute Lymphocytes (CBC) 3.4 K/uL (0.7-4.9); Absolute Monocytes 0.5 K/uL (0.1-1.3); Absolute Neutrophil 7.2 K/uL (1.8-8.0); Basophils % 0.4 % (0-1.3); Eosinophils % 1.1 % (0-4.4); Hematocrit 39.7 % (36.0-45.0); Hemoglobin 13.3 g/dL (12.0-15.0); Lymphocytes % 29.9 % (15.3-44.8); MCH 29.3 pg (27.0-35.0); MCHC 33.5 g/dL (32.0-36.0); MCV 87.4 fL (80-100); MPV 8.4 fL (7.6-11.3); Monocytes % 4.7 % (3.3-12.3); Neutrophils % 63.9 % (41.7-73.7); Nucleated Red Blood Cells % 0.1 % (0-0); Platelets 291 thou/uL (152-406); RBC Red Blood Cell Count 4.54 M/uL (3.86-4.86); Red Cell Distribution Width 13.9 % (12.1-15.2)
[2024-06-22 17:16] LABS: PT Prothrombin Time 11.6 SECONDS (9.4-12.5); PTT, Activated Partial Thromb 43.4 SECONDS (24.3-36.9); Protime INR 1.04
--- NOTE | 2024-06-22 17:29 | RAD REPORT ---
EXAMINATION: ONE VIEW CHEST XR CLINICAL INDICATION: Female, 29 years old.PALPITATIONS TECHNIQUE: 1 View, AP supine, X-ray of the chest was performed. [id number]. COMPARISON: 12/07/2023 FINDINGS: Lungs and pleura: Clear lungs. No effusion. Heart and mediastinum: Normal heart size. Unremarkable mediastinal contours. Osseous structures: No acute abnormality. Tubes/lines: None Other: None. IMPRESSION: No acute intrathoracic abnormality.
[2024-06-22 17:32] LABS: ALT/SGPT 26 U/L (13-56); Albumin 3.9 g/dL (3.4-5.0); Alkaline Phosphatase 91 U/L (45-117); BUN Blood Urea Nitrogen 6 mg/dL (7-18); Bicarbonate 27 mEq/L (21-32); Bilirubin Total 0.2 mg/dL (0.2-1.0); Globulin 4.1 g/dL (2.3-3.5); Glomerular Filtration Rate 123 ml/min (=/>90); Glucose Level 100 mg/dL (74-106); Magnesium 2.2 mg/dL (1.6-2.4); Sodium Level 138 mEq/L (136-145); Troponin High Sensitivity 3.2 pg/mL (<58.9)
[2024-06-22 17:42] LABS: Barbiturates NEGATIVE (NEGATIVE); Benzodiazepines NEGATIVE (NEGATIVE); Cocaine NEGATIVE (NEGATIVE); METHAMPHETAM NEGATIVE (NEGATIVE); Methadone NEGATIVE (NEGATIVE); Opiates NEGATIVE (NEGATIVE); Phencyclidine NEGATIVE (NEGATIVE); THC Cannibis NEGATIVE (NEGATIVE)
[2024-06-22 17:55] LABS: AST/SGOT < 10 U/L (15-37); Bilirubin Direct < 0.2 mg/dL (0-0.2)
--- NOTE | 2024-06-22 19:13 | EDPHYS ---
Physician Documentation [facility] Name: Vaishnavi Dey Age: 29 yrs Sex: Female : 1995 Arrival Date: 06/22/2024 Time: 15:34 Bed 25 Private MD: ED Physician Haroldo Bernstein HPI: 06/22 16:16 This 29 yrs old Female presents to ER via Ambulatory with complaints of Near Syncope. kb 16:16 Pt is a 29 year old female who presents for intermittent dizziness, lightheadedness, kb hot flashes, shakiness, palpitations and near syncope for the past couple of months. States symptoms were worse today so she came in for evaluation. Denies chest pain, shortness of breath. . 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 - Infectious Disease History:: Denies. - Social history:: Smoking status: Patient reports the use of cigarette tobacco products, smokes one-half pack cigarettes per day. ROS: 16:16 Constitutional: As per HPI kb Exam: 16:16 Constitutional: This is a well developed, well nourished patient who is awake, alert, kb and in no acute distress. Head/Face: Normocephalic, atraumatic. ENT: Moist Mucous membranes Cardiovascular: Regular rate Respiratory: Respirations even and unlabored. No increased work of breathing. Talking in full sentences Abdomen/GI: Soft, non-tender. No distention Skin: Warm, dry with normal turgor. Normal color. MS/ Extremity: Pulses equal, no cyanosis. Neurovascular intact. Full, normal range of motion. Neuro: Awake and alert, GCS 15, oriented to person, place, time, and situation. 20:06 ECG was reviewed by the Attending Physician. kb Vital Signs: 15:45 BP 146 / 109; Pulse 106; Resp 18; Temp 98.3; Pulse Ox 100% on R/A; Weight 85.73 kg; hb Height 5 ft. 2 in. ; Pain 0/10; 16:45 BP 155 / 97; Pulse 108; Resp 16; Pulse Ox 97% ; me1 17:30 BP 137 / 96; Pulse 99; Resp 16; Pulse Ox 99% ; me1 18:30 BP 112 / 84; Pulse 84; Resp 19; Pulse Ox 97% ; me1 19:24 BP 107 / 78; Pulse 76; Resp 16; Temp 98.4; Pulse Ox 99% ; me1 15:45 Body Mass Index 34.57 (85.73 kg, 157.48 cm) hb 15:45 Pain Scale: Adult hb MDM: 15:51 Medical Screening Exam initiated kb 19:10 Differential Diagnosis: cardiac arrhythmia, idiopathic syncope, vasovagal episode. Data kb reviewed: vital signs, nurses notes. Counseling: I had a detailed discussion with the patient and/or guardian regarding the historical points, exam findings, and any diagnostic results supporting the discharge/admit diagnosis, lab results, radiology results, the need for outpatient follow up, a family practitioner, to return to the emergency department if symptoms worsen or persist or if there are any questions or concerns that arise at home. ED course: Recommended follow up with pensions retirement plan specialist for holter monitor. Verbal understanding received. . 06/22 16:18 Order name: Basic Metabolic Panel; Complete Time: 17:57 kb 06/22 16:18 Order name: CBC with Diff; Complete Time: 17:32 kb 06/22 16:18 Order name: Hepatic Function; Complete Time: 17:57 kb 06/22 16:18 Order name: Magnesium; Complete Time: 17:57 kb 06/22 16:18 Order name: Test, Urine; Complete Time: 17:04 kb 06/22 16:18 Order name: Protime (+inr); Complete Time: 17:19 kb 06/22 16:18 Order name: Ptt, Activated; Complete Time: 17:19 kb 06/22 16:18 Order name: Troponin High Sensitivity; Complete Time: 17:57 kb 06/22 16:18 Order name: UDS; Complete Time: 17:46 kb 06/22 16:18 Order name: Urinalysis w/ reflexes; Complete Time: 17:15 kb 06/22 16:18 Order name: TSH; Complete Time: 17:57 kb 06/22 16:18 Order name: Chest Single View XRAY; Complete Time: 17:32 kb 06/22 16:18 Order name: EKG; Complete Time: 16:19 kb 06/22 16:18 Order name: Cardiac monitoring; Complete Time: 17:04 kb 06/22 16:18 Order name: EKG - Nurse/Tech; Complete Time: 17:04 kb 06/22 16:18 Order name: IV Saline Lock; Complete Time: 17:04 kb 06/22 16:18 Order name: Labs collected and sent; Complete Time: 17:04 kb 06/22 16:18 Order name: NPO; Complete Time: 17:04 kb 06/22 16:18 Order name: O2 Per Protocol; Complete Time: 17:04 kb 06/22 16:18 Order name: O2 Sat Monitoring; Complete Time: 17:04 kb 06/22 18:30 Order name: Vital Signs; Complete Time: 19:24 kb EC:06 Rate is 98 beats/min. Rhythm is regular. QRS [place] is Normal. W[place] interval is normal at kb 132 msec. QRS interval is normal at 78 msec. QT interval is normal at 454 msec. Administered Medications: No medications were administered Disposition: 17:38 I was immediately available on-site in the Emergency Department for consultation in the ms3 care of the patient. Disposition Summary: 06/22/24 19:13 Discharge Ordered Notes: Location: Home kb Condition: Stable kb Diagnosis - Syncope Near kb - Palpitations kb Followup: kb - With: Emergency Department - When: As needed - Reason: Worsening of condition Followup: kb - With: Private Physician - When: 2 - 3 days - Reason: Recheck today's complaints, Continuance of care, Re-evaluation by your physician Discharge Instructions: - Discharge Summary Sheet kb - Near-Syncope, [id number] kb - Palpitations, [id number] kb Forms: - Medication Reconciliation Form kb - Antibiotic Education kb - Prescription Opioid Use kb - Patient Portal Instructions kb - Leadership Thank You Letter kb Signatures: Dispatcher [employer] Gabriela Gagnon FNP-C FNP-Benita Lam, RN RN Haroldo Bernstein DO DO ms3 Fanta Sanders RN RN me1 Corrections: (The following items were deleted from the chart) 16:17 16:16 Pt is a 29 year old female who presents for intermittent dizziness, kb lightheadedness, hot flashes, shakiness, palpitations and near syncope for one month. States symptoms were worse today so she came in for evaluation. Denies chest pain, shortness of breath. . kb
--- NOTE | 2024-06-22 19:13 | ER ---
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 Coronavirus screen: At this time, hb the client does not indicate any symptoms associated with coronavirus-19. Ebola Screen: No symptoms or risks identified at this time. Initial Sepsis Screen: Does the patient meet any 2 criteria? No. Patient's initial sepsis screen is negative. Does the patient have a suspected source of infection? No. Patient's initial sepsis screen is negative. Risk Assessment: Do you want to hurt yourself or someone else? Patient reports no desire to harm self or others. Onset of symptoms was June 22, 2024. 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 - Infectious Disease History:: Denies. - Social history:: Smoking status: Patient reports the use of cigarette tobacco products, smokes one-half pack cigarettes per day. Screenin:45 [facility] ED Fall Risk Assessment (Adult) History of falling in the last 3 months, me1 including since admission No falls in past 3 months (0 pts) Confusion or Disorientation No (0 pts) Intoxicated or Sedated No (0 pts) Impaired Gait No (0 pts) Mobility Assist Device Used No (0 pt) Altered Elimination No (0 pt) Score/Fall Risk Level 0 - 2 = Low Risk Maintained a safe environment, Provided non-skid footwear, Hourly rounding (assess needs \T\ fall precautionary measures) done. Abuse screen: Denies threats or abuse. Nutritional screening: No deficits noted. Tuberculosis screening: No symptoms or risk factors identified. Assessment: 16:45 General: Appears comfortable, well developed, well nourished, Behavior is calm, me1 cooperative, appropriate for age, Reports near syncopal episode earlier today. Pain: Denies pain. Neuro: Level of Consciousness is awake, alert, obeys commands, Oriented to person, place, time, situation, Appropriate for age Reports near syncope earlier today. Cardiovascular: Patient's skin is warm and dry. Respiratory: Airway is patent Respiratory effort is even, unlabored, Respiratory pattern is regular, symmetrical. GI: No signs and/or symptoms were reported involving the gastrointestinal system. : No signs and/or symptoms were reported regarding the genitourinary system. EENT: No signs and/or symptoms were reported regarding the EENT system. Derm: Skin is intact, is healthy with good turgor, Skin is pink, warm \T\ dry. Musculoskeletal: No signs and/or symptoms reported regarding the musculoskeletal system. Vital Signs: 15:45 BP 146 / 109; Pulse 106; Resp 18; Temp 98.3; Pulse Ox 100% on R/A; Weight 85.73 kg; hb Height 5 ft. 2 in. ; Pain 0/10; 16:45 BP 155 / 97; Pulse 108; Resp 16; Pulse Ox 97% ; me1 17:30 BP 137 / 96; Pulse 99; Resp 16; Pulse Ox 99% ; me1 18:30 BP 112 / 84; Pulse 84; Resp 19; Pulse Ox 97% ; me1 19:24 BP 107 / 78; Pulse 76; Resp 16; Temp 98.4; Pulse Ox 99% ; me1 15:45 Body Mass Index 34.57 (85.73 kg, 157.48 cm) hb 15:45 Pain Scale: Adult hb ED Course: 15:36 Patient arrived in ED. im 15:46 Triage completed. hb 15:47 Arm band placed on. hb 15:51 Gabri[facility] Cowan FNP-C [facility] kb 15:51 Haroldo Bernstein DO is Attending Physician. kb 16:29 Patient placed in an exam room, on a stretcher. ll1 16:36 Urine collected: clean catch specimen, clear. tm3 16:45 Patient has correct armband on for positive identification. Bed in low position. Call me1 light in reach. Side rails up X 1. Provided Education on: POC. Verbalized understanding. . Client placed on continuous cardiac and pulse oximetry monitoring. NIBP monitoring applied. sheriff detective on. Pulse ox on. NIBP on. 16:45 No provider procedures requiring assistance completed. me1 16:51 Fanta Sanders, RN is Primary Nurse. me1 16:59 Initial lab(s) drawn, by me, sent to lab. Inserted saline lock: 22 gauge in right tm3 antecubital area, using aseptic technique. 17:21 Chest Single View XRAY In Process Unspecified. EDMS 19:31 IV discontinued, intact, bleeding controlled, No redness/swelling at site. Pressure me1 dressing applied. Administered Medications: No medications were administered Medication: 16:45 VIS not applicable for this client. me1 Outcome: 19:13 Discharge ordered by . kb 19:31 Discharged to home ambulatory, with family, me1 19:31 Condition: stable 19:31 Discharge instructions given to patient, family, Instructed on discharge instructions, follow up and referral plans. Demonstrated understanding of instructions, follow-up care, 19:39 Patient left the ED. 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
[2024-06-23 00:32] VITALS: BP 107/78; TEMP 98.4; O2SAT 99
--- NOTE | 2024-06-24 12:21 | EKG ---
Test Date: 2024-06-22 Test Time: 16:59:05 Probation And Patrol Agent: MEASUREMENT RESULTS: Intervals: Rate: 90 DE: 138 QRSD: 76 QT: 354 QTc: 433 [place]: P: 44 DE: 138 QRS: 71 T: 58 INTERPRETIVE STATEMENTS: Normal sinus rhythm with sinus arrhythmia Normal ECG Compared to ECG 12/07/2023 22:56:44 Sinus tachycardia no longer present Electronically Signed On 06-24-24 12:16:51 CDT by Serjio Constantino
--- NOTE | 2024-06-24 12:21 | EKG ---
Test Date: 2024-06-22 Test Time: 16:59:48 Broom Handle Dipper: MEASUREMENT RESULTS: Intervals: Rate: 98 ND: 132 QRSD: 78 QT: 356 QTc: 454 [place]: P: 50 ND: 132 QRS: 71 T: 47 INTERPRETIVE STATEMENTS: Sinus rhythm with marked sinus arrhythmia Otherwise normal ECG Compared to ECG 06/22/2024 16:59:05 No significant changes Electronically Signed On 06-24-24 12:16:50 CDT by Serjio Constantino
== END 2024-06-22 19:39 | disposition home or self-care (01) ==
LOC: ER 15:34
DX: R55 Syncope and collapse (principal); R00.2 Palpitations
CPT/HCPCS: 36415; 71045; 80048; 80076; 80307; 81001; 81025; 83735; 84443; 84484; 85025; 85610; 85730; 93005; 99284

== ENCOUNTER 2024-11-20 20:49 | Emergency (ER) | payer SELFPAY ==
--- OUTSIDE RECORDS SUMMARY | 2024-11-20 20:52 | XMS REPORT | Continuity of Care Document ---
Author Name Unknown Address [address] [facility] [place] [address] [facility] Address [address] [facility] [address] [place] [address] Care Team Providers Care Slip Bridge Operator Name Role Phone [facility] Care Physician Doctor Unassigned, [place] Attending Clinician U Karthik Ferris MD Attending Clinician [phone] Aron Oglesby MD Attending Clinician [phone] RONNIE SALGADO Attending Clinician Unavailable Ronnie Noel Attending Clinician [phone] Aron Oglesby MD Admitting Clinician [phone] RONNIE SALGADO Admitting Clinician Unavailable Problems Condition Name Condition Details Condition Category Status Onset Date Resolution Date Last Treatment Date Treating Clinician Comments Source Left ureteral stone Left ureteral stone Disease Active 05-02 00:00: 00 [facility] Obesity (BMI 30-39.9) Obesity (BMI 30-39.9) Disease Active 05-02 00:00: 00 [facility] Allergies, Adverse Reactions, Alerts Allergy Name Allergy Type Status Severity Reaction(s) Onset Date Inactive Date Treating Clinician Comments Source Mahamed Barnard ty to adverse reaction s Active Itching 04-27 00:00: 00 [facility] Penicill in Propensi ty to adverse reaction s Active Hives 0 8-27 00:00: 00 [facility] AMOXICIL SASKIA-POT CLAVULAN ATE DRUG Active ITCHING 0 8-27 00:00: 00 [facility] KEFLET DRUG Active ITCHING 0 8-27 00:00: 00 [facility] PENICILL IN DRUG INGREDI Active Hives 0 8-27 00:00: 00 [facility] Amoxicil saskia-Pot Clavulan ate Propensi ty to adverse reaction s Active Itching 8- 00:00: 00 [facility] Social History Social Habit Start Date Stop Date Quantity Comments Source [facility] of [facility] use Passive smoker [facility] Exposure to SARS-CoV-2 (event) 2022-04-22 00:00:00 2022-05-02 21:59:00 Not sure [facility] History of Social function 2022-05-02 00:00:00 2022-05-02 00:00:00 [facility] Tobacco use and exposure 2022-05-02 00:00:00 2022-05-02 00:00:00 Smokeless tobacco non-user [facility] History SDOH Financial 2022-05-02 00:00:00 2022-05-02 00:00:00 2 [facility] History SDOH Food Worry 2022-05-02 00:00:00 2022-05-02 00:00:00 2 [facility] History SDOH Food Scarcity 2022-05-02 00:00:00 2022-05-02 00:00:00 2 [facility] History SDOH Transport Med 2022-05-02 00:00:00 2022-05-02 00:00:00 1 [facility] History SDOH Transport Non-Med 2022-05-02 00:00:00 2022-05-02 00:00:00 1 [facility] Sex Assigned At 1995 00:00:00 1995 00:00:00 [facility] Smoking Status Start Date Stop Date Source Tobacco smoking consumption unknown [facility] Smokes tobacco daily 2022-05-02 00:00:00 [facility] Medications Ordered Medication Name Filled Medication Name Start Date Stop Date Current Medication? Ordering Clinician Indication Dosage Frequency Signature (SIG) Comments Components Source tamsulosin 0.4 mg 24 hr capsule 05-04 00:00: 00 06-04 04:59 :00 No [id number] .4mg Take 1 capsule by mouth in the morning for 30 days. [facility] sennosides 8.6 mg tablet 05-04 00:00: 00 05-15 04:59 :00 No [id number] 8.6mg Take 1 tablet by mouth in the morning for 10 days. [facility] HYDROcodone -acetaminop hen (NORCO 5) 5-325 mg tablet 1 tablet 05-03 18:30: 00 05-03 19:18 :00 No 1{tbl} 1 tablet, Oral, ONCE, 1 dose, On Fri05/03/22 at 1330, Routine, PACU [facility] morpHINE (2 mg/mL) injection 2 mg 05-03 07:00: 00 05-03 06:23 :00 No 2mg 2 mg, Slow IV Push, ONCE, 1 dose, On Fri05/03/22 at 0200, Routine [facility] acetaminoph en 325 mg tablet 05-03 00:00: 00 05-04 04:59 :00 No [id number] 650mg Take 2 tablets by mouth every 6 (six) hours. [facility] gabapentin 300 mg capsule 05-03 00:00: 00 05-25 04:59 :00 No [id number] 300mg Take 1 capsule by mouth in the morning and 1 capsule at noon and 1 capsule in the evening. Do all this for 21 days. [facility] ibuprofen 800 mg tablet 05-03 00:00: 00 05-14 04:59 :00 No [id number] 800mg Take 1 tablet by mouth in the morning and 1 tablet at noon and 1 tablet in the evening. Take with meals. Do all this for 10 days. [facility] enoxaparin (LOVENOX) injection 40 mg 05-02 22:00: 00 05-03 23:42 :12 No 40mg 40 mg, Subcutaneo us, DAILY, First dose on Fri05/02/22 at 1700, Until Discontinu ed, Routine [facility] acetaminoph en (TYLENOL) tablet 650 mg 05-02 17:00: 00 05-03 23:42 :12 No 650mg 650 mg, Oral, Q6H, First dose on Fri05/02/22 at 1200, Until Discontinu ed, Routine [facility] tamsulosin (FLOMAX) capsule 0.4 mg 05-02 14:00: 00 05-03 23:42 :12 No .4mg 0.4 mg, Oral, DAILY, First dose on Fri05/02/22 at 0900, Until Discontinu ed, Routine [facility] sennosides (SENOKOT) tablet 8.6 mg 05-02 14:00: 00 05-03 23:42 :12 No 8.6mg 8.6 mg, Oral, DAILY, First dose on Fri05/02/22 at 0900, Until Discontinu ed, Routine [facility] D5W 0.45% NaCl (1/2NS) 1 L + KCL 20 mEq 05-02 13:00: 00 05-03 23:42 :12 No IV Infusion, at 125 mL/hr, CONTINUOUS , Starting on Fri05/02/22 at 0800, Until Fri05/03/22 at 1842, Routine [facility] gabapentin (NEURONTIN) capsule 300 mg 05-02 13:00: 00 05-03 23:42 :12 No 300mg 300 mg, Oral, TID, First dose on Fri05/02/22 at 0800, Until Discontinu ed, Routine [facility] ketorolac (TORADOL) injection 15 mg 05-02 12:54: 59 05-03 23:42 :12 No 15mg 15 mg, Slow IV Push, Q6HPRN, Starting on Patsy 05/02/22 at 0754, Until 05/03/22 at 1842, Routine, Pain (scale 7-10) [facility] ondansetron (ZOFRAN (PF)) injection 4 mg 05-02 12:53: 06 05-03 23:42 :12 No 4mg 4 mg, Slow IV Push, Q4HPRN, Starting on Patsy 05/02/22 at 0753, Until Fri05/03/22 at 1842, Routine, Nausea and Vomiting (N/V) [facility] ketorolac tromethamin e (TORADOL) injection 15 mg 04-27 22:15: 00 04-27 22:15 :00 No 15mg 15 mg, Slow IV Push, ONCE, 1 dose, On 04/27/22 at 1715, LATISHA [facility] ondansetron 4 mg disintegrat ing tablet 04-27 00:00: 00 Yes [id number] 4mg Take 1 tablet by mouth every 8 (eight) hours as needed for Nausea and Vomiting (N/V). [facility] ketorolac 10 mg tablet 04-27 00:00: 00 05-03 00:00 :00 No [id number] 10mg Take 1 tablet by mouth every 6 (six) hours as needed for Pain (scale 4-6). [facility] acetaminoph en-codeine (TYLENOL-CO DEINE #3) 300-30 mg tablet 04-27 00:00: 00 05-03 00:00 :00 No [id number] 1{tbl} Take 1 tablet by mouth every 4 (four) hours as needed for Pain (scale 7-10) for up to 7 days. Indication s: acute pain [facility] Vital Signs Vital Name Observation Time Observation Value Comments S ource Systolic blood pressure 2022-05-03 20:28:00 109 mm[Hg] [facility] Diastolic blood pressure 2022-05-03 20:28:00 68 mm[Hg] [facility] Heart rate 2022-05-03 20:28:00 66 /min Unive [facility] Body temperature 2022-05-03 20:28:00 36.39 Kamille [facility] Respiratory rate 2022-05-03 20:28:00 18 /min [facility] Oxygen saturation in Arterial blood by Pulse oximetry 2022-05-03 20:28:00 96 /min [facility] Body height 2022-05-02 10:34:00 157.5 cm [facility] Body weight 2022-05-02 10:34:00 84.823 kg [facility] BMI 2022-05-02 10:34:00 34.20 kg/m2 [facility] Systolic blood pressure 2022-05-03 12:47:00 95 mm[Hg] [facility] Diastolic blood pressure 2022-05-03 12:47:00 62 mm[Hg] [facility] Heart rate 2022-05-03 12:47:00 73 /min Unive [facility] Body temperature 2022-05-03 12:47:00 36.22 Kamille [facility] Respiratory rate 2022-05-03 12:47:00 18 /min [facility] Oxygen saturation in Arterial blood by Pulse oximetry 2022-05-03 12:47:00 96 /min [facility] Body height 2022-05-02 10:34:00 157.5 cm [facility] Body weight 2022-05-02 10:34:00 84.823 kg [facility] BMI 2022-05-02 10:34:00 34.20 kg/m2 [facility] Systolic blood pressure 2022-04-28 00:21:48 120 mm[Hg] [facility] Diastolic blood pressure 2022-04-28 00:21:48 87 mm[Hg] [facility] Heart rate 2022-04-28 00:21:48 92 /min Unive [facility] Respiratory rate 2022-04-28 00:21:48 18 /min [facility] Oxygen saturation in Arterial blood by Pulse oximetry 2022-04-28 00:21:48 98 /min [facility] Body temperature 2022-04-27 21:31:00 36.44 Kamille [facility] Body weight 2022-04-27 21:31:00 68.04 kg [facility] Procedures Procedure Date / Time Performed Performing Clinician Source EXTERNAL PROVIDER RECORDS 2022-05-27 05:01:00 Do ctor Unassigned, [place] [facility] TIME OR (NON-REPORTABLE) 2022-05-03 19:05:44 Brooks Rasheed [facility] FL TIME OR (NON-REPORTABLE) 2022-05-03 19:05:44 Brooks Rasheed [facility] URETEROSCOPIC STONE MANIPULATION 2022-05-03 17:12:00 Aron Oglesby [facility] STENT PLACEMENT 2022-05-03 17:12:00 Aron Oglesby [facility] POCT TEST 2022-05-03 16:53:00 Alfie Moulton [facility] POCT TEST 2022-05-03 16:53:00 Alfie Moulton [facility] COVID-19 (ID NOW RAPID TESTING) 2022-05-03 14:04:00 Karthik Quinn [facility] LAB ONLY COVID INTERPRETATION 2022-05-03 14:04:00 Karthik Quinn [facility] COVID-19 (ID NOW RAPID TESTING) 2022-05-03 14:04:00 Karthik Quinn [facility] LAB ONLY COVID INTERPRETATION 2022-05-03 14:04:00 Karthik Quinn [facility] POCT GLUCOSE (AUTOMATED) 2022-05-02 13:48:00 Aron Oglesby [facility] POCT GLUCOSE (AUTOMATED) 2022-05-02 13:48:00 Aron Oglesby [facility] CT ABDOMEN PELVIS WO CONTRAST 2022-04-27 22:52:16 Ronnie Salgado [facility] COMP. METABOLIC PANEL ([id number]) 2022-04-27 22:05:00 Ronnie Salgado [facility] CBC WITH DIFF 2022-04-27 22:05:00 Ronnie Salgado [facility] URINALYSIS 2022-04-27 22:05:00 Ronnie Salgado [facility] EXTRA TUBE URINE CULTURE 2022-04-27 22:05:00 Bernabe Salgado [facility] POCT TEST 2022-04-27 22:03:00 Ronnie Salgado [facility] CONSENT/REFUSAL FOR DIAGNOSIS AND TREATMENT 2022-04-27 21:28:22 Doctor Unassigned, [place] [facility] Encounters Start Date/Time End Date/Time Encounter Type Admission Type Attending [facility] Facility Care Department Encounter ID Source 2023-09-12 13:16:08 2023-09-12 13:16:08 Outpatient [facility] [id number] Dante Abad 2022-05-27 00:00:00 2022-05-27 00:00:00 Orders Only Doctor Unassigned, [place] [facility] [id number] [id number] [id number] [facility] 2022-05-20 00:00:00 2022-05-20 00:00:00 Telephone Karthik Quinn [facility] [id number] [id number] [id number] [facility] 2022-05-08 00:00:00 2022-05-08 00:00:00 Patient Secure Msg Doctor Unassigned, [place] [facility] [id number] [id number] [id number] [id number] [facility] 2022-05-02 05:12:00 2022-05-03 16:34:00 [id number] 350.1.13.10 [id number] [id number] [facility] 2022-05-03 11:20:00 2022-05-03 13:20:00 Surgery [facility] [id number] 350.1.13.10 [id number] [id number] [facility] 2022-04-27 16:32:00 2022-04-27 20:36:00 Emergency X RONNIE SALGADO [facility] ERT [id number] [facility] 2022-04-27 16:32:00 2022-04-27 20:36:00 Emergency Ronnie Salgado [facility] [id number] [id number] [id number] [id number] [facility] Results Test Description Test Time Test Comments Results Result Co mments Source [facility] [id number] 16:58:00* Test Item Value Reference Range Interpretation Comme nts POCT PREG (test code = 1605) Negative On board controls acceptable with C Line (test code = 3574) Yes POCT PREG LOT # (test code = 3575) [id number] POCT PREG TEST DATE ( test code = 3576) 07/01/2023 Lab Interpretation (test cod e = 39552-8) Normal [facility] GLUCOSE (AUTOMATED)2022-05-02 13:49:12* Test Item Value Reference Range Interpretation Comme nts POCT GLU (test code = 4692820396) 105 mg/dL 70-110 Lab Interpretation (test cod e = 29764-1) Normal [facility] GLUCOSE (AUTOMATED)2022-05-02 13:49:12* Test Item Value Reference Range Interpretation Comme nts POCT GLU (test code = 5066771412) 105 mg/dL 70-110 Lab Interpretation (test cod e = 02113-4) Normal [facility] [id number] 22:06:00* Test Item Value Reference Range Interpretation Comme nts POCT PREG (test code = 1605) Negative On board controls acceptable with C Line (test code = 3574) Yes POCT PREG LOT # (test code = 3575) POCT PREG TEST DATE ( test code = 3576) 07 01 23 Lab Interpretation (test cod e = 48822-6) Normal [facility] 25 [id number] 06:15:23* Test Item Value Reference Range Interpretation Comme [facility] VITAMIN D, 25 OH (test code = [...] . . . NG/ML 30-100 COMPREHENSIVE METABOLIC [id number] 05:11:12* Test Item Value Reference Range Interpretation Comme nts GLUCOSE (test code = 2217) 81 MG/DL 70-99 BUN (test code = 2208) 8 MG/DL 6-20 CREATININE (test code = 2214) 0.65 MG/DL 0.60-1.30 eGFR (2020 CKD-EPI) (test code = 01400) 123 ML/MIN/1.73 >60 CALC BUN/CREAT (test code [...] code = 2219) 27 U/L 5-40 LIPID [id number] 05:11:12* Test Item Value Reference Range Interpretation Comme nts CHOLESTEROL (test code = 2210) 240 MG/DL <200 H TRIGLYCERIDES (test code = 2232) 159 MG/DL <150 H HDL CHOLESTEROL (test code = 0) 43 MG/DL >39 CALC LDL CHOL (test code = 7) 166 MG/DL <100 H NOTE: CALCULATED LDL IS BASED ON KENY-TOSCANO METHOD WHICHINCLUDES ADJUSTABLE TRIGLYCERIDE:VLDL CHOLESTEROL RATIO.THIS FACTOR VARIES BY MEASURED TRIGLYCERIDE AND NON-HDLCHOLESTEROL CONCENTRATIONS WITH INCREASED CALCULATED LDL SEENIN HIGHER TRIGLYCERIDE OR LOWER NON-HDL SPECIMENS. FOR MOREINFORMATION, SEE CLIENT ANNOUNCEMENT AT [email or web address] RISK RATIO LDL/HDL (test code = 2238) 3.86 RATIO <3.22 H HEMOGLOBIN [id number] 05:06:15* Test Item Value Reference Range Interpretation Comme [facility] HEMOGLOBIN A1c (test code = 18063) 6.1 % 4.2-5.6 H [id number] 04:43:16* Test Item Value Reference Range Interpretation Comme [facility] FERRITIN (test code = 2075) 132 NG/ML 13-200 UNLESS OTHERWISE INDICATED, ALL TESTING PERFORMED [facility] [address] [place] [address] COMPOSITION SIDING WORKER: JAENT JEAN-BAPTISTE M.D. CLIA NUMBER [id number] [facility] [place]. [id number] TSH, THIRD [id number] 04:43:16* Test Item Value Reference Range Interpretation Comme [facility] TSH, THIRD GENERATION (test code = 2821) 1.660 UIU/ML 0.400-4.100 VITAMIN [id number] 04:43:16* Test Item Value Reference Range Interpretation Comme nts VITAMIN B-12 (test code = 2840) 431 PG/ML 200-950 CBC W/AUTO DIFF WITH [id number] 02:51:12* Test Item Value Reference Range Interpretation [...] 0.00-0.10 ABS NUCLEATED RBCS (test code = 02159) 0.00 K/UL 0.00-0.11
[2024-11-20] MEDS ORDERED: NA CHLORIDE 0.9% 1,000 ML ONE (21:26)
[2024-11-20] MEDS ORDERED: ONDANSETRON 4 MG/2 ML VIAL ONE (21:26)
[2024-11-20 22:02] LABS: Specific Gravity 1.022 (1.005-1.030); Sqamous Epithelial <5 /HPF (None Seen); Urine Bacteria None Seen /HPF (<20); Urine Bilirubin NEGATIVE (Negative); Urine Blood Trace (Negative); Urine Clarity Clear (Clear); Urine Color Light-Yellow (Yellow); Urine Culture Reflex Order NOT NEEDED; Urine Glucose NEGATIVE (Negative); Urine Ketones NEGATIVE (Negative); Urine Microscopic Reflex YN ORDER UMIC; Urine Nitrite NEGATIVE (Negative); Urine Protein NEGATIVE (Negative); Urine RBC <5 /HPF (None Seen); Urine Urobilinogen Normal (Normal); Urine WBC <5 /HPF (<5); Urine pH 6.5 (5.0-7.0)
[2024-11-20 22:04] LABS: Specific Gravity 1.022 (1.005-1.030)
[2024-11-20 22:16] LABS: ALT/SGPT 32 U/L (13-56); AST/SGOT 16 U/L (15-37); Albumin 3.5 g/dL (3.4-5.0); Albumin/Globulin Ratio 0.9 (1.1-1.8); Alkaline Phosphatase 94 U/L (45-117); Anion Gap 8.8 mEq/L (5.0-15.0); BUN Blood Urea Nitrogen 8 mg/dL (7-18); Bicarbonate 24 mEq/L (21-32); Globulin 3.8 g/dL (2.3-3.5); Glomerular Filtration Rate 108 ml/min (=/>90); Glucose Level 177 mg/dL (74-106); Lipase 38 U/L (13-75); Potassium 3.8 mEq/L (3.5-5.1); Protein, Total 7.3 g/dL (6.4-8.2); Sodium Level 136 mEq/L (136-145)
[2024-11-20 22:19] LABS: Bilirubin Total < 0.2 mg/dL (0.2-1.0)
[2024-11-20 22:21] LABS: Absolute Eosinophils 0.2 K/uL (0-0.5); Absolute Lymphocytes (CBC) 3.8 K/uL (0.7-4.9); Absolute Monocytes 0.5 K/uL (0.1-1.3); Basophils % 0.4 % (0-1.3); Eosinophils % 1.4 % (0-4.4); Hematocrit 38.2 % (36.0-45.0); Hemoglobin 12.7 g/dL (12.0-15.0); Lymphocytes % 30.1 % (15.3-44.8); MCH 28.7 pg (27.0-35.0); MCHC 33.2 g/dL (32.0-36.0); MCV 86.4 fL (80-100); MPV 8.9 fL (7.6-11.3); Monocytes % 4.3 % (3.3-12.3); Neutrophils % 63.8 % (41.7-73.7); Nucleated Red Blood Cells % 0.1 % (0-0); Platelets 276 thou/uL (152-406); RBC Red Blood Cell Count 4.42 M/uL (3.86-4.86); Red Cell Distribution Width 14.1 % (12.1-15.2)
[2024-11-20 22:34] LABS: Influenza A Ag Negative; Influenza B Ag Negative; SARS-CoV-2 Antigen Rapid Res Negative (Negative)
--- NOTE | 2024-11-20 23:59 | EDPHYS ---
Physician Documentation [facility] Name: Vaishnavi Dey Age: 29 yrs Sex: Female : 1995 Arrival Date: 11/20/2024 Time: 20:49 Bed 5 Private MD: ED Physician Drew Dunn HPI: 11/20 20:51 This 29 yrs old Female presents to ER via Unassigned with complaints of sp4 Abdominal Pain, Dizziness, Headache, Irregular Pulse. 11/21 01:32 Patient presents with bilateral lower pain left more than the right. Patient has sp4 additional complaint of abdominal discomfort dizziness headache and irregular pulse.. 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 - Infectious Disease History:: Denies. - Social history:: Smoking status: Patient reports the use of cigarette tobacco products, smokes one-half pack cigarettes per day. - Family history:: not pertinent. ROS: 11/21 01:32 Constitutional: Negative for fever, chills, and weight loss, positive for back pain, sp4 abdominal discomfort, positive for dizziness, positive headache, positive irregular pulse. All other systems are negative, Exam: 01:32 Constitutional: This is a well developed, well nourished patient who is awake, alert, sp4 and in no acute distress. Head/Face: Normocephalic, atraumatic. Eyes: Pupils equal round and reactive to light, extra-ocular motions intact. Lids and lashes normal. Conjunctiva and sclera are not injected. Cornea within normal limits. Periorbital areas with no swelling, redness, or edema. ENT: Nares patent. No nasal discharge, no septal abnormalities noted. Tympanic membranes are normal and external auditory canals are clear. Oropharynx with no redness, swelling, or masses, exudates, or evidence of obstruction, uvula midline. Mucous membranes moist. Neck: Trachea midline, no thyromegaly or masses palpated, and no cervical lymphadenopathy. Supple, full range of motion without nuchal rigidity, or vertebral point tenderness. Chest/axilla: Normal chest wall appearance and motion. Nontender with no deformity. No lesions are appreciated. Cardiovascular: Regular rate and rhythm with a normal S1 and S2. No gallops, murmurs, or rubs. Normal PMI, no JVD. No pulse deficits. Respiratory: Lungs have equal breath sounds bilaterally, clear to auscultation and percussion. No rales, rhonchi or wheezes noted. No increased work of breathing, no retractions or nasal flaring. Abdomen/GI: Soft, with normal bowel sounds. No distension or tympany. No guarding or rebound. No evidence of tenderness throughout. Back: No spinal tenderness. No costovertebral tenderness. Skin: Warm, dry with normal turgor. Normal color with no rashes, no lesions, and no evidence of cellulitis. MS/ Extremity: Pulses equal, no cyanosis. Neurovascular intact. Full, normal range of motion. Neuro: Awake and alert, GCS 15, oriented to person, place, time, and situation. Cranial nerves II-XII grossly intact. Motor strength 5/5 in all extremities. Sensory grossly intact. Psych: Awake, alert, with orientation to person, place and time. Behavior, mood, and affect are within normal limits Vital Signs: 11/20 21:05 BP 150 / 105; Pulse 124; Resp 19; Temp 97.7; Pulse Ox 99% ; Weight 85.73 kg; Height 5 me1 ft. 2 in. ; Pain 2/10; 21:56 BP 140 / 99; Pulse 110; Resp 17 S; Pulse Ox 100% on R/A; ha1 22:55 BP 137 / 90; Pulse 99; Resp 18 S; Pulse Ox 98% on R/A; ha1 23:50 BP 150 / 79; Pulse 95; Resp 18 S; Pulse Ox 98% on R/A; ha1 11/21 00:27 BP 140 / 75; Pulse 98; Resp 16 S; Temp 97.8; Pulse Ox 98% on R/A; ha1 11/20 21:05 Body Mass Index 34.57 (85.73 kg, 157.48 cm) [facility] [place] 11/20 21:05 Pain Scale: Adult nm1 [place] Coma Score: 01:32 Eye Response: spontaneous(4). Motor Response: obeys commands(6). Verbal Response: sp4 oriented(5). Total: 15. MDM: 11/20 21:03 Medical Screening Exam initiated sp4 23:52 ED course: EXAM: CTAbdomen and Pelvis With Intravenous Contrast CLINICAL HISTORY: The sp4 patient is 29 years old and is Female; ABD PAIN TECHNIQUE: Axial computed tomography images of the abdomen and pelvis with intravenous contrast. Sagittal and coronal reformatted images were created and reviewed. This CT exam was performed using one or more of the following dose reduction techniques: automated exposure control, adjustment of the mA and/or kV according to patient size, and/or use of iterative reconstruction technique. COMPARISON: No relevant prior studies available. FINDINGS: Lung bases: Unremarkable. No mass. No consolidation. ABDOMEN: Liver: Hepatomegaly with hepatic steatosis. Gallbladder and bile ducts: Unremarkable. No calcified stones. No ductal dilation. Pancreas: Unremarkable. No mass. No ductal dilation. Spleen: Unremarkable. No splenomegaly. Adrenals: Unremarkable. No mass. Kidneys and ureters: Unremarkable. No solid mass. No hydronephrosis. Stomach and bowel: Unremarkable. No obstruction. No mucosal thickening. PELVIS: Appendix: The appendix is normal. Bladder: Unremarkable. Reproductive: Unremarkable as visualized. ABDOMEN and PELVIS: Intraperitoneal space: Unremarkable. No free air. No significant fluid collection. Bones/joints: No acute fracture. No dislocation. Soft tissues: Unremarkable. Vasculature: Unremarkable. No abdominal aortic aneurysm. Lymph nodes: Unremarkable. No enlarged lymph nodes. IMPRESSION: No acute finding in the abdomen/pelvis. Electronically signed by: Joesph Moura MD 11/20/2024 11:49 PM. 11/21 01:33 Differential diagnosis: generalized weakness, idiopathic dizziness, near-syncope, sp4 sepsis, syncope. Data reviewed: vital signs, nurses notes, lab test result(s), radiologic studies, CT scan. Consideration of Admission/Observation Escalation of care including admission/observation considered. ED course: Workup is positive for elevated CRP mild elevation of WBC mild elevation of sugar. Blood sugar 177. Otherwise workup unremarkable. Patient stable for discharge home. Advised blood sugar check and 2 to 4 weeks.. 11/20 21:03 Order name: CBC with Diff; Complete Time: 23:13 sp4 11/20 21:03 Order name: CMP; Complete Time: 23:13 sp4 11/20 21:03 Order name: Lipase; Complete Time: 23:13 sp4 11/20 21:03 Order name: Test, Urine; Complete Time: 23:13 sp4 11/20 21:03 Order name: Urinalysis w/ reflexes; Complete Time: 23:13 sp4 11/20 21:13 Order name: COVID-19 Ag + Flu A+B Ag; Complete Time: 23:13 sp4 11/20 21:51 Order name: C-Reactive Protein; Complete Time: 23:13 EDAZ 11/20 21:12 Order name: CT Abd/Pelvis - IV Contrast Only; Complete Time: 01:34 sp4 11/20 21:03 Order name: IV Saline Lock; Complete Time: 21:52 sp4 11/20 21:03 Order name: Labs collected and sent; Complete Time: 21:53 sp4 Administered Medications: 11/20 21:53 Drug: Ondansetron IVP 4 mg IVP once; over 2 minutes Route: IVP; Site: right antecubital;ha1 22:10 Follow up: Response: No adverse reaction; Marked relief of symptoms ha1 21:53 Drug: NS 0.9% IV 1000 ml IV at 1 bolus Per protocol; to be given as a bolus over 60 ha1 minutes Route: IV; Rate: 1 bolus; Site: right antecubital; 11/21 00:26 Follow up: Response: No adverse reaction; IV Status: Completed infusion; IV Intake: ha1 1000ml Disposition: 01:33 Chart complete. sp4 Disposition Summary: 11/20/24 23:58 Discharge Ordered Notes: Consider Diabetic Diet
Recheck your blood sugar in 30 days Location: Home sp4 Problem: new sp4 Symptoms: have improved sp4 Condition: Stable sp4 Diagnosis - Low back pain sp4 - Acute left lower back pain, Acute dizziness, Headache sp4 Followup: sp4 - With: Talon Parker DO - When: 10 - 14 days - Reason: Recheck today's complaints Discharge Instructions: - Discharge Summary Sheet sp4 - Diabetes Mellitus and Nutrition, Adult sp4 Forms: - Patient Portal Instructions sp4 Prescriptions: - methocarbamol 750 mg Oral tablet - take 2 tablets ORAL route every 8 hours for 3 days PRN back pain; 40 tablet; sp4 Refills: 0, Product Selection Permitted Signatures: Dispatcher [employer] [facility] Afua Arenas, DANIELE RN ha1 Drew Dunn MD MD sp4 Fanta Sanders RN RN me1 Corrections: (The following items were deleted from the chart) 11/20 21:03 21:03 CBC+H.LAB.BRZ ordered. EDMS EDMS 21:03 21:03 COMPREHENSIVE METABOLIC PANEL+C.LAB.BRZ ordered. EDMS EDMS 21:03 21:03 LIPASE+C.LAB.BRZ ordered. EDMS EDMS 21:03 21:03 Test, Urine+UC.LAB.BRZ ordered. EDMS EDMS 21:03 21:03 Urinalysis+U.LAB.BRZ ordered. EDMS EDMS 21:08 21:07 PMHx: prediabetes; nm1 me1 21:13 21:13 Abdomen Pelvis W Con+CT.RAD.BRZ ordered. EDMS EDMS 21:13 21:13 COVID-19 Ag + Flu A+B Ag+I.LAB.BRZ ordered. EDMS EDMS 21:52 21:13 C-REACTIVE PROTEIN+C.LAB.BRZ ordered. EDMS EDMS
--- NOTE | 2024-11-20 23:59 | ER ---
Nurse's Notes [facility] Name: Vaishnavi Dey Age: 29 yrs Sex: Female : 1995 Arrival Date: 11/20/2024 Time: 20:49 Bed 5 Private MD: Diagnosis: Low back pain;Acute left lower back pain, Acute dizziness, Headache Presentation: 11/20 21:05 Chief complaint: Patient states: left lower back pain for 1-2 weeks that is worse me1 today. Intermittent palpitations and one episode of severe dizziness today that lasted for about 4 minutes, resolved with rest. Coronavirus screen: Vaccine status: Patient reports being unvaccinated. Ebola Screen: No symptoms or risks identified at this time. Initial Sepsis Screen: Does the patient meet any 2 criteria? HR > 90 bpm. Risk Assessment: Do you want to hurt yourself or someone else? Patient reports no desire to harm self or others. Onset of symptoms is unknown. 21:05 Method Of Arrival: Ambulatory me1 21:05 Acuity: VICKY 3 me1 21:57 Initial Sepsis Screen: Does the patient have a suspected source of infection? No. ha1 Patient's initial sepsis screen is negative. 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 - Infectious Disease History:: Denies. - Social history:: Smoking status: Patient reports the use of cigarette tobacco products, smokes one-half pack cigarettes per day. - Family history:: not pertinent. Screenin:56 [facility] ED Fall Risk Assessment (Adult) History of falling in the last 3 months, ha1 including since admission No falls in past 3 months (0 pts) Confusion or Disorientation No (0 pts) Intoxicated or Sedated No (0 pts) Impaired Gait No (0 pts) Mobility Assist Device Used No (0 pt) Altered Elimination No (0 pt) Score/Fall Risk Level 0 - 2 = Low Risk Oriented to surroundings, Maintained a safe environment, Educated pt \T\ family on fall prevention, incl call for assistance when getting out of bed, Hourly rounding (assess needs \T\ fall precautionary measures) done. Abuse screen: Denies threats or abuse. Denies injuries from another. Nutritional screening: No deficits noted. Tuberculosis screening: No symptoms or risk factors identified. Assessment: 21:20 General: Appears comfortable, Behavior is calm, cooperative. Pain: Complains of pain in ha1 back Pain currently is 4 out of 10 on a pain scale. Quality of pain is described as pressure. Neuro: Level of Consciousness is awake, alert, obeys commands, Oriented to person, place, time, situation. Neuro: Reports dizziness. Cardiovascular: Patient's skin is warm and dry. Respiratory: Airway is patent Respiratory effort is even, unlabored, Respiratory pattern is regular, symmetrical. GI: Abdomen is round non-distended, obese, Bowel sounds present X 4 quads. Abd is soft and non tender X 4 quads. : No signs and/or symptoms were reported regarding the genitourinary system. Derm: Skin is pink, warm \T\ dry. Musculoskeletal: Circulation, motion, and sensation intact. 22:10 Reassessment: Patient and/or family updated on plan of care and expected duration. Pain ha1 level reassessed. Patient is alert, oriented x 3, equal unlabored respirations, skin warm/dry/pink. 23:10 Reassessment: Patient and/or family updated on plan of care and expected duration. Pain ha1 level reassessed. Patient is alert, oriented x 3, equal unlabored respirations, skin warm/dry/pink. 11/21 00:25 Reassessment: Patient and/or family updated on plan of care and expected duration. Pain ha1 level reassessed. Patient is alert, oriented x 3, equal unlabored respirations, skin warm/dry/pink. Patient states feeling better. Patient states symptoms have improved. Vital Signs: 11/20 21:05 BP 150 / 105; Pulse 124; Resp 19; Temp 97.7; Pulse Ox 99% ; Weight 85.73 kg; Height 5 me1 ft. 2 in. ; Pain 2/10; 21:56 BP 140 / 99; Pulse 110; Resp 17 S; Pulse Ox 100% on R/A; ha1 22:55 BP 137 / 90; Pulse 99; Resp 18 S; Pulse Ox 98% on R/A; ha1 23:50 BP 150 / 79; Pulse 95; Resp 18 S; Pulse Ox 98% on R/A; ha1 11/21 00:27 BP 140 / 75; Pulse 98; Resp 16 S; Temp 97.8; Pulse Ox 98% on R/A; ha1 11/20 21:05 Body Mass Index 34.57 (85.73 kg, 157.48 cm) me1 11/20 21:05 Pain Scale: Adult me1 [place] Coma Score: 01:32 Eye Response: spontaneous(4). Motor Response: obeys commands(6). Verbal Response: sp4 oriented(5). Total: 15. ED Course: 11/20 20:50 Patient arrived in ED. [id number] 20:51 Drew Dunn MD is Attending Physician. sp4 21:07 Triage completed. me1 21:07 Arm band placed on Patient placed in an exam room. me1 21:10 Patient has correct armband on for positive identification. Placed in gown. Bed in low ha1 position. Call light in reach. Side rails up X 1. 21:10 Provided Education on: plan of care. Client placed on continuous cardiac and pulse ha1 oximetry monitoring. NIBP monitoring applied. 21:30 Inserted saline lock: 22 gauge in right antecubital area, using aseptic technique. ha1 Blood collected. Flushed with 10 mL NS. 21:53 CBC with Diff Sent. ha1 21:53 CMP Sent. ha1 21:53 Lipase Sent. ha1 21:53 Test, Urine Sent. ha1 21:53 Urinalysis w/ reflexes Sent. ha1 21:53 C-Reactive Protein Sent. ha1 21:53 COVID-19 Ag + Flu A+B Ag Sent. ha1 21:58 Afua Arenas, RN is Primary Nurse. ha1 22:54 CT Abd/Pelvis - IV Contrast Only In Process Unspecified. EDMS 23:57 Talon Parker DO is Referral Physician. sp4 11/21 00:25 No provider procedures requiring assistance completed. IV discontinued, intact, ha1 bleeding controlled, No redness/swelling at site. Pressure dressing applied. Administered Medications: 11/20 21:53 Drug: Ondansetron IVP 4 mg IVP once; over 2 minutes Route: IVP; Site: right antecubital;ha1 22:10 Follow up: Response: No adverse reaction; Marked relief of symptoms ha1 21:53 Drug: NS 0.9% IV 1000 ml IV at 1 bolus Per protocol; to be given as a bolus over 60 ha1 minutes Route: IV; Rate: 1 bolus; Site: right antecubital; 11/21 00:26 Follow up: Response: No adverse reaction; IV Status: Completed infusion; IV Intake: ha1 1000ml Medication: 11/20 21:57 VIS not applicable for this client. ha1 Intake: 11/21 00:26 IV: 1000ml; Total: 1000ml. ha1 Outcome: 11/20 23:58 Discharge ordered by . mariia 11/21 00:25 Discharged to home ambulatory, with family, [facility] Condition: stable Discharge instructions given to patient, family, Instructed on discharge instructions, follow up and referral plans. medication usage, Demonstrated understanding of instructions, follow-up care, medications, Prescriptions given X 1, 00:27 Patient left the ED. 1 Signatures: Dispatcher [employer] EDGermaine Ruth [email or web address] Afua Arenas, RN RN 1 Drew Dunn MD MD sp4 Fanta Sanders RN RN me1 Corrections: (The following items were deleted from the chart) 11/20 21:08 21:07 PMHx: prediabetes; me1 me1
[2024-11-21 00:43] VITALS: TEMP 97.7
[2024-11-21 00:49] VITALS: BP 140/99; O2SAT 100
--- NOTE | 2024-11-21 01:17 | RAD REPORT ---
EXAM: CT Abdomen and Pelvis With Intravenous Contrast CLINICAL HISTORY: The patient is 29 years old and is Female; ABD PAIN TECHNIQUE: Axial computed tomography images of the abdomen and pelvis with intravenous contrast. Sagittal and coronal reformatted images were created and reviewed. This CT exam was performed using one or more of the following dose reduction techniques: automated exposure control, adjustmen t of the mA and/or kV according to patient size, and/or use of iterative reconstruction technique. COMPARISON: No relevant prior studies available. FINDINGS: Lung bases: Unremarkable. No mass. No consolidation. ABDOMEN: Liver: Hepatomegaly with hepatic steatosis. Gallbladder and bile ducts: Unremarkable. No calcified stones. No ductal dilation. Pancreas: Unremarkable. No mass. No ductal dilation. Spleen: Unremarkable. No splenomegaly. Adrenals: Unremarkable. No mass. Kidneys and ureters: Unremarkable. No solid mass. No hydronephrosis. Stomach and bowel: Unremarkable. No obstruction. No mucosal thickening. PELVIS: Appendix: The appendix is normal. Bladder: Unremarkable. Reproductive: Unremarkable as visualized. ABDOMEN and PELVIS: Intraperitoneal space: Unremarkable. No free air. No significant fluid collection. Bones/joints: No acute fracture. No dislocation. Soft tissues: Unremarkable. Vasculature: Unremarkable. No abdominal aortic aneurysm. Lymph nodes: Unremarkable. No enlarged lymph nodes. IMPRESSION: No acute finding in the abdomen/pelvis. Electronically signed by: Joesph Moura MD 11/20/2024 11:49 PM CDT 8 Due to temporary technical issues with the PACS/[employer] reporting system, reports are being gurinder d by the in-house radiologist without review as a courtesy to ensure prompt reporting the interpreting radiologist is fully responsible for the content of the report. Transcribed Date/Time: 11/21/2024 1:17 AM
== END 2024-11-21 00:27 | disposition home or self-care (01) ==
LOC: ER 20:49
DX: M54.50 Low back pain, unspecified (principal); R51.9 Headache, unspecified; R42 Dizziness and giddiness
CPT/HCPCS: 36415; 74177; 80053; 81001; 81025; 83690; 85025; 86140; 87428; 96361; 96374; 99284; J2405; J7030; Q9967